=== PATIENT | female | born 1985 | race Caucasian/White ===

== ENCOUNTER 2018-01-20 15:37 | Emergency (ER) | payer MEDICAID, SELFPAY ==
[2018-01-20 15:41] VITALS: BP 113/59; PULSE 81; RESP 18; TEMP 37.2; O2SAT 98
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
[2018-01-20 16:26] LABS: Bilirubin Negative (Negative); Blood Negative (Negative); Clarity Clear; Glucose Negative (Negative); Ketones Negative (Negative); Leukocyte Esterase Negative (Negative); Nitrite Negative (Negative); Specific Gravity 1.025 (1.005-1.025); Urobilinogen 0.2 EU/dL (Up TO 0.2)
[2018-01-20] MEDS: Normal Saline 1,000 ML 1000 ML IV (16:30)
[2018-01-20] MEDS: Ketorolac 30 MG/ML VIAL IVP (16:42)
[2018-01-20 16:48] LABS: Abs Immature Grans 0.02 k/cumm (0.0-0.09); Absolute Basophil Count 0.03 k/cumm (0.0-0.2); Absolute Eosinophil Count 0.08 k/cumm (0.0-0.7); Absolute Lymphocyte Count 2.64 k/cumm (1.2-3.4); Absolute Monocyte Count 0.81 k/cumm (0.11-0.7); Basophils % 0.3; Eosinophils % 0.8; HCT 40.8 % (36.0-46.0); HGB 13.9 g/dL (12.0-15.5); Immature Grans % 0.2; Lymphocytes % 25.9; Mean Corp. HGB Concentration 34.1 g/dL (32.0-36.0); Mean Corpuscular Hemoglobin 30.8 pg (27.0-33.0); Mean Corpuscular Volume 90.3 fL (80-95); Mean Platelet Volume 10.7 fL (8.0-11.0); Neutrophils % 64.8; Platelet Count 222 x1000/uL (130-400); RBC 4.52 m/cumm (4.00-5.20); RBC Distribution Width 12.7 % (11.7-14.6); White Blood Cell Count 10.18 k/cumm (4.4-10.8)
[2018-01-20 16:59] LABS: ALT 22 U/L (12-78); AST 18 U/L (15-37); Albumin 3.8 g/dL (3.4-5.0); Alkaline Phosphatase 67 U/L (46-116); BUN 14 mg/dL (7-18); Bilirubin, Total 0.2 mg/dL (0.2-1.0); CREATININE 0.87 mg/dL (0.55-1.02); Calcium 8.6 mg/dL (8.5-10.1); Chloride 106 mmol/L (98-107); Glucose 97 mg/dL (70-100); Potassium 3.7 mmol/L (3.5-5.1); Sodium 140 mmol/L (136-145); Total Protein 6.7 g/dL (6.4-8.2)
[2018-01-20] MEDS: Omnipaque 350 MG/ML 100 ML BTL IJ (17:15)
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
[2018-01-20 18:48] VITALS: BP 132/90; PULSE 69; RESP 18; TEMP 37.2; O2SAT 100
[2018-01-20 18:55] VITALS: BP 132/90; PULSE 69; RESP 18; TEMP 37.2; O2SAT 100
== END 2018-01-20 18:53 | disposition home or self-care (01) ==
PROVIDERS: Emergency Provider Physician Assistant; PCP Family Medicine
DX: R10.84 Generalized abdominal pain (principal); R07.81 Pleurodynia; K62.5 Hemorrhage of anus and rectum; K62.89 Other specified diseases of anus and rectum; Y04.8XXA Assault by other bodily force, initial encounter; Y07.03 Male partner, perpetrator of maltreatment and neglect
CPT/HCPCS: 36415; 74177; 80053; 81025; 93005; 96361; 96374; 99285; 71260; 81003; 85025; 93010; J1885; J3490

== ENCOUNTER 2018-01-28 17:35 | Emergency (ER) | payer MEDICAID, SELFPAY ==
[2018-01-28] VITALS (16 sets, daily range): BP systolic 121–142; BP diastolic 80–103; PULSE 66–92; RESP 24; TEMP 37.7; O2SAT 96–100
--- NOTE | 2018-01-28 17:46 | ED.GENADUL_ITS ---
Disposition Clinical Impression: Abdominal pain Disposition: HOME Condition: Improving Instructions: Abdominal Pain (ED) Additional Instructions: Alternate Tylenol and Motrin as needed and directed for pain. Alternate ice and heat to the affected area several times daily. Follow-up with your primary care doctor within the next week. Return to the emergency department with any worsening or new concerning symptoms. Forms: Work Release Medical Decision Making - Lab Data test negative Laboratory Tests 01/28/18 01/28/18 01/28/18 17:45 17:45 18:15 WBC 12.87 H RBC 5.11 Hgb 15.8 H Hct 45.3 MCV 88.6 MCH 30.9 MCHC 34.9 RDW 12.9 Plt Count 277 MPV 10.9 Immature Gran % 0.3 Neutrophils % 67.6 Lymphocytes % 23.2 Monocytes % 7.9 Eosinophils % 0.6 Basophils % 0.4 Absolute Neutrophils 8.70 H Absolute Lymphocytes 2.99 Absolute Monocytes 1.02 H Absolute Eosinophils 0.08 Absolute Basophils 0.05 Sodium 139 Potassium 3.7 Chloride 101 Carbon Dioxide 26.4 Anion Gap 11.6 H BUN 13 Creatinine 0.69 Estimated GFR/1.73 m2 >= 60.00 Glucose 98 Calcium 9.4 Total Bilirubin 0.6 AST 18 ALT 21 Alkaline Phosphatase 82 Total Protein 8.2 Albumin 4.5 Lipase 109 Urine Color Yellow Urine Clarity Clear Urine pH 6.0 Ur Specific [place] >= 1.030 H Urine Protein Negative Urine Ketones Negative Urine Blood Trace-intact H Urine Nitrite Negative Urine Bilirubin Negative Urine Urobilinogen 0.2 Ur Leukocyte Esterase Negative Urine RBC 0-2 Urine WBC 0-2 Ur Epithelial Cells Few Urine Crystals Negative Urine Bacteria Rare Urine Casts Negative Urine Mucus Moderate Ur Culture Indicated? No Urine Glucose Negative - Radiology Data Radiology results: report reviewed, image reviewed interpreted by me: Abdomen ultrasound: Negative CT abdomen and pelvis without IV contrast: Negative - Medical Decision Making 32-year-old female who presents for right-sided abdominal pain since yesterday afternoon. Patient presented moaning in pain from the waiting room. She is grabbing her right side and moaning and crying and screaming in the room. She has mild to moderate tenderness palpation in the right upper quadrant and right mid abdomen. There is no rigidity she has guarding. History of appendectomy. No ultrasound available, but with significant pain and right upper and mid abdominal tenderness, will obtain a CT abdomen renal colic. William from ultrasound still here and will stay to do an abdominal ultrasound to rule out cholecystitis. Will place an IV, bolus IV fluids, labs, urinalysis and give a dose of Toradol. Patient states she cannot take morphine, codeine or fentanyl. 1844 -- William called to state the gallbladder looks normal and that the pancreas wall looked thickened. 1899 -- patient denies any relief with Toradol. She is still moaning in pain. Will give a dose of Dilaudid. 1944 -- labs and imaging reviewed. Abdomen ultrasound and CT negative. White blood cell count 12.87. Urinalysis greater than 1.030 specific gravity and anion gap 11.6. Patient given another liter of IV fluids. Patient admits to complete relief of pain with Dilaudid. Patient states I do not like the way the Dilaudid makes me feel . She appears groggy and sleepy and is no longer moaning and appears comfortable. Reassessment of abdomen notes improvement in tenderness with palpation in right side of abdomen. She states she still feels a popping in her right abdomen. I also discussed the possibility of a muscle strain in the abdomen. Patient states she otherwise feels good to go home. Instructed to alternate Tylenol and Motrin, follow-up with primary care doctor and return here if worse. History of Present Illness - General Chief complaint: Abd Prob Stated complaint: STOMACH PAIN Time Seen by Provider: 01/28/18 17:41 Source: patient Mode of arrival: ambulatory Limitations: no limitations - History of Present Illness Initial comments: Patient is a 32-year-old female who presents to the ER with complaint of right sided abdominal pain for 1 day. Patient describes the pain as intermittent, stabbing. Patient has significant pain during evaluation and is moaning and grabbing her right side and difficult to answer questions. She denies nausea, vomiting, diarrhea. Patient states she last ate today at noon and had pizza. Last bowel movement 2 days ago. She denies any known fever or urinary symptoms. - Related Data Methylphenidate [Ritalin] 20 mg PO BID #60 01/08/15 Dexmethylphenidate HCl [Focalin Xr] 30 mg PO DAILY 01/20/18 Allergies Allergy/AdvReac Type Severity Reaction Status Date / Time cefazolin sodium [From [facility]] Allergy Severe Bradycardia Unverified 01/28/18 18: 34 & hives fentanyl Allergy Severe Hives and Unverified 01/28/18 18:34 Bradycardia venom-honey bee Allergy Severe Anaphylaxsi Unverified 01/28/18 18:34 [bee venom (honey bee)] s lurasidone HCl [From Latuda] Allergy seizure Unverified 01/28/18 18:34 codeine [Codeine] AdvReac Intermediate Nausea/vomi Unverified 01/28/18 18:34 tting Sulfa (Sulfonamide AdvReac Intermediate Body Shakes Unverified 01/28/18 18:34 Antibiotics) gabapentin AdvReac light Unverified 01/28/18 18:34 headed /dizzy/depressed morphine AdvReac I get Unverified 01/28/18 18:34 very ugly Review of Systems Constitutional: denies: chills, fever Eyes: denies: eye pain ENT: denies: ear pain, dental pain Respiratory: denies: cough, shortness of breath Cardiovascular: denies: chest pain, dyspnea on exertion Gastrointestinal: abdominal pain. denies: nausea, vomiting Genitourinary: denies: urgency, dysuria, frequency Musculoskeletal: denies: back pain Skin: denies: rash, lesions Neurological: denies: headache, weakness, numbness Past Medical History - Past Medical History Medical history: asthma, GERD Surgical history: appendectomy, bilateral tubal ligation, , other ( Oophorectomy) Family history: no significant family history, other (bowel problems) - Social History Smoking status: current everyday smoker Alcohol use: occasionally Drug use: marijuana General Exam - General Limitations: no limitations General appearance: alert, other (appears significantly uncomfortable, moaning in pain ) - Respiratory Respiratory exam: Present: normal lung sounds bilaterally. Absent: respiratory distress, wheezes, rales, rhonchi, stridor - Cardiovascular Cardiovascular Exam: Present: regular rate, normal rhythm. Absent: bradycardia , tachycardia - GI/Abdominal GI/Abdominal exam: Present: soft, tenderness (Right upper quadrant and right midabdomen.), normal bowel sounds. Absent: distended, guarding, rebound, rigid - Neurological Exam Neurological exam: Present: alert, oriented X3 - Psychiatric Psychiatric exam: Present: other (moaning in pain, crying) - Skin Skin exam: Present: warm, dry, intact
--- NOTE | 2018-01-28 17:59 | DI.RPTCT_ITS ---
SYMPTOMS/DIAGNOSIS: RT SIDE PAIN, ? KIDNEY STONE, RECTAL BLEEDING, ? ACUTE PROCESS NONCONTRAST CT OF THE ABDOMEN AND PELVIS: The exam is limited by lack of intra-abdominal fat and lack of oral and IV contrast. There is no evidence of urinary tract calculi or hydronephrosis. The liver, gallbladder, spleen, pancreas and adrenals are unremarkable without IV contrast. There is a moderate increased quantity of stool. There is no abnormal bowel dilatation or wall thickening. There are surgical clips around the base of the cecum which may be related to previous appendectomy. The uterus and ovaries are unremarkable. IMPRESSION: No evidence of urinary tract calculi or other acute abnormality.
[2018-01-28 18:00] LABS: Abs Immature Grans 0.04 k/cumm (0.0-0.09); Absolute Basophil Count 0.05 k/cumm (0.0-0.2); Absolute Eosinophil Count 0.08 k/cumm (0.0-0.7); Absolute Lymphocyte Count 2.99 k/cumm (1.2-3.4); Absolute Monocyte Count 1.02 k/cumm (0.11-0.7); Basophils % 0.4; Eosinophils % 0.6; HCT 45.3 % (36.0-46.0); HGB 15.8 g/dL (12.0-15.5); Immature Grans % 0.3; Lymphocytes % 23.2; Mean Corp. HGB Concentration 34.9 g/dL (32.0-36.0); Mean Corpuscular Hemoglobin 30.9 pg (27.0-33.0); Mean Corpuscular Volume 88.6 fL (80-95); Mean Platelet Volume 10.9 fL (8.0-11.0); Monocytes % 7.9; Neutrophils % 67.6; Platelet Count 277 x1000/uL (130-400); RBC 5.11 m/cumm (4.00-5.20); RBC Distribution Width 12.9 % (11.7-14.6); White Blood Cell Count 12.87 k/cumm (4.4-10.8)
[2018-01-28] MEDS: Ketorolac 30 MG/ML VIAL IVP (18:05)
[2018-01-28] MEDS: Normal Saline 1,000 ML 1000 ML IV ×2 (18:07→19:10)
[2018-01-28 18:13] LABS: ALT 21 U/L (12-78); AST 18 U/L (15-37); Albumin 4.5 g/dL (3.4-5.0); Alkaline Phosphatase 82 U/L (46-116); Anion Gap 11.6 mmol/L (3-11); BUN 13 mg/dL (7-18); Bilirubin, Total 0.6 mg/dL (0.2-1.0); CO2 26.4 mmol/L (21.0-32.0); CREATININE 0.69 mg/dL (0.55-1.02); Calcium 9.4 mg/dL (8.5-10.1); Chloride 101 mmol/L (98-107); Glucose 98 mg/dL (70-100); Lipase 109 U/L (73-393); Potassium 3.7 mmol/L (3.5-5.1); Sodium 139 mmol/L (136-145); Total Protein 8.2 g/dL (6.4-8.2)
--- NOTE | 2018-01-28 18:31 | DI.REPORT_ITS ---
SYMPTOMS/DIAGNOSIS: RUQ ABD PAIN, ? CHOLECYSTITIS OR KIDNEY STONES ABDOMEN ULTRASOUND: Comparison is made with [id number]. The liver is normal in size and echogenicity. The gallbladder is unremarkable. No stones or wall thickening is seen. There is no right upper quadrant tenderness. There is no evidence of ascites. The kidneys, spleen and pancreas as well as aorta are unremarkable. IMPRESSION: Negative abdomen ultrasound.
[2018-01-28 18:37] LABS: Bilirubin Negative (Negative); Blood Trace-intact (Negative); Clarity Clear; Glucose Negative (Negative); Ketones Negative (Negative); Leukocyte Esterase Negative (Negative); Nitrite Negative (Negative); Specific Gravity >= 1.030 (1.005-1.025); Urobilinogen 0.2 EU/dL (Up TO 0.2)
[2018-01-28 18:48] LABS: Bacteria Rare HPF (Negative); C & S Indicated? No; Casts Negative LPF (Negative); Crystals Negative HPF (Negative); Epithelial Cells Few HPF (Negative); Mucus Moderate (Negative); RBC 0-2 (0-2); WBC 0-2 HPF (0-5)
--- NOTE | 2018-01-28 19:19 | DI.VRAD_ITS ---
EXAM: US Abdomen Complete CLINICAL HISTORY: 32 years old, female; Pain; Abdominal pain and other: Rt sided rib region pain; Acute TECHNIQUE: Real-time ultrasound of the abdomen (complete) with image documentation. COMPARISON: OB US 2-3 TRI TRANSABD 2014-11-20 15:08 FINDINGS: The liver is unremarkable. Normal gallbladder. There was no sonographic Godinez's sign according to the pinion sorter. Slightly prominent common bile duct. No hydronephrosis. 1.6 cm right renal cyst. Limited evaluation of the pancreas. Normal spleen. Normal abdominal aorta. IMPRESSION: No acute findings. Dictated and Authenticated by: Marvin Mckinney MD. Ordering:MONIQUE LUCERO MD
--- NOTE | 2018-01-28 19:20 | DI.VRAD_ITS ---
EXAM: CT Abdomen and Pelvis Without Intravenous Contrast CLINICAL HISTORY: 32 years old, female; Pain and signs and symptoms; Other: Rectal bleeding; Abdominal pain TECHNIQUE: Axial computed tomography images of the abdomen and pelvis without intravenous contrast. Coronal and sagittal reformatted images were created and reviewed. COMPARISON: CT - CHEST ABD PELVIS WITH CONTRAST 2018-01-20 16:40 FINDINGS: Lung bases: Unremarkable. No mass. No consolidation. ABDOMEN: Liver: Unremarkable. Gallbladder and bile ducts: Unremarkable. No calcified stones. No ductal dilation. Pancreas: Unremarkable. No ductal dilation. Spleen: Unremarkable. No splenomegaly. Adrenals: Unremarkable. No mass. Kidneys and ureters: Unremarkable. No obstructing stones. No hydronephrosis. Stomach and bowel: No evidence of bowel obstruction. There is mild fecal retention in the colon. Limited evaluation of the rectum without intravenous contrast enhancement. PELVIS: Appendix: Nonvisualized appendix. No findings to suggest appendicitis. Bladder: Unremarkable. No stones. Reproductive: Unremarkable as visualized. ABDOMEN and PELVIS: Intraperitoneal space: Unremarkable. No free air. No significant fluid collection. Bones/joints: No acute fracture. No dislocation. Soft tissues: Unremarkable. Vasculature: Unremarkable. No abdominal aortic aneurysm. Lymph nodes: Unremarkable. No enlarged lymph nodes. IMPRESSION: No acute findings. Dictated and Authenticated by: Marvin Mckinney MD. Ordering:MONIQUE LUCERO MD
[2018-01-28] MEDS: HYDROmorphone 2 MG/ML VIAL 1 MG IVP (19:35)
[2018-01-28] MEDS: Ondansetron 4 MG/2 ML VIAL IVP (20:00)
[2018-01-28] MEDS: Normal Saline Flush 10 ML SYR IVP (20:20)
== END 2018-01-28 20:31 | disposition home or self-care (01) ==
PROVIDERS: Emergency Provider Physician Assistant; PCP Family Medicine
DX: R10.11 Right upper quadrant pain (principal)
CPT/HCPCS: 36415; 80053; 81025; 83690; 96361; 96374; 96375; 99284; 74176; 76700; 81003; 81015; 85025; J1885; J2405

== ENCOUNTER → 2018-02-01 11:28 | Outpatient (CLI) | payer MEDICAID, SELFPAY ==
[2018-02-02 11:27] LABS: Alpha 1 Antitrypsin,Serum 68 mg/dL (90-200)
== END ==
PROVIDERS: PCP Family Medicine; Visit Provider Family Medicine
DX: J43.9 Emphysema, unspecified (principal)
CPT/HCPCS: 36415; 82103

== ENCOUNTER 2018-03-07 10:16 | Emergency (ER) | payer MEDICAID, SELFPAY ==
[2018-03-07] VITALS (15 sets, daily range): BP systolic 92–147; BP diastolic 60–104; PULSE 88–182; RESP 9–28; TEMP 36.8–37; O2SAT 98–100
--- NOTE | 2018-03-07 10:32 | DI.RAD_ITS ---
SYMPTOMS/DIAGNOSIS: SHORTNESS OF BREATH, COUGH CHEST: Frontal and lateral views. Comparison 10/19/17. The heart size and pulmonary vasculature are within normal limits. The lungs are clear and well expanded. There are healing fractures at the lateral aspects of the right 8th and 9th ribs. The bones are otherwise unremarkable. IMPRESSION: Healing right 8th and 9th rib fractures laterally.
--- NOTE | 2018-03-07 10:48 | W.ED.GENAD ---
Discharge Plan Disposition Patient Disposition: HOME Condition: Stable Discharge Details Chief Complaint: RespSymp Clinical Impression: Asthma, Nonsustained paroxysmal supraventricular tachycardia, Decreased thyroid stimulating hormone (TSH) level Primary Care Provider: Ze Edwards ED Provider: Kate Sims Home Meds and New Rx's Prescriptions: New prednisone 50 mg tablet 50 mg PO DAILY Qty: 4 RF: 0 albuterol sulfate 90 mcg/actuation HFA aerosol inhaler 2 puff IH Q6H PRN (Reason: shortness of breath) Qty: 8 RF: 0 Continue methylphenidate HCl [Ritalin] 20 MG tablet 20 mg PO BID Qty: 60 RF: 0 risperidone [Risperdal] 1 MG tablet 1 mg PO HS RF: 0 nicotine [Nicoderm CQ] 21 mg/24 hr patch 24 hour 1 patch TD Q24H Qty: 45 RF: 0 lorazepam [Ativan] 0.5 mg Tablet 0.5 mg PO BID RF: 0 dexmethylphenidate [Focalin XR] 30 MG capsule,ER biphasic 50-50 30 mg PO DAILY RF: 0 No Action metoprolol tartrate 25 mg tablet 25 mg PO BID Qty: 60 RF: 11 Discharge Instructions Instructions: Supraventricular Tachycardia (ED), Asthma (ED), Hyperthyroidism (ED) Additional Instructions: Please return immediately to the emergency department if you develop any new or worsening symptoms or if you become otherwise concerned. It is extremely important that you attend your scheduled appointment this Wednesday at 940 in the morning with your primary care doctor. Stand Alone Forms: Work Release Discharge Data Discharge Date/Time-TO BE ENTERED AT DEPARTURE: 03/07/18 13:45 Medical Decision Making [facility] Narrative Medical decision making narrative: Billy Santana is a 32 y/o woman with h/o emphysema, current smoker presenting to the emergency department with cough and SOB. On exam Pt with b/l wheeze, productive cough, and mild SOB able to speak in full sentences. Upon being placed on monitor Pt was found to be in SVT and brought to resuscitation room. Vagal maneuvers failed, but Pt then spontaneously converted to sinus rhythm prior to medication administration. No low BP. Pt reported feeling lightheaded and sweaty with heart racing during episode, and reports that this has been happening almost every day and sometimes several times a day for the past few months. She has not sought medical evaluation for these symptoms. No fainting or LOC in the past. Concern for PNA vs COPD exacerbation, possible metabolic/lyte disturbance vs other, doubt PE. Exam/hx not c/w sepsis, ACS, acute aortic pathology. Plan for duonebs, solumedrol, CXR, screening labs, EKG, telemetry, will monitor and reassess. Pt reports feeling signicantly better after duoneb. Continued b/l wheeze on auscultation, improved from prior. Will repeat duoneb. CXR okay. Labs non-diagnostic, upreg neg per nursing. Pt reports feeling much better after duoneb without no further SOB. LCTAB on exam. Given Pt with apparent recurrent non-sustained episodes of SVT at home, no indication for admission at this time. Pt has not been using inhaler at home, will hold abx at this time. Rx prednisone and inh. Discussed possible cessation of stimulant meds with Pt, who would like to discuss with her PCP. I discussed Pt presentation, exam/hx and results with Dr. Ramsay, who recommends no med changes at this time (not the Pt's PCP) and will have Pt seen this week in f/u for resp and cardiac problems. Lengthy discussion with Pt re: RTED precautions and importance of outpt f/u with PCP . Pt is amenable to the plan. Medical Records Medical records reviewed: Yes I reviewed the patient's medical records. Imaging Data Radiologic Study: Attestation: I personally reviewed and interpreted this imaging study as follows: Radiologist's impression: CHEST: Frontal and lateral views. Comparison 10/19/17. The heart size and pulmonary vasculature are within normal limits. The lungs are clear and well expanded. There are healing fractures at the lateral aspects of the right 8th and 9th ribs. The bones are otherwise unremarkable. IMPRESSION: Healing right 8th and 9th rib fractures laterally. Lab Data Lab results reviewed: Yes I reviewed the patient's lab results. 03/07/18 10:40 Pharynx Streptococcus Screen ([facility]) - Final Laboratory Tests Range/Units 03/07/18 03/07/18 03/07/18 10:50 11:35 11:35 WBC (4.4-10.8) k/cumm 13.11 H RBC (4.00-5.20) m/cumm 4.99 Hgb (12.0-15.5) g/dL 15.3 Hct (36.0-46.0) % 44.3 MCV (80-95) fL 88.8 MCH (27.0-33.0) pg 30.7 MCHC (32.0-36.0) g/dL 34.5 RDW (11.7-14.6) % 12.7 Plt Count (130-400) x1000/uL 232 MPV (8.0-11.0) fL 11.1 H Immature Gran % 0.2 Neutrophils % 78.8 Lymphocytes % 10.9 Monocytes % 8.1 Eosinophils % 1.8 Basophils % 0.2 Absolute Neutrophils (1.2-6.7) k/cumm 10.33 H Absolute Lymphocytes (1.2-3.4) k/cumm 1.43 Absolute Monocytes (0.11-0.7) k/cumm 1.06 H Absolute Eosinophils (0.0-0.7) k/cumm 0.24 Absolute Basophils (0.0-0.2) k/cumm 0.03 D-Dimer (<500) ng/mlFEU Sodium (136-145) mmol/L 142 Potassium (3.5-5.1) mmol/L 3.8 Chloride (98-107) mmol/L 107 Carbon Dioxide (21.0-32.0) mmol/L 25.9 Anion Gap (3-11) mmol/L 9.1 BUN (7-18) mg/dL 6 L Creatinine (0.55-1.02) mg/dL 0.68 Estimated GFR/1.73 m2 (mL/min/1.73m2) >= 60.00 Glucose (70-100) mg/dL 123 H Calcium (8.5-10.1) mg/dL 8.8 Total Bilirubin (0.2-1.0) mg/dL 0.3 AST (15-37) U/L 21 ALT (12-78) U/L 26 Alkaline Phosphatase (46-116) U/L 75 Total Protein (6.4-8.2) g/dL 7.1 Albumin (3.4-5.0) g/dL 3.8 TSH (0.358-3.74) uIU/mL Free T4 (0.76-1.46) ng/dL Urine Color (Yellow) Yellow Urine Clarity Clear Urine pH (5-8) 7.0 Ur Specific [place] (1.005-1.025) 1.015 Urine Protein (Negative) mg/dL Negative Urine Ketones (Negative) mg/dL Negative Urine Blood (Negative) Trace-intact H Urine Nitrite (Negative) Negative Urine Bilirubin (Negative) Negative Urine Urobilinogen (Up TO 0.2) EU/dL 0.2 Ur Leukocyte Esterase (Negative) Negative Urine RBC (0-2) Negative Urine WBC (0-5) HPF Negative Ur Epithelial Cells (Negative) HPF Moderate Urine Crystals (Negative) HPF Negative Urine Bacteria (Negative) HPF Few Urine Casts (Negative) LPF Negative Urine Mucus (Negative) Negative Ur Culture Indicated? No Urine Glucose (Negative) mg/dL Negative Range/Units 03/07/18 03/07/18 11:35 11:35 WBC (4.4-10.8) k/cumm RBC (4.00-5.20) m/cumm Hgb (12.0-15.5) g/dL Hct (36.0-46.0) % MCV (80-95) fL MCH (27.0-33.0) pg MCHC (32.0-36.0) g/dL RDW (11.7-14.6) % Plt Count (130-400) x1000/uL MPV (8.0-11.0) fL Immature Gran % Neutrophils % Lymphocytes % Monocytes % Eosinophils % Basophils % Absolute Neutrophils (1.2-6.7) k/cumm Absolute Lymphocytes (1.2-3.4) k/cumm Absolute Monocytes (0.11-0.7) k/cumm Absolute Eosinophils (0.0-0.7) k/cumm Absolute Basophils (0.0-0.2) k/cumm D-Dimer (<500) ng/mlFEU 244 Sodium (136-145) mmol/L Potassium (3.5-5.1) mmol/L Chloride (98-107) mmol/L Carbon Dioxide (21.0-32.0) mmol/L Anion Gap (3-11) mmol/L BUN (7-18) mg/dL Creatinine (0.55-1.02) mg/dL Estimated GFR/1.73 m2 (mL/min/1.73m2) Glucose (70-100) mg/dL Calcium (8.5-10.1) mg/dL Total Bilirubin (0.2-1.0) mg/dL AST (15-37) U/L ALT (12-78) U/L Alkaline Phosphatase (46-116) U/L Total Protein (6.4-8.2) g/dL Albumin (3.4-5.0) g/dL TSH (0.358-3.74) uIU/mL 0.34 L Free T4 (0.76-1.46) ng/dL 1.10 Urine Color (Yellow) Urine Clarity Urine pH (5-8) Ur Specific [place] (1.005-1.025) Urine Protein (Negative) mg/dL Urine Ketones (Negative) mg/dL Urine Blood (Negative) Urine Nitrite (Negative) Urine Bilirubin (Negative) Urine Urobilinogen (Up TO 0.2) EU/dL Ur Leukocyte Esterase (Negative) Urine RBC (0-2) Urine WBC (0-5) HPF Ur Epithelial Cells (Negative) HPF Urine Crystals (Negative) HPF Urine Bacteria (Negative) HPF Urine Casts (Negative) LPF Urine Mucus (Negative) Ur Culture Indicated? Urine Glucose (Negative) mg/dL ECG Data Attestation: I personally reviewed and interpreted this ECG (s) as follows: Interpretation: EKG shows SVT at 169 with right axis, diffuse mild ST depression, no STEMI HPI - General Adult General Mode of arrival: ambulatory. Date/Time Provider Initiated Documentation: 03/07/18 10:29. Limitations to Documentation: no limitations. Information obtained by: patient, RN notes reviewed and old records reviewed. HPI Narrative: Billy Santana is a 32-year-old woman with history of asthma, alpha antitrypsin deficiency presenting to the emergency department with shortness of breath. Patient reports that last night she developed cough, nasal congestion, and shortness of breath. She reports that she has had similar symptoms multiple times in the past, and that her son has a cold also with similar symptoms. Cough is productive. She denies fevers, nausea/vomiting/diarrhea, chest pain or any other pain. Previously in her usual state of health. Has been eating and drinking normally. Current smoker. No recent travel. Related Data Home Medications Medication Instructions Recorded Confirmed methylphenidate HCl [Ritalin] 20 mg PO BID #60 01/08/15 03/11/18 dexmethylphenidate [Focalin XR] 30 mg PO DAILY 01/20/18 03/11/18 risperidone [Risperdal] 1 mg PO HS 02/01/18 03/11/18 Nicoderm CQ 21 mg/24 hr daily 1 patch TD Q24H #45 each NS 02/25/18 03/11/18 transdermal patch albuterol sulfate 2 puff IH Q6H PRN #8 gm 03/07/18 03/11/18 lorazepam [Ativan] 0.5 mg PO BID 03/07/18 03/11/18 prednisone 50 mg PO DAILY #4 tab 03/07/18 03/11/18 metoprolol tartrate 25 mg tablet 25 mg PO BID #60 tab 03/09/18 03/11/18 Previous Rx's Medication Instructions Recorded Nicoderm CQ 21 mg/24 hr daily 1 patch TD Q24H #45 each NS 02/25/18 transdermal patch albuterol sulfate 2 puff IH Q6H PRN #8 gm 03/07/18 prednisone 50 mg PO DAILY #4 tab 03/07/18 metoprolol tartrate 25 mg tablet 25 mg PO BID #60 tab 03/09/18 Allergies Allergy/AdvReac Type Severity Reaction Status Date / Time cefazolin sodium [From Ancef] Allergy Severe Bradycardia Unverified 03/11/18 09:02 & hives fentanyl Allergy Severe Hives and Unverified 03/11/18 09:02 Bradycardia venom-honey bee Allergy Severe Anaphylaxsi Unverified 03/11/18 09:02 [bee venom (honey bee)] s lurasidone HCl [From Latuda] Allergy seizure Unverified 03/11/18 09:02 codeine [Codeine] AdvReac Intermediate Nausea/vomi Unverified 03/11/18 09:02 tting Sulfa (Sulfonamide AdvReac Intermediate Body Shakes Unverified 03/11/18 09:02 Antibiotics) hydromorphone AdvReac Mild Dizziness/L Unverified 03/11/18 09:02 ightheade gabapentin AdvReac light Unverified 03/11/18 09:02 headed /dizzy/depressed morphine AdvReac I get Unverified 03/11/18 09:02 very ugly General Stated Complaint: RespSymp MINNA: 3 Review of Systems Review of Systems Constitutional: denies fevers Eyes: denies eye pain ENT: denies facial pain, dental pain, sore throat Cardiovascular: denies chest pain, edema Respiratory: reports SOB, cough GI: denies abdominal pain, vomiting, diarrhea : denies flank pain MSK: denies back pain, neck pain, arthralgias, myalgias Skin: denies rash Neuro: denies headaches, lightheadedness, weakness PFSH Family History Mother Depression Hx of suicide attempt Cerebrovascular accident Father Depression Neoplasm Asthma Social History household members: other details: 4 marital status: SINGLE current occupational status: employed 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 pets and animals: Yes pets and animals: dog(s) Smoking/Tobacco Use Status: Current every day tobacco type: cigarettes passive smoking exposure: Yes alcohol intake: current alcohol intake frequency: holidays/special occasions only substance use type: marijuana seatbelt use: never helmet use: No Surgical History Appendectomy Arthroplasty of knee section Tonsillectomy Exam Narrative Exam Narrative: Constitutional: well and [id number], pleasant, conversing normally HENT: head atraumatic, normocephalic normal inspection, mucous membranes moist Eyes: conjunctiva normal, sclera normal, pupils 3mm b/l Neck: no stridor, normal ROM, trachea midline Chest: normal inspection Resp: normal work of breathing, LCTAB Cardio: normal rate, normal rhythm, no murmur appreciated GI: abdomen soft, non-tender, non-distended Back: normal inspection, no rash Skin: warm, dry, normal color, no rash Neuro: alert, not altered, grossly non-focal, normal tone Ext: no edema Psych: normal mood, normal affect, normal behavior Course Vital Signs Temperature 37 C 03/07/18 10:25 Pulse 91 H 03/07/18 10:25 Respiratory Rate 16 03/07/18 10:25 Blood Pressure 122/88 03/07/18 10:25 Pulse Oximetry 99 03/07/18 10:25 Temperature 37 C 03/07/18 10:25 Pulse 91 H 03/07/18 10:25 Respiratory Rate 16 03/07/18 10:25 Blood Pressure 122/88 03/07/18 10:25 Pulse Oximetry 99 03/07/18 10:25
[2018-03-07 11:04] LABS: Bilirubin Negative (Negative); Blood Trace-intact (Negative); Clarity Clear; Glucose Negative (Negative); Ketones Negative (Negative); Leukocyte Esterase Negative (Negative); Nitrite Negative (Negative); Specific Gravity 1.015 (1.005-1.025); Urobilinogen 0.2 EU/dL (Up TO 0.2)
[2018-03-07 11:17] LABS: Epithelial Cells Moderate HPF (Negative); RBC Negative (0-2); WBC Negative HPF (0-5)
[2018-03-07 11:18] LABS: Bacteria Few HPF (Negative); C & S Indicated? No; Casts Negative LPF (Negative); Crystals Negative HPF (Negative); Mucus Negative (Negative)
[2018-03-07] MEDS: Albuterol/Ipratropium 3 ML UPD VIAL UPD (11:25)
[2018-03-07] MEDS: Normal Saline Flush 10 ML SYR IVP (11:35)
[2018-03-07] MEDS: Normal Saline 1,000 ML 1000 ML IV (11:35)
[2018-03-07 12:03] LABS: Abs Immature Grans 0.02 k/cumm (0.0-0.09); Absolute Basophil Count 0.03 k/cumm (0.0-0.2); Absolute Eosinophil Count 0.24 k/cumm (0.0-0.7); Absolute Lymphocyte Count 1.43 k/cumm (1.2-3.4); Absolute Monocyte Count 1.06 k/cumm (0.11-0.7); Absolute Neutrophil Count 10.33 k/cumm (1.2-6.7); Basophils % 0.2; Eosinophils % 1.8; HCT 44.3 % (36.0-46.0); HGB 15.3 g/dL (12.0-15.5); Immature Grans % 0.2; Lymphocytes % 10.9; Mean Corp. HGB Concentration 34.5 g/dL (32.0-36.0); Mean Corpuscular Hemoglobin 30.7 pg (27.0-33.0); Mean Corpuscular Volume 88.8 fL (80-95); Mean Platelet Volume 11.1 fL (8.0-11.0); Monocytes % 8.1; Neutrophils % 78.8; Platelet Count 232 x1000/uL (130-400); RBC 4.99 m/cumm (4.00-5.20); RBC Distribution Width 12.7 % (11.7-14.6); White Blood Cell Count 13.11 k/cumm (4.4-10.8)
[2018-03-07 12:15] LABS: ALT 26 U/L (12-78); AST 21 U/L (15-37); Albumin 3.8 g/dL (3.4-5.0); Alkaline Phosphatase 75 U/L (46-116); Anion Gap 9.1 mmol/L (3-11); BUN 6 mg/dL (7-18); Bilirubin, Total 0.3 mg/dL (0.2-1.0); CO2 25.9 mmol/L (21.0-32.0); CREATININE 0.68 mg/dL (0.55-1.02); Calcium 8.8 mg/dL (8.5-10.1); Chloride 107 mmol/L (98-107); Glucose 123 mg/dL (70-100); Potassium 3.8 mmol/L (3.5-5.1); Sodium 142 mmol/L (136-145); Total Protein 7.1 g/dL (6.4-8.2)
[2018-03-07 12:23] LABS: TSH (W/Ref FT4) 0.34 uIU/mL (0.358-3.74)
[2018-03-07] MEDS: predniSONE 20 MG TAB 60 MG PO (12:24)
[2018-03-07 12:33] LABS: D-Dimer 244 ng/mlFEU (<500)
--- NOTE | 2018-03-07 12:39 | NUR.NOTE ---
Pt not keeping self on monitor. takes leads, BP, pulse ox off each time. states my heart is fine now. Nursing Note:
--- NOTE | 2018-03-07 14:15 | CMPROGNOTE_ITS ---
Care Management Progress Note 03/07/18-Pt seen today for Resp. Symptoms by Dr. Carrasco . Pt is having recurring SVT runs . Dr. Morro sanchez is requesting Pt to see her PCP, Dr. Collazo by tomorrow for tx. Pt has a previous scheduled appt on Wednesday (03/11). [email or web address] has moved Pt's appt up to Wed03/09/[address] at 9:[address] Dr[address]K. sanchez advised Pt.
--- NOTE | 2018-03-14 08:15 | ED.GENADUL_ITS ---
Discharge Plan Disposition Patient Disposition: HOME Condition: Stable Discharge Details Chief Complaint: RespSymp Clinical Impression: Asthma, Nonsustained paroxysmal supraventricular tachycardia, Decreased thyroid stimulating hormone (TSH) level Primary Care Provider: Ze Edwards ED Provider: Kate Sims Home Meds and New Rx's Prescriptions: New prednisone 50 mg tablet 50 mg PO DAILY Qty: 4 RF: 0 albuterol sulfate 90 mcg/actuation HFA aerosol inhaler 2 puff IH Q6H PRN (Reason: shortness of breath) Qty: 8 RF: 0 Continue methylphenidate HCl [Ritalin] 20 MG tablet 20 mg PO BID Qty: 60 RF: 0 risperidone [Risperdal] 1 MG tablet 1 mg PO HS RF: 0 nicotine [Nicoderm CQ] 21 mg/24 hr patch 24 hour 1 patch TD Q24H Qty: 45 RF: 0 lorazepam [Ativan] 0.5 mg Tablet 0.5 mg PO BID RF: 0 dexmethylphenidate [Focalin XR] 30 MG capsule,ER biphasic 50-50 30 mg PO DAILY RF: 0 No Action metoprolol tartrate 25 mg tablet 25 mg PO BID Qty: 60 RF: 11 Discharge Instructions Instructions: Supraventricular Tachycardia (ED), Asthma (ED), Hyperthyroidism ( ED) Additional Instructions: Please return immediately to the emergency department if you develop any new or worsening symptoms or if you become otherwise concerned. It is extremely important that you attend your scheduled appointment this Wednesday at 940 in the morning with your primary care doctor. Stand Alone Forms: Work Release Discharge Data Discharge Date/Time-TO BE ENTERED AT DEPARTURE: 03/07/18 13:45 Medical Decision Making [facility] Narrative Medical decision making narrative: Billy Santana is a 32 y/o woman with h/o emphysema, current smoker presenting to the emergency department with cough and SOB. On exam Pt with b/l wheeze, productive cough, and mild SOB able to speak in full sentences. Upon being placed on monitor Pt was found to be in SVT and brought to resuscitation room. Vagal maneuvers failed, but Pt then spontaneously converted to sinus rhythm prior to medication administration. No low BP. Pt reported feeling lightheaded and sweaty with heart racing during episode, and reports that this has been happening almost every day and sometimes several times a day for the past few months. She has not sought medical evaluation for these symptoms. No fainting or LOC in the past. Concern for PNA vs COPD exacerbation, possible metabolic/lyte disturbance vs other, doubt PE. Exam/hx not c/w sepsis, ACS, acute aortic pathology. Plan for duonebs , solumedrol, CXR, screening labs, EKG, telemetry, will monitor and reassess. Pt reports feeling signicantly better after duoneb. Continued b/l wheeze on auscultation, improved from prior. Will repeat duoneb. CXR okay. Labs non-diagnostic, upreg neg per nursing. Pt reports feeling much better after duoneb without no further SOB. LCTAB on exam. Given Pt with apparent recurrent non-sustained episodes of SVT at home, no indication for admission at this time. Pt has not been using inhaler at home, will hold abx at this time. Rx prednisone and inh. Discussed possible cessation of stimulant meds with Pt, who would like to discuss with her PCP. I discussed Pt presentation, exam/hx and results with Dr. Ramsay, who recommends no med changes at this time (not the Pt's PCP) and will have Pt seen this week in f/u for resp and cardiac problems. Lengthy discussion with Pt re: RTED precautions and importance of outpt f/u with PCP . Pt is amenable to the plan. Medical Records Medical records reviewed: Yes I reviewed the patient's medical records. Imaging Data Radiologic Study: Attestation: I personally reviewed and interpreted this imaging study as follows: Radiologist's impression: CHEST: Frontal and lateral views. Comparison 10/19/17. The heart size and pulmonary vasculature are within normal limits. The lungs are clear and well expanded. There are healing fractures at the lateral aspects of the right 8th and 9th ribs. The bones are otherwise unremarkable. IMPRESSION: Healing right 8th and 9th rib fractures laterally. Lab Data Lab results reviewed: Yes I reviewed the patient's lab results. 03/07/18 10:40 Pharynx Streptococcus Screen ([facility]) - Final Laboratory Tests Range/Units 03/07/18 03/07/18 03/07/18 10:50 11:35 11:35 WBC (4.4-10.8) k/cumm 13.11 H RBC (4.00-5.20) m/cumm 4.99 Hgb (12.0-15.5) g/dL 15.3 Hct (36.0-46.0) % 44.3 MCV (80-95) fL 88.8 MCH (27.0-33.0) pg 30.7 MCHC (32.0-36.0) g/dL 34.5 RDW (11.7-14.6) % 12.7 Plt Count (130-400) x1000/uL 232 MPV (8.0-11.0) fL 11.1 H Immature Gran % 0.2 Neutrophils % 78.8 Lymphocytes % 10.9 Monocytes % 8.1 Eosinophils % 1.8 Basophils % 0.2 Absolute Neutrophils (1.2-6.7) k/cumm 10.33 H Absolute Lymphocytes (1.2-3.4) k/cumm 1.43 Absolute Monocytes (0.11-0.7) k/cumm 1.06 H Absolute Eosinophils (0.0-0.7) k/cumm 0.24 Absolute Basophils (0.0-0.2) k/cumm 0.03 D-Dimer (<500) ng/mlFEU Sodium (136-145) mmol/L 142 Potassium (3.5-5.1) mmol/L 3.8 Chloride (98-107) mmol/L 107 Carbon Dioxide (21.0-32.0) mmol/L 25.9 Anion Gap (3-11) mmol/L 9.1 BUN (7-18) mg/dL 6 L Creatinine (0.55-1.02) mg/dL 0.68 Estimated GFR/1.73 m2 (mL/min/1.73m2) >= 60.00 Glucose (70-100) mg/dL 123 H Calcium (8.5-10.1) mg/dL 8.8 Total Bilirubin (0.2-1.0) mg/dL 0.3 AST (15-37) U/L 21 ALT (12-78) U/L 26 Alkaline Phosphatase (46-116) U/L 75 Total Protein (6.4-8.2) g/dL 7.1 Albumin (3.4-5.0) g/dL 3.8 TSH (0.358-3.74) uIU/mL Free T4 (0.76-1.46) ng/dL Urine Color (Yellow) Yellow Urine Clarity Clear Urine pH (5-8) 7.0 Ur Specific [place] (1.005-1.025) 1.015 Urine Protein (Negative) mg/dL Negative Urine Ketones (Negative) mg/dL Negative Urine Blood (Negative) Trace-intact H Urine Nitrite (Negative) Negative Urine Bilirubin (Negative) Negative Urine Urobilinogen (Up TO 0.2) EU/dL 0.2 Ur Leukocyte Esterase (Negative) Negative Urine RBC (0-2) Negative Urine WBC (0-5) HPF Negative Ur Epithelial Cells (Negative) HPF Moderate Urine Crystals (Negative) HPF Negative Urine Bacteria (Negative) HPF Few Urine Casts (Negative) LPF Negative Urine Mucus (Negative) Negative Ur Culture Indicated? No Urine Glucose (Negative) mg/dL Negative Range/Units 03/07/18 03/07/18 11:35 11:35 WBC (4.4-10.8) k/cumm RBC (4.00-5.20) m/cumm Hgb (12.0-15.5) g/dL Hct (36.0-46.0) % MCV (80-95) fL MCH (27.0-33.0) pg MCHC (32.0-36.0) g/dL RDW (11.7-14.6) % Plt Count (130-400) x1000/uL MPV (8.0-11.0) fL Immature Gran % Neutrophils % Lymphocytes % Monocytes % Eosinophils % Basophils % Absolute Neutrophils (1.2-6.7) k/cumm Absolute Lymphocytes (1.2-3.4) k/cumm Absolute Monocytes (0.11-0.7) k/cumm Absolute Eosinophils (0.0-0.7) k/cumm Absolute Basophils (0.0-0.2) k/cumm D-Dimer (<500) ng/mlFEU 244 Sodium (136-145) mmol/L Potassium (3.5-5.1) mmol/L Chloride (98-107) mmol/L Carbon Dioxide (21.0-32.0) mmol/L Anion Gap (3-11) mmol/L BUN (7-18) mg/dL Creatinine (0.55-1.02) mg/dL Estimated GFR/1.73 m2 (mL/min/1.73m2) Glucose (70-100) mg/dL Calcium (8.5-10.1) mg/dL Total Bilirubin (0.2-1.0) mg/dL AST (15-37) U/L ALT (12-78) U/L Alkaline Phosphatase (46-116) U/L Total Protein (6.4-8.2) g/dL Albumin (3.4-5.0) g/dL TSH (0.358-3.74) uIU/mL 0.34 L Free T4 (0.76-1.46) ng/dL 1.10 Urine Color (Yellow) Urine Clarity Urine pH (5-8) Ur Specific [place] (1.005-1.025) Urine Protein (Negative) mg/dL Urine Ketones (Negative) mg/dL Urine Blood (Negative) Urine Nitrite (Negative) Urine Bilirubin (Negative) Urine Urobilinogen (Up TO 0.2) EU/dL Ur Leukocyte Esterase (Negative) Urine RBC (0-2) Urine WBC (0-5) HPF Ur Epithelial Cells (Negative) HPF Urine Crystals (Negative) HPF Urine Bacteria (Negative) HPF Urine Casts (Negative) LPF Urine Mucus (Negative) Ur Culture Indicated? Urine Glucose (Negative) mg/dL ECG Data Attestation: I personally reviewed and interpreted this ECG (s) as follows: Interpretation: EKG shows SVT at 169 with right axis, diffuse mild ST depression , no STEMI HPI - General Adult General Mode of arrival: ambulatory . Date/Time Provider Initiated Documentation: 03/07/18 10:29 . Limitations to Documentation: no limitations . Information obtained by: patient, RN notes reviewed and old records reviewed . HPI Narrative: Billy Santana is a 32-year-old woman with history of asthma, alpha antitrypsin deficiency presenting to the emergency department with shortness of breath. Patient reports that last night she developed cough, nasal congestion, and shortness of breath. She reports that she has had similar symptoms multiple times in the past, and that her son has a cold also with similar symptoms. Cough is productive. She denies fevers, nausea/vomiting /diarrhea, chest pain or any other pain. Previously in her usual state of health. Has been eating and drinking normally. Current smoker. No recent travel. Related Data Home Medications Medication Instructions Recorded Confirmed methylphenidate HCl [Ritalin] 20 mg PO BID #60 01/08/15 03/11/18 dexmethylphenidate [Focalin XR] 30 mg PO DAILY 01/20/18 03/11/18 risperidone [Risperdal] 1 mg PO HS 02/01/18 03/11/18 Nicoderm CQ 21 mg/24 hr daily 1 patch TD Q24H #45 each NS 02/25/18 03/11/18 transdermal patch albuterol sulfate 2 puff IH Q6H PRN #8 gm 03/07/18 03/11/18 lorazepam [Ativan] 0.5 mg PO BID 03/07/18 03/11/18 prednisone 50 mg PO DAILY #4 tab 03/07/18 03/11/18 metoprolol tartrate 25 mg tablet 25 mg PO BID #60 tab 03/09/18 03/11/18 Previous Rx's Medication Instructions Recorded Nicoderm CQ 21 mg/24 hr daily 1 patch TD Q24H #45 each NS 02/25/18 transdermal patch albuterol sulfate 2 puff IH Q6H PRN #8 gm 03/07/18 prednisone 50 mg PO DAILY #4 tab 03/07/18 metoprolol tartrate 25 mg tablet 25 mg PO BID #60 tab 03/09/18 Allergies Allergy/AdvReac Type Severity Reaction Status Date / Time cefazolin sodium [From Ancef] Allergy Severe Bradycardia Unverified 03/11/18 09: 02 & hives fentanyl Allergy Severe Hives and Unverified 03/11/18 09:02 Bradycardia venom-honey bee Allergy Severe Anaphylaxsi Unverified 03/11/18 09:02 [bee venom (honey bee)] s lurasidone HCl [From Latuda] Allergy seizure Unverified 03/11/18 09:02 codeine [Codeine] AdvReac Intermediate Nausea/vomi Unverified 03/11/18 09:02 tting Sulfa (Sulfonamide AdvReac Intermediate Body Shakes Unverified 03/11/18 09:02 Antibiotics) hydromorphone AdvReac Mild Dizziness/L Unverified 03/11/18 09:02 ightheade gabapentin AdvReac light Unverified 03/11/18 09:02 headed /dizzy/depressed morphine AdvReac I get Unverified 03/11/18 09:02 very ugly General Stated Complaint: RespSymp MINNA: 3 Review of Systems Review of Systems Constitutional: denies fevers Eyes: denies eye pain ENT: denies facial pain, dental pain, sore throat Cardiovascular: denies chest pain, edema Respiratory: reports SOB, cough GI: denies abdominal pain, vomiting, diarrhea : denies flank pain MSK: denies back pain, neck pain, arthralgias, myalgias Skin: denies rash Neuro: denies headaches, lightheadedness, weakness PFSH Family History Mother Depression Hx of suicide attempt Cerebrovascular accident Father Depression Neoplasm Asthma Social History household members: other details: 4 marital status: SINGLE current occupational status: employed 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 pets and animals: Yes pets and animals: dog(s) Smoking/Tobacco Use Status: Current every day tobacco type: cigarettes passive smoking exposure: Yes alcohol intake: current alcohol intake frequency: holidays/special occasions only substance use type: marijuana seatbelt use: never helmet use: No Surgical History Appendectomy Arthroplasty of knee section Tonsillectomy Exam Narrative Exam Narrative: Constitutional: well and [id number], pleasant, conversing normally HENT: head atraumatic, normocephalic normal inspection, mucous membranes moist Eyes: conjunctiva normal, sclera normal, pupils 3mm b/l Neck: no stridor, normal ROM, trachea midline Chest: normal inspection Resp: normal work of breathing, LCTAB Cardio: normal rate, normal rhythm, no murmur appreciated GI: abdomen soft, non-tender, non-distended Back: normal inspection, no rash Skin: warm, dry, normal color, no rash Neuro: alert, not altered, grossly non-focal, normal tone Ext: no edema Psych: normal mood, normal affect, normal behavior Course Vital Signs Temperature 37 C 03/07/18 10:25 Pulse 91 H 03/07/18 10:25 Respiratory Rate 16 03/07/18 10:25 Blood Pressure 122/88 03/07/18 10:25 Pulse Oximetry 99 03/07/18 10:25 Temperature 37 C 03/07/18 10:25 Pulse 91 H 03/07/18 10:25 Respiratory Rate 16 03/07/18 10:25 Blood Pressure 122/88 03/07/18 10:25 Pulse Oximetry 99 03/07/18 10:25
== END 2018-03-07 13:45 | disposition home or self-care (01) ==
PROVIDERS: Emergency Provider Student in an Organized Health Care Education/Training Program; PCP Family Medicine
DX: J45.909 Unspecified asthma, uncomplicated (principal); I47.1 Supraventricular tachycardia; R94.6 Abnormal results of thyroid function studies
CPT/HCPCS: 36415; 80053; 81025; 87880; 93005; 94640; 96360; 99284; 71046; 81003; 81015; 84439; 84443; 85025; 85379; 87081; 93010; J7512; J7620

== ENCOUNTER 2018-03-09 11:00 | Outpatient (CLI) | payer MEDICAID, SELFPAY ==
[2018-03-10 08:43] LABS: T3,Free 2.8 pg/ml (2.8-5.3)
== END 2018-03-09 11:20 ==
PROVIDERS: PCP Family Medicine; Visit Provider Family Medicine
DX: I47.1 Supraventricular tachycardia (principal)
CPT/HCPCS: 36415; 84481

== ENCOUNTER 2019-01-05 16:51 | Emergency (ER) | payer MEDICAID, SELFPAY ==
[2019-01-05] VITALS (20 sets, daily range): BP systolic 120–142; BP diastolic 84–100; PULSE 67–113; RESP 1–30; TEMP 36.6–36.7; O2SAT 98–100
[2019-01-05 17:40] LABS: Abs Immature Grans 0.02 k/cumm (0.0-0.09); Absolute Basophil Count 0.04 k/cumm (0.0-0.2); Absolute Eosinophil Count 0.08 k/cumm (0.0-0.7); Absolute Lymphocyte Count 2.26 k/cumm (1.2-3.4); Absolute Monocyte Count 0.88 k/cumm (0.11-0.7); Absolute Neutrophil Count 4.22 k/cumm (1.2-6.7); Basophils % 0.5; Eosinophils % 1.1; HCT 45.7 % (36.0-46.0); Immature Grans % 0.3; Lymphocytes % 30.1; Mean Corpuscular Hemoglobin 29.9 pg (27.0-33.0); Mean Corpuscular Volume 85.3 fL (80-95); Mean Platelet Volume 10.6 fL (8.0-11.0); Monocytes % 11.7; Neutrophils % 56.3; Platelet Count 265 x1000/uL (130-400); RBC 5.36 m/cumm (4.00-5.20)
[2019-01-05] MEDS: Normal Saline 1,000 ML 1000 ML IV ×2 (17:50→19:05)
[2019-01-05 17:52] LABS: ALT 30 U/L (12-78); AST 26 U/L (15-37); Albumin 4.5 g/dL (3.4-5.0); Alkaline Phosphatase 66 U/L (46-116); Anion Gap 16.2 mmol/L (3-11); BUN 17 mg/dL (7-18); Bilirubin, Total 0.8 mg/dL (0.2-1.0); CO2 19.8 mmol/L (21.0-32.0); CREATININE 0.86 mg/dL (0.55-1.02); Calcium 9.9 mg/dL (8.5-10.1); Chloride 104 mmol/L (98-107); Glucose 83 mg/dL (70-100); Magnesium 1.8 mg/dL (1.8-2.4); Potassium 3.2 mmol/L (3.5-5.1); Sodium 140 mmol/L (136-145); TSH (W/Ref FT4) 2.62 uIU/mL (0.358-3.74); Total Protein 7.8 g/dL (6.4-8.2)
[2019-01-05 17:57] LABS: Troponin I < 0.05 ng/mL (0.00-0.06)
[2019-01-05 17:58] LABS: D-Dimer 254 ng/mlFEU (<500)
[2019-01-05] MEDS: LORazepam 2 MG/ML VIAL 0.5 MG IVP (18:41)
[2019-01-05] MEDS: Albuterol 2.5 MG/3 ML INH SOLN VIAL UPD (19:09)
--- NOTE | 2019-01-05 19:25 | DI.CT_ITS ---
SYMPTOM/DIAGNOSIS: WEAKNESS CT BRAIN: Noncontrast examination was performed. There is normal flores/white matter differentiation. No acute territorial infarct, hemorrhage, midline shift or mass effect is identified. The ventricles are intact. The basilar cisterns are patent. There is a small mucous retention cyst or polyp in the left maxillary sinus. The right maxillary sinus is small and completely opacified. There is mild thickening of the wall of the sinus particularly medially. This likely reflects chronic sinusitis. The mastoid air cells are well pneumatized as are the remaining visualized paranasal sinuses. The calvarium is intact. IMPRESSION: No acute intracranial process.
--- NOTE | 2019-01-05 19:36 | DI.RAD_ITS ---
SYMPTOM/DIAGNOSIS: CHEST PAIN CHEST X-RAY: AP lateral. The heart is normal in size. The lungs are clear. The mediastinal structures and pleura appear intact. CONCLUSION: Normal chest.
--- NOTE | 2019-01-05 19:40 | DI.VRAD_ITS ---
EXAM: CT Head Without Contrast EXAM DATE/TIME: 01/05/2019 6:49 PM CLINICAL HISTORY: 33 years old, female; Malaise or fatigue and other: Generalized weakness TECHNIQUE: Imaging protocol: Computed tomography images of the head without contrast. Coronal and sagittal reformatted images were created and reviewed. Radiation optimization: All CT scans at this facility use at least one of these dose optimization techniques: automated exposure control; mA and/or kV adjustment per patient size (includes targeted exams where dose is matched to clinical indication); or iterative reconstruction. COMPARISON: No relevant prior studies available. FINDINGS: Brain: No acute intracranial hemorrhage, mass-effect, midline shift, or extra-axial collection is seen. The flores white matter differentiation appears preserved. Ventricles: The ventricular system and basilar cisterns appear appropriate in size and configuration. Bones/joints: The bony calvarium appears intact. No depressed skull fracture is seen. Sinuses: The right maxillary sinus is small and opacified. Focal soft tissue density material in the left maxillary sinus has an appearance suggesting retained mucus, a small mucous retention cyst, or a small inflammatory polyp. No air-fluid levels are seen. Mastoid air cells: The mastoid air cells appear clear. Auditory system: The middle ear cavities appear clear. Orbits: The globes and intraorbital structures appear grossly intact. Soft tissues: No significant scalp lesion is seen. IMPRESSION: 1. No acute intracranial abnormality seen. 2. Complete opacification of the visualized portion of a small right maxillary sinus. Chronic sinusitis is suggested. Clinical correlation is recommended to exclude associated silent sinus syndrome with an atelectatic right maxillary sinus. The paranasal sinuses are only partially visualized. Dictated and Authenticated by: Milan Patel MD. Ordering:BRANDON Arnold MD
--- NOTE | 2019-01-05 20:06 | DI.VRAD_ITS ---
EXAM: XR Chest, 2 Views EXAM DATE/TIME: 01/05/2019 6:49 PM CLINICAL HISTORY: 33 years old, female; Other: Weakness TECHNIQUE: Imaging protocol: XR of the chest, 2 views. COMPARISON: CR XR CHEST 2V PA LATERAL 03/07/2018 11:58 AM FINDINGS: Lungs: The lung gonzalez appear clear bilaterally. Pleural space: No pleural effusion or pneumothorax is seen. Heart/Mediastinum: Heart size is normal. The mediastinal contours appear normal. Bones/joints: The visualized bony structures appear grossly intact. IMPRESSION: No active disease is seen in the chest. Dictated and Authenticated by: Milan Patel MD. Ordering:BRANDON Arnold MD
--- NOTE | 2019-01-05 20:13 | W.ED.GENAD ---
Discharge Plan Disposition Patient Disposition: HOME Condition: Stable Discharge Details Chief Complaint: GenMedical Clinical Impression: Malaise and fatigue, Anxiety, Smoker, Chest pain Primary Care Provider: Ze Edwards ED Provider: Clayton Corrgian Home Meds and New Rx's Prescriptions: Continued azithromycin 250 mg tablet 250 mg PO .COMPLEX Qty: 6 RF: 0 metoprolol tartrate 25 mg tablet 25 mg PO BID Qty: 60 RF: 11 methylphenidate HCl [Ritalin] 20 MG tablet 20 mg PO BID Qty: 60 RF: 0 nicotine [Nicoderm CQ] 21 mg/24 hr patch 24 hour 1 patch TD Q24H Qty: 45 RF: 0 albuterol sulfate 90 mcg/actuation HFA aerosol inhaler 2 puff IH Q6H PRN (Reason: shortness of breath) Qty: 8 RF: 0 dexmethylphenidate [Focalin XR] 30 MG capsule,ER biphasic 50-50 30 mg PO DAILY RF: 0 Discharge Instructions Instructions: Chest Pain (ED), Weakness (ED), Fatigue (ED) Additional Instructions: Continue to take your medication as prescribed and stop smoking as soon as possible as I feel this is contributing to your symptoms. You should follow-up with your primary care provider tomorrow as scheduled for any further testing as needed. Feel free to return to the emergency department for any new or significant worsening of your symptoms. Referrals: Ze Edwards [Primary Care Provider] - 1 day (Please keep your appointment as arranged for tomorrow) Discharge Data Discharge Date/Time-TO BE ENTERED AT DEPARTURE: 01/05/19 20:29 Medical Decision Making Patient presenting the emergency department for chief complaint of chest pain and generalized weakness. Patient reports this is been going on almost a week now. She does state that she was at [facility] this morning had work-up for similar symptoms then while driving the car she started having chest pain again. Family self described an event to EMS which they classified as a stroke but patient was never postictal, and was yelling and punching things when the event occurred. Physical exam is unremarkable except for patient is tachypneic and severely anxious. Plan to check EKG, labs, and review previous records from earlier visit in the day. Pending results patient given 1 L of normal saline. Patient states other than that she does not want any medications Labs are reviewed and show negative troponin, within normal limits of d-dimer, elevated hemoglobin and low potassium, low carbon dioxide, and elevated anion gap. Review of records from [facility] show similar lab results which also showed negative troponin. The results patient was not but I was not able to obtain any imaging that they performed. Plan to do head CT and chest x-ray given complaints of generalized weakness and chest pain. Highly feel that there is an anxiety component to this and after discussion patient was agreeable to receiving some Ativan. Patient informed about low potassium encouraged increased potassium intake. upon further also talking about patient's alpha-1 deficiency she does state that she is continued to smoke cigarettes, and has chronic emphysema. After talking to her more I feel that patient's symptoms may be secondary to her chronic emphysema and her smoking along with having some panic attacks. Review of chest x-ray and CT scan of the head showed no acute findings. Thorough discussion with patient about smoking cessation was had and patient became very tearful stating that she does not want to live like this and knows that she has a chronic condition. Informed patient that her symptoms may be directly correlated to her smoking along with her alpha-1 deficiency. Patient remained tearful and stated that she did not want to live with a chronic condition anymore. Patient denies any suicidal ideations but just is concerned about her health. Patient was encouraged to follow-up with her primary care provider for any further testing and medications as needed but at this time I see no emergent findings. Patient was fully ambulatory showed no weakness no gait abnormalities upon discharge to the emergency department. Return precautions were discussed. After discussion of diagnosis and plan of care patient has no further needs, questions, or concerns and states clear understanding to return to the emergency department for any worsening symptoms. ECG Data Attestation: I personally reviewed and interpreted this ECG (s) as follows: Interpretation: EKG reviewed with attending physician Dr. Gloria Boggs. Shows sinus rhythm, rate of 75, no STEMI, nondiagnostic HPI General Mode of arrival: EMS. Date/Time Provider Initiated Documentation: 01/05/19 16:51. Limitations to Documentation: no limitations. Information obtained by: patient, EMS, RN notes reviewed and old records reviewed. History of Present Illness 33 year old F presents to the emergency department with the chief complaint of chest pain, chest tightness, described as moderate, with intensity rated at 7. Quality is described as other (tightness), and is localized to the chest. Patient started experiencing this day(s) (6) and it has been constant and intermittent. No relieving factors improve symptom(s), No exacerbating factors reported . Patient did receive the following treatments prior to arrival, none Related Data Home Medications Medication Instructions Recorded Confirmed methylphenidate HCl [Ritalin] 20 mg PO BID #60 01/08/15 08/15/18 dexmethylphenidate [Focalin XR] 30 mg PO DAILY 01/20/18 08/15/18 Nicoderm CQ 21 mg/24 hr daily 1 patch TD Q24H #45 each NS 02/25/18 08/15/18 transdermal patch albuterol sulfate 2 puff IH Q6H PRN #8 gm 03/07/18 08/15/18 metoprolol tartrate 25 mg tablet 25 mg PO BID #60 tab 03/09/18 08/15/18 azithromycin 250 mg tablet 250 mg PO .COMPLEX #6 tab 08/15/18 08/15/18 Previous Rx's Medication Instructions Recorded Nicoderm CQ 21 mg/24 hr daily 1 patch TD Q24H #45 each NS 02/25/18 transdermal patch albuterol sulfate 2 puff IH Q6H PRN #8 gm 03/07/18 metoprolol tartrate 25 mg tablet 25 mg PO BID #60 tab 03/09/18 azithromycin 250 mg tablet 250 mg PO .COMPLEX #6 tab 08/15/18 Allergies Allergy/AdvReac Type Severity Reaction Status Date / Time cefazolin sodium [From Ancef] Allergy Severe Bradycardia Unverified 08/15/18 14:28 & hives fentanyl Allergy Severe Hives and Unverified 08/15/18 14:28 Bradycardia venom-honey bee Allergy Severe Anaphylaxsi Unverified 08/15/18 14:28 [bee venom (honey bee)] s lurasidone HCl [From Latuda] Allergy seizure Unverified 08/15/18 14:28 codeine [Codeine] AdvReac Intermediate Nausea/vomi Unverified 08/15/18 14:28 tting Sulfa (Sulfonamide AdvReac Intermediate Body Shakes Unverified 08/15/18 14:28 Antibiotics) hydromorphone AdvReac Mild Dizziness/L Unverified 08/15/18 14:28 ightheade gabapentin AdvReac light Unverified 08/15/18 14:28 headed /dizzy/depressed morphine AdvReac I get Unverified 08/15/18 14:28 very ugly General Stated Complaint: GenMedical MINNA: 3 Review of Systems Constitutional Denies chills, Reports fatigue, Denies fever(s) and Reports malaise Cardiovascular Reports as per HPI, Reports chest pain, Denies chest pain with activity, Denies syncope, Denies irregular heart rhythm, Denies leg edema, Reports palpitations, Reports dyspnea and Reports dyspnea on exertion Respiratory Denies chest congestion, Denies cough, Denies hemoptysis, Reports dyspnea, Reports dyspnea on exertion and Denies wheezing Gastrointestinal Denies abdominal pain, Denies nausea and Denies vomiting Neurologic Denies syncope Psychiatric Reports anxiety Endocrine Reports fatigue and Reports palpitations Allergic/Immunologic Denies wheezing [facility] Medical History 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) Anxiety (Acute 11/20/14) Pulmonary emphysema (Acute 02/01/18) Smoker (Acute 10/19/17) Surgical History Appendectomy Arthroplasty of knee section Tonsillectomy Family History Mother Depression Hx of suicide attempt Stroke Father Depression Neoplasm Asthma Social History Smoking/Tobacco Use Status: Current every day Tobacco Type: cigarettes Alcohol Intake: current Alcohol Intake frequency: holidays/special occasions only Drug use: Current Sobriety Substance use type: marijuana Household members: other Details: 4 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 Pets and animals: Yes Pets and animals: dog(s) What type of physical activity do you participate in: none Seatbelt use: never Helmet use: No Do you feel safe in your relationship?: Yes Exam Const General: cooperative, healthy appearing, comfortable, no acute distress, anxious, not diaphoretic and not ill appearing Nutritional Appearance: thin Orientation: alert, awake and oriented x3 Limitations: mental status not altered Neck Neck: normal visual inspection, full ROM, trachea midline, supple and no anterior neck swelling Thyroid: thyroid normal Carotids: normal carotid upstroke and no bruits Chest Chest: normal inspection of the chest Resp Effort & Inspection: normal respiratory effort and able to speak in complete sentences Auscultation: clear to auscultation bilaterally Cardio Jugular venous pressure: no JVD Palpation: normal PMI Rate: regular rate Rhythm: regular rhythm Heart Sounds: S1 normal, S2 normal, no click, no gallops, no murmurs and no rubs Bruits: no abdominal aortic bruits and no carotid bruits Pulses: radial pulses present bilaterally 2+ GI Inspection: normal to inspection Palpation: soft, no aortic enlargement, no pulsatile masses and nontender Auscultation: normal bowel sounds Skin General skin exam: no rashes or lesions noted Neuro General: alert, awake, oriented x3, tone normal, moves all extremities, no focal motor deficits, CN's II-XI intact bilaterally, not confused and not obtunded Course Vital Signs Temperature 36.6 C 01/05/19 16:52 Pulse 112 H 01/05/19 16:52 Respiratory Rate 26 H 01/05/19 16:52 Blood Pressure 142/100 H 01/05/19 16:52 Pulse Oximetry 100 01/05/19 16:52 Temperature 36.6 C 01/05/19 16:52 Temperature Source Skin 01/05/19 16:52 Pulse 112 H 01/05/19 16:52 Respiratory Rate 30 H 01/05/19 19:26 Respiratory Effort 01/05/19 19:26 Respiratory Depth Normal 01/05/19 19:26 Respiratory Pattern Tachypnea 01/05/19 19:26 Blood Pressure 142/100 H 01/05/19 16:52 Blood Pressure Position Sitting 01/05/19 16:52 Pulse Oximetry 100 01/05/19 16:52 Oxygen Delivery Method Room Air 01/05/19 16:52 Oxygen Flow Rate 0 01/05/19 16:52 Lab/Test Results Lab/Test Results: Laboratory Tests Range/Units 01/05/19 01/05/19 01/05/19 17:15 17:15 17:15 WBC (4.4-10.8) k/cumm 7.50 RBC (4.00-5.20) m/cumm 5.36 H Hgb (12.0-15.5) g/dL 16.0 H Hct (36.0-46.0) % 45.7 MCV (80-95) fL 85.3 MCH (27.0-33.0) pg 29.9 MCHC (32.0-36.0) g/dL 35.0 RDW (11.7-14.6) % 13.0 Plt Count (130-400) x1000/uL 265 MPV (8.0-11.0) fL 10.6 Immature Gran % 0.3 Neutrophils % 56.3 Lymphocytes % 30.1 Monocytes % 11.7 Eosinophils % 1.1 Basophils % 0.5 Absolute Neutrophils (1.2-6.7) k/cumm 4.22 Absolute Lymphocytes (1.2-3.4) k/cumm 2.26 Absolute Monocytes (0.11-0.7) k/cumm 0.88 H Absolute Eosinophils (0.0-0.7) k/cumm 0.08 Absolute Basophils (0.0-0.2) k/cumm 0.04 D-Dimer (<500) ng/mlFEU 254 Sodium (136-145) mmol/L 140 Potassium (3.5-5.1) mmol/L 3.2 L Chloride (98-107) mmol/L 104 Carbon Dioxide (21.0-32.0) mmol/L 19.8 L Anion Gap (3-11) mmol/L 16.2 H BUN (7-18) mg/dL 17 Creatinine (0.55-1.02) mg/dL 0.86 Estimated GFR/1.73 m2 (mL/min/1.73m2) >= 60.00 Glucose (70-100) mg/dL 83 Calcium (8.5-10.1) mg/dL 9.9 Magnesium (1.8-2.4) mg/dL 1.8 Total Bilirubin (0.2-1.0) mg/dL 0.8 AST (15-37) U/L 26 ALT (12-78) U/L 30 Alkaline Phosphatase (46-116) U/L 66 Troponin I (0.00-0.06) ng/mL < 0.05 Total Protein (6.4-8.2) g/dL 7.8 Albumin (3.4-5.0) g/dL 4.5 TSH (0.358-3.74) uIU/mL 2.62
--- NOTE | 2019-01-05 20:20 | NUR.NOTE ---
Nursing Note: During discharge this life underwriter spent lots of time talking to patient. She talked about living with a chronic illness and how she has nothing to live for. Patient cried and continued to discuss how no matter if she quit smoking she still might not live past 41. Patient says that her kids would be better off if she was because they don't deserve to see her suffer like she watched her dad. Patient denies being suicidal and doesn't want to kill herself infant continued to say during the conversation that was one of her biggest fears.
== END 2019-01-05 20:29 | disposition home or self-care (01) ==
PROVIDERS: Emergency Provider Nurse Practitioner Family; PCP Family Medicine
DX: F41.9 Anxiety disorder, unspecified (principal); R53.81 Other malaise; R07.9 Chest pain, unspecified; R06.82 Tachypnea, not elsewhere classified; F17.210 Nicotine dependence, cigarettes, uncomplicated; E88.01 Alpha-1-antitrypsin deficiency; J43.9 Emphysema, unspecified
CPT/HCPCS: 36415; 80053; 93005; 94640; 96361; 96374; 99285; 70450; 71046; 83735; 84443; 84484; 85025; 85379; 93010; J2060; J7613

== ENCOUNTER 2019-01-08 19:23 | Inpatient (IN) | payer MEDICAID, SELFPAY ==
[2019-01-08 19:34] VITALS: BP 110/80; PULSE 72; RESP 18; TEMP 36.5; O2SAT 98
[2019-01-08 20:27] LABS: BE (Venous) -1.1 mmol/L (-3-3); HCO3 (Venous) 24 mmol/L (22-28); O2 Sat (Venous) 97 % (70-80); TCO2 (Venous) 21 mmol/L (22-29); pCO2 (Venous) 37 mm/Hg (34-47); pH (Venous) 7.41 (7.32-7.43); pO2 (Venous) 90 mm/Hg (28-44)
[2019-01-08] MEDS: Omnipaque 350 MG/ML 100 ML BTL IJ (20:28)
[2019-01-08 20:29] LABS: Abs Immature Grans 0.02 k/cumm (0.0-0.09); Absolute Basophil Count 0.04 k/cumm (0.0-0.2); Absolute Eosinophil Count 0.16 k/cumm (0.0-0.7); Absolute Lymphocyte Count 2.78 k/cumm (1.2-3.4); Absolute Monocyte Count 1.07 k/cumm (0.11-0.7); Absolute Neutrophil Count 5.31 k/cumm (1.2-6.7); Basophils % 0.4; Eosinophils % 1.7; HCT 41.1 % (36.0-46.0); HGB 14.4 g/dL (12.0-15.5); Immature Grans % 0.2; Lymphocytes % 29.6; Mean Corpuscular Volume 88.6 fL (80-95); Mean Platelet Volume 10.9 fL (8.0-11.0); Monocytes % 11.4; Neutrophils % 56.7; Platelet Count 228 x1000/uL (130-400); RBC 4.64 m/cumm (4.00-5.20); White Blood Cell Count 9.38 k/cumm (4.4-10.8)
--- NOTE | 2019-01-08 20:38 | ED.GENADUL_ITS ---
Discharge Plan Disposition Patient Disposition: [facility] INPATIENT Condition: Stable Discharge Details Chief Complaint: GenMedical Clinical Impression: Acute left-sided muscle weakness, Dysmetria, Dysdiadochokinesia, Episode of change in speech Admit Date/Time: 01/08/19 22:37 Admit Provider: Rk Early Attending Provider: Rk Early Primary Care Provider: Ze Edwards ED Provider: Javier Zuñiga Discharge Data Discharge Date/Time-TO BE ENTERED AT DEPARTURE: 01/08/19 23:45 Medical Decision Making This is a 33-year-old female with a past medical history of alpha-1 antitrypsin deficiency, SVT, bipolar, occasional marijuana use, who presents today for evaluation of left-sided weakness, difficulty speaking, and changes in what she feels is her neurologic status. Patient was initially evaluated 4 days ago where she had an unremarkable work-up at [facility]. Is mainly for cardiac etiologies at that time that she had some palpitations. The following evening the patient came to [facility] ED where she had continued symptoms of palpitations but also some transient weakness on her left side which resolved on its own by the time of discharge at that time she had a negative CT scan of the head, negative cardiac work-up, was discharged home. The next day she had a return of her symptoms, and went to the [facility] emergency department where she had benign laboratory which Imaging. Unfortunately she eloped before the completion of her care. Since then the patient has had continued worsening of left-sided weakness, difficulty speaking, difficulty ambulating. She has no family history of MS, she denies any recent ingestion of raw or uncooked meat, she denies any fevers chills neck pain or headache. In addition to her symptoms of left-sided weakness, mild ataxia, and mild speech difficulty she also states that she has not smoked for last 3 days which is the first time this is ever happened since she was 14 years old. She feels that she has no desire to smoke which is notably atypical for her. Exam demonstrates notable droop for left eyebrow when trying to raise it, difficulty with hvbple-ewwv-razepr, wmpp-ur-vdae, as well as mild dysdiadochokinesia and dysmetria particularly on the left-hand side. Speech is stuttering. Notable 3-4 out of 5 for strength of the upper and lower extremity. Atypical flexion of the toes on the foot, and atypical contracture of the hand. Sensation appears to be intact, vision appears to be intact. Differential is broad and includes stroke, MS, less likely Creutzfeldt Leodan's disease, but also atypical Lyme. Will perform imaging, repeat blood work, evaluate for drugs or intoxicants, and reassess. 10:30 PM Patient's laboratory work-up has returned and is notably benign, no significant abnormalities in her white count, hemoglobin level, or electrolytes. VBG demonstrates no evidence of CO2 retention, ammonia normal, renal function stable, salicylates and acetaminophen negative, alcohol negative. We are pending tick panel. EKG is relatively benign and nonspecific. CT angiography of the neck and head demonstrate no evidence of acute infarct, aneurysm or other abnormality. No clinical evidence of meningitis at this time. Patient's neurologic findings are still notably concerning, differential is high for MS or other atypical neurologic event. Less likely stroke with no CT evidence in conjunction with her 2 to 3 days of symptoms. With the patient's persistent neurologic findings I do feel that MRI is indicated as well as neurology evaluation. We will admit the patient overnight for neurology consult in the [facility] with MRI. I discussed the case with hospitalist Dr. Early and he agrees with the assessment and plan. I have extensively reviewed the treatment plan with the patient. I have addressed all patient concerns at this time. I have also discussed the plan with the admitting physician and they agree with the current assessment and plan and have agreed to assume responsibility for the patient. All parties demonstrate verbal understanding and agreement with our assessment and plan at this time. EKG 21: 19 Rate 57, intervals normal, sinus bradycardia, RSR in V1, inverted T wave in V1, no significant ST elevations or depressions, no Q waves. Nonspecific T wave flattening in V2 and V3. FINDINGS: Right internal carotid artery: The visualized distal right ICA cervical segment is unremarkable. The right ICA petrous segment is unremarkable. Right ICA cavernous segment is unremarkable. The right ICA supraclinoid segment is unremarkable. Right anterior cerebral artery: Unremarkable. No occlusion or significant stenosis. No aneurysm. The anterior communicating artery is unremarkable. Right middle cerebral artery: Unremarkable. No occlusion or significant stenosis. No aneurysm. Right posterior cerebral artery: Hypoplastic right P1 segment with persistent circulation. Right vertebral artery: Unremarkable. No occlusion or significant stenosis. No aneurysm. Left internal carotid artery: The visualized distal left ICA cervical segment is unremarkable. The left ICA petrous segment is unremarkable. Left ICA cavernous segment is unremarkable. The left ICA supraclinoid segment is unremarkable. Left anterior cerebral artery: Unremarkable. No occlusion or significant stenosis. No aneurysm. Left middle cerebral artery: Unremarkable. No occlusion or significant stenosis. No aneurysm. Left posterior cerebral artery: Mildly hypoplastic left P1 segment with persistent circulation. Left vertebral artery: Unremarkable. No occlusion or significant stenosis. No aneurysm. Basilar artery: Unremarkable. No occlusion or significant stenosis. No aneurysm. Dural sinuses/cerebral veins: The dural venous sinuses and major cortical veins enhance appropriately without evidence of thrombosis. Other vasculature: No asymmetric vascular hyperdensities are identified. HEAD: Brain: No extra-axial fluid collections. No evidence of acute intracranial hemorrhage. Frost-white differentiation is well maintained. No evidence of acute or subacute intracranial ischemia/infarct. ASPECTS (Sudha Stroke Program Early CT Score) is 10. No intracranial mass lesions. No enhancing brain lesions or vascular malformations are identified. Midline shift: No midline shift or herniation. Ventricles: Ventricles normal. Sella: The sella is grossly normal. Bones/joints: The calvarium and visualized facial bones are intact. Sinuses: Opacified right maxillary sinus with decreased sinus volume and peripheral wall thickening consistent with chronic sinusitis. The other paranasal sinuses are clear. Mastoid air cells: Visualized mastoid air cells are clear. Orbits: Orbital contents demonstrate no evidence of acute abnormality. Soft tissues: The scalp and visualized soft tissues are unremarkable. Other findings: The IACs are grossly normal. IMPRESSION: 1. No evidence of large vessel occlusion. No evidence of arterial dissection or aneurysm/pseudoaneurysm. 2. No acute intracranial process is identified. 3. Chronic right maxillary sinusitis. 4. ASPECTS (Sudha Stroke Program Early CT Score) is 10. FINDINGS: VASCULATURE: Right common carotid artery: Normal. No significant stenosis. No dissection or occlusion. Right internal carotid artery: Normal. Extracranial segment is patent with no significant stenosis. No dissection or occlusion. Right external carotid artery: Normal. No occlusion or significant stenosis. Right vertebral artery: Normal. No significant stenosis. No dissection or occlusion. Left common carotid artery: Normal. No significant stenosis. No dissection or occlusion. Left internal carotid artery: Normal. Extracranial segment is patent with no significant stenosis. No dissection or occlusion. Left external carotid artery: Normal. No occlusion or significant stenosis. Left vertebral artery: Normal. No significant stenosis. No dissection or occlusion. Subclavian arteries: The visualized right subclavian artery is unremarkable. The visualized left subclavian artery is unremarkable. Brachiocephalic artery: The brachiocephalic artery is unremarkable. Aorta: The visualized aortic arch is unremarkable, demonstrating no evidence of aneurysm or dissection NECK: Thyroid: The thyroid gland is unremarkable. Bones/joints: No acute osseous abnormalities are identified. Soft tissues: No significant soft tissue swelling or hematoma. Lungs: A few small subpleural blebs are identified in the pulmonary apices bilaterally. The apices are otherwise clear. IMPRESSION: 1. No evidence of hemodynamically significant arterial occlusive disease. 2. No evidence of arterial dissection or aneurysm/pseudoaneurysm. COMMENT: Reference per NASCET criteria for degree of stenosis: Mild: less than 50% stenosis. Moderate: 50- 69% stenosis. Severe: 70-94% stenosis. Near occlusion: 95-99% stenosis. Thank you for allowing us to participate in the care of your patient. Dictated and Authenticated by: Shemar Guzman MD 01/08/2019 9:40 PM Eastern Time ([place] & [place]) HPI General Date/Time Provider Initiated Documentation: 01/08/19 19:48 . HPI Narrative: This is a 33-year-old female who presents today for evaluation of left-sided weakness and activity deficits. She has a past medical history of alpha-1 antitrypsin deficiency and SVT, bipolar and occasional marijuana use. The patient has a complicated recent history. On 01/05 she was seen by [facility], and had a benign cardiac work-up when she had a complaint of palpitations. She also had some chest subjective minimal left-sided weakness that was transient and resolved. She was seen again that afternoon here at [facility], where she had a CT scan of her head, chest x-ray, and a repeat cardiac work- up, all of which was relatively benign. She is feeling better after the work- up, and went home. On Wednesday the the patient developed new symptoms of worsening left-sided weakness, and shaking. She went to the [facility] emergency department where she was seen and assessed, laboratory work-up was benign at that time, and per their documentation there appeared to be notable variability and inconsistency in her symptoms. Unfortunately the patient left/eloped without completion of her care or evaluation. Patient presents today with continued symptoms that have not improved and in fact have worsened since the . She has continued left-sided weakness, her speech is altered, and she has been a lifelong smoker and states that she has not smoked for the last 3 days and she could not care less about it which she states is notably atypical she has never stopped smoking in her life. Currently the patient admits to notable left-sided weakness, difficulty ambulating, slight decrease in balance, notable change in her speech. Symptoms have been present for the last 3 days and she is not a TPA candidate. Related Data Home Medications Medication Instructions Recorded Confirmed methylphenidate HCl [Ritalin] 20 mg PO BID #60 01/08/15 01/08/19 metoprolol tartrate 25 mg tablet 25 mg PO BID #60 tab 03/09/18 01/08/19 Previous Rx's Medication Instructions Recorded metoprolol tartrate 25 mg tablet 25 mg PO BID #60 tab 03/09/18 Allergies Allergy/AdvReac Type Severity Reaction Status Date / Time cefazolin sodium [From Ancef] Allergy Severe Bradycardia Unverified 01/08/19 19:38 & hives fentanyl Allergy Severe Hives and Unverified 01/08/19 19:38 Bradycardia venom-honey bee Allergy Severe Anaphylaxsi Unverified 01/08/19 19:38 [bee venom (honey bee)] s lurasidone HCl [From Latuda] Allergy seizure Unverified 01/08/19 19:38 codeine [Codeine] AdvReac Intermediate Nausea/vomi Unverified 01/08/19 19:38 tting Sulfa (Sulfonamide AdvReac Intermediate Body Shakes Unverified 01/08/19 19:38 Antibiotics) hydromorphone AdvReac Mild Dizziness/L Unverified 01/08/19 19:38 ightheade gabapentin AdvReac light Unverified 01/08/19 19:38 headed /dizzy/depressed morphine AdvReac I get Unverified 01/08/19 19:38 very ugly General Stated Complaint: GenMedical MINNA: 3 Review of Systems Review of Systems All systems reviewed & are unremarkable except as noted in HPI and below PFSH Social History Smoking/Tobacco Use Status: Current every day Tobacco Type: cigarettes Alcohol Intake: current Alcohol Intake frequency: holidays/special occasions only Drug use: Current Sobriety Substance use type: marijuana Household members: other Details: 4 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 3.ENT: Atraumatic external nose and ears. Moist MM. Neck: Symmetric, trachea midline, No thyromegaly. 4.CVS: +S1/S2, No murmurs or gallops. Peripheral pulses 2+ and equal in all extremities. Brisk capillary refill in all extremities. 5.RESP: Unlabored respiratory effort. Clear to auscultation bilaterally. No wheezes rales or rhonchi 6.GI: Soft, Nontender/Nondistended, No hepatosplenomegaly. No guarding or rebound. 7.MSK: Normocephalic/Atraumatic, Extremities w/o deformity or ttp No cyanosis or clubbing, Normal movement of all extremities 8.Skin: Warm, Dry. No rashes or lesions. 9.Neuro: Minimal left-sided facial droop of the patient's left brow, but symmetric smile bilaterally. Sensation is intact on the face and the rest of the body. Upper and lower extremities demonstrate notable deficit in strength, 5 out of 5 on the right upper and lower, however the patient has 3-4/5 strength in the left upper and left lower extremities. She has mild dysmetria, with the deficit being in the left hand, as well as mild dysdiadochokinesia for the left hand. Hnliug-srqe-zevliq is limited on the left compared to the right. +2 patellar reflexes bilaterally, negative Babinski bilaterally. Decreased plantar and dorsiflexion strength in the left lower extremity. When the patient walks she has a natural curling of her toes on the left but not the right. Vision appears intact, planes of vision appear intact. Speech is slightly stuttered and slow. Difficulty with the zory-vt-muks test when using the left lower extremity. 10.Psych: (AAO) x3. Appropriate mood and affect Course Vital Signs Temperature 36.5 C 01/08/19 19:34 Pulse 72 01/08/19 19:34 Respiratory Rate 18 01/08/19 19:34 Blood Pressure 110/80 01/08/19 19:34 Pulse Oximetry 98 01/08/19 19:34 Temperature 36.5 C 01/08/19 19:34 Temperature Source Skin 01/08/19 19:34 Pulse 72 01/08/19 19:34 Respiratory Rate 18 01/08/19 19:34 Respiratory Effort Non-Labored 01/08/19 19:37 Blood Pressure 110/80 01/08/19 19:34 Pulse Oximetry 98 01/08/19 19:34 Pain Level 0 01/08/19 19:34 Lab/Test Results Lab/Test Results: Laboratory Tests Range/Units 01/08/19 01/08/19 20:20 20:20 WBC (4.4-10.8) k/cumm 9.38 RBC (4.00-5.20) m/cumm 4.64 Hgb (12.0-15.5) g/dL 14.4 Hct (36.0-46.0) % 41.1 MCV (80-95) fL 88.6 MCH (27.0-33.0) pg 31.0 MCHC (32.0-36.0) g/dL 35.0 RDW (11.7-14.6) % 13.0 Plt Count (130-400) x1000/uL 228 MPV (8.0-11.0) fL 10.9 Immature Gran % 0.2 Neutrophils % 56.7 Lymphocytes % 29.6 Monocytes % 11.4 Eosinophils % 1.7 Basophils % 0.4 Absolute Neutrophils (1.2-6.7) k/cumm 5.31 Absolute Lymphocytes (1.2-3.4) k/cumm 2.78 Absolute Monocytes (0.11-0.7) k/cumm 1.07 H Absolute Eosinophils (0.0-0.7) k/cumm 0.16 Absolute Basophils (0.0-0.2) k/cumm 0.04 VBG pH (7.32-7.43) 7.41 VBG pCO2 (34-47) mm/Hg 37 VBG pO2 (28-44) mm/Hg 90 H VBG HCO3 (22-28) mmol/L 24 VBG Total CO2 (22-29) mmol/L 21 L VBG O2 Saturation (70-80) % 97 H VBG Base Excess (-3-3) mmol/L -1.1
[2019-01-08 20:45] LABS: Ammonia 24 umol/L (11-32); INR 0.9 (0.9-1.1); Prothrombin Time 9.4 sec (9.3-11.0)
[2019-01-08 20:52] LABS: ALT 19 U/L (12-78); AST 12 U/L (15-37); Alkaline Phosphatase 54 U/L (46-116); Anion Gap 10.6 mmol/L (3-11); BUN 21 mg/dL (7-18); Bilirubin, Total 0.2 mg/dL (0.2-1.0); CO2 23.4 mmol/L (21.0-32.0); CREATININE 0.65 mg/dL (0.55-1.02); Calcium 9.4 mg/dL (8.5-10.1); Chloride 105 mmol/L (98-107); Glucose 105 mg/dL (70-100); Potassium 3.9 mmol/L (3.5-5.1); Sodium 139 mmol/L (136-145); TSH (W/Ref FT4) 0.64 uIU/mL (0.358-3.74); Total Protein 6.9 g/dL (6.4-8.2)
[2019-01-08 21:00] LABS: ETHANOL BLOOD < 3.0 mg/dL (<3)
[2019-01-08 21:12] LABS: Salicylate < 2.8 mg/dL (2.8-20.0)
[2019-01-08 21:16] LABS: Acetaminophen < 2 ug/mL (10-30)
--- NOTE | 2019-01-08 21:20 | DI.CT_ITS ---
SYMPTOMS/DIAGNOSIS: LEFT-SIDED NEURO DEFICITS, LEFT WEAKNESS CT SCAN OF THE BRAIN: Noncontrast examination was performed. There are no priors for comparison. There is a normal flores-white matter differentiation. No acute territorial infarct, hemorrhage, midline shift or mass effect is identified. There is near- complete opacification of the right maxillary sinus. There is a mucus retention cyst or polyp in the left maxillary sinus. The remaining visualized paranasal sinuses are clear as are the mastoid air cells. The calvarium is intact. IMPRESSION: No acute intracranial process. CT ANGIOGRAPHY OF THE HEAD: Routine examination was performed. The intracranial internal carotid artery is unremarkable. No evidence of occlusion, aneurysm or significant stenosis. The anterior cerebral arteries are unremarkable without evidence of occlusion, aneurysm or significant stenosis. The middle cerebral arteries are unremarkable without evidence of occlusion, aneurysm or significant stenosis. The posterior cerebral arteries derive their flow predominantly from the posterior communicating arteries bilaterally. No evidence of occlusion, aneurysm or significant stenosis is seen. The distal vertebral arteries and basilar artery are unremarkable without evidence of occlusion, aneurysm or significant stenosis. IMPRESSION: No evidence of large vessel occlusion, aneurysm or arterial dissection. CT ANGIOGRAPHY OF THE NECK: The common carotid arteries are unremarkable without evidence of dissection, occlusion or significant stenosis. The external carotid arteries are unremarkable without evidence of occlusion or significant stenosis. The extracranial portion of the internal carotid arteries are unremarkable without evidence of dissection, occlusion or significant stenosis. The vertebral arteries appear symmetric and unremarkable without evidence of dissection, occlusion or significant stenosis. The lung apices are clear. No acute osseous abnormalities identified. IMPRESSION: No evidence of significant arterial occlusive disease or aneurysm.
--- NOTE | 2019-01-08 21:36 | NUR.NOTE ---
pt back from ct resting in bed family at bedside Nursing Note:
--- NOTE | 2019-01-08 21:40 | DI.VRAD_ITS ---
Addendum created by Shemar Guzman MD on 01/08/2019 9:43:33 PM EDT Addendum: THIS REPORT CONTAINS FINDINGS THAT MAY BE CRITICAL TO PATIENT CARE. The findings were verbally communicated via telephone conference with SHANIA DYER at 9:43 PM EDT on 01/08/2019. The findings were acknowledged and understood. Initial report created on 01/08/2019 9:40:28 PM EDT EXAM: CT Angiography Head With Contrast EXAM DATE/TIME: 01/08/2019 8:11 PM CLINICAL HISTORY: 33 years old, female; Speech disturbance and weakness; Type not specified; Patient HX: Left sided weakness, and speech changes TECHNIQUE: Imaging protocol: Computed tomographic angiography images of the head with intravenous contrast using CT angiography protocol. Coronal and sagittal reformatted images were created and reviewed. 3D rendering: MIP reconstructed images were created and reviewed. Radiation optimization: All CT scans at this facility use at least one of these dose optimization techniques: automated exposure control; mA and/or kV adjustment per patient size (includes targeted exams where dose is matched to clinical indication); or iterative reconstruction. Contrast material: OMNIPAQUE 350; Contrast volume: 100 ml; Contrast route: IV; COMPARISON: CT HEAD WO 01/05/2019 7:16 PM FINDINGS: Right internal carotid artery: The visualized distal right ICA cervical segment is unremarkable. The right ICA petrous segment is unremarkable. Right ICA cavernous segment is unremarkable. The right ICA supraclinoid segment is unremarkable. Right anterior cerebral artery: Unremarkable. No occlusion or significant stenosis. No aneurysm. The anterior communicating artery is unremarkable. Right middle cerebral artery: Unremarkable. No occlusion or significant stenosis. No aneurysm. Right posterior cerebral artery: Hypoplastic right P1 segment with persistent circulation. Right vertebral artery: Unremarkable. No occlusion or significant stenosis. No aneurysm. Left internal carotid artery: The visualized distal left ICA cervical segment is unremarkable. The left ICA petrous segment is unremarkable. Left ICA cavernous segment is unremarkable. The left ICA supraclinoid segment is unremarkable. Left anterior cerebral artery: Unremarkable. No occlusion or significant stenosis. No aneurysm. Left middle cerebral artery: Unremarkable. No occlusion or significant stenosis. No aneurysm. Left posterior cerebral artery: Mildly hypoplastic left P1 segment with persistent circulation. Left vertebral artery: Unremarkable. No occlusion or significant stenosis. No aneurysm. Basilar artery: Unremarkable. No occlusion or significant stenosis. No aneurysm. Dural sinuses/cerebral veins: The dural venous sinuses and major cortical veins enhance appropriately without evidence of thrombosis. Other vasculature: No asymmetric vascular hyperdensities are identified. HEAD: Brain: No extra-axial fluid collections. No evidence of acute intracranial hemorrhage. Frost-white differentiation is well maintained. No evidence of acute or subacute intracranial ischemia/infarct. ASPECTS ([place] Stroke Program Early CT Score) is 10. No intracranial mass lesions. No enhancing brain lesions or vascular malformations are identified. Midline shift: No midline shift or herniation. Ventricles: Ventricles normal. Sella: The sella is grossly normal. Bones/joints: The calvarium and visualized facial bones are intact. Sinuses: Opacified right maxillary sinus with decreased sinus volume and peripheral wall thickening consistent with chronic sinusitis. The other paranasal sinuses are clear. Mastoid air cells: Visualized mastoid air cells are clear. Orbits: Orbital contents demonstrate no evidence of acute abnormality. Soft tissues: The scalp and visualized soft tissues are unremarkable. Other findings: The IACs are grossly normal. IMPRESSION: 1. No evidence of large vessel occlusion. No evidence of arterial dissection or aneurysm/pseudoaneurysm. 2. No acute intracranial process is identified. 3. Chronic right maxillary sinusitis. 4. ASPECTS ([place] Stroke Program Early CT Score) is 10. EXAM: CT Angiography Neck With Contrast EXAM DATE/TIME: 01/08/2019 8:11 PM CLINICAL HISTORY: 33 years old, female; Speech disturbance and weakness; Type not specified; Patient HX: Left sided weakness, and speech changes TECHNIQUE: Imaging protocol: Axial computed tomographic angiography images of the neck with intravenous contrast using CT angiography protocol. Coronal and sagittal reformatted images were created and reviewed. 3D rendering: MIP reconstructed images were created and reviewed. Radiation optimization: All CT scans at this facility use at least one of these dose optimization techniques: automated exposure control; mA and/or kV adjustment per patient size (includes targeted exams where dose is matched to clinical indication); or iterative reconstruction. Contrast material: OMNIPAQUE 350; Contrast volume: 100 ml; Contrast route: IV; COMPARISON: CT HEAD WO 01/05/2019 7:16 PM FINDINGS: VASCULATURE: Right common carotid artery: Normal. No significant stenosis. No dissection or occlusion. Right internal carotid artery: Normal. Extracranial segment is patent with no significant stenosis. No dissection or occlusion. Right external carotid artery: Normal. No occlusion or significant stenosis. Right vertebral artery: Normal. No significant stenosis. No dissection or occlusion. Left common carotid artery: Normal. No significant stenosis. No dissection or occlusion. Left internal carotid artery: Normal. Extracranial segment is patent with no significant stenosis. No dissection or occlusion. Left external carotid artery: Normal. No occlusion or significant stenosis. Left vertebral artery: Normal. No significant stenosis. No dissection or occlusion. Subclavian arteries: The visualized right subclavian artery is unremarkable. The visualized left subclavian artery is unremarkable. Brachiocephalic artery: The brachiocephalic artery is unremarkable. Aorta: The visualized aortic arch is unremarkable, demonstrating no evidence of aneurysm or dissection. NECK: Thyroid: The thyroid gland is unremarkable. Bones/joints: No acute osseous abnormalities are identified. Soft tissues: No significant soft tissue swelling or hematoma. Lungs: A few small subpleural blebs are identified in the pulmonary apices bilaterally. The apices are otherwise clear. IMPRESSION: 1. No evidence of hemodynamically significant arterial occlusive disease. 2. No evidence of arterial dissection or aneurysm/pseudoaneurysm. COMMENT: Reference per NASCET criteria for degree of stenosis: Mild: less than 50% stenosis. Moderate: 50-69% stenosis. Severe: 70-94% stenosis. Near occlusion: 95-99% stenosis. Dictated and Authenticated by: Shemar Guzman MD. Ordering:JIAN Herrera MD
[2019-01-08 23:54] VITALS: BP 108/50; PULSE 60; RESP 16; TEMP 36; O2SAT 98
--- NOTE | 2019-01-08 23:55 | NUR.NOTE ---
pt transfered to floor via stretcher met by nurse for bedside handoff of pt Nursing Note:
--- NOTE | 2019-01-09 00:53 | HPE_ITS ---
Date of service: 01/09/19 Time of Service: 00:53 Assessment and Plan (1) Left hemiparesis: Current visit: Yes Status: Acute no evidence of CVA on CT and no evidence for cerebral or cervical vascular anomolies. Symptoms of transient blurred vision, dysphonia and new left sided weakness are compatible w/ M.S. however she has no visual loss and no bladder or bowel dysfunction. I would proceed w/ MRI of her brain and spine with and without contrast and consult w/ neurology. Consider spinal tap for CSF for o ligoclonal bands and evoked potential studies. Serology was sent by the ER for tick borne panel (2) Dysphonia: Current visit: Yes Status: Acute work up as above. consider ENT evaluation if her MRI is negative (3) Gait instability: Current visit: Yes Status: Acute will get P.T. to evaluate her gait and balance. await MRI results and neurology consultation History of Present Illness Chief Complaint: left sided weakness, difficulty walking Narrative: 33 yr old female w/ PMH of alpha 1 anti-trypsin deficiency, PSVT, bipolar disorder, emphysema, anxiety disorder who presents to [facility] ER w/ symptoms of intermittent blurred vision which has resolved, left sided hemiparesis which has developed over the past 3 days along w/ difficulty walking and gait imbalance and now with dysphonia. She originally presented to [facility] emergency room in [place], [place] on 01/05 with complaints of chest pain and generalized weakness. She underwent cardiac workup and was discharged from the emergency room only to present to [facility] emergency room later that evening. She underwent workup again including EKG, CT of the head, CXR and labs. Again nothing acute other than mild hypokalemia was found. No objective findings of weakness were noted by the P.A. who saw her. He attributed her symptoms of chest pain and weakness to an anxiety attack and she was treated w/ Ativan and she was counseled to quit smoking in light of her alpha 1 anti-trypsin deficiency. Since that time the patient reports that she has totally lost her desire to smoke. In the past she has attempted to quit smoking but has been unsuccessful and now finds that even the though of smoking makes her nauseated. Over the weekend she experience transient blurred vision in both eyes and since yesterday her weakness has focalized to her left side to the point she can not pick her son up and she is having trouble climbing stairs or maintaining her balance. She denies any bowel or bladder incontinence and has no symptoms of hyperacusis. Evaluaton in the ER by Dr. Zuñiga revealed objective left sided weakness in both her left arm and hand and left leg and foot without sensory loss. She was noted to have dysdiadochokinesis and dysmetria. She underwent CTA of her cervical vessels and brain which showed no evidence of cerebral or cervical stenosis or aneurysm. She is now admitted for evaluation of her neurologic symptoms. Multiple sclerosis is suspected. Review of Systems Review of Systems All systems reviewed & are unremarkable except as noted in HPI and below [facility] Medical History [id number] deficiency (Acute 02/02/18) Anxiety (Acute 11/20/14) Bipolar disorder (Chronic) Panic disorder (Acute) Pulmonary emphysema (Acute 02/01/18) Smoker (Acute 10/19/17) Surgical History Appendectomy Arthroplasty of knee section Tonsillectomy Family History Mother Depression Hx of suicide attempt Stroke Father Depression Neoplasm Asthma Social History (Updated 01/09/19 @ 08:46 by Rk Early) Smoking/Tobacco Use Status: Current every day Tobacco Type: cigarettes Alcohol Intake: current Alcohol Intake frequency: holidays/special occasions only Drug use: Current Sobriety Substance use type: marijuana Household members: other Details: 4 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, 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 Pets and animals: Yes Pets and animals: dog(s) What type of physical activity do you participate in: none Seatbelt use: never Helmet use: No Do you feel safe in your relationship?: Yes Meds Home Medications Medication Instructions Recorded Confirmed Type methylphenidate HCl [Ritalin] 20 mg PO BID #60 01/08/15 01/08/19 History metoprolol tartrate 25 mg tablet 25 mg PO BID #60 tab 03/09/18 01/08/19 Rx Allergies Allergy/AdvReac Type Severity Reaction Status Date / Time cefazolin sodium [From [facility]] Allergy Severe Bradycardia Unverified 01/08/19 19:38 & hives fentanyl Allergy Severe Hives and Unverified 01/08/19 19:38 Bradycardia venom-honey bee Allergy Severe Anaphylaxsi Unverified 01/08/19 19:38 [bee venom (honey bee)] s lurasidone HCl [From [facility]] Allergy seizure Unverified 01/08/19 19:38 codeine [Codeine] AdvReac Intermediate Nausea/vomi Unverified 01/08/19 19:38 tting Sulfa (Sulfonamide AdvReac Intermediate Body Shakes Unverified 01/08/19 19:38 Antibiotics) hydromorphone AdvReac Mild Dizziness/L Unverified 01/08/19 19:38 ightheade gabapentin AdvReac light Unverified 01/08/19 19:38 headed /dizzy/depressed morphine AdvReac I get Unverified 01/08/19 19:38 very ugly Exam Const General: cooperative, healthy appearing and anxious (tearful) Nutritional Appearance: average body habitus Orientation: alert, awake and oriented x3 HENMT Head: normal to inspection, no palpable skull fracture, normocephalic and atraumatic Ears: hearing grossly normal bilaterally Eyes General: appearance normal, both eyes and all related structures Visual Gonzalez: normal visual gonzalez by confrontation Alignment and Position: alignment normal Periorbital: periorbital findings normal Eyelids: eyelids normal Conjunctivae: conjunctivae normal Sclera: sclerae normal Cornea: corneas normal Pupils: PERRL EOM: EOM intact bilaterally Direct ophthalmoscopy: normal light reflex and fundi normal bilaterally Neck Neck: normal visual inspection, full ROM, no lymphadenopathy, trachea midline and no JVD Thyroid: thyroid normal Carotids: normal carotid upstroke Lymphatic: no lymphadenopathy noted Resp Effort & Inspection: normal respiratory effort and able to speak in complete sentences Auscultation: clear to auscultation bilaterally Cardio Jugular venous pressure: no JVD Palpation: normal PMI Rate: regular rate Rhythm: regular rhythm Heart Sounds: S1 normal, S2 normal, normal, physiologic split S2, no gallops, no murmurs and no rubs Pulses: normal peripheral pulses GI Inspection: normal to inspection Palpation: soft and no hepatosplenomegaly Percussion: normal to percussion Auscultation: normal bowel sounds Back/Spine/Pelvis Cervical Spine: normal cervical lordosis Thoracic/Lumbar Spine: thoracic and lumbar spine normal to inspection Pelvis: no pain with anterior-posterior compression Skin General skin exam: no rashes or lesions noted, elasticity normal and turgor normal Neuro General: alert, awake, oriented x3 and moves all extremities Cranial Nerves: PERRL, accommodation normal, EOM intact bilaterally, no nystagmus, facial strength normal, tongue midline, hearing normal, able to rotate head bilaterally and able to elevate shoulders bilaterally Cognition: normal cognition Speech: abnormal speech other (dysphonia w/ high pitch squeaky voice) Motor: muscle tone normal throughout and strength abnormal left upper extremity flexion 3 / 5, extension 3 / 5, abduction and adduction 3 / 5, left lower extremity flexion 3 / 5 and extension 3 / 5 Sensory Exam: no sensory deficits noted DTR's: Rt Triceps: 2+, Rt Biceps: 2+, Lt Biceps: 2+, Rt Brachioradialis: 2+, Lt Brachioradialis: 2+, Rt Patellar: 3+, Lt Patellar: 3+, Rt Ankle: 3+ and Lt Ankle: 3+ Plantar Reflexes: Downgoing: bilateral Coordination: rapid alternating movement UE normal and rapid alternating movement LE normal Extrem General: normal to inspection, no joint enlargement and no clubbing, cyanosis or edema Psych Appearance: grossly normal and well kempt Mental Status: mental status grossly normal Speech and Movement: other (dysphonic speech) Mood: anxious mood (tearful) Affect: sad Attitude: cooperative Thought Process: normal Thought Content: normal Insight: insight good Judgment: judgment good Results Labs : 01/08/19 20:20 01/08/19 20:20 Laboratory Results - last 24 hr 01/08/19 01/08/19 01/08/19 20:20 20:20 20:20 WBC 9.38 RBC 4.64 Hgb 14.4 Hct 41.1 MCV 88.6 MCH 31.0 MCHC 35.0 RDW 13.0 Plt Count 228 MPV 10.9 Immature Gran % 0.2 Neutrophils % 56.7 Lymphocytes % 29.6 Monocytes % 11.4 Eosinophils % 1.7 Basophils % 0.4 Absolute Neutrophils 5.31 Absolute Lymphocytes 2.78 Absolute Monocytes 1.07 H Absolute Eosinophils 0.16 Absolute Basophils 0.04 PT INR APTT VBG pH VBG pCO2 VBG pO2 VBG HCO3 VBG Total CO2 VBG O2 Saturation VBG Base Excess Sodium 139 Potassium 3.9 Chloride 105 Carbon Dioxide 23.4 Anion Gap 10.6 BUN 21 H Creatinine 0.65 Estimated GFR/1.73 m2 >= 60.00 Glucose 105 H Calcium 9.4 Total Bilirubin 0.2 AST 12 L ALT 19 Alkaline Phosphatase 54 Ammonia 24 Total Protein 6.9 Albumin 4.0 TSH 0.64 Salicylates Acetaminophen Ethyl Alcohol < 3.0 01/08/19 01/08/19 01/08/19 20:20 20:20 20:20 WBC RBC Hgb Hct MCV MCH MCHC RDW Plt Count MPV Immature Gran % Neutrophils % Lymphocytes % Monocytes % Eosinophils % Basophils % Absolute Neutrophils Absolute Lymphocytes Absolute Monocytes Absolute Eosinophils Absolute Basophils PT 9.4 INR 0.9 APTT 23.0 VBG pH 7.41 VBG pCO2 37 VBG pO2 90 H VBG HCO3 24 VBG Total CO2 21 L VBG O2 Saturation 97 H VBG Base Excess -1.1 Sodium Potassium Chloride Carbon Dioxide Anion Gap BUN Creatinine Estimated GFR/1.73 m2 Glucose Calcium Total Bilirubin AST ALT Alkaline Phosphatase Ammonia Total Protein Albumin TSH Salicylates < 2.8 L Acetaminophen < 2 L Ethyl Alcohol Last Vital Signs Temp 36.0 C L 01/08/19 23:54 Pulse 60 01/08/19 23:54 Resp 16 01/08/19 23:54 BP 108/50 L 01/08/19 23:54 Pulse Ox 98 01/08/19 23:54
[2019-01-09 07:33] LABS: *AMPHETAMINES SCREEN URINE POSITIVE (Negative); *BARBITURATES SCREEN URINE Negative (Negative); *BENZODIAZEPINES SCREEN URINE Negative (Negative); Cannabinoids THC POSITIVE (Negative); Cocaine Screen,Urine Negative (Negative); METHADONE URINE SCREEN Negative (Negative); OPIATES URINE SCREEN Negative (Negative)
[2019-01-09 07:36] LABS: Tricyclic Antidepressants Negative (Negative)
--- NOTE | 2019-01-09 07:38 | DI.MRI_ITS ---
SYMPTOM/DIAGNOSIS: ACUTE LEFT SIDED WEAKNESS, DYSPHONIA, POSSIBLE MS MRI BRAIN: Noncontrast. Routine examination was performed. There is normal flores/white matter signal. Diffusion weighted images are unremarkable. The susceptibility images show no evidence of intracranial hemorrhage. The ventricles are intact. The basilar cisterns are patent. The temporal lobes appear symmetric and within normal limits. No acute midline shift or mass effect is identified. There is a normal flow void seen in the [place]. The pituitary gland appears grossly unremarkable. There is opacification of the right maxillary sinus and mild mucosal thickening in the left maxillary sinus. IMPRESSION: 1. No acute intracranial process 2. Right maxillary sinus disease.
--- NOTE | 2019-01-09 07:38 | DI.MRI_ITS ---
SYMPTOM/DIAGNOSIS: HEMIPARESIS, SPASTICITY, DYSPHONIA. R/O MS MRI LUMBAR SPINE: Routine noncontrast examination was performed. The conus medullaris has a normal appearance and location,. There is normal marrow signal. Normal signal of the intervertebral discs is seen. No focal disc herniation, central spinal canal or neuroforaminal stenosis is seen in the lumbar spine. IMPRESSION: Normal MRI of the lumbar spine.
--- NOTE | 2019-01-09 07:38 | DI.MRI_ITS ---
SYMPTOM/DIAGNOSIS: LEFT HEIPARESIS, SPASTICITY, DYSPHONIA. R/O MS MRI CERVICAL SPINE: Routine noncontrast examination was performed. There is normal signal in the spinal cord. No evidence of tonsillar ectopia is seen. There is normal signal in the bone marrow and intervertebral discs. No focal disc herniation, central spinal canal or neural foraminal stenosis is seen. IMPRESSION: Negative MRI of the cervical spine
[2019-01-09 07:52] LABS: Platelet Count 217 x1000/uL (130-400)
[2019-01-09 08:00] VITALS: BP 110/68; PULSE 58; RESP 16; TEMP 36.9; O2SAT 98
--- NOTE | 2019-01-09 08:30 | PDOC.CMIN ---
Care Management Initial Assess REASON FOR HOSPITALIZATION:: Left Sided Weakness PAST MEDICAL HISTORY/PAST SURGICAL HISTORY:: [id number] deficiency, anxiety, bipolar disorder, cholestasis of , history of Q fever, intrahepatic cholestasis of , panic disorder, postoperative wound cellulitis, recurrent loss, pruritic condition, pulmonary emphysema, right lower quadrant pain, ruptured cyst of ovary, smoker, substance abuse (opiates and alcohol), section x2, wound infection following section, appendectomy, L TKA, tonsillectomy PREVIOUS FUNCTIONAL STATUS/SOCIAL/FAMILY SUPPORTS:: Billy resides in [place], [place] with her significant other, Gavin and two children her daughter is eight and their son is four. 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 CURRENT FUNCTIONAL STATUS:: Billy is lying in bed when JI meets with her. She is soft spoken, makes eye contact and seems restless on the bed as she is noted to reposition almost constantly. A gentleman who she identifies as her boyfriend, Gavin is at her bedside and appears supportive throughout the conversation. Billy reports onset of symptoms on , 01/05/19. ADVANCE DIRECTIVES:: None on file at [facility]. Has patient been provided with information about the portal?: No Did the patient sign up for the portal?: No CODE STATUS:: Full Code INSURANCE COVERAGE / FINANCIAL ISSUES:: [employer] CURRENT HOME/COMMUNITY SERVICES/EQUIPMENT:: No current services. PRIMARY CARE PHYSICIAN:: Ze Edwards POTENTIAL DISCHARGE NEEDS:: Work up including MRI. Outpatient follow up appointments including with her PCP. PATIENT/FAMILY EDUCATION NEEDS:: Review of discharge instructions, discuss [facility]. ANTICIPATED BARRIERS TO DISCHARGE:: None identified. TRANSPORTATION:: Via private vehicle with family. PLAN:: Billy will return home when ready per MD. Anticipate outpatient follow up plan including PCP. She will transport via private vehicle with family.
[2019-01-09 11:49] LABS: Vitamin B12 679 pg/mL (193-986)
[2019-01-09] MEDS: LORazepam 2 MG/ML VIAL 0.5 MG IVP (11:49)
[2019-01-09] MEDS: Normal Saline Flush 10 ML SYR IVP (11:49)
--- NOTE | 2019-01-09 15:47 | W.NEUROCONSU ---
Date of service: 01/09/19 Time of Service: 15:47 Assessment and Plan (1) Functional neurological symptom disorder with mixed symptoms: Current visit: Yes Status: Acute (2) Left hemiparesis: Current visit: Yes Status: Acute (3) Dysphonia: Current visit: Yes Status: Acute (4) Gait instability: Current visit: Yes Status: Acute (5) Bipolar disorder: Current visit: No Status: Chronic (6) Anxiety: Current visit: No Status: Chronic Ms. Santana is a 33-year-old, right-handed woman who was admitted with a 1 to 2 week history of waxing and waning generalized weakness, left sided weakness, intermittent diffuse paraesthesias, tremors, gait imbalance, fatigue, altered speech (a mix of stuttering, slurring, and elevated pitch), and recent aversion to cigarrette smoking. Her neurological exam was significant for primarily left sided giveaway weakness that lateralized with bilateral simultaneous testing. Her sensory exam was nonphysiologic. Her work-up has included a normal brain, cervical, and lumbar spine MRI as well as a CTA head and neck. Laboratory studies have been unremarkable. Her symptoms seem to be most consistent with a functional neurological disorder which I discussed with her. She has been previously told her symptoms are due to anxiety, but she does not think that this would account for her symptoms. She also denies any symptoms of bipolar disorder at this time. I did discuss with her that anxiety can manifest with symptoms such as she has without any typical anxiety features. Migraine remains in the differential diagnosis, but seems less likely given lack of headaches. We discussed a viral illness could cause altered taste/smell which could account for her cigarette aversion, but she denies recent illness. Consider psychiatry consult if available. Can consider hydroxyzine 25mg q6hr prn paraesthesias/speech changes, but would defer to psychiatry. Continue with physical therapy. I will not make a follow-up with her in neurology clinic at this time, but if she desires to follow-up, she is more than welcome to call the clinic to schedule an appointment. Thank you for this consultation. Please call with any further questions or concerns. DISCLAIMER: This note was created using [employer] voice recognition software. History of Present Illness Chief Complaint: weakness Narrative: Handedness: right. HPI: Ms. Santana is a 33-year-old woman with a past medical history of bipolar disorder, SVT, and alpha 1 antitrypsin deficiency as well as cigarette smoking. The history is primarily taken from the records. The patient reports poor recollection of symptoms/events over the last 2 weeks. She first presented to [facility] emergency room on 01/05/2019 with chest pain and a 1 week history of generalized weakness as well as episodic left sided weakness. She also describes intermittent paresthesias throughout her bilateral arms and legs. I do not have those records but she was discharged with a normal work-up. She subsequently presented to the [facility] emergency room on the same day for similar symptoms including a reported spell manifested by yelling and punching. In the emergency room she was tearful and anxious. She underwent a CT head which I was able to review and was unremarkable. She was discharged to home feeling better after a dose of IV Ativan. On 01/06/2019 she reports waking up with her face swollen in addition to her ongoing symptoms. She also developed severe tremors of her entire body bilaterally. She presented to the [facility] emergency room. The ER physician found a functional neurological exam. She left AMA prior to completing a work-up. She presented back to the [facility] emergency room yesterday, 01/08/2019, with new complaints of altered speech including worsening left hemiparesis, generalized weakness, and gait imbalance. She also notes a 3-day history of zero cravings for cigarettes as well as an aversion to cigarette smoke. In the emergency room, she was noted to have a stuttering speech, mild left sided weakness, and left-sided ataxia. She continues to note intermittent paresthesias. She underwent a repeat CT head which I was able to review and was unremarkable. She also underwent a CTA head and neck which I was also able to review and was unremarkable. Today, she notes ongoing generalized weakness with only mild left hemiparesis. She continues to have paresthesias. Her speech is changed into a high-pitched alteration of her normal speech without any slurring or stuttering. She reports she recently consulted with her PCP Dr. Beckett who told her her symptoms were due to anxiety. I do not see any notes in the chart to support this. She has a history of migraine headaches but denies any recent headaches. She has not had any falls. She denies any recent illnesses or sick contacts. She underwent a brain MRI, cervical spine MRI, and a lumbar spine MRI without contrast today. The official reports are pending. I was able to review all of these images. They were all unremarkable. There is no significant central neuroforaminal narrowing in the spine. Consults Requesting physician: Rk Early Review of Systems Review of Systems All systems reviewed & are unremarkable except as noted in HPI and below PFS Medical History [id number] deficiency (Chronic 02/02/18) Anxiety (Chronic 11/20/14) Bipolar disorder (Chronic) Cholestasis of (Resolved 12/16/14) History of Q fever (Resolved 10/25/17) Intrahepatic cholestasis of (Resolved 11/27/14) Outcome of delivery, single liveborn (Resolved 12/17/14) Panic disorder (Chronic) Postoperative wound cellulitis (Resolved 12/25/14) care for patient with recurrent loss (Resolved 06/18/14) examination or test, positive result (Resolved 05/07/14) Pruritic condition (Resolved) Pulmonary emphysema (Chronic 02/01/18) Right lower quadrant pain (Resolved 02/05/13) Ruptured cyst of ovary (Resolved 02/05/13) Smoker (Chronic 10/19/17) Substance abuse (Inactive 12/01/13) Supervision of other normal (Resolved 05/15/14) Wound infection following section, (Inactive 12/27/14) Surgical History Appendectomy Arthroplasty of knee section Tonsillectomy Family History Mother Depression Hx of suicide attempt Stroke Father Depression Neoplasm Asthma Social History Smoking/Tobacco Use Status: Current every day Tobacco Type: cigarettes Alcohol Intake: current Alcohol Intake frequency: holidays/special occasions only Drug use: Current Sobriety Substance use type: marijuana Household members: other Details: 4 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, 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 Pets and animals: Yes Pets and animals: dog(s) What type of physical activity do you participate in: none Seatbelt use: never Helmet use: No Do you feel safe in your relationship?: Yes Visit Medication and Allergies Active Medications Generic Name Dose Route Start Last Admin Trade Name Freq PRN Reason Stop Dose Admin Dimethicone/Zinc Oxide 0 gm 01/09/19 00:57 Hailey Protect Cream TP PRN PRN IV Miscellaneous Supplies 1 each 01/08/19 22:45 IV DIRECTED IRAM Iohexol 100 ml 01/08/19 20:30 01/08/19 20:28 Omnipaque 350 IJ 02/07/19 23:59 100 ml DIRECTED IRAM Administration Nicotine 30 cartridge 01/09/19 09:06 Nicotrol 30 Cartridges/Pack IH Q2H PRN PRN Sodium Chloride 0 ml 01/08/19 22:37 01/09/19 11:49 Saline Flush 10 Ml Syringe IVP 10 ml PRN PRN Administration Allergies cefazolin sodium [From Ancef] Allergy (Severe, Unverified 01/08/19 19:38) Bradycardia & hives fentanyl Allergy (Severe, Unverified 01/08/19 19:38) Hives and Bradycardia venom-honey bee [bee venom (honey bee)] Allergy (Severe, Unverified 01/08/19 19:38) Anaphylaxsis lurasidone HCl [From Latuda] Allergy (Unverified 01/08/19 19:38) seizure codeine [Codeine] Adverse Reaction (Intermediate, Unverified 01/08/19 19:38) Nausea/vomitting Sulfa (Sulfonamide Antibiotics) Adverse Reaction (Intermediate, Unverified 01/08/19 19:38) Body Shakes hydromorphone Adverse Reaction (Mild, Unverified 01/08/19 19:38) Dizziness/Lightheade gabapentin Adverse Reaction (Unverified 01/08/19 19:38) light headed /dizzy/depressed morphine Adverse Reaction (Unverified 01/08/19 19:38) I get very ugly Exam Narrative Exam Narrative: Physical Exam: Gen: Patient of apparent stated age, NAD Head and face: no facial or cranial abnormalities Neck: Supple, no meningismus, no occipital tenderness CV: + S1, S2, RRR, no murmur Resp: CTA B/L Abd: soft, nontender, nondistended Ext: No edema. No clubbing or cyanosis. No bony deformity. Neuro Exam: Language: fluency, naming, repetition, and comprehension intact; Mental Status: AAOx3, current events intact, fund of knowledge intact; Speech: no dysarthria; speaking with very high-pitched voice Cranial nerves: Funduscopy: not performed CN II: visual gonzalez intact CN III, IV, : extraocular movements intact, no nystagmus, pupils symmetric and reactive to light CN V: face sensation intact to LT and PP CN VII: no facial asymmetry noted CN VIII: hearing intact bilaterally CN IX, X: palate rises symmetrically CN XI: trapezius/SCM 5/5 bilaterally CN XII: protrudes tongue symmetrically Sensory: tingling to LT in RLE; reduced PP and vibration in LLE; joint position reduced in toes of LLE; Motor: bulk and tone intact. Fine motor movements reduced on the left. No pronator drift - did have mild regular drift; but later repeated with distration and had no drift. Strength 5/5 throughout with give-way weakness throughout (testing bilaterally). Reflexes: 2+ at the biceps, triceps, brachioradialis, patella, and achilles tendons bilaterally; toes down going bilaterally; Coordination: no ataxia or dysmetria on my exam Gait: deferred Results Last Vital Signs Temp 36.9 C 01/09/19 08:00 Pulse 58 L 01/09/19 08:00 Resp 16 01/09/19 08:00 BP 110/68 01/09/19 08:00 Pulse Ox 98 01/09/19 08:00 Labs : 01/09/19 06:48 01/08/19 20:20 Laboratory Results - last 24 hr 01/08/19 01/08/19 01/08/19 20:20 20:20 20:20 WBC 9.38 RBC 4.64 Hgb 14.4 Hct 41.1 MCV 88.6 MCH 31.0 MCHC 35.0 RDW 13.0 Plt Count 228 MPV 10.9 Immature Gran % 0.2 Neutrophils % 56.7 Lymphocytes % 29.6 Monocytes % 11.4 Eosinophils % 1.7 Basophils % 0.4 Absolute Neutrophils 5.31 Absolute Lymphocytes 2.78 Absolute Monocytes 1.07 H Absolute Eosinophils 0.16 Absolute Basophils 0.04 PT INR APTT VBG pH VBG pCO2 VBG pO2 VBG HCO3 VBG Total CO2 VBG O2 Saturation VBG Base Excess Sodium 139 Potassium 3.9 Chloride 105 Carbon Dioxide 23.4 Anion Gap 10.6 BUN 21 H Creatinine 0.65 Estimated GFR/1.73 m2 >= 60.00 Glucose 105 H Calcium 9.4 Total Bilirubin 0.2 AST 12 L ALT 19 Alkaline Phosphatase 54 Ammonia 24 Total Protein 6.9 Albumin 4.0 Vitamin B12 TSH 0.64 Salicylates Urine Opiates Screen Urine Methadone Screen Acetaminophen Ur Barbiturates Screen Ur Tricyclics Screen Ur Amphetamines Screen U Benzodiazepines Scrn Urine Cocaine Screen Ur THC Screen Ethyl Alcohol < 3.0 01/08/19 01/08/19 01/08/19 20:20 20:20 20:20 WBC RBC Hgb Hct MCV MCH MCHC RDW Plt Count MPV Immature Gran % Neutrophils % Lymphocytes % Monocytes % Eosinophils % Basophils % Absolute Neutrophils Absolute Lymphocytes Absolute Monocytes Absolute Eosinophils Absolute Basophils PT 9.4 INR 0.9 APTT 23.0 VBG pH 7.41 VBG pCO2 37 VBG pO2 90 H VBG HCO3 24 VBG Total CO2 21 L VBG O2 Saturation 97 H VBG Base Excess -1.1 Sodium Potassium Chloride Carbon Dioxide Anion Gap BUN Creatinine Estimated GFR/1.73 m2 Glucose Calcium Total Bilirubin AST ALT Alkaline Phosphatase Ammonia Total Protein Albumin Vitamin B12 TSH Salicylates < 2.8 L Urine Opiates Screen Urine Methadone Screen Acetaminophen < 2 L Ur Barbiturates Screen Ur Tricyclics Screen Ur Amphetamines Screen U Benzodiazepines Scrn Urine Cocaine Screen Ur THC Screen Ethyl Alcohol 01/09/19 01/09/19 01/09/19 06:35 06:48 10:25 WBC RBC Hgb Hct MCV MCH MCHC RDW Plt Count 217 MPV Immature Gran % Neutrophils % Lymphocytes % Monocytes % Eosinophils % Basophils % Absolute Neutrophils Absolute Lymphocytes Absolute Monocytes Absolute Eosinophils Absolute Basophils PT INR APTT VBG pH VBG pCO2 VBG pO2 VBG HCO3 VBG Total CO2 VBG O2 Saturation VBG Base Excess Sodium Potassium Chloride Carbon Dioxide Anion Gap BUN Creatinine Estimated GFR/1.73 m2 Glucose Calcium Total Bilirubin AST ALT Alkaline Phosphatase Ammonia Total Protein Albumin Vitamin B12 679 TSH Salicylates Urine Opiates Screen Negative Urine Methadone Screen Negative Acetaminophen Ur Barbiturates Screen Negative Ur Tricyclics Screen Negative Ur Amphetamines Screen Positive U Benzodiazepines Scrn Negative Urine Cocaine Screen Negative Ur THC Screen Positive Ethyl Alcohol
[2019-01-09 16:00] VITALS: BP 113/69; PULSE 66; RESP 14; TEMP 36.4; O2SAT 99
--- NOTE | 2019-01-09 16:51 | PHARADMIT ---
Admission Pharmacy Clinical Review left sided weakness Code Status Full Code Current Weight 55.9 kg Renally Cleared and Narrow Therapeutic Index Meds Crcl ~89.09 mL/min current meds okay QTc Value / Action Taken QTc 403 BP Control, Fever BP 110/68 afebrile Electrolytes reviewed within normal limits DVT Prophylaxis none- on hold until know if want LP per morning report Opiate Usage / Scheduled Bowel Regimen Ordered none/none Plt/SCr for Heparin / Enoxaparin plt 217 SCr 0.65 INR for Warfarin n/a H/H stable, WBC/Bands h/h 14.4/41.1 wbc 9.38 Antibiotic appropriateness none Cultures and Sensitivities none Surgical ABX d/c within 24 hr n/a DM control / Insulin Dosing Bg 105 none Heart Failure (Check EF%) (CHIP's, B-Block, Diuretics) none IV to PO Switch n/a Home Meds Reviewed yes Home Meds Not Ordered methylphenidate, metoprolol Comments neuro consult ordered along with some imaging
--- NOTE | 2019-01-09 19:10 | PGE_ITS ---
Date of Service Date of service: 01/09/19 Time of Service: 19:10 Assessment and Plan (1) Functional neurological symptom disorder with mixed symptoms: Current visit: No Status: Acute Neurology evaluation with likely psychiatric etiology for patient's symptoms (anxiety) with migraines deemed as less likely - Recommendation for increase in home hydroxyzine, Physical Therapy, and psychiatry follow-up. Subjective Interval history since last seen: 33 yr old female with a prior history of Bipolar Disorder and Anxiety, admitted from [facility] Emergency Department on 01/08 with complaints of left sided weakness. Ms. Santana has a prior history of Bipolar disorder and anxiety, as well as A1 Antitrypsin deficiency, tobacco use, and COPD. She presented to the ED with complaints of intermittent blurry vision, chest pain, paresthesias, tremors, fatigue,difficulty walking over the past 3-4 days prior to presentation, and generalized weakness. She also noted an altered speech, speaking with a higher voice than her baseline. She was evaluated at [facility], locally, by her PCP, and at [facility] - all without any significant pathology seen and attributed to anxiety. A CTA of the Head and Neck was without significant pathology (Chronic sinusitis). She was referred for admission for further evaluation and treatment. Today Ms. Santana reports improvement in her symptoms, including her voice and LUE, with some subjective residual LE weakness. Neurology has evaluated patient has well, and without any specific pathology identified. Her Brain and spine MRI was interpreted as without pathology, and labs were essentially unremarkable. Her symptoms were deemed a functional neurological disorder, without any further need for testing (including MRI with contrast or LP). Rather, anxiety was deemed as the likely etiology for her symptoms. No other events reported. Remains afebrile. Objective Objective Clinical Data: Abnormal lab results 01/08/19 01/08/19 01/08/19 Range/Units 20:20 20:20 20:20 Absolute Monocytes 1.07 H (0.11-0.7) k/cumm VBG pO2 90 H (28-44) mm/Hg VBG Total CO2 21 L (22-29) mmol/L VBG O2 Saturation 97 H (70-80) % BUN 21 H (7-18) mg/dL Glucose 105 H (70-100) mg/dL AST 12 L (15-37) U/L Salicylates (2.8-20.0) mg/dL Acetaminophen (10-30) ug/mL 01/08/19 Range/Units 20:20 Absolute Monocytes (0.11-0.7) k/cumm VBG pO2 (28-44) mm/Hg VBG Total CO2 (22-29) mmol/L VBG O2 Saturation (70-80) % BUN (7-18) mg/dL Glucose (70-100) mg/dL AST (15-37) U/L Salicylates < 2.8 L (2.8-20.0) mg/dL Acetaminophen < 2 L (10-30) ug/mL Vital Signs Temperature 36.4 C L 01/09/19 16:00 Temperature Source Tympanic 01/09/19 16:00 Pulse 66 01/09/19 16:00 Pulse Rhythm Regular 01/09/19 16:00 Respiratory Rate 14 01/09/19 16:00 Respiratory Effort Non-Labored 01/09/19 16:00 Respiratory Depth Normal 01/09/19 16:00 Respiratory Pattern Normal 01/09/19 16:00 Blood Pressure 113/69 01/09/19 16:00 Pulse Oximetry 99 01/09/19 16:00 Oxygen Delivery Method Room Air 01/09/19 16:00 Oxygen Flow Rate 0 01/09/19 16:00 Pain Level 0 01/09/19 16:00 Intake & Output 01/08/19 01/09/19 01/09/19 23:59 11:59 23:59 Intake Total 210 / 710 500 / 710 Output Total 800 / 1100 300 / 1100 Balance -590 / -390 200 / -390 Weight 54.431 kg 55.9 kg Intake: IV Oral 200 / 700 500 / 700 Output: Urine 800 / 1100 300 / 1100 Other: Urine Color Light Khalida Yellow Urine Appearance Clear Clear Urine Odor None None Voiding Methods Toilet Toilet Laboratory Results WBC 9.38 k/cumm (4.4-10.8) 01/08/19 20:20 RBC 4.64 m/cumm (4.00-5.20) 01/08/19 20:20 Hgb 14.4 g/dL (12.0-15.5) 01/08/19 20:20 Hct 41.1 % (36.0-46.0) 01/08/19 20:20 MCV 88.6 fL (80-95) 01/08/19 20:20 MCH 31.0 pg (27.0-33.0) 01/08/19 20:20 MCHC 35.0 g/dL (32.0-36.0) 01/08/19 20:20 RDW 13.0 % (11.7-14.6) 01/08/19 20:20 Plt Count 217 x1000/uL (130-400) 01/09/19 06:48 MPV 10.9 fL (8.0-11.0) 01/08/19 20:20 Immature Gran % 0.2 01/08/19 20:20 56.7 01/08/19 20:20 29.6 01/08/19 20:20 11.4 01/08/19 20:20 1.7 01/08/19 20:20 0.4 01/08/19 20:20 Absolute Neutrophils 5.31 k/cumm (1.2-6.7) 01/08/19 20:20 Absolute Lymphocytes 2.78 k/cumm (1.2-3.4) 01/08/19 20:20 Absolute Monocytes 1.07 k/cumm (0.11-0.7) H 01/08/19 20:20 Absolute Eosinophils 0.16 k/cumm (0.0-0.7) 01/08/19 20:20 Absolute Basophils 0.04 k/cumm (0.0-0.2) 01/08/19 20:20 PT 9.4 sec (9.3-11.0) 01/08/19 20:20 INR 0.9 (0.9-1.1) 01/08/19 20:20 APTT 23.0 sec (21.0-31.4) 01/08/19 20:20 VBG pH 7.41 (7.32-7.43) 01/08/19 20:20 VBG pCO2 37 mm/Hg (34-47) 01/08/19 20:20 VBG pO2 90 mm/Hg (28-44) H 01/08/19 20:20 VBG HCO3 24 mmol/L (22-28) 01/08/19 20:20 VBG Total CO2 21 mmol/L (22-29) L 01/08/19 20:20 VBG O2 Saturation 97 % (70-80) H 01/08/19 20:20 VBG Base Excess -1.1 mmol/L (-3-3) 01/08/19 20:20 Sodium 139 mmol/L (136-145) 01/08/19 20:20 Potassium 3.9 mmol/L (3.5-5.1) 01/08/19 20:20 Chloride 105 mmol/L (98-107) 01/08/19 20:20 Carbon Dioxide 23.4 mmol/L (21.0-32.0) 01/08/19 20:20 10.6 mmol/L (3-11) 01/08/19 20:20 BUN 21 mg/dL (7-18) H 01/08/19 20:20 0.65 mg/dL (0.55-1.02) 01/08/19 20:20 >= 60.00 (mL/min/1.73m2) 01/08/19 20:20 Glucose 105 mg/dL (70-100) H 01/08/19 20:20 Calcium 9.4 mg/dL (8.5-10.1) 01/08/19 20:20 0.2 mg/dL (0.2-1.0) 01/08/19 20:20 AST 12 U/L (15-37) L 01/08/19 20:20 ALT 19 U/L (12-78) 01/08/19 20:20 54 U/L (46-116) 01/08/19 20:20 24 umol/L (11-32) 01/08/19 20:20 6.9 g/dL (6.4-8.2) 01/08/19 20:20 4.0 g/dL (3.4-5.0) 01/08/19 20:20 Vitamin B12 679 pg/mL (193-986) 01/09/19 10:25 TSH 0.64 uIU/mL (0.358-3.74) 01/08/19 20:20 Salicylates < 2.8 mg/dL (2.8-20.0) L 01/08/19 20:20 Negative (Negative) 01/09/19 06:35 Negative (Negative) 01/09/19 06:35 Acetaminophen < 2 ug/mL (10-30) L 01/08/19 20:20 Ur Barbiturates Screen Negative (Negative) 01/09/19 06:35 Ur Tricyclics Screen Negative (Negative) 01/09/19 06:35 Ur Amphetamines Screen Positive (Negative) 01/09/19 06:35 U Benzodiazepines Scrn Negative (Negative) 01/09/19 06:35 Negative (Negative) 01/09/19 06:35 Ur THC Screen Positive (Negative) 01/09/19 06:35 Ethyl Alcohol < 3.0 mg/dL (<3) 01/08/19 20:20
[2019-01-09] MEDS: hydrOXYzine HCL 10 MG TAB PO (20:24)
[2019-01-09 23:35] VITALS: BP 115/66; PULSE 60; RESP 13; TEMP 37; O2SAT 98
--- NOTE | 2019-01-10 03:29 | NUR.NOTE ---
AT 2030 ON 01/09/19 pt told this nurse that her Iv site was bothering her. Iv site appeared to be infiltrated. IV removed. pt was not gettting any medications through this IV pt asked if she needed a new one. CC called . said that we could leave her IV out unless it was needed for her MRI. OV out at this time.
[2019-01-10 07:47] VITALS: BP 112/67; PULSE 66; RESP 16; TEMP 36.8; O2SAT 95
[2019-01-10 11:23] LABS: Lyme Ab w Rflx to Lyme Confirm Negative
--- NOTE | 2019-01-10 11:56 | DSE_ITS ---
Date of service: 01/10/19 Time of Service: 11:56 DS: Diagnosis Discharge Diagnosis (1) Functional neurological symptom disorder with mixed symptoms: Status: Acute Discharge Plan Disposition Patient Disposition: HOME Condition: Stable Discharge Details Chief Complaint: GenMedical Clinical Impression: Acute left-sided muscle weakness, Dysmetria, Dysdiadochokinesia, Episode of change in speech Reason For Visit: LEFT SIDED WEAKNESS Admit Date/Time: 01/08/19 22:37 Admit Provider: Rk Early Attending Provider: Rk Early Primary Care Provider: Ze Edwards ED Provider: Javier Zuñiga Hospital Course Hospital Course: Chief Complaint: Weakness HPI: 33 yr old female with a prior history of Bipolar Disorder and Anxiety, admitted from [facility] Emergency Department on 01/08 with complaints of left sided weakness. Ms. Santana has a prior history of Bipolar disorder and anxiety, as well as A1 An titrypsin deficiency, tobacco use, and COPD. She presented to the ED with complaints of intermittent blurry vision, chest pain, paresthesias, tremors, fatigue, difficulty walking over the 3-4 days prior to presentation, and generalized weakness. She also noted an altered speech, speaking with a higher voice than her baseline. She was evaluated at [facility], locally, by her PCP, and at [facility] [place] all without any significant pathology seen and attributed to anxiety. A CTA of the Head and Neck was without significant pathology (Chronic sinusitis). She was referred for admission for further evaluation and treatment. Following her admission Ms. Santana reported improvement in her symptoms without intervention, including her voice and LUE weakness, with some subjective residual LE weakness. Neurology has evaluated patient as well, and without any specific pathology identified. Her Brain and spine MRI were interpreted as without pathology, and labs were essentially unremarkable. Her symptoms were deemed a functional neurological disorder, without any further need for testing (including MRI with contrast or LP). This morning the patient is back to her baseline, and requesting to go home. No other events reported. Remains afebrile. Hospital Course: (1) Functional neurological symptom disorder with mixed symptoms: Neurology evaluation with likely psychiatric etiology for patient's symptoms (anxiety) with migraines deemed as less likely - Recommendation for increase in home hydroxyzine, Physical Therapy, and psychiatry follow-up. Will discharge with recommendations for PCP follow-up, with quick interval frequent follow-up after with PCP and Psychiatry. Patient states that she has her own psychiatrist. Outpatient PT will be scheduled as well. Home Meds and New Rx's Prescriptions: New hydroxyzine HCl 10 mg Tablet 10 mg PO TID PRN PRNQty: 30 RF: 0 Continued metoprolol tartrate 25 mg tablet 25 mg PO BID Qty: 60 RF: 11 methylphenidate HCl [Ritalin] 20 MG tablet 20 mg PO BID Qty: 60 RF: 0 Discharge Instructions Additional Instructions: Please see your primary care physician and psychiatrist within 1 week of discharge. An appointment for physical therapy follow-up is being made for you. Stand Alone Forms: Nursing Discharge Form Referrals: Ze Edwards [Primary Care Provider] - 01/18/19 11:00 am Gurinder [facility]ult[facility] PT [PHYSICAL THERAPIST] - 01/24/19 10:00 am Activity:: No Strenuous Activity Equipment/Supplies:: No Equipment Needed Diet:: As Tolerated Discharge Orders Discharge Orders: Discharge Order (Routine); Ordered 01/10/19 Ordered By: Ken Castro DS: Data Vitals/I&O Vitals and I&O: Vital Signs Temperature 36.8 C 01/10/19 07:47 Temperature Source Tympanic 01/10/19 07:47 Pulse 66 01/10/19 07:47 Pulse Rhythm Regular 01/10/19 07:48 Respiratory Rate 16 01/10/19 07:47 Respiratory Effort Non-Labored 01/10/19 07:48 Respiratory Depth Normal 01/10/19 07:48 Respiratory Pattern Normal 01/10/19 07:48 Blood Pressure 112/67 01/10/19 07:47 Pulse Oximetry 95 01/10/19 07:47 Oxygen Delivery Method Room Air 01/10/19 07:47 Oxygen Flow Rate 0 01/10/19 07:47 Pain Level 0 01/10/19 07:47 Intake & Output 01/09/19 01/09/19 01/10/19 11:59 23:59 11:59 Intake Total 210 / 1250 1040 / 1250 440 / 440 Output Total 800 / 1100 300 / 1100 Balance -590 / 150 740 / 150 440 / 440 Weight 55.9 kg Intake: IV Oral 200 / 1240 1040 / 1240 440 / 440 Output: Urine 800 / 1100 300 / 1100 Other: Urine Color Light Khalida Yellow Urine Appearance Clear Clear Clear Urine Odor None None Comment pt gets up AD RIVAS to void, pt removed hat. Voiding Methods Toilet Toilet Completed studies during hospitalization [Text1]: Exam(s) 01/[address]:CT brain & neck CTA SYMPTOMS/DIAGNOSIS: LEFT-SIDED NEURO DEFICITS, LEFT WEAKNESS CT SCAN OF THE BRAIN: Noncontrast examination was performed. There are no priors for comparison. There is a normal flores-white matter differentiation. No acute territorial infarct, hemorrhage, midline shift or mass effect is identified. There is near- complete opacification of the right maxillary sinus. There is a mucus retention cyst or polyp in the left maxillary sinus. The remaining visualized paranasal sinuses are clear as are the mastoid air cells. The calvarium is intact. IMPRESSION: No acute intracranial process. CT ANGIOGRAPHY OF THE HEAD: Routine examination was performed. The intracranial internal carotid artery is unremarkable. No evidence of occlusion, aneurysm or significant stenosis. The anterior cerebral arteries are unremarkable without evidence of occlusion, aneurysm or significant stenosis. The middle cerebral arteries are unremarkable without evidence of occlusion, aneurysm or significant stenosis. The posterior cerebral arteries derive their flow predominantly from the posterior communicating arteries bilaterally. No evidence of occlusion, aneurysm or significant stenosis is seen. The distal vertebral arteries and basilar artery are unremarkable without evidence of occlusion, aneurysm or significant stenosis. IMPRESSION: No evidence of large vessel occlusion, aneurysm or arterial dissection. CT ANGIOGRAPHY OF THE NECK: The common carotid arteries are unremarkable without evidence of dissection, occlusion or significant stenosis. The external carotid arteries are unremarkable without evidence of occlusion or significant stenosis. The extracranial portion of the internal carotid arteries are unremarkable without evidence of dissection, occlusion or significant stenosis. The vertebral arteries appear symmetric and unremarkable without evidence of dissection, occlusion or significant stenosis. The lung apices are clear. No acute osseous abnormalities identified. IMPRESSION: No evidence of significant arterial occlusive disease or aneurysm. MRI BRAIN:01/09 Noncontrast. Routine examination was performed. There is normal flores/white matter signal. Diffusion weighted images are unremarkable. The susceptibility images show no evidence of intracranial hemorrhage. The ventricles are intact. The basilar cisterns are patent. The temporal lobes appear symmetric and within normal limits. No acute midline shift or mass effect is identified. There is a normal flow void seen in the [place]. The pituitary gland appears grossly unremarkable. There is opacification of the right maxillary sinus and mild mucosal thickening in the left maxillary sinus. IMPRESSION: 1. No acute intracranial process 2. Right maxillary sinus disease. MRI CERVICAL SPINE: 01/09/2019 Routine noncontrast examination was performed. There is normal signal in the spinal cord. No evidence of tonsillar ectopia is seen. There is normal signal in the bone marrow and intervertebral discs. No focal disc herniation, central spinal canal or neural foraminal stenosis is seen. IMPRESSION: Negative MRI of the cervical spine Exam(s) 01/09/2019 a MRI:MR lumbar spine wo SYMPTOM/DIAGNOSIS: HEMIPARESIS, SPASTICITY, DYSPHONIA. R/O MS MRI LUMBAR SPINE: Routine noncontrast examination was performed. The conus medullaris has a normal appearance and location,. There is normal marrow signal. Normal signal of the intervertebral discs is seen. No focal disc herniation, central spinal canal or neuroforaminal stenosis is seen in the lumbar spine. IMPRESSION: Normal MRI of the lumbar spine. [facility] Medical History Exyia-[id number] deficiency (Chronic 02/02/18) Anxiety (Chronic 11/20/14) Bipolar disorder (Chronic) Cholestasis of (Resolved 12/16/14) History of Q fever (Resolved 10/25/17) Intrahepatic cholestasis of (Resolved 11/27/14) Outcome of delivery, single liveborn (Resolved 12/17/14) Panic disorder (Chronic) Postoperative wound cellulitis (Resolved 12/25/14) care for patient with recurrent loss (Resolved 06/18/14) examination or test, positive result (Resolved 05/07/14) Pruritic condition (Resolved) Pulmonary emphysema (Chronic 02/01/18) Right lower quadrant pain (Resolved 02/05/13) Ruptured cyst of ovary (Resolved 02/05/13) Smoker (Chronic 10/19/17) Substance abuse (Inactive 12/01/13) Supervision of other normal (Resolved 05/15/14) Wound infection following section, (Inactive 12/27/14) Surgical History Appendectomy Arthroplasty of knee section Tonsillectomy Family History Mother Depression Hx of suicide attempt Stroke Father Depression Neoplasm Asthma Social History Smoking/Tobacco Use Status: Current every day Tobacco Type: cigarettes Alcohol Intake: current Alcohol Intake frequency: holidays/special occasions only Drug use: Current Sobriety Substance use type: marijuana Household members: other Details: 4 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
--- NOTE | 2019-01-10 12:00 | PT.INIE ---
Date of service: 01/10/19 Time of Service: 10:11 PT Notes Inpatient Physical Therapy Evaluation Date: 01/10/2019 Referring Doctor: Ken Castro MD PT Orders: PT CONSULT: Weakness Precautions: Standard. Patient Profile/Admitting Diagnosis: Patient is a 33-year-old female with past medical history significant for all Alpha?1 antitrypsin deficiency, anxiety, and bipolar disorder, occasional marijuana user who presented to the ED on 01/08/2019 with acute left-sided muscle weakness, difficulty with walking, and episode of change in speech. Patient is diagnosed with left acute hemiparesis, dysphonia, and gait instability. Referral to physical therapy was made in order to assess safety for discharge to home. PMHX: Medical History Lmisd-[id number] deficiency (Acute 02/02/18) Anxiety (Acute 11/20/14) Bipolar disorder (Chronic) Panic disorder (Acute) Pulmonary emphysema (Acute 02/01/18) Smoker (Acute 10/19/17) Surgical History Appendectomy Arthroplasty of knee section Tonsillectomy Social History/Home Situation: Patient lives with significant other and 2 children in a 2-floor house that she states she built herself in [place], [place]. 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 Current Functional Limitations: None Equipment Owned/DME: None Subjective: Patient reports that she feels a lot better and the weakness that she initially felt on admission to the ED has gone down but she still complains of her toes curling in when she walks. She reports no headache, no dizziness, no chest pain at time of evaluation. Objective: General Observation: Patient seen walking inside room with slippers on. No lines seen. Mental Status: Alert and oriented x4 Pain: None ROM: Right Upper Extremity: Shoulder Flexion WFL. Shoulder abduction WFL. Elbow flexion WFL. Wrist flexion WFL. Functional opening and closing of hand WFL. Left Upper Extremity: Shoulder Flexion WFL. Shoulder abduction WFL. Elbow flexion WFL. Wrist flexion WFL. Functional opening and closing of hand WFL. Right Lower Extremity: Hip flexion WFL. Hip abduction WFL. Knee flexion WFL. Ankle dorsiflexion WFL. Ankle plantarflexion WFL. Left Lower Extremity: Hip flexion WFL. Hip abduction WFL. Knee flexion WFL. Ankle dorsiflexion WFL. Ankle plantarflexion WFL. Strength: Right Upper Extremity: Shoulder flexors 5/5. Shoulder abductors 5/5. Elbow flexors 5/5. Elbow extensors 5/5. Supervisor Extruding Department strong. Left Upper Extremity: Shoulder flexors 5/5. Shoulder abductors 5/5. Elbow flexors 5/5. Elbow extensors 5/5. Supervisor Extruding Department strong. Right Lower Extremity: Hip flexors 5/5. Hip abductors 5/5. Knee flexors 5/5. Knee extensors 5/5. Ankle dorsiflexors 5/5. Ankle plantarflexors 5/5. Left Lower Extremity:Hip flexors 5/5. Hip abductors 5/5. Knee flexors 5/5. Knee extensors 5/5. Ankle dorsiflexors 5/5. Ankle plantarflexors 5/5. Sensation: Intact as to pain and pressure on bilateral lower extremities. Bed Mobility/Transfers: Rolling independent Supine to sit independent Sit to supine independent Sit to stand independent Stand to sit independent Bed to chair independent Chair to bed independent Gait: Patient was able to tolerate level surface ambulation of up to 300 feet without loss of balance and without the need for an assistive device. Patient was also able to tolerate three 4 inch steps and two 6 inch steps while holding onto one rail using step through gait pattern without any difficulty. Balance: Static Sitting: Normal Dynamic Sitting: Normal Static Standing: Normal Dynamic Standing: Good Special Tests: Mobility Limitations Standardized Measure [facility] 6 clicks Basic Mobility Inpatient Short Form: Raw Score: 24 CMS Score: 0% deficit 30?second chair rise 15 signifying good lower extremity strength and a good dynamic standing balance. Informed Consent/Education: Patient instructed in purpose of PT consult. Assessment: Patient does not currently present any impairment level findings are functional limitations that will prevent her from going home today with significant other and family back to her place of residence. No skilled physical therapy services needed at this time. 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 TREATMENT CODE/TIME: 40428 x 35 minutes beginning at 10:11 AM Thank you very much for this referral. Susan Rebolledo PT, DPT, CLT [facility]
[2019-01-10 12:02] LABS: dsDNA Ab, IgG <12.3 IU/mL (<30)
[2019-01-10 12:35] LABS: ANA Interpretation Positive (NEGAT); ANA Titer Pattern 1:320 Speckled
--- NOTE | 2019-01-10 16:14 | CMDISCH_ITS ---
LACE Index Scoring Tool - Questions: Length of Stay (in days): 2 Acuity (Admit via E.D.?): Yes E.D. Visits: 5 - Answers: Total Score: 9 Risk of Readmission: Low Risk Care Management Discharge Reason for Hospitalization: Left Sided Weakness Discharge Plan: Billy will return home when ready per MD. She will follow up with her PCP; Dr. Edwards, as well as her clutch specialist and Psychiatrist (both in [place]). She will transport via private vehicle with family. Patient/Family Education Needs: Review discharge instructions, discuss Ask Me Three.
[2019-01-11 16:39] LABS: Anaplasma phagocytophilum Negative (Negative); B. miyamotoi PCR Negative (Negative); Babesia divergens/MO-1 Negative (Negative); Babesia duncani Negative (Negative); Babesia microti Negative (Negative); Ehrlichia chaffeensis Negative (Negative); Ehrlichia ewingii/canis Negative (Negative); Ehrlichia muris eauclairensis Negative (Negative)
== END 2019-01-10 12:25 | disposition home or self-care (01) | DRG 880 ==
LOC: ER 19:47 → MS 23:50
PROVIDERS: Admitting Provider Internal Medicine; Emergency Provider Student in an Organized Health Care Education/Training Program; PCP Family Medicine; Visit Provider Internal Medicine
DX: F44.7 Conversion disorder with mixed symptom presentation (principal); G81.94 Hemiplegia, unspecified affecting left nondominant side; R49.0 Dysphonia; R26.81 Unsteadiness on feet; F31.9 Bipolar disorder, unspecified; F41.9 Anxiety disorder, unspecified; J44.9 Chronic obstructive pulmonary disease, unspecified; F17.210 Nicotine dependence, cigarettes, uncomplicated; E88.01 Alpha-1-antitrypsin deficiency
CPT/HCPCS: 36415; 70496; 70498; 80053; 80307; 82805; 87798; 93005; 97161; 99223; 99231; 99238; 99255; 99285; 70551; 72141; 72148; 80320; 80329; 82140; 82607; 84443; 85025; 85049; 85610; 85730; 86038; 86225; 86618; 93010; J2060; J3490

== ENCOUNTER 2019-09-11 10:32 | Outpatient (CLI) | payer MEDICAID, SELFPAY ==
[2019-09-13 08:50] LABS: SARS-CoV-2 Specimen Source Nasopharynx
[2019-09-13 08:55] LABS: SARS-CoV-2 RNA Undetected (Undetected)
== END 2019-09-11 10:52 ==
PROVIDERS: PCP Family Medicine; Visit Provider Family Medicine
DX: Z20.828 Contact with and (suspected) exposure to other viral communicable diseases (principal)
CPT/HCPCS: U0003

== ENCOUNTER 2019-12-05 14:14 | Outpatient (CLI) | payer MEDICAID, SELFPAY ==
[2019-12-06 04:06] LABS: COVID-19 RT-PCR UVMMC Result Negative (Negative)
== END 2019-12-05 14:34 ==
PROVIDERS: PCP Family Medicine
DX: J02.9 Acute pharyngitis, unspecified (principal); Z11.59 Encounter for screening for other viral diseases
CPT/HCPCS: U0003; 87081

== ENCOUNTER 2020-03-29 10:40 | Emergency (ER) | payer MEDICAID, SELFPAY ==
[2020-03-29] VITALS (13 sets, daily range): BP systolic 115–126; BP diastolic 57–80; PULSE 69–91; RESP 10–17; TEMP 36.3; O2SAT 98–100
--- NOTE | 2020-03-29 10:41 | ED.GENADUL_ITS ---
Discharge Plan Disposition Patient Disposition: HOME Condition: Stable Discharge Details Clinical Impression: Closed fracture of transverse process of lumbar vertebra Primary Care Provider: Ze Edwards ED Provider: Azalea Potts Home Meds and New Rx's Prescriptions: New oxycodone 5 mg tablet 5 mg PO Q6H PRN (Reason: pain) Qty: 10 RF: 0 Continued metoprolol succinate 50 mg tablet extended release 24 hr 75 mg PO DAILY Qty: 135 RF: 3 nicotine [Nicoderm CQ] 14 mg/24 hr patch 24 hour 1 patch TD Q24H Qty: 28 RF: 1 Discharge Instructions Instructions: Back Pain (ED) Additional Instructions: You have transverse process fractures of the first through fourth lumbar vertebra on the right side. Otherwise, no evidence of acute trauma. Over the area of discomfort, you may continue with Lidoderm patches to help with pain. You may ambulate as tolerated. Please avoid any heavy lifting. Please call orthopedics today to schedule follow-up appointment. You may continue with Tylenol and/or ibuprofen as needed for discomfort. You may augment this with the oxycodone as prescribed. Please take this medication only as prescribed and keep in a safe place. Do not drive will take this medication. If you develop fever/chills, sensation changes, weakness or other new/worsening symptoms please seek care urgently once again. As requested for your upcoming testing, your COVID test is pending. Referrals: Ze Edwards [Primary Care Provider] - Tommie Culver MD [ [facility] STAFF PHYSICIAN] - Discharge Data Discharge Date/Time-TO BE ENTERED AT DEPARTURE: 03/29/20 13:20 Medical Decision Making Patient is pleasant 34-year-old female presenting today with chief complaint of trauma. She is brought in via POV but need extensive help to get out of the vehicle secondary to pain in her back. Patient reports a prior to arrival she was painting on a ladder when she fell approximately 8 feet landing on the right side of her back. States that she subsequently hit the back of her head. She did not lose consciousness but everything went black and I lost my breath. She reports that the symptoms quickly resolved. She is not endorsing visual changes, shortness of breath at this time. Her primary source of pain is in her right hip and right side of her back. She denies any numbness or tingling in her lower extremities. No incontinence at the time of the fall. States that she was able to get up and get herself into the car. On exam, patient appears very uncomfortable. She is tearing and moaning in pain. Do not immediately see any objective evidence to suggest trauma. However, patient is collared and covered in paint. FAST exam was performed by myself did not appreciate any evidence of fluid collections. Plan to move forward with CT scan. Patient is allergic to all narcotics, will give Ativan and acetaminophen to help with discomfort and anxiety. CT reivewed by myself, I am concerned for spinous process fractures. This fits clincial picture. Awaiting read from radiologist. Discussed with patient. She appears much more comfortgable after the ativan and tylenol. She is receiving IV hydration. Labs reviewed. No significant abnormality. Contacted by radiologist. He notes 4 transverse process fracutres. No other acute abnormality noted. Reevaluated the aptient. Removed collar, she has good ROM without pain, no midline tenderness. Patients primary concern is to be able to return to work quickly. 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 Spoke with orthopeidce, Dr. Culver. He advised that patient may have some improvement of her pain and faster return to functionality with bracing. Will refer patient to orthopedics for bracing and follow up. Discussed with patient. I advised at least one week off of work but have asked she discuss further with orthopedics. Pain is persisting. She had improvement from toradol. However, she is requesting stronger pain medication. She has a number of narcotics listed in her allergies. She and I reviewed htese. She has had oxycodone with good relief of her pain historically, will prescribe a short course of this. We discussed risks/benefits of this. Discussed hat she should not drive when taking these medications. She has someone to drive her home today. She was given strict return precautions. Discussed care of her fractures. Discusse expected course. Discussed activies she should avoid. All of her question sand concerns were addressed, she is in agreementw ith this plan. Patient feeling improved, requesting discharge, ambulating well without assistance. HPI General Mode of arrival: wheelchair (stretcher, collared) . Date/Time Provider Initiated Documentation: 03/29/20 10:40 . Limitations to Documentation: no limitations . Information obtained by: patient and RN notes reviewed . History of Present Illness 34 year old F presents to the emergency department with the chief complaint of trauma, fell 8 feet from ladder, described as severe, with intensity rated at 10. Quality is described as aching, and is localized to the head, back and abdomen. Patient started experiencing this minute(s) and it has been constant. Immobilization improves symptom(s), Movement worsens symptoms . Patient notes no other symptoms.. Patient did receive the following treatments prior to arrival, none Related Data Home Medications Medication Instructions Recorded Confirmed metoprolol succinate 50 mg 75 mg PO DAILY #135 tab 08/07/19 tablet,extended release 24 hr nicotine 14 mg/24 hr daily 1 patch TD Q24H #28 each 09/18/19 transdermal patch oxycodone 5 mg PO Q6H PRN #10 tab 03/29/20 Previous Rx's Medication Instructions Recorded metoprolol succinate 50 mg 75 mg PO DAILY #135 tab 08/07/19 tablet,extended release 24 hr nicotine 14 mg/24 hr daily 1 patch TD Q24H #28 each 09/18/19 transdermal patch oxycodone 5 mg PO Q6H PRN #10 tab 03/29/20 Allergies Allergy/AdvReac Type Severity Reaction Status Date / Time cefazolin sodium [From Ancef] Allergy Severe Bradycardia Unverified 08/07/19 10:08 & hives fentanyl Allergy Severe Hives and Unverified 08/07/19 10:08 Bradycardia venom-honey bee Allergy Severe Anaphylaxsi Unverified 08/07/19 10:08 [bee venom (honey bee)] s lurasidone HCl [From Latuda] Allergy seizure Unverified 08/07/19 10:08 codeine [Codeine] AdvReac Intermediate Nausea/vomi Unverified 08/07/19 10:08 tting Sulfa (Sulfonamide AdvReac Intermediate Body Shakes Unverified 08/07/19 10:08 Antibiotics) hydromorphone AdvReac Mild Dizziness/L Unverified 08/07/19 10:08 ightheade gabapentin AdvReac light Unverified 08/07/19 10:08 headed /dizzy/depressed morphine AdvReac I get Unverified 08/07/19 10:08 very ugly General MINNA: 3 Review of Systems Constitutional Constitutional: Reports as per HPI, Denies chills, Denies fatigue, Denies fever(s), Denies headache(s) and Denies weakness Eyes Eyes: Reports as per HPI, Denies blurry vision, Denies change in vision and Denies loss of vision ENT Ears, Nose, Mouth, and Throat: Denies abnormal hearing and Denies headache(s) Cardiovascular Cardiovascular: Reports as per HPI, Denies chest pain and Denies dyspnea Respiratory Respiratory: Reports as per HPI, Denies cough, Denies pain on inspiration, Denies pain with cough and Denies dyspnea Gastrointestinal Gastrointestinal: Reports as per HPI, Denies abdominal pain, Denies nausea and Denies vomiting Genitourinary Genitourinary: Reports as per HPI and Denies urinary incontinence Musculoskeletal Musculoskeletal: Reports as per HPI Integumentary/Breasts Skin/Breast: Reports as per HPI and Denies rash Neurologic Neurologic: Reports as per HPI, Denies abnormal hearing, Denies abnormal movements, Denies abnormal speech, Denies headache(s), Denies lack of coordination, Denies localized weakness, Denies loss of vision, Denies seizure- like activity, Denies paresthesias and Denies weakness Endocrine Endocrine: Denies fatigue [facility] Medical History (Updated 03/29/20 @ 12:58 by THADDEUS Campoverde) 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 Pt is continuing baby ASA daily for this examination or test, positive result (05/07/14) Pruritic condition Pulmonary emphysema (02/01/18) Right lower quadrant pain (02/05/13) Diagnostic laparoscopy; laparoscpic appendectomy by Dr. Tae Alejandra on 02-05-2013. Ruptured cyst of ovary (02/05/13) Diagnostic laparoscopy and incidental laparoscopic appendectomy done by Dr Tae Alejandra on 02-05-2013. Smoker (10/19/17) smoking 1pp x 17 years. started young. Substance abuse (12/01/13) opiates, alcohol Supervision of other normal (05/15/14) URI (upper respiratory infection) Wound infection following section, (12/27/14) Surgical History Appendectomy Arthroplasty of knee (L) section X 2 Tonsillectomy Family History Mother Depression Hx of suicide attempt Stroke Hyperlipidemia Father , Intentional overdose at age 40. 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 Pets and animals: Yes Pets and animals: dog(s) Sexually active: Yes Do you think of yourself as: straight/heterosexual Current gender identity: female What is your relationship status?: living with partner How often do you talk on the phone with friends or family?: three or more times per week How often do you get together with friends or relatives?: twice per week How often do you attend latter day or denominational services?: decline to answer Do you belong to any clubs or organized social groups?: no Panel score (0-1 are the most socially isolated patients): 2 What type of physical activity do you participate in: none Adelia/Orthodoxy: None Special adelia needs: No Seatbelt use: never Helmet use: Yes Helmet use: always Drive intox or ride w/intox scoop driver: No Do you feel safe at home: Yes Do you feel safe in your relationship?: Yes Exam Const General: cooperative, healthy appearing, uncomfortable, no acute distress, well developed, No well groomed (patient is covered in white paint), in distress moderate (appears very uncomfortable and anxious) and anxious Nutritional Appearance: average body habitus and well nourished Orientation: alert, awake and oriented x3 [facility] Head: normal to inspection, no palpable skull fracture, normocephalic and atraumatic Ears: hearing grossly normal bilaterally, external ears normal and TM's normal bilaterally General nose exam: external nose normal Mouth: oral mucosae normal, lip normal and tongue normal Throat: posterior oropharynx normal Eyes General: appearance normal, both eyes and all related structures Visual Iniguez: normal visual iniguez by confrontation Alignment and Position: alignment normal Periorbital: periorbital findings normal Eyelids: eyelids normal Conjunctivae: conjunctivae normal Pupils: PERRL EOM: EOM intact bilaterally Neck Neck: normal visual inspection, limited ROM (collared), no lymphadenopathy, trachea midline and supple Chest Chest: normal inspection of the chest, normal palpation of entire chest wall, no crepitus and no localized rib tenderness Resp Effort & Inspection: normal respiratory effort, able to speak in complete sentences and no respiratory distress Auscultation: clear to auscultation bilaterally, no rales, no rhonchi and no wheezes Cardio Rate: regular rate Rhythm: regular rhythm Heart Sounds: S1 normal and S2 normal GI Inspection: normal to inspection, no abdominal wall ecchymosis, no edema and non-distended Palpation: soft, no hepatosplenomegaly, not firm, no guarding, no pulsatile masses, not rigid and tender (low central abdominal pain) in the RLQ Auscultation: normal bowel sounds Back/Spine/Pelvis Back: no CVA tenderness Cervical Spine: collar present and No cervical spinal tenderness (concerned for distracting injury) Thoracic/Lumbar Spine: thoracic and lumbar spine normal to inspection, No thoraco-lumbar ROM normal (patient kept supine with log rolling), paraspinal tenderness (right side thoracic spine), No thoraco-lumbar spasm, thoracic spinal tenderness (lower thoracic and upper lumbar back pain) and lumbar spinal tenderness Pelvis: pain with anterior-posterior compression (pain elicited but no instability noted) and no pain with lateral compression Sacrum: no ecchymosis, no erythema, no swelling and no tenderness Coccyx: no tenderness Skin General skin exam: no rashes or lesions noted Lesions: no lesions Rashes: no rashes Trauma: no lacerations or abrasions Wounds: no wounds Neuro General: patient alert, patient awake, patient oriented x3, tone normal and moves all extremities Cranial Nerves: CN's II-XI intact bilaterally Cognition: normal cognition Speech: speech normal Motor: muscle tone normal throughout and strength 5/5 throughout Sensory Exam: no sensory deficits noted (no saddle paresthesias) Extrem General: normal to inspection, full ROM, capillary refill normal, no pedal edema and no calf tenderness Psych Appearance: grossly normal and well kempt Mental Status: mental status grossly normal Speech and Movement: speech and movement normal
--- NOTE | 2020-03-29 11:15 | DI.CT_ITS ---
EXAM: CT CHEST/ABD/PEL W TECHNIQUE: CT examination of the chest, abdomen, and pelvis was performed with bolus infusion of 100 cc of Omnipaque 350. Thoracic and lumbar spine reconstructions were performed post acquisition. COMPARISON: CT CT BRAIN NECK CTA from 01/08/2019 FINDINGS: There is no evidence of a thoracic vascular injury. The lungs are clear. No pneumothorax or pleural effusion. No mediastinal hematoma. No adenopathy in the chest. Tracheobronchial tree appears intact. The liver, spleen, and pancreas appear normal. Gallbladder and bile ducts are normal. Adrenals and kidneys are unremarkable. No evidence of urinary tract injury or obstruction. No abdominal or pelvic vascular injury seen. No abdominal or pelvic adenopathy. No significant abdomi nal wall hernia or hematoma. No evidence of bowel injury. There are fractures of the transverse processes the 1st through 4th lumbar vertebrae on the right, mi ldly displaced. No other fracture identified in the region surveyed. IMPRESSION: No evidence of acute visceral injury of the chest, abdomen, or pelvis. Fractures of 1st through 4th lumbar vertebral transverse processes on the right noted. RADIATION DOSE DELIVERED: Total DLP Total DLP DATA REPOSITORY: All CT scans at this facility are submitted to the National Radiology Data Registry (NRDR) Dose Index Registry (DIR) with the [employer] (A[employer]). RADIATION OPTIMIZATION: All CT scans at this facility use at least one of these dose optimization te chniques: automated exposure control; mA and/or kV adjustment per patient size (includes targeted exa ms where dose is matched to clinical indication); or iterative reconstruction.
[2020-03-29] MEDS: Omnipaque 350 MG/ML 100 ML BTL IJ (11:17)
[2020-03-29 11:26] LABS: Abs Immature Grans 0.07 10^3/uL (0.0-0.06); Absolute Basophil Count 0.02 10^3/uL (0.0-0.2); Absolute Eosinophil Count 0.03 10^3/uL (0.0-0.7); Absolute Monocyte Count 0.69 10^3/uL (0.1-0.8); Absolute Neutrophil Count 8.42 10^3/uL (1.2-6.7); Basophils % 0.2; Eosinophils % 0.3; HCT 45.3 % (36.0-46.0); HGB 15.4 g/dL (11.2-15.7); Immature Grans % 0.7; Lymphocytes % 13.2; MCH 29.4 pg (27.0-33.0); MCV 86.5 fL (80-95); MPV 10.6 fL (8.0-11.0); Monocytes % 6.5; Neutrophils % 79.1; Nucleated RBC 0 %; Platelet Count 237 10^3/uL (130-400); RBC 5.24 10^6/uL (3.93-5.22); RDW-SD 38.5 fL; WBC 10.63 10^3/uL (4.4-10.8)
[2020-03-29] MEDS: Normal Saline - Diluent 50 ML VIAL IV (11:26)
[2020-03-29] MEDS: Normal Saline Flush 10 ML SYR IVP (11:30)
--- NOTE | 2020-03-29 11:40 | DI.CT_ITS ---
EXAM: CT HEAD CERVICAL SPINE WO COMPARISON: CT CT BRAIN NECK CTA from 01/08/2019 FINDINGS: CT examination of the cervical spine was performed without contrast administration. There is no evide nce of acute cervical spine fracture or dislocation. Tracheolaryngeal structures appear intact. No ce rvical mass or adenopathy. Intervertebral disc spaces are well maintained. Noncontrast cranial CT was performed. Ventricular system is normal in appearance. No evidence of acut e intracranial hemorrhage, mass effect, or midline shift. No calvarial fracture. The orbital and temp oral bone structures appear intact. IMPRESSION: No evidence of acute cervical spine injury. No evidence of acute intracranial injury. RADIATION DOSE DELIVERED: 1,940.55mGy.cm Total DLP 1,940.55mGy.cm Total DLP DATA REPOSITORY: All CT scans at this facility are submitted to the National Radiology Data Registry (NRDR) Dose Index Registry (DIR) with the [employer] (ACR). RADIATION OPTIMIZATION: All CT scans at this facility use at least one of these dose optimization te chniques: automated exposure control; mA and/or kV adjustment per patient size (includes targeted exa ms where dose is matched to clinical indication); or iterative reconstruction.
[2020-03-29] MEDS: Lactated Ringers 1,000 ML 1000 ML IV (11:45)
[2020-03-29] MEDS: ACETAMINOPHEN 1,000 MG/100 ML BTL 400 MG IVPB (11:45)
[2020-03-29] MEDS: LORazepam 2 MG/ML VIAL 1 MG IVP (11:45)
[2020-03-29] MEDS: Ketorolac 30 MG/ML VIAL IVP (12:05)
[2020-03-29 12:19] LABS: ALT 30 U/L (14-59); AST 32 U/L (15-37); Albumin 4.4 g/dL (3.4-5.0); Alkaline Phosphatase 67 U/L (46-116); Anion Gap 9.9 mmol/L (3-11); BUN 12 mg/dL (7-18); Bilirubin, Total 0.4 mg/dL (0.2-1.0); CO2 26.1 mmol/L (21.0-32.0); CREATININE 0.75 mg/dL (0.55-1.02); Calcium 9.6 mg/dL (8.5-10.1); Chloride 103 mmol/L (98-107); Glucose 95 mg/dL (74-106); Magnesium 2.1 mg/dL (1.8-2.4); Sodium 139 mmol/L (136-145); Total Protein 7.7 g/dL (6.4-8.2)
[2020-03-29 12:20] LABS: Troponin I < 0.05 ng/mL (<0.06)
--- NOTE | 2020-03-29 12:22 | NUR.NOTE ---
Nursing Note: C-collar removed by provider.
[2020-03-29] MEDS: Lidocaine 5% Patch 1 PATCH TP (12:59)
[2020-03-29] MEDS: oxyCODONE 5 MG TAB PO (13:00)
[2020-04-01 05:26] LABS: Patient Race White; SARS-CoV-2 RNA Undetected (Undetected); SARS-CoV-2 Specimen Source Nasopharynx
--- NOTE | 2020-04-01 15:26 | NUR.NOTE ---
Nursing Note: Pt given negative COVID result at 1526 by phone after identity verified.
== END 2020-03-29 13:20 | disposition home or self-care (01) ==
PROVIDERS: Emergency Provider Physician Assistant; PCP Family Medicine
DX: S32.018A Other fracture of first lumbar vertebra, initial encounter for closed fracture (principal); S32.028A Other fracture of second lumbar vertebra, initial encounter for closed fracture; S32.038A Other fracture of third lumbar vertebra, initial encounter for closed fracture; S32.048A Other fracture of fourth lumbar vertebra, initial encounter for closed fracture; W11.XXXA Fall on and from ladder, initial encounter; Z03.818 Encounter for observation for suspected exposure to other biological agents ruled out
CPT/HCPCS: 36415; 74177; 80053; 86850; 86900; 86901; 96361; 96374; 96375; 99285; U0003; 70450; 71260; 72125; 72128; 72131; 83735; 84484; 85025; J0131; J1885; J2060; J3490; L0172

== ENCOUNTER 2020-05-29 18:52 | Outpatient (REF) | payer MEDICAID, SELFPAY ==
[2020-05-31 22:33] LABS: COVID-19 RT-PCR Result NEGATIVE (Negative)
== END 2020-05-29 19:12 ==
LOC: NCHCN 18:52
PROVIDERS: PCP Family Medicine; Visit Provider Physician Assistant
DX: B34.9 Viral infection, unspecified (principal)
CPT/HCPCS: U0003

== ENCOUNTER 2020-06-18 22:07 | Outpatient (REF) | payer MEDICAID, SELFPAY ==
[2020-06-19 18:11] LABS: COVID-19 RT-PCR Result NEGATIVE (Negative)
== END 2020-06-18 22:27 ==
LOC: LBN 22:07
PROVIDERS: PCP Family Medicine; Visit Provider Family Medicine
DX: J06.9 Acute upper respiratory infection, unspecified (principal)
CPT/HCPCS: U0003

== ENCOUNTER 2020-07-26 01:40 | Outpatient (CLI) | payer MEDICAID, SELFPAY ==
[2020-07-27 11:33] LABS: COVID-19 RT-PCR UVMMC Result Negative (Negative)
== END 2020-07-26 01:41 | disposition home or self-care (01) ==
LOC: LBO 01:41
PROVIDERS: PCP Family Medicine; Visit Provider Family Medicine
DX: Z20.822 Contact with and (suspected) exposure to COVID-19 (principal)
CPT/HCPCS: U0003

== ENCOUNTER 2020-08-23 02:01 | Outpatient (CLI) | payer MEDICAID, SELFPAY ==
[2020-08-23] MEDS: Inhaler, Assist Device 1 EACH MC (16:48)
[2020-08-23] MEDS: Albuterol HFA 18 GM 200 PUFF INH IH (16:48)
--- NOTE | 2020-08-26 16:05 | W.PFT ---
Date of service: 08/23/20 Time of Service: 03:42 Pulmonary Function Test Result Interpretation Lung Volumes: No evidence of restriction Diffusion Capacity: Mildly reduced even when corrected to alveolar volume Airway Pressure: Normal Impression Mild obstructive airways disease associated with significant bronchodilator response, this is associated with mild diffusion defect Clinical Correlation therefore is recommended.
== END 2020-08-23 02:02 | disposition home or self-care (01) ==
LOC: RT 02:01
PROVIDERS: PCP Family Medicine; Visit Provider Internal Medicine
DX: R06.02 Shortness of breath (principal); E88.01 Alpha-1-antitrypsin deficiency; Z72.0 Tobacco use
CPT/HCPCS: 94060; 94726; 94729

== ENCOUNTER 2020-12-18 01:21 | Outpatient (CLI) | payer MEDICAID, SELFPAY ==
--- NOTE | 2020-12-18 09:56 | DI.RAD_ITS ---
Exam(s) XR SACRUM COCCYX EXAM: XR SACRUM COCCYX CLINICAL HISTORY: TRAUMATIC COCCYDYNIA, M53.3, SACRAL BACK PAIN, M53.3, S/P FALL IN MARCH,. TECHNIQUE: 2D digital imaging was performed. COMPARISON: No exams were available for comparison FINDINGS: There is no evidence of obvious sacral fracture nor obvious coccygeal fracture on these images. Bone density is normal. The sacroiliac joints appear unremarkable as does the visualized lower half of t he lumbar spine column. IMPRESSION: No fracture evident. DATA REPOSITORY: RADIATION DOSE DELIVERED:
== END 2020-12-18 01:41 ==
PROVIDERS: PCP Family Medicine; Visit Provider Nurse Practitioner
DX: M53.3 Sacrococcygeal disorders, not elsewhere classified (principal); W19.XXXA Unspecified fall, initial encounter
CPT/HCPCS: 72220

== ENCOUNTER 2021-02-13 03:50 | Outpatient (CLI) | payer MEDICAID, SELFPAY ==
[2021-02-13 12:31] LABS: TSH (W/Ref FT4) 1.03 uIU/mL (0.36-3.74)
[2021-02-13 12:44] LABS: Vitamin D 25 Total 37.8 ng/mL (30-100)
== END 2021-02-13 03:51 | disposition home or self-care (01) ==
LOC: LBO 03:50
PROVIDERS: PCP Family Medicine
DX: F32.9 Major depressive disorder, single episode, unspecified (principal); F41.9 Anxiety disorder, unspecified; R00.2 Palpitations; Z79.899 Other long term (current) drug therapy
CPT/HCPCS: 36415; 82306; 84443

== ENCOUNTER 2021-02-20 05:02 | Outpatient (CLI) | payer MEDICAID, SELFPAY ==
--- NOTE | 2021-02-20 13:00 | NS.NUTBLAN_ITS ---
Dani was referred to Medical Nutrition Therapy for hypoglycemic events. Strong family hx of DM2, obesity. 5'4 130 lbs. Usual body weight: 115-120 lbs, has gained 10 lbs in last year as not working, is happy with her current weight. She reports having difficulty all her life keeping weight on. Has been out of work for 1 year due to back injury. Takes 2 stimulants for ADHD. She sees a counselor for depression. Most recent labs (02/13/21) indicate Vit D and TSH wnl. Diet hx indicates typically eats through out day- has 3-4 meals with 12-16 oz red bull daily. Smoker. Reports loose stools every AM. No hx of food intolerance, allergies. Session today focused on how best to follow a well balanced diet with provides [id number] kcal, 60-70 g protein, 45-55 g fat daily with 64 ounces fluid. Suspect symptoms related to reactive hypoglycemia or excessive stimulants in system with ADHD meds, Red Bull and nicotine. Do not suspect malabsorption as with Vit D wnl. Dani consented to have a Dexcom6 continuous glucose monitor placed to collect glycemic data for the next 10 days. This will help her observe how her body uses the foods she eats. Tami Tang is familiar with this device as family members also use one for their DM2. Encouraged increased protein intake and avoidance of excessive simple sugars, caffiene. Also encouraged Tami Tang to log meals on [employer]. Follow up appt. scheduled for 03/06/21 at 2pm for data down load and diet log review.
== END 2021-02-20 05:03 | disposition home or self-care (01) ==
PROVIDERS: PCP Family Medicine; Visit Provider Dietitian, Registered
DX: E16.2 Hypoglycemia, unspecified (principal); F90.9 Attention-deficit hyperactivity disorder, unspecified type; Z79.899 Other long term (current) drug therapy; Z71.3 Dietary counseling and surveillance
CPT/HCPCS: 97802

== ENCOUNTER 2021-02-28 11:52 | Emergency (ER) | payer MEDICAID, SELFPAY ==
[2021-02-28 12:00] VITALS: BP 122/77; PULSE 74; RESP 14; TEMP 36.8; O2SAT 100
--- NOTE | 2021-02-28 12:34 | W.ED.GENAD ---
Discharge Plan Disposition Patient Disposition: HOME Condition: Stable Discharge Details Clinical Impression: Hypoglycemia Primary Care Provider: Martha Menjivar ED Provider: Tommie Triana Home Meds and New Rx's Prescriptions: Continued hydroxyzine HCl 25 mg tablet 50 mg PO QHS RF: 0 dexmethylphenidate [Focalin XR] 30 mg capsule,ER biphasic 50-50 30 mg PO DAILY RF: 0 methylphenidate HCl [Ritalin] 20 mg tablet 20 mg PO DAILY RF: 0 lamotrigine 25 mg tablet 50 mg PO ONCE RF: 0 Breo Ellipta 100-25 mcg/dose blister with device 1 inh inhalation DAILY RF: 0 Discharge Instructions Instructions: Non-diabetic Hypoglycemia (ED) Additional Instructions: Your work-up today included laboratories that will be sent to a reference laboratory as well as screening laboratories in the [facility] laboratory today. Your send out laboratories included insulin level, C-peptide level, beta hydrobutyrate level, and proinsulin level. We have asked our care management team to arrange a follow-up for you in primary care clinic to follow-up these laboratory studies. Continue your subcutaneous glucose monitoring and follow-up with dietitian as planned next week. May continue a carbohydrate heavy diet with ongoing daily ingestion of protein as you have been. I have included a copy of the laboratories that did result today, including glucose of 86. WBC 10.50 Hgb 5.5 Hct 46.3 Plt Count 242 Sodium 139 Potassium 3.6 Chloride 103 Carbon Dioxide 28.3 Anion Gap 7.7 BUN 9 Creatinine 0.8 Estimated GFR/1.73 m2 >= 60.00 Glucose 86 Calcium 8.9 Total Bilirubin 0.2 AST 26 ALT 30 Alkaline Phosphatase 68 Total Protein 7.5 Albumin 4.1 Medical Decision Making This is a 35-year-old female who presents from home complaining of nearly her entire life feeling episodes of weakness, lightheadedness, and needing to eat frequently. Seem to worsen over the past weeks which saw her primary care physician and was referred to a dietitian. She has been wearing a subcutaneous glucose monitor with iPhone tracking for approximately 10 days. This notes her glucose frequently dropping to the 50-70 range when she feels symptomatic, and intake of carbohydrates to correct both the glucose as well as for weakness. She has not had syncope. She has felt somewhat tired. She is not had a change to medications, there is no diabetic medications in her home. As the patient is not a diabetic, does not take known hypoglycemic medications, would consider the possibility of an insulinoma. Therefore screening laboratories including glucose, insulin level, C-peptide level, beta hydroxybutyrate level, and proinsulin were obtained and referred to send out laboratory. Patient screening laboratories resulted today: White blood cell count 10, hematocrit 46, platelets 242. Electrolytes within normal limits, BUN 9, creatinine 0.8, glucose 86, LFTs normal, total protein 7.5, albumin 4.1. Patient reassured. Screening laboratories pending. Stable and appropriate for discharge to home with a follow-up in primary care and nutrition. Addendum: Received note that patient's lab test required repeat blood draw, administrative staff to arrange follow-up for outpatient draw for the patient. Lab Data Lab results reviewed: Yes I reviewed the patient's lab results. Labs: Laboratory Results - last 24 hr 02/28/21 02/28/21 02/28/21 12:15 12:20 12:20 WBC 10.50 RBC 5.30 H Hgb 15.5 Hct 46.3 H MCV 87.4 MCH 29.2 MCHC 33.5 RDW 12.2 Plt Count 242 MPV 10.7 Sodium 139 Potassium 3.6 Chloride 103 Carbon Dioxide 28.3 Anion Gap 7.7 BUN 9 Creatinine 0.8 Estimated GFR/1.73 m2 >= 60.00 Glucose 86 Calcium 8.9 Total Bilirubin 0.2 AST 26 ALT 30 Alkaline Phosphatase 68 Total Protein 7.5 Albumin 4.1 Urine Color Yellow Urine Clarity Clear Urine pH 7.0 Ur Specific [place] 1.015 Urine Protein Negative Urine Ketones Negative Urine Blood Negative Urine Nitrite Negative Urine Bilirubin Negative Urine Urobilinogen 0.2 Ur Leukocyte Esterase Negative Urine Glucose Negative HPI General Mode of arrival: ambulatory. Date/Time Provider Initiated Documentation: 02/28/21 12:01. Limitations to Documentation: no limitations. Information obtained by: patient. History of Present Illness 35 year old F presents to the emergency department with the chief complaint of Recurrent episodes of low glucose, described as moderate and similar to prior episodes, Patient reports no radiation. Patient started experiencing this month(s) and it has been intermittent. Eating improves symptom(s), Other factors that worsen symptoms (Decreased p.o. intake) . Patient notes weakness; denies confusion, diaphoresis, fever/chills, loss of appetite, nausea/vomiting and syncope. Patient did receive the following treatments prior to arrival, other (Has subcu glucose monitor) Related Data Home Medications Medication Instructions Recorded Confirmed fluticasone furoate 100 1 inh INHALATION DAILY 07/10/20 02/28/21 mcg-vilanterol 25 mcg/dose inhalation powder hydroxyzine HCl 25 mg tablet 50 mg PO QHS tab 07/10/20 02/28/21 dexmethylphenidate 30 mg 30 mg PO DAILY 02/11/21 02/28/21 capsule,extended release [id number] lamotrigine 25 mg tablet 50 mg PO ONCE tab 02/11/21 02/28/21 methylphenidate HCl 20 mg tablet 20 mg PO DAILY 02/11/21 02/28/21 Allergies Allergy/AdvReac Type Severity Reaction Status Date / Time cefazolin sodium [From Anc] Allergy Severe Bradycardia Verified 02/11/21 14:51 & hives fentanyl Allergy Severe Hives and Verified 02/11/21 14:51 Bradycardia venom-honey bee Allergy Severe Anaphylaxsi Verified 02/11/21 14:51 [bee venom (honey bee)] s lurasidone HCl [From Latuda] Allergy seizure Verified 02/11/21 14:51 codeine [Codeine] AdvReac Intermediate Nausea/vomi Verified 02/11/21 14:51 tting Sulfa (Sulfonamide AdvReac Intermediate Body Shakes Verified 02/11/21 14:51 Antibiotics) hydromorphone AdvReac Mild Dizziness/L Verified 02/11/21 14:51 ightheade gabapentin AdvReac light Verified 02/11/21 14:51 headed /dizzy/depressed morphine AdvReac I get Verified 02/11/21 14:51 very ugly General Stated Complaint: Diabetes MINNA: 3 Review of Systems Narrative: Tired, feels her energy will correct with intake of carbohydrates, notes glucose as low as 50, with a range approximately 50-100 over 10 days time. No fever, chills, chest pain or cough. 8 systems reviewed and otherwise negative. No weight loss, no change to urine, no new medications. 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 Pt is continuing baby ASA daily for this examination or test, positive result (05/07/14) Pruritic condition Pulmonary emphysema (02/01/18) Right lower quadrant pain (02/05/13) Diagnostic laparoscopy; laparoscpic appendectomy by Dr. Tae Alejandra on 02-05-2013. Ruptured cyst of ovary (02/05/13) Diagnostic laparoscopy and incidental laparoscopic appendectomy done by Dr Tae Alejandra on 02-05-2013. Smoker (10/19/17) smoking 1pp x 17 years. started young. Substance abuse (12/01/13) opiates, alcohol Supervision of other normal (05/15/14) Tetrahydrocannabinol (THC) use disorder, mild, abuse (07/10/14) URI (upper respiratory infection) Wound infection following section, (12/27/14) Surgical History Appendectomy Arthroplasty of knee (L) section X 2 Tonsillectomy Family History Mother Depression Hx of suicide attempt Stroke Hyperlipidemia Father , Intentional overdose at age 40. 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, 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 Pets and animals: Yes Pets and animals: dog(s) Sexually active: Yes Do you think of yourself as: straight/heterosexual Current gender identity: female What is your relationship status?: living with partner How often do you talk on the phone with friends or family?: three or more times per week How often do you get together with friends or relatives?: twice per week How often do you attend hinduism or christian services?: decline to answer Do you belong to any clubs or organized social groups?: no Panel score (0-1 are the most socially isolated patients): 2 What type of physical activity do you participate in: none Adelia/Mandaeism: None Special adelia needs: No Seatbelt use: never Helmet use: Yes Helmet use: always Drive intox or ride w/intox 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 Pleasant, well groomed, interactive. HEAD: Normocephalic, atraumatic ENT: Mucous membranes moist, oropharynx unremarkable, External ear exam unremarkable EYES: PERRL, EOMI NECK: Full ROM, no MAUREEN, no menigismus CHEST/RESP: Nontender, clear to auscultation bilateral, no wheeze/rhonchi/rales CARDIOVASCULAR: RRR, no murmur, rub jose carlos. 2+ Rad pulse bilateral ABDOMEN: Soft, nontender, no mass. +Bowel sounds EXT: Full ROM, no edema, no rash Neuro: Grossly normal neurologic exam, conversant, interactive. Psych: Speech fluent, thoughts congruent, affect anxious Course Vital Signs Vital signs: Vital Signs Temperature 36.8 C 02/28/21 12:00 Pulse 74 02/28/21 12:00 Respiratory Rate 14 02/28/21 12:00 Blood Pressure 122/77 02/28/21 12:00 Pulse Oximetry 100 02/28/21 12:00 Temperature 36.8 C 02/28/21 12:00 Temperature Source Skin 02/28/21 12:00 Pulse 74 02/28/21 12:00 Respiratory Rate 14 02/28/21 12:00 Respiratory Effort Non-Labored 02/28/21 12:05 Blood Pressure 122/77 02/28/21 12:00 Blood Pressure Position Sitting 02/28/21 12:00 Pulse Oximetry 100 02/28/21 12:00 Oxygen Delivery Method Room Air 02/28/21 12:00 Oxygen Flow Rate 0 02/28/21 12:00 Pain Level 0 02/28/21 12:00 Lab/Test Results Lab/Test Results: POC Urine Test Start: 02/28/21 12:10 Freq: Status: Complete Protocol: Document 02/28/21 12:17 RM (Rec: 02/28/21 12:17 [id number]) Test(Urine)-POC POC- Test(urine) Negative POC- Test(urine) Negative
[2021-02-28 12:39] LABS: Bilirubin Negative (Negative); Blood Negative (Negative); Clarity Clear (Clear); Glucose Negative (Negative); Ketones Negative (Negative); Leukocyte Esterase Negative (Negative); Nitrite Negative (Negative); Specific Gravity 1.015 (1.005-1.025); Urobilinogen 0.2 EU/dL (Up TO 0.2)
--- NOTE | 2021-02-28 12:39 | NUR.NOTE ---
Nursing Note: referral to care management for pcp follow up for hypoglycemia 02/28/21 libl
[2021-02-28 12:46] LABS: HCT 46.3 % (36.0-46.0); HGB 15.5 g/dL (11.2-15.7); MCH 29.2 pg (27.0-33.0); MCHC 33.5 % (32.0-36.0); MCV 87.4 fL (80-95); MPV 10.7 fL (8.0-11.0); Platelet Count 242 10^3/uL (130-400); RDW 12.2 % (11.7-14.6)
[2021-02-28 12:58] LABS: ALT 30 U/L (14-59); AST 26 U/L (15-37); Albumin 4.1 g/dL (3.4-5.0); Alkaline Phosphatase 68 U/L (46-116); Anion Gap 7.7 mmol/L (3-11); BUN 9 mg/dL (7-18); Bilirubin, Total 0.2 mg/dL (0.2-1.0); CO2 28.3 mmol/L (21.0-32.0); CREATININE 0.8 mg/dL (0.55-1.02); Calcium 8.9 mg/dL (8.5-10.1); Chloride 103 mmol/L (98-107); Glucose 86 mg/dL (74-106); Potassium 3.6 mmol/L (3.5-5.1); Sodium 139 mmol/L (136-145); Total Protein 7.5 g/dL (6.4-8.2)
[2021-02-28 13:42] VITALS: BP 125/66; PULSE 67; RESP 16; O2SAT 99
[2021-02-28 21:47] LABS: Beta-Hydroxybutyrate <0.1 mmol/L (<0.4)
[2021-03-04 12:48] LABS: C-Peptide 1.9 ng/mL (1.1 - 4.4)
[2021-03-04 16:37] LABS: Proinsulin, P 9.2 pmol/L (3.6-22)
[2021-03-06 09:46] LABS: Insulin 3.8 uIU/mL (<29.0)
== END 2021-02-28 14:00 | disposition home or self-care (01) ==
PROVIDERS: Emergency Provider Emergency Medicine; PCP Family Medicine
DX: E16.2 Hypoglycemia, unspecified (principal)
CPT/HCPCS: 36415; 36416; 80053; 81025; 82962; 85027; 99282; 81003; 82010; 83525; 84206; 84681; 99283

== ENCOUNTER 2021-03-07 00:50 | Outpatient (CLI) | payer MEDICAID, SELFPAY ==
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
== END 2021-03-07 00:51 | disposition home or self-care (01) ==
LOC: DS 01:01
PROVIDERS: PCP Family Medicine; Visit Provider Dietitian, Registered
DX: E11.649 Type 2 diabetes mellitus with hypoglycemia without coma (principal); Z71.3 Dietary counseling and surveillance
CPT/HCPCS: 97803

== ENCOUNTER 2021-03-13 12:41 | Outpatient (REF) | payer MEDICAID, SELFPAY ==
[2021-03-14 17:02] LABS: Beta-Hydroxybutyrate <0.1 mmol/L (<0.4)
== END 2021-03-13 12:42 | disposition home or self-care (01) ==
LOC: NCHCN 12:41
PROVIDERS: Visit Provider Nurse Practitioner Family
DX: E16.2 Hypoglycemia, unspecified (principal)
CPT/HCPCS: 82010

== ENCOUNTER 2021-03-25 03:35 | Outpatient (CLI) | payer MEDICAID, SELFPAY ==
[2021-03-25 10:21] LABS: GTT Comment See Comments
== END 2021-03-25 03:36 | disposition home or self-care (01) ==
LOC: LBO 03:35
PROVIDERS: PCP Nurse Practitioner Family; Visit Provider Nurse Practitioner Family
DX: E16.2 Hypoglycemia, unspecified (principal)
CPT/HCPCS: 36410; 82951

== ENCOUNTER 2021-03-27 01:21 | Outpatient (CLI) | payer MEDICAID, SELFPAY ==
[2021-03-27] MEDS: Breeza Beverage 473 ML BTL PO ×2 (08:12→08:13)
[2021-03-27] MEDS: Omnipaque 350 MG/ML 50 ML BTL PO (08:12)
[2021-03-27] MEDS: Omnipaque 350 MG/ML 100 ML BTL IJ (09:24)
--- NOTE | 2021-03-27 09:24 | DI.CT_ITS ---
Exam(s) CT ABDOMEN PELVIS W EXAM: CT ABDOMEN PELVIS W CLINICAL HISTORY: HYPOGLYCEMIA,E16.2,? ISLET CELL TUMOR TECHNIQUE: Imaging Protocol: Axial computed tomography images with coronal and sagittal reformatted images were created and reviewed CONTRAST MATERIAL: Intravenous: Omnipaque 350 Contrast volume:87 mL Oral: Yes COMPARISON: CT CT CHEST/ABD/PEL W from 03/29/[address] CHEST/ABD/PEL W from 03/29/[address] THORACIC LUMBAR SPINE WO from 03/29/2020 FINDINGS: ABDOMEN: Lung Bases: Atelectasis and/or scarring in the lung bases. Liver: Normal density. No measurable mass. Portal, Superior Mesenteric, and Splenic Veins: Unremarkable. Gallbladder and Biliary Tract: No radiodense calculus or dilation. Pancreas: Normal density, no abnormal calcifications or inflammatory process. Spleen: Normal. Adrenals: No masses seen. Kidneys: Normal size, contour and axis. No radiodense stones or obstructive uropathy. No masses seen. Abdominal Aorta: Abdominal portion non-dilated. Minimal atherosclerosis. Bowel: No obstruction or bowel wall thickening. No evidence of appendicitis. Peritoneal Cavity: No ascites, collection or mesenteric inflammatory response. No free air. Lymph Nodes: Within normal limits. Bones: Within normal limits for the patient's age. Soft Tissues: Unremarkable. PELVIS: Bladder: Symmetric distention, no gross wall thickening. Reproductive Organs: Unremarkable as visualized. Bilateral ovarian cysts. The largest is on the righ t and measures 1.9 cm. Lymph Nodes: Within normal limits. Bones: Within normal limits for the patient's age. IMPRESSION: 1. No acute abdominal or pelvic process. 2. No evidence of a pancreatic mass. RADIATION DOSE DELIVERED: 703.48mGy.cm Total DLP DATA REPOSITORY: All CT scans at this facility are submitted to the National Radiology Data Registry (NRDR) Dose Index Registry (DIR) with the [employer] (ACR). RADIATION OPTIMIZATION: All CT scans at this facility use at least one of these dose optimization te chniques: automated exposure control; mA and/or kV adjustment per patient size (includes targeted exa ms where dose is matched to clinical indication); or iterative reconstruction.
[2021-03-27] MEDS: Normal Saline - Diluent 50 ML VIAL IV (09:26)
[2021-03-27] MEDS: Normal Saline Flush 10 ML SYR IVP (09:26)
== END 2021-03-27 01:41 ==
PROVIDERS: PCP Nurse Practitioner Family; Visit Provider Nurse Practitioner Family
DX: E16.2 Hypoglycemia, unspecified (principal)
CPT/HCPCS: 74177; J3490; Q9967

== ENCOUNTER 2021-06-19 02:01 | Outpatient (CLI) | payer MEDICAID, SELFPAY ==
--- NOTE | 2021-06-19 | DI.US_ITS ---
Exam(s) US PELVIS EXAM: US PELVIS CLINICAL HISTORY: RT PELVIC PAIN, R10.2, RLQ ABD PAIN, ? OVARIAN CYST OR TORSION TECHNIQUE: Ultrasound of the pelvis was performed both transabdominal and transvaginal. COMPARISON: US ABDOMEN ULTRASOUND (P) from 01/28/[address] ABDOMEN PELVIS W from 03/27/2021 FINDINGS: UTERUS: Nongravid and anteverted Measures 8 cm length x 4.4 cm AP x 6 cm wide. There are no uterine fibroids. Endometrial thickness measures 9 mm. There is no fluid in the endometrial canal. CERVIX: There are no obvious nabothian cysts. RIGHT OVARY: Measures 3.6 x 3.2 x 2.6 cm Small follicular cysts and there is also a 1.5 cm dominant follicular cyst. No para ovarian fluid LEFT OVARY: Measures 3.7 x 2.9 x 2.5 cm Small follicular cysts all less 1 cm. CUL-DE-SAC: No free fluid evident. IMPRESSION: 1. Normal appearing uterus and age-appropriate endometrium. 2. Bilateral follicular cysts in both ovaries, largest measuring 1.5 cm (right ovary) 3. No free fluid evident in the adnexal regions and cul-de-sac. DATA REPOSITORY:
== END 2021-06-19 02:21 ==
PROVIDERS: PCP Nurse Practitioner Family; Visit Provider Physician Assistant Medical
DX: R10.2 Pelvic and perineal pain (principal); N83.02 Follicular cyst of left ovary; N83.01 Follicular cyst of right ovary
CPT/HCPCS: 76856

== ENCOUNTER 2021-10-03 08:03 | Emergency (ER) | payer MEDICAID, SELFPAY ==
[2021-10-03 08:08] VITALS: BP 118/64; PULSE 58; RESP 16; TEMP 36.5; O2SAT 100
--- NOTE | 2021-10-03 08:15 | DI.CT_ITS ---
Exam(s) CT ABDOMEN PELVIS W EXAM: CT ABDOMEN PELVIS W CLINICAL HISTORY: RUQ abd Pain, N/V R/O Antionette TECHNIQUE: Imaging Protocol: Axial computed tomography images with coronal and sagittal reformatted images were created and reviewed CONTRAST MATERIAL: Intravenous: Omnipaque 350 Contrast volume:84 mL Oral: No COMPARISON: CT CT ABDOMEN PELVIS W from 03/27/2021 FINDINGS: ABDOMEN: Lung Bases: Scarring or atelectasis is seen in the right lung base. Liver: Normal density. No measurable mass. Portal, Superior Mesenteric, and Splenic Veins: Unremarkable. Gallbladder and Biliary Tract: No radiodense calculus or dilation. The common duct is within normal l imits at 6 mm. Pancreas: Normal density, no abnormal calcifications or inflammatory process. Spleen: Normal. Adrenals: No masses seen. Kidneys: Normal size, contour and axis. No radiodense stones or obstructive uropathy. No masses seen. Abdominal Aorta: Abdominal portion non-dilated. Mild atherosclerosis. Bowel: No obstruction or bowel wall thickening. No evidence of appendicitis. Peritoneal Cavity: There is a trace amount of free fluid in the cul-de-sac which is likely physiologi c. No free air. Lymph Nodes: Within normal limits. Bones: Within normal limits for the patient's age. Soft Tissues: Unremarkable. PELVIS: Bladder: Symmetric distention, no gross wall thickening. Reproductive Organs: Unremarkable as visualized. Lymph Nodes: Within normal limits. Bones: Within normal limits for the patient's age. IMPRESSION: 1. No acute abdominal or pelvic process. 2. Results of this exam have been verbally communicated with provider. RADIATION DOSE DELIVERED: 593.55mGy.cm Total DLP DATA REPOSITORY: All CT scans at this facility are submitted to the National Radiology Data Registry (NRDR) Dose Index Registry (DIR) with the [employer] (ACR). RADIATION OPTIMIZATION: All CT scans at this facility use at least one of these dose optimization te chniques: automated exposure control; mA and/or kV adjustment per patient size (includes targeted exa ms where dose is matched to clinical indication); or iterative reconstruction.
--- NOTE | 2021-10-03 08:26 | ED.GENADUL_ITS ---
Discharge Plan Disposition Patient Disposition: HOME Condition: Improving Discharge Details Clinical Impression: Nausea & vomiting Primary Care Provider: Carmen Smith ED Provider: Heidy Dodson Home Meds and New Rx's Prescriptions: New promethazine [Promethegan] 25 mg suppository 25 mg ND Q6H PRN (Reason: nausea and vomiting) Qty: 12 0RF No Action hydroxyzine HCl 25 mg tablet 50 mg PO QHS 0RF dexmethylphenidate [Focalin XR] 30 mg capsule,ER biphasic 50-50 30 mg PO DAILY 0RF methylphenidate HCl [Ritalin] 20 mg tablet 20 mg PO DAILY 0RF lamotrigine 25 mg tablet 25 mg PO ONCE 0RF Breo Ellipta 100-25 mcg/dose blister with device 1 inh inhalation DAILY 0RF Discharge Instructions Instructions: Acute Nausea and Vomiting (ED) Additional Instructions: At this time the CT of your abdomen pelvis is within normal limits. No evidence of infection of the gallbladder or any emergent condition at this time. Clear liquid for the next 2 to 3 days. Use the nausea medication you have at home if this does not work use the Phenergan suppositories which you can send to the pharmacy we have on file for you. Small sips of fluid every 20 to 30-minute bland diet advance as tolerated. Stay away from anything fried, fatty, spicy. Follow up with primary care provider in 3-5 days. Return to ED sooner if any worsening or concerns. Increase oral fluids. Your potassium was slightly low you are given a potassium supplement here in the department. Increase foods such as bananas that have potassium in them. Referrals: Carmen Smith [Primary Care Provider] - 3 days Discharge Data Discharge Date/Time-TO BE ENTERED AT DEPARTURE: 10/03/21 11:19 Medical Decision Making 36-year-old female past medical history of COPD, bipolar, alpha 1 antitrypsin deficiency, depression, anxiety, asthma, ADD, GERD, cannabis abuse, SVT presents to the ER with a chief complaint of nausea vomiting that began at 3 AM and some right upper quadrant abdominal pain. Radiates into her right back. She does endorse chills. She did try to take a Zofran tablet prior to arrival but threw it up. She also reports that she is having some arm tingling and abnormal vaginal bleeding. She denies any possibility of due to a tubal ligation. No other associated symptoms. She is a current everyday smoker. Former drinker endorses marijuana use. Abdominal work-up ordered including lipase, urinalysis CT abdomen pelvis with contrast rule out cholecystitis. Differential diagnosis includes but not limited to fatty liver, gastroenteritis, small bowel obstruction, viral illness, cannabinoid hyperemesis syndrome. CBC shows white blood cell count 13.95, absolute neutrophils 12.09 lymphocytes 1.00 sodium 142 potassium 3.0, anion gap 12.8, glucose 141 magnesium 1.7 urinalysis shows small blood negative leukocytes negative nitrite. Covid is pending at this time. Patient reevaluation: She is resting in bed IV infusing without difficulty. Patient reports that she still is feeling nauseated we will give magnesium IV 1 g. 0956: Negative Covid. Patient requesting water, tolerating fluids p.o. without any additional emesis. P.o. 20 mEq potassium ordered. Patient discharged in hemodynamically stable condition, alert and oriented and improving. Given instructions for follow-up with PCP and strict return instructions. Imaging Data Radiologic Study: Imaging: CT Scan Radiologist's impression: CT Abd/Pelvis w: FINDINGS: ABDOMEN: Lung Bases: Scarring or atelectasis is seen in the right lung base. Liver: Normal density. No measurable mass. Portal, Superior Mesenteric, and Splenic Veins: Unremarkable. Gallbladder and Biliary Tract: No radiodense calculus or dilation. The common duct is within normal limits at 6 mm. Pancreas: Normal density, no abnormal calcifications or inflammatory process. Spleen: Normal. Adrenals: No masses seen. Kidneys: Normal size, contour and axis. No radiodense stones or obstructive urop athy. No masses seen. Abdominal Aorta: Abdominal portion non-dilated. Mild atherosclerosis. Bowel: No obstruction or bowel wall thickening. No evidence of appendicitis. Peritoneal Cavity: There is a trace amount of free fluid in the cul-de-sac which is likely physiologic. No free air. Lymph Nodes: Within normal limits. Bones: Within normal limits for the patient's age. Soft Tissues: Unremarkable. PELVIS: Bladder: Symmetric distention, no gross wall thickening. Reproductive Organs: Unremarkable as visualized. Lymph Nodes: Within normal limits. Bones: Within normal limits for the patient's age. IMPRESSION: 1. No acute abdominal or pelvic process. 2. Results of this exam have been verbally communicated with provider. HPI General Mode of arrival: ambulatory . Date/Time Provider Initiated Documentation: 10/03/21 08:12 . Limitations to Documentation: no limitations . Information obtained by: patient, family (Mother In Law Lalita), RN notes reviewed and old records reviewed . HPI Narrative: 36-year-old female past medical history of COPD, bipolar, alpha 1 antitrypsin deficiency, depression, anxiety, asthma, ADD, GERD, cannabis abuse, SVT presents to the ER with a chief complaint of nausea vomiting that began at 3 AM and some right upper quadrant abdominal pain. Radiates into her right back. She does endorse chills. She did try to take a Zofran tablet prior to arrival but threw it up. She also reports that she is having some arm tingling and abnormal vaginal bleeding. She denies any possibility of due to a tubal ligation. No other associated symptoms. She is a current everyday smoker. Former drinker endorses marijuana use. Related Data Home Medications Medication Instructions Recorded Confirmed fluticasone furoate 100 1 inh INHALATION DAILY 07/10/20 02/28/21 mcg-vilanterol 25 mcg/dose inhalation powder (Breo Ellipta) hydroxyzine HCl 25 mg tablet 50 mg PO QHS tab 07/10/20 10/03/21 dexmethylphenidate 30 mg 30 mg PO DAILY 02/11/21 10/03/21 capsule,extended release [id number] (Focalin XR) lamotrigine 25 mg tablet 25 mg PO ONCE tab 02/11/21 10/03/21 methylphenidate HCl 20 mg tablet 20 mg PO DAILY 02/11/21 10/03/21 (Ritalin) promethazine 25 mg rectal 25 mg ND Q6H PRN #12 ea 10/03/21 suppository (Promethegan) Previous Rx's Medication Instructions Recorded promethazine 25 mg rectal 25 mg ND Q6H PRN #12 ea 10/03/21 suppository (Promethegan) Allergies Allergy/AdvReac Type Severity Reaction Status Date / Time cefazolin sodium [From [facility]] Allergy Severe Bradycardia Verified 10/03/21 08:11 & hives fentanyl Allergy Severe Hives and Verified 10/03/21 08:11 Bradycardia venom-honey bee Allergy Severe Anaphylaxsi Verified 10/03/21 08:11 [bee venom (honey bee)] s lurasidone HCl [From Latuda] Allergy seizure Verified 10/03/21 08:11 codeine [Codeine] AdvReac Intermediate Nausea/vomi Verified 10/03/21 08:11 tting Sulfa (Sulfonamide AdvReac Intermediate Body Shakes Verified 10/03/21 08:11 Antibiotics) hydromorphone AdvReac Mild Dizziness/L Verified 10/03/21 08:11 ightheade gabapentin AdvReac light Verified 10/03/21 08:11 headed /dizzy/depressed morphine AdvReac I get Verified 10/03/21 08:11 very ugly General Stated Complaint: Abd Prob MINNA: 3 Review of Systems All systems reviewed & are unremarkable except as noted in HPI and below Gastrointestinal Gastrointestinal: Reports abdominal pain, Reports nausea and Reports vomiting Genitourinary Genitourinary: Reports abnormal menses, Denies dysuria, Denies urinary incontinence and Denies vaginal discharge Musculoskeletal Musculoskeletal: Reports tingling (Arms) Neurologic Neurologic: Reports tingling (Arms) and Reports paresthesias PFS All Active Problems (Updated 10/03/21 @ 11:09 by Heidy Dodson) Hypoglycemia (Acute) Nausea & vomiting (Acute) COPD (chronic obstructive pulmonary disease) (Chronic) Palpitations (Acute) Closed fracture of transverse process of lumbar vertebra (Acute) Fall from ladder (Acute) Functional neurological symptom disorder with mixed symptoms (Acute) Dysphonia (Acute) Left hemiparesis (Acute) Gait instability (Acute) Bipolar disorder (Chronic) Panic disorder (Chronic) Bflvv-3-aargxajjosg deficiency (Chronic 02/02/18) Anxiety (Chronic 11/20/14) Pulmonary emphysema (Chronic 02/01/18) Smoker (Chronic 10/19/17) smoking 1pp x 17 years. started young. 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 Pt is continuing baby ASA daily for this examination or test, positive result (05/07/14) Pruritic condition Right lower quadrant pain (02/05/13) Diagnostic laparoscopy; laparoscpic appendectomy by Dr. Tae Alejandra on 02-05-2013. Ruptured cyst of ovary (02/05/13) Diagnostic laparoscopy and incidental laparoscopic appendectomy done by Dr Tae Alejandra on 02-05-2013. Substance abuse (12/01/13) opiates, alcohol Supervision of other normal (05/15/14) Tetrahydrocannabinol (THC) use disorder, mild, abuse (07/10/14) URI (upper respiratory infection) Wound infection following section, (12/27/14) Surgical History Appendectomy Arthroplasty of knee (L) section X 2 Tonsillectomy Family History Mother Depression Hx of suicide attempt Stroke Hyperlipidemia Father , Intentional overdose at age 40. 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, 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 Pets and animals: Yes Pets and animals: dog(s) Sexually active: Yes Do you think of yourself as: straight/heterosexual Current gender identity: female What is your relationship status?: living with partner How often do you talk on the phone with friends or family?: three or more times per week How often do you get together with friends or relatives?: twice per week How often do you attend mandaen or methodist services?: decline to answer Do you belong to any clubs or organized social groups?: no Panel score (0-1 are the most socially isolated patients): 2 What type of physical activity do you participate in: none Adelia/Sikhism: None Special adelia needs: No Seatbelt use: never Helmet use: Yes Helmet use: always Drive intox or ride w/intox bus driver school: No Do you feel safe at home: Yes Do you feel safe in your relationship?: Yes Exam Narrative Exam Narrative: Constitutional: Alert and oriented x3. Appears older than stated age. Normal body habitus. Head: Normocephalic, no trauma. Eyes: Pupils PERRL, Red reflex noted, EOM's intact. Eyelids symmetrical without lesions, discharge, or swelling. Chest: RRR, Normal S1, S2, distal pulses intact. Resp: Lungs clear to auscultation bilaterally, no wheezes, rales, or rhonchi. Abdomen: Soft, non-distended, Hypoactive bowel sounds all 4 quads. Tenderness with palpation right upper quadrant. Musculoskeletal: Normal gait, 5/5 strength to all four extremities. Skin: No suspicious rashes or lesions. Capillary refill less than 2 sec. Neurologic: Cranial nerves II-XII intact. Alert and oriented x 3. Motor: No deficits noted. Sensory: Intact bilaterally all 4 extremities. Reflexes: DTR's intact bilaterally.. Hematologic/Lymphatic: No ecchymosis, no lymphadenopathy. Course Vital Signs Vital signs: Vital Signs Temperature 36.5 C 10/03/21 08:08 Pulse 58 L 10/03/21 08:08 Respiratory Rate 16 10/03/21 08:08 Blood Pressure 118/64 10/03/21 08:08 Pulse Oximetry 100 10/03/21 08:08 Temperature 36.5 C 10/03/21 08:08 Temperature Source Temporal Artery Scan 10/03/21 08:08 Pulse 58 L 10/03/21 08:08 Respiratory Rate 16 10/03/21 08:08 Respiratory Effort Non-Labored 10/03/21 08:12 Blood Pressure 118/64 10/03/21 08:08 Blood Pressure Position Sitting 10/03/21 08:08 Pulse Oximetry 100 10/03/21 08:08 Oxygen Delivery Method Room Air 10/03/21 08:08 Oxygen Flow Rate 0 10/03/21 08:08
[2021-10-03] MEDS: Normal Saline 1,000 ML 1000 ML IV (08:43)
[2021-10-03] MEDS: Ondansetron 4 MG/2 ML VIAL IVP (08:43)
[2021-10-03 08:49] LABS: Abs Immature Grans 0.03 10^3/uL (0.0-0.06); Absolute Eosinophil Count 0.04 10^3/uL (0.0-0.7); Absolute Monocyte Count 0.73 10^3/uL (0.1-0.8); Basophils % 0.4; Eosinophils % 0.3; HCT 43.8 % (36.0-46.0); HGB 14.9 g/dL (11.2-15.7); Immature Grans % 0.2; Lymphocytes % 7.2; MCH 28.4 pg (27.0-33.0); MCV 83.6 fL (80-95); MPV 10.7 fL (8.0-11.0); Monocytes % 5.2; Neutrophils % 86.7; Platelet Count 253 10^3/uL (130-400); RBC 5.24 10^6/uL (3.93-5.22); RDW-SD 36.6 fL; WBC 13.95 10^3/uL (4.4-10.8)
[2021-10-03 08:50] LABS: Absolute Basophil Count 0.06 10^3/uL (0.0-0.2); Absolute Neutrophil Count 12.09 10^3/uL (1.2-6.7)
[2021-10-03 08:59] LABS: ALT 27 U/L (14-59); AST 29 U/L (15-37); Alkaline Phosphatase 70 U/L (46-116); Anion Gap 12.8 mmol/L (3-11); BUN 11 mg/dL (7-18); Bilirubin, Total 0.5 mg/dL (0.2-1.0); CO2 23.2 mmol/L (21.0-32.0); CREATININE 0.9 mg/dL (0.55-1.02); Calcium 9.2 mg/dL (8.5-10.1); Chloride 106 mmol/L (98-107); Glucose 141 mg/dL (74-106); Lipase 84 U/L (73-393); Magnesium 1.7 mg/dL (1.8-2.4); Sodium 142 mmol/L (136-145)
[2021-10-03] MEDS: Omnipaque 350 MG/ML 100 ML BTL IJ (09:01)
[2021-10-03 09:05] VITALS: BP 110/58; PULSE 68; RESP 16; TEMP 36.5
[2021-10-03 09:14] LABS: Source Nasal/Nares
[2021-10-03 09:18] LABS: Bilirubin Negative (Negative); Blood Small (Negative); Clarity Clear (Clear); Glucose Negative (Negative); Ketones Negative (Negative); Leukocyte Esterase Negative (Negative); Nitrite Negative (Negative); Specific Gravity 1.015 (1.005-1.025); Urobilinogen 0.2 EU/dL (Up TO 0.2); pH >= 9.0 (5-8)
[2021-10-03 09:27] LABS: Bacteria Rare HPF (Negative); C & S Indicated? No/Sq. Contamination; Crystals Negative HPF (Negative); Epithelial Cells Moderate HPF (Negative); Mucus Heavy (Negative); WBC 0-2 HPF (0-5)
[2021-10-03] MEDS: MAGNESIUM SULFATE 1 GM/100 ML BAG IVPB (09:51)
[2021-10-03 09:52] LABS: COVID-19 PCR Negative (Negative)
[2021-10-03] MEDS: Potassium Chloride 20 MEQ TABCR PO (10:57)
--- NOTE | 2021-10-03 16:59 | ED.FU.B_ITS ---
Follow Up Plan: Patient called noting she was reluctant to use suppository. She notes she has run out of her Zofran that she was using from prior illness. I reviewed documentation from visit earlier today and CATRACHITA Dodson noted she could continue to use her prescribed Zofran. Patient notes she has tolerated Zofran without any issues. I will call prescription into her pharmacy [facility] in [place].
== END 2021-10-03 11:19 | disposition home or self-care (01) ==
PROVIDERS: Emergency Provider Registered Nurse Emergency; PCP Nurse Practitioner Family
DX: R11.2 Nausea with vomiting, unspecified (principal); R10.11 Right upper quadrant pain
CPT/HCPCS: 36415; 80053; 83690; 87635; 96361; 96365; 96368; 96375; 99284; 99285; 74177; 81003; 81015; 83735; 85025; J2405; J3475; J3490

== ENCOUNTER 2022-03-04 11:35 | Emergency (ER) | payer MEDICAID, SELFPAY ==
[2022-03-04 11:42] VITALS: BP 144/74; PULSE 55; RESP 18; TEMP 36.7; O2SAT 100
[2022-03-04] MEDS: Normal Saline 1,000 ML 1000 ML IV (12:02)
[2022-03-04] MEDS: Ondansetron 4 MG/2 ML VIAL IVP (12:03)
--- NOTE | 2022-03-04 12:04 | ED.GENADUL_ITS ---
Discharge Plan Disposition Patient Disposition: HOME Condition: Good Discharge Details Chief Complaint: Nausea/Vomit/Diar Clinical Impression: Nausea & vomiting Primary Care Provider: Carmen Smith ED Provider: Javier Zuñiga Home Meds and New Rx's Prescriptions: No Action hydroxyzine HCl 25 mg tablet 50 mg PO QHS dexmethylphenidate [Focalin XR] 30 mg capsule,ER biphasic 50-50 30 mg PO DAILY methylphenidate HCl [Ritalin] 20 mg tablet 20 mg PO DAILY lamotrigine 25 mg tablet 25 mg PO ONCE Breo Ellipta 100-25 mcg/dose blister with device 1 inh inhalation DAILY promethazine [Promethegan] 25 mg suppository 25 mg [place] Q6H PRN (Reason: nausea and vomiting) Qty: 12 0RF Discharge Instructions Instructions: Ondansetron (By mouth), Acute Nausea and Vomiting (ED) Additional Instructions: Please avoid any spicy greasy or fatty foods. Take the Zofran as needed for nausea. If you notice any worsening of your symptoms, or any new symptoms such as vomiting, diarrhea, fever, chills, shortness of breath, chest pain, numbness, weakness, or fainting , please return immediately to the emergency department for reevaluation. Please follow up with your primary care provider as soon as possible for reassessment and reevaluation. As always, it was a pleasure participating in your medical care today. Referrals: Carmen Smith [Primary Care Provider] - Medical Decision Making 36-year-old female with a past medical history of COPD, palpitations, bipolar, alpha-1 antitrypsin deficiency, GERD, presents today for nausea and vomiting for the last 8 hours. She states that she has multiple times. She denies any blood in her vomit or diarrhea. She admits to an epigastric achiness and pain. She denies any previous abdominal surgeries aside for an appendectomy and . She denies any numbness tingling or weakness. She denies any other sick contacts. Exam demonstrates minimal left upper epigastric tenderness. No signs of an acute surgical abdomen. No pain or McBurney's point, negative Godinez sign. Patient is somewhat intolerant of exam in general secondary to her nausea. We will rehydrate, evaluate for concerning etiologies electrolyte modalities, give a GI cocktail, monitor closely and reassess. Differential is highest for clinical gastroenteritis at this time. On reassessment the patient has complete resolution of her symptoms, she feels well and is able to tolerate p.o. Electrolytes and labs are unremarkable and stable. Patient is stable for discharge. Repeat exam shows no tenderness whatsoever. Symptoms inconsistent with an acute surgical abdomen. Patient stable for discharge with outpatient follow-up. Discussed red flags which to return. I have extensively reviewed the treatment plan and discharge instructions with the patient. I have addressed all patient concerns at this time. The patient was made aware of what symptoms to monitor for that would warrant a return to the emergency department. Discussed the plan with the patient, they demonstrate verbal understanding and agreement with our assessment and plan at this time. The documentation in this chart was dictated using [employer] dictation software. Please excuse any dictation errors. HPI General Date/Time Provider Initiated Documentation: 03/04/22 11:45 . HPI Narrative: 36-year-old female with a past medical history of COPD, palpitations, bipolar, alpha-1 antitrypsin deficiency, GERD, presents today for nausea and vomiting for the last 8 hours. She states that she has multiple times. She denies any blood in her vomit or diarrhea. She admits to an epigastric achiness and pain. She denies any previous abdominal surgeries aside for an appendectomy and . She denies any numbness tingling or weakness. She denies any other sick contacts. Related Data Home Medications Medication Instructions Recorded Confirmed fluticasone furoate 100 1 inh inhalation DAILY 07/10/20 02/28/21 mcg-vilanterol 25 mcg/dose inhalation powder (Breo Ellipta) hydroxyzine HCl 25 mg tablet 50 mg PO QHS 07/10/20 10/03/21 dexmethylphenidate 30 mg 30 mg PO DAILY 02/11/21 10/03/21 capsule,extended release [id number] (Focalin XR) lamotrigine 25 mg tablet 25 mg PO ONCE 02/11/21 10/03/21 methylphenidate HCl 20 mg tablet 20 mg PO DAILY 02/11/21 10/03/21 (Ritalin) promethazine 25 mg rectal 25 mg [place] Q6H PRN nausea and 10/03/21 suppository (Promethegan) vomiting #12 ea Previous Rx's Medication Instructions Recorded promethazine 25 mg rectal 25 mg W[place] Q6H PRN nausea and 10/03/21 suppository (Promethegan) vomiting #12 ea Allergies Allergy/AdvReac Type Severity Reaction Status Date / Time cefazolin sodium [From [facility]] Allergy Severe Bradycardia Verified 03/04/22 11:45 & hives fentanyl Allergy Severe Hives and Verified 03/04/22 11:45 Bradycardia venom-honey bee Allergy Severe Anaphylaxsi Verified 03/04/22 11:45 [bee venom (honey bee)] s lurasidone HCl [From Latuda] Allergy seizure Verified 03/04/22 11:45 codeine [Codeine] AdvReac Intermediate Nausea/vomi Verified 03/04/22 11:45 tting Sulfa (Sulfonamide AdvReac Intermediate Body Shakes Verified 03/04/22 11:45 Antibiotics) hydromorphone AdvReac Mild Dizziness/L Verified 03/04/22 11:45 ightheade gabapentin AdvReac light Verified 03/04/22 11:45 headed /dizzy/depressed morphine AdvReac I get Verified 03/04/22 11:45 very ugly General Stated Complaint: Nausea/Vomit/Diar MINNA: 3 Review of Systems All systems reviewed & are unremarkable except as noted in HPI and below PFSH All Active Problems (Updated 03/04/22 @ 13:09 by Javier Zuñiga DO) Hypoglycemia (Acute) Nausea & vomiting (Acute) COPD (chronic obstructive pulmonary disease) (Chronic) Palpitations (Acute) Closed fracture of transverse process of lumbar vertebra (Acute) Fall from ladder (Acute) Functional neurological symptom disorder with mixed symptoms (Acute) Dysphonia (Acute) Left hemiparesis (Acute) Gait instability (Acute) Bipolar disorder (Chronic) Panic disorder (Chronic) Axret-9-qnleanjjffs deficiency (Chronic 02/02/18) Anxiety (Chronic 11/20/14) Pulmonary emphysema (Chronic 02/01/18) Smoker (Chronic 10/19/17) smoking 1pp x 17 years. started young. 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 Pt is continuing baby ASA daily for this examination or test, positive result (05/07/14) Pruritic condition Right lower quadrant pain (02/05/13) Diagnostic laparoscopy; laparoscpic appendectomy by Dr. Tae Alejandra on 02-05-2013. Ruptured cyst of ovary (02/05/13) Diagnostic laparoscopy and incidental laparoscopic appendectomy done by Dr Tae Alejandra on 02-05-2013. Substance abuse (12/01/13) opiates, alcohol Supervision of other normal (05/15/14) Tetrahydrocannabinol (THC) use disorder, mild, abuse (07/10/14) URI (upper respiratory infection) Wound infection following section, (12/27/14) Surgical History Appendectomy Arthroplasty of knee (L) section X 2 Tonsillectomy Family History Mother Depression Hx of suicide attempt Stroke Hyperlipidemia Father , Intentional overdose at age 40. 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, 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 Pets and animals: Yes Pets and animals: dog(s) Sexually active: Yes Do you think of yourself as: straight/heterosexual Current gender identity: female What is your relationship status?: living with partner How often do you talk on the phone with friends or family?: three or more times per week How often do you get together with friends or relatives?: twice per week How often do you attend orthodoxy or baptism services?: decline to answer Do you belong to any clubs or organized social groups?: no Panel score (0-1 are the most socially isolated patients): 2 What type of physical activity do you participate in: none Adelia/Sabianist: None Special adelia needs: No Seatbelt use: never Helmet use: Yes Helmet use: always Drive intox or ride w/intox jukebox route driver: No Do you feel safe at home: Yes Do you feel safe in your relationship?: Yes Exam Narrative Exam Narrative: 1.Const: Well-nourished, Well-developed, appearing stated age 2.Eyes: PERRL, no conjunctival injection, and symmetrical lids. 3.ENT: Atraumatic external nose and ears. Notably dry MM. Neck: Symmetric, trachea midline, No thyromegaly. 4.CVS: +S1/S2, No murmurs or gallops. Peripheral pulses 2+ and equal in all extremities. Brisk capillary refill in all extremities. 5.RESP: Unlabored respiratory effort. Clear to auscultation bilaterally. No wheezes rales or rhonchi 6.GI: Soft, nondistended, mild epigastric achiness in left upper quadrant. No guarding or rebound. No pain or McBurney's point. Negative Godinez sign. 7.MSK: Normocephalic/Atraumatic, Extremities w/o deformity or ttp No cyanosis or clubbing, Normal movement of all extremities 8.Skin: Warm, Dry. No rashes or lesions. 9.Neuro: revising clerk II-XII grossly intact. Sensation grossly intact, no focal neurologic deficits. 10.Psych: (AAO) x3. Appropriate mood and affect Course Vital Signs Vital signs: Vital Signs Temperature 36.7 C 03/04/22 11:42 Pulse 55 L 03/04/22 11:42 Respiratory Rate 18 03/04/22 11:42 Blood Pressure 144/74 H 03/04/22 11:42 Pulse Oximetry 100 03/04/22 11:42 Temperature 36.7 C 03/04/22 11:42 Temperature Source Temporal Artery Scan 03/04/22 11:42 Pulse 55 L 03/04/22 11:42 Respiratory Rate 18 03/04/22 11:42 Blood Pressure 144/74 H 03/04/22 11:42 Blood Pressure Position Sitting 03/04/22 11:42 Pulse Oximetry 100 03/04/22 11:42 Oxygen Delivery Method Room Air 03/04/22 11:42 Oxygen Flow Rate 0 03/04/22 11:42 Pain Level 2 03/04/22 11:42
[2022-03-04 12:12] LABS: Abs Immature Grans 0.04 10^3/uL (0.0-0.06); Absolute Basophil Count 0.04 10^3/uL (0.0-0.2); Absolute Eosinophil Count 0.01 10^3/uL (0.0-0.7); Absolute Lymphocyte Count 0.94 10^3/uL (1.2-3.4); Absolute Monocyte Count 0.45 10^3/uL (0.1-0.8); Basophils % 0.3; Eosinophils % 0.1; HCT 45.2 % (36.0-46.0); HGB 15.5 g/dL (11.2-15.7); Immature Grans % 0.3; Lymphocytes % 6.9; MCH 28.6 pg (27.0-33.0); MCHC 34.3 % (32.0-36.0); MCV 83 fL (80-95); MPV 10.5 fL (8.0-11.0); Monocytes % 3.3; Neutrophils % 89.1; Platelet Count 253 10^3/uL (130-400); RBC 5.42 10^6/uL (3.93-5.22); RDW-SD 36.5 fL; WBC 13.68 10^3/uL (4.4-10.8)
[2022-03-04 12:14] LABS: Absolute Neutrophil Count 12.19 10^3/uL (1.2-6.7)
[2022-03-04 12:50] LABS: Bilirubin Negative (Negative); Blood Negative (Negative); Clarity Clear (Clear); Glucose Negative (Negative); Ketones Trace mg/dL (Negative); Leukocyte Esterase Negative (Negative); Nitrite Negative (Negative); Specific Gravity 1.015 (1.005-1.025); Urobilinogen 0.2 EU/dL (Up TO 0.2); pH >= 9.0 (5-8)
[2022-03-04 12:53] LABS: ALT 32 U/L (14-59); AST 34 U/L (15-37); Alkaline Phosphatase 74 U/L (46-116); Anion Gap 9.1 mmol/L (3-11); BUN 17 mg/dL (7-18); Bilirubin, Total 0.5 mg/dL (0.2-1.0); CO2 25.9 mmol/L (21.0-32.0); CREATININE 0.8 mg/dL (0.55-1.02); Chloride 105 mmol/L (98-107); Estimated GFR 98.48 (mL/min/1.73m2); Glucose 115 mg/dL (74-106); Lipase 90 U/L (73-393); Potassium 3.5 mmol/L (3.5-5.1); Sodium 140 mmol/L (136-145); Total Protein 7.4 g/dL (6.4-8.2)
[2022-03-04 13:04] LABS: Bacteria Negative HPF (Negative); Crystals Negative HPF (Negative); Epithelial Cells Few HPF (Negative); RBC Negative HPF (0-2); WBC Negative HPF (0-5)
[2022-03-04 13:05] LABS: C & S Indicated? No; Casts 0-2 Hyaline LPF (Negative); Mucus Trace (Negative)
[2022-03-04 13:09] VITALS: BP 103/39; PULSE 57; TEMP 36; O2SAT 98
[2022-03-04] MEDS: Ondansetron O.D.T. 4 MG TABEF, 3 TABS/BTL 12 MG (13:16)
== END 2022-03-04 13:17 | disposition home or self-care (01) ==
PROVIDERS: Emergency Provider Student in an Organized Health Care Education/Training Program; PCP Nurse Practitioner Family
DX: R11.2 Nausea with vomiting, unspecified (principal); R10.13 Epigastric pain; R10.12 Left upper quadrant pain; J44.9 Chronic obstructive pulmonary disease, unspecified; Z90.49 Acquired absence of other specified parts of digestive tract; Z79.51 Long term (current) use of inhaled steroids
CPT/HCPCS: 36415; 80053; 81025; 83690; 96361; 96374; 99284; 81003; 81015; 85025; J2405

== ENCOUNTER 2022-03-20 11:33 | Emergency (ER) | payer MEDICAID, SELFPAY ==
[2022-03-20 11:44] VITALS: BP 135/78; PULSE 79; RESP 17; TEMP 36.6; O2SAT 99
--- NOTE | 2022-03-20 12:07 | W.ED.GENAD ---
Discharge Plan Disposition Patient Disposition: HOME Condition: Stable Discharge Details Clinical Impression: Finger injury Primary Care Provider: Carmen Smith ED Provider: Rk Bellamy Home Meds and New Rx's Prescriptions: Continued hydroxyzine HCl 25 mg tablet 50 mg PO QHS dexmethylphenidate [Focalin XR] 30 mg capsule,ER biphasic 50-50 30 mg PO DAILY methylphenidate HCl [Ritalin] 20 mg tablet 20 mg PO DAILY lamotrigine 25 mg tablet 25 mg PO ONCE Breo Ellipta 100-25 mcg/dose blister with device 1 inh inhalation DAILY promethazine [Promethegan] 25 mg suppository 25 mg IL Q6H PRN (Reason: nausea and vomiting) Qty: 12 0RF Discharge Instructions Additional Instructions: X-ray does not reveal any fracture. Rest, elevate, cool compresses as tolerated. Hgop-swf-uljadke medications such as Tylenol and/or Motrin as directed for discomfort. Wear splint as needed, advance activity as tolerated. Please watch for new or worsening symptoms and return to the ER for any concerns Medical Decision Making 36-year-old female, xjhnr-aszy-oiwzfiyt, presents with a left middle finger injury that she sustained just prior to arrival. Plan is to obtain x-ray injury X-ray reveals soft tissue swelling but no fracture. Discussed x-ray findings with patient. Finger splint applied. Standard discharge and return precautions were provided. Patient understands, is agreeable to this plan, and has no additional questions or concerns upon discharge. This documentation was generated using [employer] dictation system, please disregard any oddities of phrase or misspellings. Imaging Data Radiologic Study: Attestation: I personally reviewed and interpreted this imaging study as follows: Imaging: X-Ray Radiologist's impression: Exam(s) XR HAND LT COMPLETE EXAM: XR HAND LT COMPLETE CLINICAL HISTORY: crank struck middle finger TECHNIQUE: COMPARISON: No exams were available for comparison FINDINGS: Three views were obtained. There appears to be soft tissue swelling adjacent to the PIP joint of the middle finger. There is no evidence of fracture or dislocation. HPI General Mode of arrival: ambulatory. Date/Time Provider Initiated Documentation: 03/20/22 11:55. Limitations to Documentation: no limitations. Information obtained by: patient. History of Present Illness 36 year old F presents to the emergency department with the chief complaint of R middle finger injury, described as severe, with intensity rated at 8. Quality is described as aching, and is localized to the right and upper extremity. Patient reports no radiation. Patient started experiencing this minute(s) (30) and it has been constant. Immobilization improves symptom(s), Movement worsens symptoms . Patient notes no other symptoms.. Patient did receive the following treatments prior to arrival, none Related Data Home Medications Medication Instructions Recorded Confirmed fluticasone furoate 100 1 inh inhalation DAILY 07/10/20 02/28/21 mcg-vilanterol 25 mcg/dose inhalation powder (Breo Ellipta) hydroxyzine HCl 25 mg tablet 50 mg PO QHS 07/10/20 10/03/21 dexmethylphenidate 30 mg 30 mg PO DAILY 02/11/21 10/03/21 capsule,extended release [id number] (Focalin XR) lamotrigine 25 mg tablet 25 mg PO ONCE 02/11/21 10/03/21 methylphenidate HCl 20 mg tablet 20 mg PO DAILY 02/11/21 10/03/21 (Ritalin) promethazine 25 mg rectal 25 mg IL Q6H PRN nausea and 10/03/21 suppository (Promethegan) vomiting #12 ea Previous Rx's Medication Instructions Recorded promethazine 25 mg rectal 25 mg IL Q6H PRN nausea and 10/03/21 suppository (Promethegan) vomiting #12 ea Allergies Allergy/AdvReac Type Severity Reaction Status Date / Time cefazolin sodium [From Anc] Allergy Severe Bradycardia Verified 03/04/22 11:45 & hives fentanyl Allergy Severe Hives and Verified 03/04/22 11:45 Bradycardia venom-honey bee Allergy Severe Anaphylaxsi Verified 03/04/22 11:45 [bee venom (honey bee)] s lurasidone HCl [From Latuda] Allergy seizure Verified 03/04/22 11:45 codeine [Codeine] AdvReac Intermediate Nausea/vomi Verified 03/04/22 11:45 tting Sulfa (Sulfonamide AdvReac Intermediate Body Shakes Verified 03/04/22 11:45 Antibiotics) hydromorphone AdvReac Mild Dizziness/L Verified 03/04/22 11:45 ightheade gabapentin AdvReac light Verified 03/04/22 11:45 headed /dizzy/depressed morphine AdvReac I get Verified 03/04/22 11:45 very ugly General Stated Complaint: Orthopedic MINNA: 4 Review of Systems Constitutional Constitutional: Denies weakness Musculoskeletal Musculoskeletal: Denies deformity, Reports arthralgias, Denies numbness, Reports stiffness and Denies tingling Integumentary/Breasts Skin/Breast: Denies erythema Neurologic Neurologic: Denies numbness, Denies tingling and Denies weakness PFSH All Active Problems (Updated 03/20/22 @ 13:02 by THADDEUS Hahn) Hypoglycemia (Acute) Nausea & vomiting (Acute) Finger injury (Acute) COPD (chronic obstructive pulmonary disease) (Chronic) Palpitations (Acute) Closed fracture of transverse process of lumbar vertebra (Acute) Fall from ladder (Acute) Functional neurological symptom disorder with mixed symptoms (Acute) Dysphonia (Acute) Left hemiparesis (Acute) Gait instability (Acute) Bipolar disorder (Chronic) Panic disorder (Chronic) 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 started young. 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 Pt is continuing baby ASA daily for this examination or test, positive result (05/07/14) Pruritic condition Right lower quadrant pain (02/05/13) Diagnostic laparoscopy; laparoscpic appendectomy by Dr. Tae Alejandra on 02-05-2013. Ruptured cyst of ovary (02/05/13) Diagnostic laparoscopy and incidental laparoscopic appendectomy done by Dr Tae Alejandra on 02-05-2013. Substance abuse (12/01/13) opiates, alcohol Supervision of other normal (05/15/14) Tetrahydrocannabinol (THC) use disorder, mild, abuse (07/10/14) URI (upper respiratory infection) Wound infection following section, (12/27/14) Surgical History Appendectomy Arthroplasty of knee (L) section X 2 Tonsillectomy Family History Mother Depression Hx of suicide attempt Stroke Hyperlipidemia Father , Intentional overdose at age 40. 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, 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 Pets and animals: Yes Pets and animals: dog(s) Sexually active: Yes Do you think of yourself as: straight/heterosexual Current gender identity: female What is your relationship status?: living with partner How often do you talk on the phone with friends or family?: three or more times per week How often do you get together with friends or relatives?: twice per week How often do you attend muslim or gnosticist services?: decline to answer Do you belong to any clubs or organized social groups?: no Panel score (0-1 are the most socially isolated patients): 2 What type of physical activity do you participate in: none Adelia/Yazidi: None Special adelia needs: No Seatbelt use: never Helmet use: Yes Helmet use: always Drive intox or ride w/intox water tanker driver: No Do you feel safe at home: Yes Do you feel safe in your relationship?: Yes Exam Const General: cooperative, healthy appearing, comfortable and no acute distress Orientation: alert and awake HENMT Head: normal to inspection, normocephalic and atraumatic Eyes Conjunctivae: conjunctivae normal Neck Neck: normal visual inspection, trachea midline and supple Resp Effort & Inspection: normal respiratory effort and able to speak in complete sentences Cardio Rate: regular rate Rhythm: regular rhythm Skin General skin exam: no rashes or lesions noted Neuro General: patient alert, patient awake, moves all extremities and no focal motor deficits Cognition: normal cognition Speech: speech normal Gait: normal gait Motor: muscle tone normal throughout Sensory Exam: no sensory deficits noted Extrem General: capillary refill normal Hand/finger images: 1. Mild swelling, ecchymosis, centrally there is an abrasion. No active bleeding. Full extension, limited flexion secondary to discomfort. No deformity. Normal capillary refill. Neuro, vascular, tendon intact Psych Appearance: grossly normal Mental Status: mental status grossly normal Course Vital Signs Vital signs: Vital Signs Temperature 36.6 C 03/20/22 11:44 Pulse 79 03/20/22 11:44 Respiratory Rate 17 03/20/22 11:44 Blood Pressure 135/78 03/20/22 11:44 Pulse Oximetry 99 03/20/22 11:44 Temperature 36.6 C 03/20/22 11:44 Temperature Source Temporal Artery Scan 03/20/22 11:44 Pulse 79 03/20/22 11:44 Respiratory Rate 17 03/20/22 11:44 Blood Pressure 135/78 03/20/22 11:44 Pulse Oximetry 99 03/20/22 11:44 Oxygen Delivery Method Room Air 03/20/22 11:44 Oxygen Flow Rate 0 03/20/22 11:44 Pain Level 8 03/20/22 11:44
--- NOTE | 2022-03-20 12:12 | DI.RAD_ITS ---
Exam(s) XR HAND LT COMPLETE EXAM: XR HAND LT COMPLETE CLINICAL HISTORY: crank struck middle finger TECHNIQUE: COMPARISON: No exams were available for comparison FINDINGS: Three views were obtained. There appears to be soft tissue swelling adjacent to the PIP joint of the middle finger. There is no evidence of fracture or dislocation. IMPRESSION: RADIATION DOSE DELIVERED: Total DLP
== END 2022-03-20 13:11 | disposition home or self-care (01) ==
PROVIDERS: Emergency Provider Physician Assistant; PCP Nurse Practitioner Family
DX: S60.413A Abrasion of left middle finger, initial encounter (principal); F17.210 Nicotine dependence, cigarettes, uncomplicated; X58.XXXA Exposure to other specified factors, initial encounter
CPT/HCPCS: 99283; 73130; 99282

== ENCOUNTER 2023-03-04 13:34 | Outpatient (REF) | payer MEDICAID, SELFPAY ==
--- NOTE | 2023-03-04 12:20 | PAPFT_PTH ---
PATIENT: Billy Santana LOC: NCN #:[id number] AGE/SX: 37/F ROOM: RE03/04/[address]: CARLEEN RODRIGUEZ : 1985 BED: DIS: 03/04/2023 SPEC #: [id number] RECD: 03/04/23 18:24 STATUS: ABISAI REQ #: [id number] HAI: 03/04/23 12:[address]: Carleen Rodriguez DEPT: [facility] Cytology RECD BY: Viri Salinas ENTERED: 03/04/23 18:25 SP TYPE: PAPFT OTHR DR: Carmen Smith Tissues: 1 - CX/ENDOCX FOR PAP SMEARS Procedures: PAP THIN PREP/UVM Screening HPV DNA PROBE Comments: [id number]
== END 2023-03-04 13:35 | disposition home or self-care (01) ==
LOC: NCHCN 13:34
PROVIDERS: PCP Nurse Practitioner Family; Visit Provider Nurse Practitioner Family
DX: Z12.4 Encounter for screening for malignant neoplasm of cervix (principal); Z11.51 Encounter for screening for human papillomavirus (HPV)
CPT/HCPCS: 88142; 87624

== ENCOUNTER 2024-06-01 13:03 | Outpatient (REF) | payer MEDICAID, SELFPAY ==
--- OUTSIDE RECORDS SUMMARY | 2024-06-01 13:05 | XMS_ITS | Encounter Summary ---
Author Organization [facility] [place] [address] Care Team Providers Care Corporate Director Of Pharmacy Name Role Phone Carmen Smith APRN Primary Care Provider [phone] Encounter Details Date Type Department Care Team (Late st Contact Info) Description 12/02/2021 Notes Only [facility] [place] [phone] Ivette Lee Social History Tobacco Use Types Packs/Day Years Used Date Smoking Tobacco: Some Days Cigarettes 1 18 Smokeless Tobacco: Never Sex and Gender Information Value Date Recorded Sex Assigned at Not on file Gender Identity Not on file Sexual Orientation Not on file documented as of this encounter Progress Notes * Ivette Lee - 12/02/2021 1:23 PM EDT Mailed Invitation Packet for the Functional [facility] Program to the patient Start date - 12/30/2021 Arrival Time - 7:45am at [facility], Program Administrator 1S Confirmation request date - Friday 12/15 Pain Education: 12/29/2021 2-4:30pm via Zoom documented in this encounter Plan of Treatment Not on file documented as of this encounter Visit Diagnoses Not on filedocumented in this encounter Care Teams Corporate Director Of Pharmacy Relationship Specialty Start Date End Date Carmen Smith APRN [address] [place] [address] PCP - General Family Medicine 04/10/21 documented as of this encounter
--- OUTSIDE RECORDS SUMMARY | 2024-06-01 13:05 | XMS_ITS | Encounter Summary ---
Author Organization [facility] [place] [address] Care Team Providers Care Health Sanitarian Name Role Phone PhuongCarmen cruz ELIZABETH Primary Care Provider [phone] Encounter Details Date Type Department Care Team (Late st Contact Info) Description 12/29/2021 Telephone [facility] [place] [phone] Ladi Berger MSW Social History Tobacco Use Types Packs/Day Years Used Date Smoking Tobacco: Some Days Cigarettes 1 18 Smokeless Tobacco: Never Sex and Gender Information Value Date Recorded Sex Assigned at Not on file Gender Identity Not on file Sexual Orientation Not on file documented as of this encounter Miscellaneous Notes * Telephone Encounter - Ladi Berger MSW - 12/29/2021 4:55 PM EDTSummary: Attempted Phone Call OFFICE of CARE MANAGEMENT CCM General Production Manager received correspondence approval from Ms. Wilson, Workers' Compensation Claims adjusterthat the Workers' Compensation department will cover the cost of participation in the Functional [facility] Program from 12/30- 01/23/22. General Production Manager attempted ot contact Ms. Santana by phone at ; however, she was unavailable. General Production Manager left a voicemail message with detailed contact information asking for a return call. There are no other concerns to address at this time. VEE Liu documented in this encounter Plan of Treatment Not on file documented as of this encounter Visit Diagnoses Not on filedocumented in this encounter Care Teams Health Sanitarian Relationship Specialty Start Date End Date Carmen Smith, ANIMAL NURSERY WORKER [address] [place] [address] PCP - General Family Medicine 04/10/21 documented as of this encounter
--- OUTSIDE RECORDS SUMMARY | 2024-06-01 13:05 | XMS_ITS | Data Portability ---
Author Organization [place] - [facility], Historical Import Interface Address [address] [place] [address] Assessment Encounter Date Assessment Date Assessment LastModified by Organization Details LastModified Time 12/07/2022 12/07/2022 DOS: ?12/07/2022 ?? Tx: Consult, ext #30 under IV sedation ?? NV: PRN concerns w/ ext sites, pt to return to primary dentist for comp care Referred from: [facility] CC: none Pt denies swelling, fever, N/V ?? HHx: smoker, see EHR Due to dental anxiety pt requires IV sedation ?? NPO solids: ?11 ?? Hours ?? NPO liquids: ??11 Hours ? Exam: ? SRINIVAS >40mm No swelling FOM WNL ? Tongue WNL Mallampati: I Dx: ?? Cracked tooth #30 ??TXP Ext #30 under IV sedation ? Discussion: - Reviewed findings, tx options, risks, benefits, and potential consequences of no tx which was understood. Referral requested implant placement, informed pt that we do not place implants here and that she would need that preformed elsewhere. Addressed all pt's questions and concerns. Obtained informed consent for listed TXP Consent forms reviewed and signed ?? Surgical Timeout completed ? Anesthesia: IV access: ??22g angiocath placed in R?ACF Pt sedated per anesthesia record 20% Benzocaine topical anesthesia 3 carp 2% Lidocaine w/ 1:100k epi via local infiltration, IANB 1 carp 0.5% Marcaine w/1:200k epi via IANB ?? Procedure: ?? Bite block placed Elevate and deliver tooth with forceps without complications Socket curetted Copious irrigation with NSS No sutures necessary? All adjacent teeth intact ?? B/L pressure applied to socket Gauze placed ?? Good hemostasis achieved ?? P/O instructions given written and verbally, which pt and escort understood ?? Pain Management: 600mg ibuprofen, 500mg acetaminophen q6h PRN pain ?? Pt tolerated procedure well ?? Patient discharged with escort in stable condition. See anesthesia record for details ?? Assisted by Chair-side: Saba Documentation: [place] ?? AML ? , 8:45 AM. I attest that the treatment rendered today is completed and treatment met the standard of care. , 6:13 PM. [id number] Not available 12/17/2022 10:33:47 Plan of Treatment Reminders Order Date Submit Date Provider Last Modified By Organization Details Last Modified Time Details Appointments None record ed. Lab None record ed. Referral None record ed. Procedures None record ed. Surgeries None record ed. Imaging None record ed. Medication Orders None record ed. Patient TargetsNo targets recorded. Patient InstructionsNo instructions recorded. Reason for Referral None Reported. Medical Equipment None Reported. Medications Name Sig Start Date Stop Date Status Note LastModified by Organization Details LastModified Time lamotrigine 150 mg tablet TAKE ONE TABLET BY MOUTH EVERY DAY active Not Available Not Available No t Available clindamycin HCl 300 mg capsule TAKE 1 CAPSULE BY MOUTH EVERY 8 HOURS FOR 7 DAYS active Not Available Not Available No t Available hydroxyzine HCl 50 mg tablet TAKE ONE TABLET BY MOUTH AT BEDTIME IN ADDITION TO 25MG TABLETS active Not Available Not Available No t Available lamotrigine 25 mg tablet TAKE TWO TABLETS BY MOUTH EVERY DAY active Not Available Not Available No t Available hydroxyzine HCl 25 mg tablet TAKE ONE TABLET BY MOUTH EVERY EVENING NEEDED active Not Available Not Available No t Available lamotrigine 100 mg tablet TAKE 1&1/2 TABLETS ORALLY ONCE A DAY active Not Available Not Available No t Available dexmethylpheni date ER 30 mg capsule,extend ed release [id number] TAKE ONE CAPSULE BY MOUTH EVERY DAY active Not Available Not Available No t Available Suboxone 8 mg-2 mg sublingual film active Not Available Not Available Not Available Suboxone 12 mg-3 mg sublingual film active Not Available Not Available Not Available Vitals None Recorded Social History None recorded. Functional Status None recorded. Mental Status None recorded. Family History Nothing Reported. Medical History No medical history recorded. Gynecological HistoryNo gynecological history recorded. Obstetrics History GPAL:G 0 P 0 0 0 0 Past Encounters Encounter ID Performer Location Encounter Start Date Encounter Closed Date Diagnosis/Indication Diagnosis SNOMED-CT Code Diagnosis ICD10 Code [id number] Dental [address] [place] [address] 12/07/2022 07:15:05 12/17/2022 10:33:49 Health Concerns Section Related Observation LastModified by Organization Detai ls LastModified Time None Recorded Concern Status LastModified by Organization Details LastModified Time None Recorded Advance Directives Directive None Recorded Payers Encounter Date Sequence Insurance Name Policy Number Policy Esquivel Covered Member ID Esquivel Member ID Guarantor Name 12/07/2022 [employer] (MOVED TO HOLD) Tami Santana [id number] Billy Santana 12/07/[address] [facility] (MEDICAID) Billy Santana [id number] Billy Santana OBGyn Episode No OBEpisode recorded.
--- OUTSIDE RECORDS SUMMARY | 2024-06-01 13:05 | XMS_ITS | Encounter Summary ---
Author Organization [facility] Address [address] [place] [address] Care Team Providers Care Farm Agent Name Role Phone Suresh Hicks MD Primary Care Provider Unavailabl e Encounter Details Date Type Department Care Team (Late st Contact Info) Description 06/18/2020 Lab Requisition [facility] Pathology & Laboratory Medicine - [facility] [address], [place] [id number] Outr Resulting Lab, Provider Social History Tobacco Use Types Packs/Day Years Used Date Smoking Tobacco: Never Assessed Comments Unknown Sex and Gender Information Value Date Recorded Sex Assigned at Not on file Legal Sex Female 18:35 EST Gender Identity Not on file Sexual Orientation Not on file documented as of this encounter Plan of Treatment Not on file documented as of this encounter Procedures Procedure Name Priority Date/Time Associated Diagnosis Comments DO NOT ORDER STANDALONE - BROAD COVID TEST Today 06/18/2020 14:15 EST COVID-19 TESTING Routine 06/18/2020 14:1 5 EST documented in this encounter Results * DO NOT ORDER STANDALONE - BROAD COVID TEST (06/18/2020 14:15 EST) COVID-19 rt-PCR Result NEGATIVE Negative 06/19/2020 17:18 EST [facility] Comment: 2019-novel Coronavirus (2019-nCoV) not detected by the qRT-PCR assay. Consider testing for other respiratory viruses or re-collecting for 2019-nCoV testing. Note: Optimum timing for peak viral levels during infections caused by 2019-nCoV have not been determined. Collection of multiple specimens from the same patient may be necessary to detect the virus. Limitations Positive results are indicative of active infection with SARS-CoV-2 but do not rule out bacterial infection or co-infection with other viruses. The agent detected may not be the definite cause of disease. In addition, detection of viral RNA may not indicate the presence of infectious virus or that SARS-CoV-2 is the causative agent for clinical symptoms. Negative results do not preclude SARS-CoV-2 infection and should not be used as the sole basis for patient management decisions. Negative results must be combined with clinical observations, patient history, and epidemiological information. False negative results may also occur if amplification inhibitors are present in the specimen or if inadequate numbers of organisms are present in the specimen. Optimum specimen types and timing for peak viral levels during infections caused by SARS-CoV-2 have not been fully determined. Collection of multiple specimens (types and time points) from the same patient may be necessary to detect the virus. The test was validated for use with upper respiratory specimens obtained via nasopharyngeal or oropharyngeal swabs in VTM, UTM, M4, M5, M6, saline, and MTM media. The performance of this test has not been established for other specimens. Specimens collected using other FDA recommended Specimen Collection Materials listed in the FDA COVID-19 [employer] communication (September 14, 2019) are processed with the caveat that they were not all validated for use with this test and the result must be interpreted in this context. Furthermore, a false negative results may occur if a specimen is improperly collected, transported or handled. If the virus mutates in the RT-PCR target region, SARS-CoV-2 may not be detected or may be detected less predictably. Inhibitors or other types of interference may produce a false negative result. An interference study evaluating the effect of common cold medications was not performed. This test is not FDA-cleared but its performance characteristics were established by our CLIA-certified, CAP-accredited, high complexity laboratory in accordance with CLIA regulations, [employer] (CAP) guidelines (Sep 07, 2019), and FDA guidance (Aug 19, 2019). This test is only for use under the Food and Drug Administration's Emergency Use Authorization. Swab ENTIRE NASOPHARYNX / Unknown 06/18/2020 14:15 EST 06/18/2020 20:59 EST us Provider Outr Resulting Lab MICROBIOLOGY - GENER AL ORDERABLES Final Result [facility] [place], [place] * COVID-19 TESTING (06/18/2020 14:15 EST) COVID-19 rt-PCR Result NEGATIVE Negative 06/19/2020 18:05 EST [facility] Comment: 2019-novel Coronavirus (2019-nCoV) not detected by the qRT-PCR assay. Consider testing for other respiratory viruses or re-collecting for 2019-nCoV testing. Note: Optimum timing for peak viral levels during infections caused by 2019-nCoV have not been determined. Collection of multiple specimens from the same patient may be necessary to detect the virus. Limitations Positive results are indicative of active infection with SARS-CoV-2 but do not rule out bacterial infection or co-infection with other viruses. The agent detected may not be the definite cause of disease. In addition, detection of viral RNA may not indicate the presence of infectious virus or that SARS-CoV-2 is the causative agent for clinical symptoms. Negative results do not preclude SARS-CoV-2 infection and should not be used as the sole basis for patient management decisions. Negative results must be combined with clinical observations, patient history, and epidemiological information. False negative results may also occur if amplification inhibitors are present in the specimen or if inadequate numbers of organisms are present in the specimen. Optimum specimen types and timing for peak viral levels during infections caused by SARS-CoV-2 have not been fully determined. Collection of multiple specimens (types and time points) from the same patient may be necessary to detect the virus. The test was validated for use with upper respiratory specimens obtained via nasopharyngeal or oropharyngeal swabs in VTM, UTM, M4, M5, M6, saline, and MTM media. The performance of this test has not been established for other specimens. Specimens collected using other FDA recommended Specimen Collection Materials listed in the FDA COVID-19 [employer] communication (September 14, 2019) are processed with the caveat that they were not all validated for use with this test and the result must be interpreted in this context. Furthermore, a false negative results may occur if a specimen is improperly collected, transported or handled. If the virus mutates in the RT-PCR target region, SARS-CoV-2 may not be detected or may be detected less predictably. Inhibitors or other types of interference may produce a false negative result. An interference study evaluating the effect of common cold medications was not performed. This test is not FDA-cleared but its performance characteristics were established by our CLIA-certified, CAP-accredited, high complexity laboratory in accordance with CLIA regulations, College of [employer] (CAP) guidelines (Sep 07, 2019), and FDA guidance (Aug 19, 2019). This test is only for use under the Food and Drug Administration's Emergency Use Authorization. Performing Lab [facility] 06/19/2020 18:05 EST [facility] Swab 06/18/2020 14:1 5 EST 06/18/2020 20:59 EST us Provider Outr Resulting Lab MICROBIOLOGY - GENER AL ORDERABLES Final Result [facility] [address] [place] [address] [facility] [place], [place] documented in this encounter Visit Diagnoses Not on filedocumented in this encounter Care Teams Farm Agent Relationship Specialty Start Date End Date Suresh Hicks MD PCP - General 05/03/09 documented as of this encounter
--- OUTSIDE RECORDS SUMMARY | 2024-06-01 13:05 | XMS_ITS | Encounter Summary ---
Author Organization [facility] Address [address] [place] [address] Care Team Providers Care Food Technology Teacher Name Role Phone Suresh Hicks MD Primary Care Provider Unavailabl e Encounter Details Date Type Department Care Team (Late st Contact Info) Description 05/29/2020 Lab Requisition [facility] Pathology & Laboratory Medicine - [facility] [address], [place] [address] Outr Resulting Lab, Provider Social History Tobacco [...] ORDER STANDALONE - BROAD COVID TEST Today 05/29/2020 14:20 EST COVID-19 TESTING Routine 05/29/2020 14:2 0 EST documented in this encounter Results * DO NOT ORDER STANDALONE - [facility] COVID TEST (05/29/2020 14:20 EST) COVID-19 rt-PCR Result NEGATIVE Negative 05/31/2020 20:47 EST [facility] Comment: 2019-novel Coronavirus [...] in accordance with CLIA regulations, College [employer] (CAP) guidelines (Sep 07, 2019), and FDA guidance (Aug 19, 2019). This test is only for use under the Food and Drug Administration's Emergency Use Authorization. Swab ENTIRE NASOPHARYNX / Unknown 05/29/2020 14:20 EST 05/29/2020 21:07 EST us Provider Outr Resulting Lab MICROBIOLOGY - GENER AL ORDERABLES Final Result [facility] [place], [place] * COVID-19 TESTING (05/29/2020 14:20 EST) COVID-19 rt-PCR Result NEGATIVE Negative 05/31/2020 22:28 EST [facility] Comment: 2019-novel Coronavirus (2019-nCoV) not detected [...] in accordance with CLIA regulations, [employer] of [employer] (CAP) guidelines (Sep 07, 2019), and FDA guidance (Aug 19, 2019). This test is only for use under the Food and Drug Administration's Emergency Use Authorization. Performing Lab [facility] 05/31/2020 22:28 EST [facility] Swab 05/29/2020 14:2 0 EST 05/29/2020 21:07 EST us Provider Outr Resulting Lab MICROBIOLOGY - GENER AL ORDERABLES Final Result [facility] [address] [place], [place] [id number] [place] [address] LABORATORY [place], [place] documented in this encounter Visit Diagnoses Not on filedocumented in this encounter Care Teams Food Technology Teacher Relationship Specialty Start Date End Date Suresh Hicks MD PCP - General 05/03/09 documented as of this encounter
--- OUTSIDE RECORDS SUMMARY | 2024-06-01 13:05 | XMS_ITS | Encounter Summary ---
Author Organization [facility] Address [address] [place] [address] Care Team Providers Care Prevocational/Rehabilitation Counselor Name Role Phone Suresh Hicks MD Primary Care Provider Unavailabl e Unknown, Zandra RAMIREZ Primary Care Provider Unava ilable Encounter Details Date Type Department Care Team (Late st Contact Info) Description 12/12/2004 Results Only [facility] [address] [place] [address] Hina Lacey [place], [place] [id number] Social History Tobacco Use Types Packs/Day Years [...] Procedure Name Priority Date/Time Associated Diagnosis Comments CYTOPATHOLOGY Routine 12/12/2004 0:00 EDT documented in this encounter Results * CYTOPATHOLOGY (12/12/2004 0:00 EDT) Pathology Report: CYTOPATHOLOGY REPORT Reports generated via electronic interface contain original data; however they are lacking the format of the original report. Caution should be taken when reading/interpreti ng unformatted reports. Name: ? DAVID AHUMADA ? Accession #: ? [id number] : ? 1985 (Age: 19) ??F ?Collect Date: ? 12/12/2004 Location: ? [facility] ? Receive Date: ? 12/16/2004 Provider: ?HINA LACEY CNM Copy to: ? Specimen/Source: ?ThinPrep Pap Test, Cervix/Endocervix Last Menstrual Period: ? 10/22/04 Menstrual/Pregnanc y Status: ? Other: ? HPVA - HPV testing requested if ASC-US on the current ThinPrep Pap test. ? SPECIMEN ADEQUACY ? Satisfactory for Evaluation - transformation zone component present GENERAL CATEGORIZATION ? Epithelial Cell Abnormality INTERPRETATION ? Squamous Cell Abnormality - Atypical squamous cells, undetermined significance. EDUCATIONAL NOTES/RECOMMENDATI ONS ? [facility] recommends following the 2001 Consensus Guidelines for the Management of Women with Cervical Cytological Abnormalities (BRITTANY,2002;287:212 0-9). Management algorithms have been distributed by [facility] and are available online at www.ASCCP.org. ? Document reviewed and electronically signed by: ? WES HASKINS MD [facility] ? Report Date: ??12/26/2004 18:39 End of Report [facility] 12/12/2004 12/16/2004 us Hina Lacey CNM PATHOLOGY ORDERABLES Final Res ult [facility] [address] [place] [address] documented in this encounter Visit Diagnoses Not on filedocumented in this encounter Care Teams Prevocational/Rehabilitation Counselor Relationship Specialty Start Date End Date Suresh Hicks MD PCP - General 05/03/09 Unknown, MD Zandra PCP - General 11/19/08 05/02/09 documented as of this encounter
--- OUTSIDE RECORDS SUMMARY | 2024-06-01 13:05 | XMS_ITS | Encounter Summary ---
Author Organization [facility] [place] [address] Care Team Providers Care End Finder Twisting Department Name Role Phone Carmen Smith APRN Primary Care Provider [phone] Encounter Details Date Type Department Care Team (Late st Contact Info) Description 01/19/2022 Telephone [facility] [place] [phone] Ivette Lee Social History Tobacco Use Types Packs/Day Years Used Date Smoking Tobacco: Some Days Cigarettes 1 18 Smokeless Tobacco: Never Sex and Gender Information Value Date Recorded Sex Assigned at Not on file Gender Identity Not on file Sexual Orientation Not on file documented as of this encounter Miscellaneous Notes * Telephone Encounter - Ivette Lee - 01/19/2022 10:14 AM EDT Left message for patient to call back [phone] in regards to scheduling Re- GAP for February program. documented in this encounter Plan of Treatment Not on file documented as of this encounter Visit Diagnoses Not on filedocumented in this encounter Care Teams End Finder Twisting Department Relationship Specialty Start Date End Date Carmen Smith APRN [address] [place] [address] PCP - General Family Medicine 04/10/21 documented as of this encounter
--- OUTSIDE RECORDS SUMMARY | 2024-06-01 13:05 | XMS_ITS | Encounter Summary ---
Author Organization [facility] [place] [address] Care Team Providers Care Exhibit Preparator Name Role Phone Carmen Smith APRN Primary Care Provider [phone] Encounter Details Date Type Department Care Team (Late st Contact Info) Description 10/29/2021 Notes Only [facility] [place] [phone] Ivette Lee Social History Tobacco Use Types Packs/Day Years Used Date Smoking Tobacco: Some Days Cigarettes 1 18 Smokeless Tobacco: Never Sex and Gender Information Value Date Recorded Sex Assigned at Not on file Gender Identity Not on file Sexual Orientation Not on file documented as of this encounter Progress Notes * Ivette Lee - 10/29/2021 2:28 PM EDT Mailed Invitation Packet for the Functional [employer] Program to the patient ?? Start date - 11/25/2021 Arrival Time - 7:45am at [facility], Senior Mortgage Loan Processor 1S ?? Confirmation request date - 11/18/2021 ?? Pain Education - Needed - 11/24/2021 2-4:30pm in person documented in this encounter Plan of Treatment Not on file documented as of this encounter Visit Diagnoses Not on filedocumented in this encounter Care Teams Exhibit Preparator Relationship Specialty Start Date End Date Carmen Smith APRN [address] [place] [address] PCP - General Family Medicine 04/10/21 documented as of this encounter
--- OUTSIDE RECORDS SUMMARY | 2024-06-01 13:05 | XMS_ITS | Encounter Summary ---
Author Organization Health system Address [address] [place] [address] Care Team Providers Care Bearing Ring Assembler Name Role Phone Dom Hicks MD Primary Care Provider Unavailabl e Encounter Details Date Type Department Care Team (Late st Contact Info) Description 12/17/2014 Results Only [facility] [phone] Latasha Cam MD [address] [place] [address] Social History Tobacco Use Types Packs/Day Years [...] Procedure Name Priority Date/Time Associated Diagnosis Comments SURGICAL PATHOLOGY Routine 12/17/2014 8:54 EDT documented in this encounter Results * SURGICAL PATHOLOGY (12/17/2014 8:54 EDT) Pathology Report: SURGICAL PATHOLOGY REPORT Reports generated via electronic interface contain original data; however they are lacking the format of the original report. Caution should be taken when reading/interpret ing unformatted reports. Name: ? BILLY SANTANA ? Accession #: ? [id number] ? : ? 1985 (Age: 29) ??F ? Collect Date: ? 12/17/2014 ? Location: ? [facility] ? Receive Date: ? 12/18/2014 ? Provider: LATASHA CAM MD Copy to: DOM HICKS MD ? Final Pathologic Diagnosis: A. FALLOPIAN TUBE, RIGHT, DISTAL PORTION, PARTIAL SALPINGECTOMY: - Segment of fallopian tube with complete cross sections identified. B. FALLOPIAN TUBE, LEFT, DISTAL PORTION, PARTIAL SALPINGECTOMY: - Segment of fallopian tube with complete cross sections identified. Document reviewed and electronically signed by: SILVER HINES MD Report ??Date: 12/20/2014 17:23 By the signature above, the attending physician certifies that he/she has personally conducted a gross and/or microscopic examination of the described specimens and rendered or confirmed the above diagnosis. Specimen(s) Received: A. ??Distal portion of R fallopian tube B. ??Distal portion of L fallopian tube Clinical History: Undesired fertility Gross Description: A. ?Received in formalin labelled with proper patient identification (initials A, T) and distal right fallopian tube is a fimbriated tubular structure (3.3 cm in length and 0.6 cm in diameter). ??The serosal surface is pink-gomes and glistening. ??Sectioning reveals a central pinpoint lumen. ??Two sales representative groceries cross sections and one-half of the distal end are submitted as A1. B. ?Received in formalin labelled with proper patient identification (initials A, T) and distal left fallopian tube is a fimbriated tubular structure (4.4 cm in length and 0.6 cm in diameter). ??The serosal surface is pink-gomes and glistening. ??Sectioning reveals a central pinpoint lumen. ??Two sales representative groceries cross sections and one-half of the fimbria are submitted as B1. Savannah Wu 12/18/2014 09:20 AM End of Report [facility] 12/17/2014 8:54 EDT 12/18/2014 8:54 EDT us Latasha Cam MD PATHOLOGY ORDERABLES Final Resu lt [facility] [address] [place] [address] documented in this encounter Visit Diagnoses Not on filedocumented in this encounter Care Teams Bearing Ring Assembler Relationship Specialty Start Date End Date Dom Hicks MD PCP - General 05/03/09 documented as of this encounter
--- OUTSIDE RECORDS SUMMARY | 2024-06-01 13:05 | XMS_ITS | Encounter Summary ---
Author Organization [facility] Address [address] [place] [address] Care Team Providers Care Nurse Emergency Name Role Phone Dom Hicks MD Primary Care Provider Unavailabl e Encounter Details Date Type Department Care Team (Late st Contact Info) Description 02/05/2013 Results Only [facility] [phone] River Alejandra, DO [address] [place] [address] Social History Tobacco Use Types Packs/Day Years [...] Date/Time Associated Diagnosis Comments SURGICAL PATHOLOGY Routine 02/05/2013 21 :54 EDT documented in this encounter Results * SURGICAL PATHOLOGY (02/05/2013 21:54 EDT) Pathology Report: SURGICAL PATHOLOGY REPORT Reports generated via electronic interface contain original data; however they are lacking the format of the original report. Caution should be taken when reading/interpreti ng unformatted reports. Name: ? DAVID AHUMADA ? Accession #: ? [id number] ? : ? 1985 (Age: 27) ??F ? Collect Date: ? 02/05/2013 ? Location: ? [facility] ? Receive Date: ? 02/06/2013 ? Provider: RIVER ALEJANDRA DO Copy to: DOM HICKS MD ? Final Pathologic Diagnosis: APPENDIX, APPENDECTOMY: - ??No evidence of acute inflammation in the muscularis or serosa. - ??No evidence of fecalith or significant submucosal lymphoid hyperplasia. - ??The entire appendix is serially sectioned and examined microscopically. ? Document reviewed and electronically signed by: DACIA ROMERO MD Report ??Date: 02/08/2013 13:00 By the signature above, the attending physician certifies that he/she has personally conducted a gross and/or microscopic examination of the described specimens and rendered or confirmed the above diagnosis. Specimen(s) Received: Appendix Clinical History: Lower right quadrant pain Gross Description: ? Received in formalin labelled with proper patient identification (initials M, T) and appendix is a vermiform appendix (7.0 cm in length x 0.7 cm in diameter), with a moderate amount of attached mesoappendix. The proximal margin is stapled. ? The serosa is gomes. The cut surface is gomes. The average wall thickness is 0.2 cm, with no discernable perforation site. The lumen ranges from 0.2 to 0.4 cm in diameter and contains no fecalith. The proximal margin is inked blue. ? The specimen is serially sectioned from proximal to distal and entirely submitted in cassettes 1 (section adjacent to stapled proximal margin) through 5. Dr. Owens 02/07/2013 08:51 AM End of Report [facility] 02/05/2013 21:5 4 EDT 02/06/2013 21:54 EDT us River Alejandra DO PATHOLOGY ORDERABLES Final Res ult Performing Organization Address City/State/[facility] Co de Phone Number [facility] [address] [place] [address] documented in this encounter Visit Diagnoses Not on filedocumented in this encounter Care Teams Nurse Emergency Relationship Specialty Start Date End Date Dom Hicks MD PCP - General 05/03/09 documented as of this encounter
--- OUTSIDE RECORDS SUMMARY | 2024-06-01 13:05 | XMS_ITS | Encounter Summary ---
Author Organization [facility] [place] [address] Care Team Providers Care Property Officer Name Role Phone Luis Carmen ELIZABETH Primary Care Provider [phone] Reason for Visit * Consultation (Routine) - Closed Specialty Diagnoses / Procedures Referred By Contac t Referred To Contact [facility] Diagnoses Radiculopathy of lumbar region Traumatic coccydynia Closed fracture of transverse process of lumbar vertebra, sequela Sacral back pain APCS Welcome Group - FRP Deja Aldridge APRN [facility] [place] [address] [facility] [place] [place] [address] Referral ID Status Reason Start Date Expiration Date V isits Requested Visits Authorized [id number] Closed Consult, Test & Treat 08/27/2021 08/27/2022 1 1 Encounter Details Date Type Department Care Team (Late st Contact Info) Description 09/18/2021 12:00 PM EDT Notes Only [facility] [place] [address] Sada Emery PsyD [facility] [place] [address] Social History Tobacco Use Types Packs/Day Years Used Date Smoking Tobacco: Some Days Cigarettes 1 18 Smokeless Tobacco: Never Sex and Gender Information Value Date Recorded Sex Assigned at Not on file Gender Identity Not on file Sexual Orientation Not on file documented as of this encounter Progress Notes * Ivette Lee - 09/18/2021 12:00 PM EDT [facility] Active Pain Care, A Service of the [facility] WELCOME GROUP Patient: Charmaine Santana Date: 08/28/2021 Appointment: Telehealth, No Charge Visit Charmaine attended a 60 minute Welcome Group for the Active Pain Care Service (APCS). Patients were provided detailed information on the programs and treatment options available to them through the APCS. The group also presented the rationale for engaging in active treatment strategies that include education and interdisciplinary, multimodal therapies. Patients' questions were answered and they were provided written materials describing the APCS and recommended next steps. Participants were encouraged to schedule an appointment for a Pain Neuroscience Education class, asresearch studies have shown that if patients have a basic understanding of how chronic pain develops and functions physiologically, they experience better treatment outcomes including improved function, reduced reliance on medications, and have greater interest in healthy exercise and movement. Plan: Charmaine will be scheduled to attend Pain 100 if she is interested in participating in APCS. documented in this encounter Plan of Treatment Scheduled Referrals Name Type Priority Associated Diagnoses Orde r Schedule Amb Referral to Active Pain Care Services Outpatient Referral Routine Radiculopathy of lumbar region Traumatic coccydynia Closed fracture of transverse process of lumbar vertebra, sequela Sacral back pain Ordered: 08/27/2021 documented as of this encounter Visit Diagnoses Not on filedocumented in this encounter Care Teams Property Officer Relationship Specialty Start Date End Date Carmen Smith, ELIZABETH [address] [place] [address] PCP - General Family Medicine 04/10/21 documented as of this encounter
--- OUTSIDE RECORDS SUMMARY | 2024-06-01 13:05 | XMS_ITS | Encounter Summary ---
Author Organization [facility] Address [address] [place] [address] Care Team Providers Care Operations Agent Name Role Phone Suresh Hicks MD Primary Care Provider Unavailabl e Encounter Details Date Type Department Care Team (Late st Contact Info) Description 07/26/2020 Lab Requisition [facility] Pathology & Laboratory Medicine - [facility] [address] [place] [address] Outr Resulting Lab, Provider Social History Tobacco [...] Procedure Name Priority Date/Time Associated Diagnosis Comments ZZCOVID-19 TEST [facility] LAB PCR Today 07/26/2020 10:07 EST COVID-19 TESTING Routine 07/26/2020 10:0 7 EST documented in this encounter Results * COVID-19 TEST [facility] PCR (07/26/2020 10:07 EST) Swab ENTIRE NASOPHARYNX / Unknown 07/26/2020 10:07 EST 07/26/2020 17:12 EST us Provider Outr Resulting Lab MICROBIOLOGY - GENER AL ORDERABLES Final Result [facility] [address] [place] [address] * COVID-19 TESTING (07/26/2020 10:07 EST) COVID-19 rt-PCR Result Negative Negative 07/27/2020 11:[address] [facility] Comment: This test has not been FDA cleared or approved. This test has been authorized by FDA under an EUA for use by authorized laboratories. This test has been authorized only for detection of nucleic acid from 2019-nCoV, not for any other viruses or pathogens. This test is only authorized for the duration of the declaration that circumstances exist justifying the authorization of emergency use of in vitro diagnostic tests for detection and/or diagnosis of 2019-nCoV under section 564(b)(1) of Act, 21 U.S.C ?? 360bbb-3(b) (1), unless the authorization is terminated or revoked sooner. Negative results do not preclude 2019-nCoV infection and should not be used as the sole basis for treatment or other patient management decisions. Negative results must be combined with clinical observations, patient history, and epidemiological information. Testing was performed using the michaela SARS-CoV-2 assay ([employer] on the Michaela 6800 System Performing Lab Michaela [address] [facility] Lab 07/27/2020 11:[address] [facility] Swab 07/26/2020 10:0 7 EST 07/26/2020 17:12 EST us Provider Outr Resulting Lab MICROBIOLOGY - GENER AL ORDERABLES Final Result [facility] [address] [place] [address] documented in this encounter Visit Diagnoses Not on filedocumented in this encounter Care Teams Operations Agent Relationship Specialty Start Date End Date Suresh Hicks MD PCP - General 05/03/09 documented as of this encounter
--- OUTSIDE RECORDS SUMMARY | 2024-06-01 13:05 | XMS_ITS | Encounter Summary ---
Author Organization [facility] Address [address] [place] [address] Care Team Providers Care Crystallographer Name Role Phone Suresh Hicks MD Primary Care Provider Unavailabl e Encounter Details Date Type Department Care Team (Late st Contact Info) Description 2010 Results Only [facility]- [facility] [phone] Latasha Cam MD [address] [place] [address] Social History Tobacco Use Types Packs/Day Years [...] Priority Date/Time Associated Diagnosis Comments CYTOPATHOLOGY Routine 2010 0:00 EDT documented in this encounter Results * CYTOPATHOLOGY (2010 0:00 EDT) Pathology Report: CYTOPATHOLOGY REPORT ? Reports generated via electronic interface contain original data; ? however they are lacking the format of the original report. ? Caution should be taken when reading/interpreti ng unformatted reports. ? Name: ? BILLY AHUMADA ? Accession #: ? [id number] ? : ? 1985 (Age: 25) ??F ?Collect Date: ? 2010 ? Location: ? [facility] ? Receive Date: ? 09/25/2010 ? Provider: LATASHA CAM MD ? Copy to: ? Final Report ? SPECIMEN ADEQUACY ? Satisfactory for Evaluation ? - transformation zone component present ? GENERAL CATEGORIZATION ? Negative for Intraepithelial Lesion or Malignancy ? Last Menstural Period: 08/2010 ? Hormonal/Contracep tive status: Yes: MIRENA ? Specimen/Source: ??Pap Test, Cervix/Endocervix, ThinPrep Imaging System with ? manual evaluation ? Document reviewed and electronically signed by: ? Andrei Jewell, CT(ASCP) ? Report ??Date: 10/01/2010 09:36 ? HPV with Pap Test ? Date Ordered: ? 09/30/2010 ? Status: ?? Signed Out ?Date Complete: ? 10/06/2010 ? By: ??System Interface ? Date Reported: ? 10/06/2010 ? Interpretation ? RESULT: Negative for HPV types 16, 18, 31, 33, 35, 39, 45, 51, 52, ? 56, 58, 59, and 68. ? Comments ? Document reviewed and electronically signed by: ? System Interface ? Report date: 10/06/2010 ? By the signature above, the attending physician certifies that he/she has ? personally conducted a gross and/or microscopic examination of the described ? specimens and rendered or confirmed the above diagnosis. ? End of Report ? [facility] 2010 09/25/2010 us Latasha Cam MD PATHOLOGY ORDERABLES Final Resu lt [facility] [address] [place] [address] documented in this encounter Visit Diagnoses Not on filedocumented in this encounter Care Teams Crystallographer Relationship Specialty Start Date End Date Suresh Hicks MD PCP - General 05/03/09 documented as of this encounter
--- OUTSIDE RECORDS SUMMARY | 2024-06-01 13:05 | XMS_ITS | Encounter Summary ---
Author Organization [facility] Address [address] [place] [address] Care Team Providers Care Janitor And Cleaner Name Role Phone Unknown, Provider Primary Care Provider Unava ilable Encounter Details Date Type Department Care Team (Late st Contact Info) Description 04/07/2008 Before PRISM Converted Visit (Maple) [facility] - Maple conversion [address] [place] [address] Yimi Vásquez MD [address] [place] [phone] Social History Tobacco Use Types Packs/Day Years Used Date Smoking Tobacco: Never Assessed Comments Unknown Sex and Gender Information Value Date Recorded Sex Assigned at Not on file Legal Sex Female 18:35 EST Gender Identity Not on file Sexual Orientation Not on file documented as of this encounter Plan of Treatment Pending Results Name Type Priority Associated Diagnoses Date /Time MISCELLANEOUS TEST Lab Routine 2007 13:18 EDT documented as of this encounter Procedures Procedure Name Priority Date/Time Associated Diagnosis Comments MISCELLANEOUS TEST, OTHER Routine 04/07/2008 13:21 EDT SURGICAL PATHOLOGY Routine 04/07/2008 0: 00 EDT documented in this encounter Results * MISCELLANEOUS TEST, OTHER (04/07/2008 13:21 EDT) Test Name DNA PLOIDY OF SOLID TUMOR BY FLOW CYTOMETRY [facility] Result DNA Ploidy Solid David Flow, Paraffin ? Accession Number [id number] ? Referring Pathologist/Physic maximiliano ? Masatoshi Kida, M.D. ? Ref Path/Phys Address ? [facility] ? [address] ? [place] [address] ? [phone] ? Fax ? Material: ? 1 tube [id number] ? Tissue: ? A: products of conception ? Interpretation: ? DNA Ploidy: ? DNA studies were performed on block [id number] ? No DNA triploid population detected. ? Signing Pathologist: ? 04/18/2008 17:36 Interpreted by: Suresh Moran M.D. ? Report electronically signed by Suresh Moran M.D. ? Transcribed by: nlw 04/18/2008 16:20:12 ? REPORTED 04/18/2008 17:37 ? * Performing Site: ? [facility] ? [address] [place] [address] ? Mold Clamper: Derik Torres III, M.D. ? [facility] 04/07/2008 13:2 1 EDT 04/12/2008 13:21 EDT us Yimi Vásquez MD CHEMISTRY & BLOOD GAS ORDERABLES Final Result [facility] [address] [place] [address] * SURGICAL PATHOLOGY (04/07/2008 0:00 EDT) Pathology Report: SURGICAL PATHOLOGY REPORT ? Reports generated via electronic interface contain original data; ? however they are lacking the format of the original report. ? Caution should be taken when reading/interpreti ng unformatted reports. ? Name: ? BILLY AHUMADA ? Accession #: ? [id number] ? : ? 1985 (Age: 22) ??F ? Collect Date: ? 04/07/2008 ? Location: ? [facility] ? Receive Date: ? 04/09/2008 ? Provider: YIMI VÁSQUEZ MD ? Copy to: ? Final Pathologic Diagnosis: ? Intrauterine contents, evacuation: ? 1. ?Products of conception: ? - Avascular immature chorionic villi with focal hydropic degeneration. ??See comment. ? - Gestational-type endometrium. ? - Decidualized stroma. ? Comment: ? Ploidy study will be performed on (A1), and the result will be reported ? separately. ? This case has been reviewed by Dr. Val Gerber, and also has been presented at intradepartmental consultation conference. ??(Dr. Castillo)/kmm ? Document reviewed and electronically signed by: ? Santa Castillo, MD ? Report ??Date: 04/11/2008 17:01 ? By the signature above, the attending physician certifies that he/she has ? personally conducted a gross and/or microscopic examination of the described ? specimens and rendered or confirmed the above diagnosis. ? Specimen(s) Received: ? Products of conception ? Clinical History: ? demise. LMP: 01/16/08, known to have missed (2 US's) Previous spontaneous abs ? Gross Description: ? Received in formalin labelled Giuliana and products of conception are 5.0 x 3.0 x 3.0 cm of red-brown, spongy, membranous soft tissue fragments. ??No parts are grossly identified. ??Production Support Specialist sections are submitted as (A1) and (A2). (Min Valladares/mpl ? End of Report ? [facility] 04/07/2008 04/09/2008 10: 20 EDT us Yimi Vásquez MD PATHOLOGY ORDERABLES Final Resul t [facility] [address] [place] [address] documented in this encounter Visit Diagnoses Not on filedocumented in this encounter Care Teams Janitor And Cleaner Relationship Specialty Start Date End Date Unknown, Provider, PCP - General 11/19/08 05/02/09 documented as of this encounter
--- OUTSIDE RECORDS SUMMARY | 2024-06-01 13:05 | XMS_ITS | Encounter Summary ---
Author Organization [facility] Address [address] [place] [address] Care Team Providers Care Concrete Saw Operator Name Role Phone Unknown, Provider Primary Care Provider Unava ilable Encounter Details Date Type Department Care Team (Late st Contact Info) Description 05/01/2009 Orders Only [facility] Laboratory Services - [facility] ([facility] [address] [place] [address] Domingo Steinberg MD [facility] [place] [address] Social History Tobacco Use Types Packs/Day Years [...] Date/Time Associated Diagnosis Comments SURGICAL PATHOLOGY Routine 05/01/2009 0:00 EST documented in this encounter Results * SURGICAL PATHOLOGY (05/01/2009 0:00 EST) Pathology Report: SURGICAL PATHOLOGY REPORT ? Reports generated via electronic interface contain original data; ? however they are lacking the format of the original report. ? Caution should be taken when reading/interpreti ng unformatted reports. ? Name: ? YOKO, KRYSTINAJO K ? Accession #: ? [id number] ? : ? 1985 (Age: 23) ??F ? Collect Date: ? 05/01/2009 ? Location: ? [facility] ? Receive Date: ? 05/01/2009 ? Provider: DOMINGO STEINBERG MD ? Copy to: DOM ARCHER MD ? Final Pathologic Diagnosis: ? Cervix, 5 o'clock, biopsy: ? 1. ?Benign squamocolumnar mucosa. ??See comment. ? 2. ? No squamous intraepithelial lesion identified. ? Comment: ? Deeper levels have been examined. ??The previous Pap test ([id number]) has ?? been reviewed and the diagnosis of LSIL confirmed. ??(Dr. Foy)/angelica ? Document reviewed and electronically signed by: ? Aleks Villafuerte MD ? Report ??Date: 05/06/2009 16:52 ? By the signature above, the attending physician certifies that he/she has ? personally conducted a gross and/or microscopic examination of the described ? specimens and rendered or confirmed the above diagnosis. ? Specimen(s) Received: ? Colposcopy at 5 o'clock ? Clinical History: ? 12/13/04 Pap HPV (+); 05/25/08 Pap SCUS, HPV (+); 12/10/08 Pap LSIL ? Gross Description: ? Received in formalin labelled Yoko, Billy and carey at 5 o'clock is a single 0.6 x 0.4 x 0.2 cm gomes-white irregular soft tissue. ??Submitted in toto in a single cassette. ??(Casandra Singh)/angelica ? End of Report ? [facility] 05/01/2009 05/01/2009 18: 04 EST us Domingo Steinberg MD PATHOLOGY ORDERABLES Final Res ult [facility] [address] [place] [address] documented in this encounter Visit Diagnoses Not on filedocumented in this encounter Care Teams Concrete Saw Operator Relationship Specialty Start Date End Date Unknown, Provider, PCP - General 11/19/08 05/02/09 documented as of this encounter
--- OUTSIDE RECORDS SUMMARY | 2024-06-01 13:05 | XMS_ITS | Encounter Summary ---
Author Organization [facility] Address [address] [place] [address] Care Team Providers Care Credit Office Manager Name Role Phone Suresh Hicks MD Primary Care Provider Unavailabl e Encounter Details Date Type Department Care Team (Late st Contact Info) Description 09/11/2019 Lab Requisition [facility] Pathology & Laboratory Medicine - [facility] [address] [place] [address] Milton Herzog MD [address] [place] [phone] Encounter for other general examination Social History Tobacco Use Types Packs/Day Years [...] Procedure Name Priority Date/Time Associated Diagnosis Comments COVID-19 LEWIS Today 09/11/2019 11:23 EDT Encounter for other general examination documented in this encounter Results * SARS CORONAVIRUS 2 RNA DETECTION LEWIS (09/11/2019 11:23 EDT) COVID-19 LEWIS Specimen Source Nasopharynx 09/12/2019 22:40 EDT [facility] COVID-19 LEWIS Result Undetected Undetected 09/12/2019 22:40 EDT [facility] Comment: SARS-CoV-2 RNA is not detected. ADDITIONAL INFORMATION Testing was performed using the michaela SARS-CoV-2 assay ([employer] on the michaela 6800 System. Fact sheets for this Emergency Use Authorization (EUA) assay can be found at the following links: For Healthcare Providers: https://www.fda.gov/media/744004/download For Patients: https://www.fda.gov/media/335692/download Test Performed by: [place] [address] Contracts Paralegal: Jorge Baptiste M.D. Ph.D.; CLIA# [id number] Swab ENTIRE NASOPHARYNX / Unknown 09/11/2019 11:23 EDT 09/11/2019 15:32 EDT us Milton Herzog MD MICROBIOLOGY - GENERAL NIK WHTYE Final Result Performing Organization Address City/State/[facility] Co de Phone Number [facility] [address] [place] [address] documented in this encounter Visit Diagnoses Diagnosis Encounter for other general examination documented in this encounter Care Teams Credit Office Manager Relationship Specialty Start Date End Date Suresh Hicks MD PCP - General 05/03/09 documented as of this encounter
--- OUTSIDE RECORDS SUMMARY | 2024-06-01 13:05 | XMS_ITS | Encounter Summary ---
Author Organization [facility] [place] [address] Care Team Providers Care Wood Chopper Name Role Phone Carmen Smith APRN Primary Care Provider [phone] Encounter Details Date Type Department Care Team (Late st Contact Info) Description 10/22/2021 Telephone [facility] [place] [phone] Pippa Chaidez RN Social History Tobacco Use Types Packs/Day Years Used Date Smoking Tobacco: Some Days Cigarettes 1 18 Smokeless Tobacco: Never Sex and Gender Information Value Date Recorded Sex Assigned at Not on file Gender Identity Not on file Sexual Orientation Not on file documented as of this encounter Miscellaneous Notes * Telephone Encounter - Pippa Chaidez RN - 10/22/2021 3:23 PM EDT VMM left on nurse triage phone from Opal at [facility]. Per the message Opal left, Charmaine's PCP, Carmen Willoughby APRN gives her verbal permission for Charmaine to start the [facility]. If there are any questions you can reach out to her office at [phone] ext Silvio Gamboa RN documented in this encounter Plan of Treatment Not on file documented as of this encounter Visit Diagnoses Not on filedocumented in this encounter Care Teams Wood Chopper Relationship Specialty Start Date End Date Carmen Smith APRN [facility] [place] [address] PCP - General Family Medicine 04/10/21 documented as of this encounter
--- OUTSIDE RECORDS SUMMARY | 2024-06-01 13:05 | XMS_ITS | Referral Summary ---
Author Organization [facility] Address [address] [place] [address] Care Team Providers Care Exercise Science Internship Name Role Phone Suresh Hicks MD Primary Care Provider Unavailabl e Social History Tobacco Use Types Packs/Day Years Used Date Smoking Tobacco: Never Assessed Comments Unknown Sex and Gender Information Value Date Recorded Sex Assigned at Not on file Legal Sex Female 18:35 EST Gender Identity Not on file Sexual Orientation Not on file Plan of Treatment Not on file Care Teams Exercise Science Internship Relationship Specialty Start Date End Date Suresh Hicks MD PCP - General 05/03/09
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
--- OUTSIDE RECORDS SUMMARY | 2024-06-01 13:05 | XMS_ITS | Encounter Summary ---
Author Organization [facility] Address [address] [place] [address] Care Team Providers Care Project Finance Analyst Name Role Phone Suresh Hicks MD Primary Care Provider Unavailabl e Encounter Details Date Type Department Care Team (Late st Contact Info) Description 03/14/2021 Lab Requisition [facility] Pathology & Laboratory Medicine - [facility] [address] [place] [address] Outr Resulting Lab, Provider Social History Tobacco [...] Procedure Name Priority Date/Time Associated Diagnosis Comments BETA HYDROXYBUTYRATE Routine 03/13/2021 11:30 EDT documented in this encounter Results * BETA HYDROXYBUTYRATE (03/13/2021 11:30 EDT) Beta Hydroxybutyrate <0.1 <0.4 mmol/L 03/14/2021 16:57 EDT [facility] Blood VENOUS BLOOD / Unknown 03/13/2021 11:30 EDT 03/14/2021 16:35 EDT us Provider Outr Resulting Lab CHEMISTRY & BLOOD GA S ORDERABLES Final Result [facility] [address] [place] [address] documented in this encounter Visit Diagnoses Not on filedocumented in this encounter Care Teams Project Finance Analyst Relationship Specialty Start Date End Date Suresh Hicks MD PCP - General 05/03/09 documented as of this encounter
--- OUTSIDE RECORDS SUMMARY | 2024-06-01 13:05 | XMS_ITS | Encounter Summary ---
[place] [address] Care Team Providers Care Boiler Tender Name Role Phone Carmen Smith APRN Primary Care Provider [phone] Encounter Details Date Type Department Care Team (Late st Contact Info) Description 10/23/2021 Telephone [facility] [place] [phone] Ladi Berger MSW Social History Tobacco Use Types Packs/Day Years Used Date Smoking Tobacco: Some Days Cigarettes 1 18 Smokeless Tobacco: Never Sex and Gender Information Value Date Recorded Sex Assigned at Not on file Gender Identity Not on file Sexual Orientation Not on file documented as of this encounter Miscellaneous Notes * Telephone Encounter - Ladi Berger MSW - 10/27/2021 1:23 PM EDTSummary: Attempted Phone Call OFFICE of CARE MANAGEMENT CCM Panelboard Assembler attempted to contact Ms. Santana by phone at ; however, she was unavailable. Panelboard Assembler left a voicemail message asking for a return call. There are no other concerns to address at this time. VEE Liu documented in this encounter Plan of Treatment Not on file documented as of this encounter Visit Diagnoses Not on filedocumented in this encounter Care Teams Boiler Tender Relationship Specialty Start Date End Date Carmen Smith APRN [address] [place], [place] [address] PCP - General Family Medicine 04/10/21 documented as of this encounter
--- OUTSIDE RECORDS SUMMARY | 2024-06-01 13:05 | XMS_ITS | Encounter Summary ---
Author Organization [facility] [place] [address] Care Team Providers Care Kindergarten Instructional Assistant Name Role Phone Carmen Smith APRN Primary Care Provider [phone] Encounter Details Date Type Department Care Team (Latest Contact Info) Description 12/29/2021 2:00 PM EDT TH Visit (TeleHealth) [facility] [place] [address] [facility] [address] Radiculopathy of lumbar region Social History Tobacco Use Types Packs/Day Years Used Date Smoking Tobacco: Some Days Cigarettes 1 18 Smokeless Tobacco: Never Sex and Gender Information Value Date Recorded Sex Assigned at Not on file Gender Identity Not on file Sexual Orientation Not on file documented as of this encounter Progress Notes * Sada Emery PsyD - 12/29/2021 2:00 PM EDT ACTIVE PAIN CARE, a program of the [facility] Pain Neuroscience Education Patient: Charmaine Santana Date: 12/29/2021 Topic: Pain 100 Explain Pain: Why Things Hurt 150 minute Health & Behavior Intervention Group focused on Pain Neuroscience Education providedby Sada Emery PsyD, pain psychologist. The title of the group is Explain Pain: Why Things Hurt and introduces patients to the basics of pain neuroscience. This group is intended to educate patients on how the nervous system and the brain process information and contribute to their pain experience. The intention is to help patients better understand the complexity of their pain and enhance their motivation and ability to engage in active pain care, and thereby develop more effective self management strategies. Participants were educated that pain is a normal, human experience, however persistent pain is typically more due to the sensitive nervous system and how the brain processes information from the bodyand environment. Participants were provided the rationale for the education: that research has shown that if patients know and understand about pain, they experience better treatment outcomes, function better, experience less pain, and have greater interest in healthy exercise and movement. Participants were encouraged to follow up this single-session education with diagnosis specific education and engagement in Active Pain Care interdisciplinary treatment options, including the Functional Temple Program or Pain Coaching documented in this encounter Plan of Treatment Not on file documented as of this encounter Visit Diagnoses Diagnosis Radiculopathy of lumbar region Thoracic or lumbosacral neuritis or radiculitis, unspecified documented in this encounter Care Teams Kindergarten Instructional Assistant Relationship Specialty Start Date End Date Carmen Smith APRN [address] [place] [address] PCP - General Family Medicine 04/10/21 documented as of this encounter
--- OUTSIDE RECORDS SUMMARY | 2024-06-01 13:05 | XMS_ITS | Encounter Summary ---
Author Organization [facility] Address [address] [place] [address] Care Team Providers Care Landscape And Yardwork Laborer Name Role Phone Suresh Hicks MD Primary Care Provider Unavailabl e Encounter Details Date Type Department Care Team (Late st Contact Info) Description 09/19/2009 Results Only [facility] Laboratory Services - [facility] ([facility] [address], [place] [id number] Carol Lacey [place], [place] [id number] Social History Tobacco Use Types Packs/Day Years [...] Priority Date/Time Associated Diagnosis Comments CYTOPATHOLOGY Routine 09/19/2009 0:00 EDT documented in this encounter Results * CYTOPATHOLOGY (09/19/2009 0:00 EDT) Pathology Report: CYTOPATHOLOGY REPORT ? Reports generated via electronic interface contain original data; ? however they are lacking the format of the original report. ? Caution should be taken when reading/interpreti ng unformatted reports. ? Name: ? BILLY AHUMADA ? Accession #: ? [id number] ? : ? 1985 (Age: 23) ??F ?Collect Date: ? 09/19/2009 ? Location: ? [facility] ? Receive Date: ? 09/20/2009 ? Provider: ?CAROL LACEY CNM ? Copy to: ? Specimen/Source: ?Pap Test, Cervix/Endocervix, ThinPrep Imaging System ? with manual evaluation ? Last Menstrual Period: ? 12/12/10 ? Menstrual/Pregnanc y Status: ? Other: ? HPVA - HPV testing requested if ASC-US on the current ThinPrep Pap test. ? SPECIMEN ADEQUACY ? Satisfactory for Evaluation ? - transformation zone component present ? GENERAL CATEGORIZATION ? Negative for Intraepithelial Lesion or Malignancy ? INTERPRETATION ? Shift in mecca present suggestive of bacterial vaginosis. ? Document reviewed and electronically signed by: ? Lynan Jack, CT(ASCP) ? Report Date: ??09/26/2009 16:45 ? End of Report ? CAYLA KRUEGER 09/19/2009 09/20/2009 us Carol Lacey CNM PATHOLOGY ORDERABLES Final Res ult [facility] [address] [place] [address] documented in this encounter Visit Diagnoses Not on filedocumented in this encounter Care Teams Landscape And Yardwork Laborer Relationship Specialty Start Date End Date Suresh Hicks MD PCP - General 05/03/09 documented as of this encounter
--- OUTSIDE RECORDS SUMMARY | 2024-06-01 13:05 | XMS_ITS | Encounter Summary ---
Author Organization [facility] [address] Care Team Providers Care Drop Board Man Name Role Phone Carmen Smith APRN Primary Care Provider [phone] Encounter Details Date Type Department Care Team (Late st Contact Info) Description 12/24/2021 Telephone [facility] [place] [phone] Ladi Berger MSW Social History Tobacco Use Types Packs/Day Years Used Date Smoking Tobacco: Some Days Cigarettes 1 18 Smokeless Tobacco: Never Sex and Gender Information Value Date Recorded Sex Assigned at Not on file Gender Identity Not on file Sexual Orientation Not on file documented as of this encounter Miscellaneous Notes * Telephone Encounter - Ladi Berger MSW - 12/24/2021 1:56 PM EDTSummary: Workers' Comp Update OFFICE of CARE MANAGEMENT CCM Net Programmer received information that Kenia Medina is no longer the Workers' Bed Operator for Ms. Santana. Net Programmer was provided updated information that Key Wilson is now the Workers' alarm adjuster. Net Programmer emailed the Prior Authorization for Medical Treatment formto Ms. Wilson. Ms. Wilson informed Net Programmer that she is currently reviewing the request for Functional Rastafari Program coverage with the Coal Handler and Voc Rehab Counselor. Ms. Wilson stated she will provide Net Programmer with coverage status upon completion of review. Net Programmer contacted Ms. Santana and left a voicemail message regarding updated information. Net Programmer will follow up with Ms. Santana accordingly. There are no other concerns to address at this time. VEE Liu documented in this encounter Plan of Treatment Not on file documented as of this encounter Visit Diagnoses Not on filedocumented in this encounter Care Teams Drop Board Man Relationship Specialty Start Date End Date Carmen Smith, ENVIRONMENTAL SUSTAINABILITY MANAGER [address] [place] [address] PCP - General Family Medicine 04/10/21 documented as of this encounter
--- OUTSIDE RECORDS SUMMARY | 2024-06-01 13:05 | XMS_ITS | Encounter Summary ---
Author Organization [facility] [place] [address] Care Team Providers Care Manager Filter Name Role Phone Luis Carmen ELIZABETH Primary Care Provider [phone] Reason for Visit * Reason Comments Follow-up OFFICE VISIT- med cl earance Encounter Details Date Type Department Care Team (Latest Contact Info) Description 10/15/2021 9:45 AM EDT Office Visit [place] [address] Deja Aldridge APRN [facility] [place] [address] Radiculopathy of lumbar region; Closed fracture of transverse process of lumbar vertebra, sequela Social History Tobacco Use Types Packs/Day Years Used Date Smoking Tobacco: Some Days Cigarettes 1 18 Smokeless Tobacco: Never Sex and Gender Information Value Date Recorded Sex Assigned at Not on file Gender Identity Not on file Sexual Orientation Not on file documented as of this encounter Last Filed Vital Signs Vital Sign Reading Time Taken Comments Blood Pressure 106/59 10/15/2021 9:22 AM EDT Pulse 64 10/15/2021 9:22 AM EDT Temperature - - Respiratory Rate - - Oxygen Saturation 97% 10/15/2021 9:22 AM EDT Inhaled Oxygen Concentration - - Weight 59 kg (130 lb) 10/15/2021 9:22 AM EDT Height 165.1 cm (5' 5) 10/15/2021 9:22 AM EDT Body Mass Index 21.63 10/15/2021 9:22 AM EDT documented in this encounter Progress Notes * Deja Aldridge, VARNISH DIPPER - 10/15/2021 9:45 AM EDT Images from the original note were not included. [facility] [place] [address] Phone: DATE OF VISIT 10/15/2021 Patient Charmaine Santana 1985 FUNCTIONAL CHRISTIANITY PROGRAM Chief complaint requiring rehabilitation: back and leg pain S: Charmaine is being seen today for medical clearance for the Functional Muslim program, a graduated exercise program aimed at The patient achieving her functional goals, despite having chronic pain. Her pain pattern is described as lower back pain radiating down right leg anteriorly to the dorsum of the foot and occasionally with left sided radiation. She has had treatments including tylenol, PT, aleve, acupuncture, massage, and CBD The patient's current goals are : Personal Function 3 Month Goals ?? 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 Recreational: Be able to ride bicycle 30 minutes; Be able to hike on uneven terrain 1 hour carryinga 10-15lbs. Be able to be physically active with her kids such as playing sports. Be able to lift 25-30lbs. Be able to resume gardening including lifting/carrying potting soils, pellets. 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 Be able to lift and carry heavier groceries, laundry basket. Be able to lean over bathtub to bathe son, retrieve laundry from washer. Be able to do yardwork including raking, gardening. ?? Working with vocational rehabilitation. Has had 2 meetings and hopes to be able to schedule anothermeeting. 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 Has occasional palpitations. Smokes 1 ppd. Has used the patch. Her boyfriend smokes as well. Not COVID vaccinated. O: Please see Veronica Mcmillan's note of today for details of the physical testing and current functional Level. In general the patients current level of functioning is in the light demand level and goals are in the medium demand level. BP improved from check done at [address] It is now 106/59 HR 64 P02 97% Patient is A&O in NAD HEENT: EOMI, no scleral jaundice noted. Lungs. Mild rhonchi on right, no consolidation. Cardiac: RRR no murmur No lower extremity edema or cyanosis DTRs 2+, no clonus, Babinski down going There is tenderness right lower lumbar and sacral area. A: Ms. Charmaine Santana is a 36 year old female with chronic lower back pain due to work related injury during which she fell from a ladder suffering transverse process fractures. She would like to re-enter the work force but the pain and functional limitation has been preventing this. There is a gap between her goals and abilities. We have mutually decided to proceed with the following plan. P: Charmaine may be a candidate for functional hinduism pending clearance from PCP or care provider. .Need to bring snacks to eat small amounts frequently Bring inhaler Patient met with JAVED Liu to discuss logistics. Left message for Carmen Smith, patient's PCP to discuss patient's medical issues and whether patient will need a cardiology consult prior to participation. Patient was asked to schedule a follow up visit with CATRACHITA Smith. Completed w/c paperwork. This was a counseling visit for 30 minutes out of 40 talking about symptom management and functional recovery, reviewing the content of FRP, and logistics specific to participation including, travel,lodging and exercise and activity planning . Deja Aldridge APRN Functional Muslim Program [facility] documented in this encounter Plan of Treatment Not on file documented as of this encounter Visit Diagnoses Diagnosis Radiculopathy of lumbar region Thoracic or lumbosacral neuritis or radiculitis, unspecified Closed fracture of transverse process of lumbar vertebra, sequela documented in this encounter Care Teams Manager Filter Relationship Specialty Start Date End Date Carmen Smith APRN [address] [place] [address] [place] [address] PCP - General Family Medicine 04/10/21 documented as of this encounter
--- OUTSIDE RECORDS SUMMARY | 2024-06-01 13:05 | XMS_ITS | Encounter Summary ---
Author Organization [facility] Address [address] [place] [address] Care Team Providers Care Nutrition Faculty Member Name Role Phone Unknown, Provider Primary Care Provider Unava ilable Encounter Details Date Type Department Care Team (Late st Contact Info) Description 11/17/2008 Orders Only [facility] Cardiovascular Unit [address] [place] [address] Kary Hand MD [address] [place] [address] Social History Tobacco Use Types Packs/Day Years [...] Date/Time Associated Diagnosis Comments SURGICAL PATHOLOGY Routine 11/17/2008 0:00 EDT documented in this encounter Results * SURGICAL PATHOLOGY (11/17/2008 0:00 EDT) Pathology Report: SURGICAL PATHOLOGY REPORT ? Reports generated via electronic interface contain original data; ? however they are lacking the format of the original report. ? Caution should be taken when reading/interpreti ng unformatted reports. ? Name: ? YOKO, BILLY K ? Accession #: ? [id number] ? : ? 1985 (Age: 23) ??F ? Collect Date: ? 11/17/2008 ? Location: ? [facility] ? Receive Date: ? 11/19/2008 ? Provider: KARY HAND MD ? Copy to: DOM TOLL MD ?Yimi Solono, MD ? [facility] ? [address] ? [address] ? [place] [address] ? Final Pathologic Diagnosis: ? Products of conception, uterine evacuation: ? 1. ?Male fetus, weight and measurements consistent with 14-15 weeks. ? - ??No gross abnormalities. ? 2. ??Umbilical cord and membranes with no abnormalities. ? 3. ??Placenta with early obliterative vasculopathy. ? Document reviewed and electronically signed by: ? Val Gerber MD ? Report ??Date: 11/21/2008 14:19 ? By the signature above, the attending physician certifies that he/she has ? personally conducted a gross and/or microscopic examination of the described ? specimens and rendered or confirmed the above diagnosis. ? Specimen(s) Received: ? Not listed ? Clinical History: ? with 18 wks (illegible) day intrauterine gestation. demise ?? diagnosed 11/16/08. Pt admitted for induction. EDC 04/17/09; LMP: 06/25/08 ? Gross Description: ? Received in formalin labelled Yoko, Tami Tang and products of ? conception is a portion of placenta, and fetus received in two parts; one part the head, the second part body and limbs. ??Sectioning of the placenta reveals a firm, homogeneous, red-gomes cut surface with several foci of shiny white ? material. The weight of the fetus with attached umbilical cord is 90 grams. ??The skin is gomes-brown. ??The crown-rump length is 16.0 cm. ??The head circumference is 8.0 cm (at the level of the brow). ??The chest circumference is 12.0 cm. ??The ? abdomen circumference at the level of the umbilicus is 9.0 cm. ??The foot length is 1.6 cm. ??There are five fingers on each hand and five toes on each foot. ? There is no syndactyly. ??There is no cleft lip or palate. ??The anus is patent. ?? The urethral folds are fused. ??The ears are at the level of a line drawn through the inner canthi of the eyes. ??The portion of umbilical cord, which is attached to the fetus, measures 21.0 cm in length and 0.6 cm in diameter. ??Gross only on the fetus. ??Also received in the same container is a 94-gram placenta with a ? portion of attached umbilical cord. ??The attached cord measures 12.0 cm in ? length and 0.7 cm in diameter. ??Sectioning reveals the cord to have three ? vessels. ??The placental disc is oval with an eccentrically inserted umbilical ?? cord. ??The membranes are peripherally inserted. ??The disc measures 9.5 x ?? 7.5 x 2.5 cm. ??The maternal surface is ragged and a large portion of cotyledon ?? is missing. ??There is a moderate amount of attached hemorrhage. ??The ? surface is smooth, shiny and has a normal arising pattern; however, it appears ?? to have fewer vessels than normal. ??The membranes are quite thin, shiny ?? and translucent. ??There is also a 6.0 x 3.0 x 0.6 cm portion of thick, slightly rubbery firm tissue, which appears grossly to be decidua. ? BLOCK MADDEN ? A1 ?Two membrane rolls and two cross sections of umbilical cord ?? A2 ?Full thickness placenta in region of missing cotyledon and region of white, shiny focus ? A3 ?Full thickness placenta ? (Dr. Land)/mpl ? End of Report ? [facility] 11/17/2008 11/19/2008 8:4 4 EDT us Kary Hand MD PATHOLOGY ORDERABLES Final Resul t [facility] [address] [place] [address] documented in this encounter Visit Diagnoses Not on filedocumented in this encounter Care Teams Nutrition Faculty Member Relationship Specialty Start Date End Date Unknown, Provider, PCP - General 11/19/08 05/02/09 documented as of this encounter
--- OUTSIDE RECORDS SUMMARY | 2024-06-01 13:05 | XMS_ITS | Encounter Summary ---
Author Organization [facility] Address [address] [place] [address] Care Team Providers Care Windows Vmware Administrator Name Role Phone Suresh Hicks MD Primary Care Provider Unavailabl e Reason for Visit * Reason Onset Date Comments Follow-up 10/15/2011 Encounter Details Date Type Department Care Team (Late st Contact Info) Description 10/15/2011 Telephone [facility] Interventional Pain [address] [place] [address] Kathleen Horne RN Follow-up Social History Tobacco Use Types Packs/Day Years Used Date Smoking Tobacco: Never Assessed Comments Unknown Sex and Gender Information Value Date Recorded Sex Assigned at Not on file Legal Sex Female 18:35 EST Gender Identity Not on file Sexual Orientation Not on file documented as of this encounter Miscellaneous Notes * Telephone Encounter - Kathleen Horne RN - 10/16/2011 [address] Beaver earlier. documented in this encounter Plan of Treatment Not on file documented as of this encounter Visit Diagnoses Not on filedocumented in this encounter Care Teams Windows Vmware Administrator Relationship Specialty Start Date End Date Suresh Hicks MD PCP - General 05/03/09 documented as of this encounter
--- OUTSIDE RECORDS SUMMARY | 2024-06-01 13:05 | XMS_ITS | Encounter Summary ---
Author Organization [facility] Address [address] [place] [address] Care Team Providers Care Customs And Border Protection Officer Name Role Phone Unknown, Provider Primary Care Provider Unava ilable Encounter Details Date Type Department Care Team (Late st Contact Info) Description 12/10/2008 Orders Only [facility] Laboratory Services - [facility] [address] [place] [address] Yimi Vásquez MD [address] [place] [phone] Social History Tobacco Use Types Packs/Day [...] Priority Date/Time Associated Diagnosis Comments CYTOPATHOLOGY Routine 12/10/2008 0:00 EDT documented in this encounter Results * CYTOPATHOLOGY (12/10/2008 0:00 EDT) Pathology Report: CYTOPATHOLOGY REPORT ? Reports generated via electronic interface contain original data; ? however they are lacking the format of the original report. ? Caution should be taken when reading/interpreti ng unformatted reports. ? Name: ? BILLY BABCOCK ? Accession #: ? [id number] ? : ? 1985 (Age: 23) ??F ?Collect Date: ? 12/10/2008 ? Location: ? [facility] ? Receive Date: ? 12/11/2008 ? Provider: ?YIMI VÁSQUEZ MD ? Copy to: ? Specimen/Source: ?Pap Test, Cervix/Endocervix, ThinPrep Imaging System ? with manual evaluation ? Last Menstrual Period: ? Menstrual/Pregnanc y Status: ? Post ? Previous Gynecologic Pathology: ? ASC-US: 12/08 ? HPV: + 12/08 ? Other: ? Additional clinical information: demise 19 weeks ? SPECIMEN ADEQUACY ? Satisfactory for Evaluation ? - transformation zone component present ? GENERAL CATEGORIZATION ? Epithelial Cell Abnormality ? INTERPRETATION ? Squamous Cell Abnormality - Low grade squamous intraepithelial lesion ? (LSIL). ? Shift in mecca present suggestive of bacterial vaginosis. ? EDUCATIONAL NOTES/RECOMMENDATI ONS ? [facility] recommends following the 2006 Consensus Guidelines for the Management of Women with Abnormal Cervical Cancer Screening Tests (JLGTD, ? 2007;11(4):201-222 ). ??Consensus guidelines are available online at ? www.ASCCP.org. ? Document reviewed and electronically signed by: ? ROSALBA MOUNT MD ? Report Date: ??12/14/2008 12:06 ? End of Report ? [facility] 12/10/2008 12/11/2008 us Yimi Vásquez MD PATHOLOGY ORDERABLES Final Resul t [facility] [address] [place] [address] documented in this encounter Visit Diagnoses Not on filedocumented in this encounter Care Teams Customs And Border Protection Officer Relationship Specialty Start Date End Date Unknown, Provider, PCP - General 11/19/08 05/02/09 documented as of this encounter
--- OUTSIDE RECORDS SUMMARY | 2024-06-01 13:05 | XMS_ITS | Encounter Summary ---
Author Organization [facility] Address [address] [place] [address] Care Team Providers Care Medical Technologist Name Role Phone Unknown, Provider Primary Care Provider Unava ilable Encounter Details Date Type Department Care Team (Late st Contact Info) Description 03/13/2009 Orders Only [facility] Laboratory Services - [facility] ([facility] [address] [place] [address] Domingo Steinberg MD [facility] [place] [address] Social History Tobacco Use Types [...] Date/Time Associated Diagnosis Comments SURGICAL PATHOLOGY Routine 03/13/2009 0:00 EDT documented in this encounter Results * SURGICAL PATHOLOGY (03/13/2009 0:00 EDT) Pathology Report: SURGICAL PATHOLOGY REPORT ? Reports generated via electronic interface contain original data; ? however they are lacking the format of the original report. ? Caution should be taken when reading/interpreti ng unformatted reports. ? Name: ? YOKO, KRYSTINAJO K ? Accession #: ? [id number] ? : ? 1985 (Age: 23) ??F ? Collect Date: ? 03/13/2009 ? Location: ? [facility] ? Receive Date: ? 03/13/2009 ? Provider: DOMINGO STEINBERG MD ? Copy to: DOM ARCHER MD ? Final Pathologic Diagnosis: ? Endometrium, curettage: ? 1. ?Weakly proliferative endometrium with stromal breakdown. ??See ? comment. ? 2. ? Benign endocervical tissue. ? 3. ?? No chorionic villi, decidua, or tissue identified. ? Comment: ? Dr. Maranda Sprague has reviewed communications representative sections in consultation. ? (Dr. Cerna)/mpl ? Document reviewed and electronically signed by: ? SILVER Leiva BUTNOMelody MD ? Report ??Date: 03/14/2009 15:53 ? By the signature above, the attending physician certifies that he/she has ? personally conducted a gross and/or microscopic examination of the described ? specimens and rendered or confirmed the above diagnosis. ? Specimen(s) Received: ? Endometrial curettings, POC ? Clinical History: ? G5, P0050; demise November 2008; R/O incomplete AB; LMP: November 2008 ? Gross Description: ? Received in formalin labelled Yoko, TafdengyJo and endometrial curettings are multiple red-brown hemorrhagic tissue fragments measuring 2.0 x 1.5 x 0.4 cm in aggregate. ??The specimen is entirely submitted as (A1) and (A2) following ? filtration. ??(Min Valladares/angelica ? End of Report ? [facility] 03/13/2009 03/13/2009 15: 34 EDT us Domingo Steinberg MD PATHOLOGY ORDERABLES Final Res ult Performing Organization Address City/State/[facility] Co de Phone Number [facility] [address] [place] [address] documented in this encounter Visit Diagnoses Not on filedocumented in this encounter Care Teams Medical Technologist Relationship Specialty Start Date End Date Unknown, Provider, PCP - General 11/19/08 05/02/09 documented as of this encounter
--- OUTSIDE RECORDS SUMMARY | 2024-06-01 13:05 | XMS_ITS | Encounter Summary ---
Author Organization [facility] Address [address] [place] [address] Care Team Providers Care Senior Technical Editor Name Role Phone Suresh Hicks MD Primary Care Provider Unavailabl e Encounter Details Date Type Department Care Team (Late st Contact Info) Description 06/28/2014 Results Only [facility] [place] Laboratory Services - [facility] ([facility] [address] [place], [place] [address] Janet Berry CN [address] [facility] [address] [place] [id number] Social History Tobacco Use Types Packs/Day Years [...] Procedure Name Priority Date/Time Associated Diagnosis Comments PAP TEST- RESULT ONLY Routine 06/28/2014 0:00 EST documented in this encounter Results * PAP TEST- RESULT ONLY (06/28/2014 0:00 EST) Pathology Report: CYTOPATHOLOGY REPORT Reports generated via electronic interface contain original data; however they are lacking the format of the original report. Caution should be taken when reading/interpreti ng unformatted reports. Name: ? DAVID SANTANA ? Accession #: ? [id number] : ? 1985 (Age: 28) ??F ?Collect Date: ? 06/28/2014 Location: ? [facility] ? Receive Date: ? 06/29/2014 Provider: ?RIGOJosse BERRY CNM Copy to: ? Specimen/Source: ?Pap Test, Cervix/Endocervix, ThinPrep Imaging System with manual evaluation Last Menstrual Period: ? 03/25/14 Menstrual/Pregnanc y Status: ? Previous Gynecologic Pathology: ? ASC-US: 05/25/13 Other: ? Additional clinical information: HPV neg 05/25/13 ? SPECIMEN ADEQUACY ? Satisfactory for Evaluation - transformation zone component present GENERAL CATEGORIZATION ? Negative for Intraepithelial Lesion or Malignancy INTERPRETATION ? Reactive cellular changes associated with inflammation present (includes repair). Shift in mecca present suggestive of bacterial vaginosis. ? Document reviewed and electronically signed by: ? ROSALBA POLLARD MD ? Report Date: ??07/05/2014 16:33 End of Report [facility] 06/28/2014 06/29/2014 us Janet Berry CNPalma PATHOLOGY ORDERABLES Final Resul t [facility] [address] [place] [address] documented in this encounter Visit Diagnoses Not on filedocumented in this encounter Care Teams Senior Technical Editor Relationship Specialty Start Date End Date Suresh Hicks MD PCP - General 05/03/09 documented as of this encounter
--- OUTSIDE RECORDS SUMMARY | 2024-06-01 13:05 | XMS_ITS | Encounter Summary ---
Author Organization [facility] Address [address] [place] [address] Care Team Providers Care Assistant Food Service Director Name Role Phone Suresh Hciks MD Primary Care Provider Unavailabl e Encounter Details Date Type Department Care Team (Latest Contact Info) Description 03/05/[address] [facility] Pathology & Laboratory Medicine - [facility] [address] [place] [address] Carleen Rodriguez FNP [facility] [address] [place] [address] Encounter for screening for human papillomavirus (HPV); Encounter for screening for malignant neoplasm of cervix; Encounter for general adult medical examination without abnormal findings Social History Tobacco Use Types Packs/Day Years [...] Name Priority Date/Time Associated Diagnosis Comments PAP TEST Today 03/04/2023 12:20 EDT Encounter for screening for human papillomavirus (HPV) Encounter for screening for malignant neoplasm of cervix Encounter for general adult medical examination without abnormal findings HPV DNA DETECTION WITH GENOTYPING, PCR Today 03/04/2023 12:20 EDT Encounter for screening for human papillomavirus (HPV) Encounter for screening for malignant neoplasm of cervix Encounter for general adult medical examination without abnormal findings documented in this encounter Results * HUMAN PAPILLOMAVIRUS (HPV) DETECTION-HIGH RISK TYPES (03/04/2023 12:20 EDT) HPV other High Risk types, PCR Negative Negative 03/17/2023 17:29 EDT [facility] Comment:No E6 or E7 mRNA is detected from HPV types 16,18,31,33,35,39,45,51,52,56,58,59,66, and 68 by behavioral health assistant mediated amplification. Pap Test CERVIX UTERI STRUCTURE / Unknown 03/04/2023 12:20 EDT 03/16/2023 12:55 EDT Carleen Rodriguez RN OR LPN MICROBIOLOGY - GENERAL ORDERA BLES Final Result [facility] [address] [place] [address] * PAP TEST (03/04/2023 12:20 EDT) Specimens A. Cervix and/or Endocervix , ThinPrep Imaging System with Manual Evaluation 03/17/2023 17:29 T [facility] Specimen Adequacy Satisfactory for Evaluation - transformation zone component absent 03/17/2023 17:29 [facility] General Categorization Negative for intraepithelial lesion or malignancy 03/17/2023 17:29 [facility] Attestation . 03/17/2023 17:29 [facility] at 1729 Clinical History See below 03/17/20 23 17:29 T [facility] HPV The result for the Human Papillomavirus (HPV) Detection-High Risk Types is Negative. No E6 or E7 mRNA is detected from HPV types 16,18,31,33,35,39 ,45,51,52,56,58,5 9,66, and 68 by behavioral health assistant mediated amplification.Karina ting was performed on specimen [id number] and was resulted on 03/17/2023 1729 EDT by YUKO, LAB INSTRUMENT RESULTS IN 03/17/2023 17:29 T [facility] Performing Lab [facility] 03/17/2023 17:29 EDT [facility] Scanned Images 03/17/2023 17:29 EDT [facility] Pap Test CERVIX UTERI STRUCTURE / Unknown 03/04/2023 12:20 EDT 03/05/2023 11:24 EDT us Carleen Rodriguez RN OR LPN PATHOLOGY ORDERABLES Final Re sult [facility] [address] [place] [address] documented in this encounter Visit Diagnoses Diagnosis Encounter for screening for human papillomavirus (HPV) Special screening examination for human papillomavirus (HPV) Encounter for screening for malignant neoplasm of cervix Screening for malignant neoplasm of the cervix Encounter for general adult medical examination without abnormal findings Unspecified general medical examination documented in this encounter Care Teams Assistant Food Service Director Relationship Specialty Start Date End Date Suresh Hicks MD PCP - General 05/03/09 documented as of this encounter
--- OUTSIDE RECORDS SUMMARY | 2024-06-01 13:05 | XMS_ITS | Encounter Summary ---
Author Organization [facility] Address [address] [place] [address] Care Team Providers Care Automation Technologist Name Role Phone Dom Hicks MD Primary Care Provider Unavailabl e Unknown, Zandra RAMIREZ Primary Care Provider Unava ilable Encounter Details Date Type Department Care Team (Late st Contact Info) Description 08/11/2006 Results Only [facility] [address] [place] [address] Anai Felton MD [address] [place] [address] [place] [address] Social History Tobacco Use Types Packs/Day Years [...] Date/Time Associated Diagnosis Comments SURGICAL PATHOLOGY Routine 08/11/2006 0:00 EST documented in this encounter Results * SURGICAL PATHOLOGY (08/11/2006 0:00 EST) Pathology Report: SURGICAL PATHOLOGY REPORT Reports generated via electronic interface contain original data; however they are lacking the format of the original report. Caution should be taken when reading/interpreti ng unformatted reports. Name: ? DAVID AHUMADA ? Accession #: ? [id number] ? : ? 1985 (Age: 20) ??F ? Collect Date: ? 08/11/2006 ? Location: ? [facility] ? Receive Date: ? 08/12/2006 ? Provider: ANAI FELTON MD Copy to: DOM HICKS MD ? Final Pathologic Diagnosis: ? Products of conception: 1. ?Decidua with acute and chronic inflammation and hemorrhage. ??See comment. 2. ? No chorionic villi identified. Comment: ? The results have been communicated to Dr. Anai Felton at 10:09 am on August 13, 2006. ??(Dr. Ruiz)/[facility] ?? Document reviewed and electronically signed by: Jayjay Ruiz MD Report ??Date: 08/13/2006 14:55 By the signature above, the attending physician certifies that he/she has personally conducted a gross and/or microscopic examination of the described specimens and rendered or confirmed the above diagnosis. Specimen(s) Received: ? Product of conception Clinical History: ? Frequent bleeding; ? product of conception; LMP: 06/16/06 Gross Description: ? Received in formalin labelled Ramiro and frequent bleeding ? POC is a red-brown 3.7 x 1.7 x 0.6 cm soft tissue. ??Upon sectioning, the cut surfaces are red-brown and hemorrhagic. ??No parts are grossly identified. The specimen is entirely submitted as (A1) and (A2). ??(Min Wu)/[facility] End of Report [facility] 08/11/2006 08/12/2006 10: 07 EST Anai Felton MD PATHOLOGY ORDERABLES Final Resu lt [facility] [address] [place] [address] documented in this encounter Visit Diagnoses Not on filedocumented in this encounter Care Teams Automation Technologist Relationship Specialty Start Date End Date Dom Hicks MD PCP - General 05/03/09 Unknown, ProviderMD PCP - General 11/19/08 05/02/09 documented as of this encounter
--- OUTSIDE RECORDS SUMMARY | 2024-06-01 13:05 | XMS_ITS | Encounter Summary ---
Author Organization [facility] Address [address] [place] [address] Care Team Providers Care Oxidized Finish Plater Name Role Phone Dom Hicks MD Primary Care Provider Unavailabl e Encounter Details Date Type Department Care Team (Late st Contact Info) Description 05/25/2013 Results Only [facility] [phone] Latasha Cam MD [address] [place] [address] Social History Tobacco Use Types Packs/Day Years [...] Diagnosis Comments PAP TEST- RESULT ONLY Routine 05/25/2013 0:00 EST documented in this encounter Results * PAP TEST- RESULT ONLY (05/25/2013 0:00 EST) Pathology Report: CYTOPATHOLOGY REPORT Reports generated via electronic interface contain original data; however they are lacking the format of the original report. Caution should be taken when reading/interpreti ng unformatted reports. Name: ? BILLY SANTANA ? Accession #: ? [id number] ? : ? 1985 (Age: 27) ??F ?Collect Date: ? 05/25/2013 ? Location: ? [facility] ? Receive Date: ? 05/26/2013 ? Provider: LATASHA CAM MD Copy to: DOM HICKS MD ? Final Report SPECIMEN ADEQUACY ? Satisfactory for Evaluation - transformation zone component present GENERAL CATEGORIZATION ? Epithelial Cell Abnormality INTERPRETATION ? Squamous Cell Abnormality - Atypical squamous cells, undetermined significance (ASC-US). Fungal organisms present morphologically consistent with Yara species. EDUCATIONAL NOTES/RECOMMENDATI ONS ? [facility] recommends following ASCCP's 2012 Updated Consensus Guidelines for the Management of Abnormal Cervical Cancer Screening Tests and Cancer Precursors (JLGTD, 2013; 17(5):S1-S27). ??Consensus guidelines are available online at www.asccp.org. Specimen/Source: ??Pap Test, Cervix/Endocervix, ThinPrep Imaging System with manual evaluation Document reviewed and electronically signed by: ? TRAN CAM MD ? Report ??Date: 06/01/2013 08:13 HPV with Pap Test ? Date Ordered: ? 05/31/2013 ? Status: ?? Signed Out ?Date Complete: ? 06/05/2013 ? By: ??System Interface ? Date Reported: ? 06/05/2013 ? Interpretation RESULT: Negative for HPV. No E6 or E7 mRNA is detected from HPV types 16,18,31,33,35, 39,45,51,52,56,58, 59,66, and 68 by atmospheric chemist mediated amplification. Comments Document reviewed and electronically signed by: ? System Interface ? Report date: 06/05/2013 By the signature above, the attending physician certifies that he/she has personally conducted a gross and/or microscopic examination of the described specimens and rendered or confirmed the above diagnosis. End of Report [facility] 05/25/2013 05/26/2013 us Latasha Cam MD PATHOLOGY ORDERABLES Final Resu lt Performing Organization Address City/State/[facility] Co de Phone Number [facility] [address] [place] [address] documented in this encounter Visit Diagnoses Not on filedocumented in this encounter Care Teams Oxidized Finish Plater Relationship Specialty Start Date End Date Dom Hicks MD PCP - General 05/03/09 documented as of this encounter
--- OUTSIDE RECORDS SUMMARY | 2024-06-01 13:05 | XMS_ITS | Encounter Summary ---
Author Organization [facility] [place] [address] Care Team Providers Care Agency Sales Management Assistant Name Role Phone Carmen Smith APRN Primary Care Provider Encounter Details Date Type Department Care Team (Late st Contact Info) Description 12/16/2021 Telephone [facility] [place] [phone] Ivette Lee Social History Tobacco Use Types Packs/Day Years Used Date Smoking Tobacco: Some Days Cigarettes 1 18 Smokeless Tobacco: Never Sex and Gender Information Value Date Recorded Sex Assigned at Not on file Gender Identity Not on file Sexual Orientation Not on file documented as of this encounter Miscellaneous Notes * Telephone Encounter - Ivette Lee - 12/16/2021 9:54 AM EDT Reason for call: To determine confirmation of enrollment in the upcoming Functional Gnosticism Program for dates 12/30 - 01/23 Invitation Packet Received: yes Pain Education: Pain 100 - 2-4:30 [facility] Zoom Covid-19 Vax Status: No, Booster NA Schedule Cleared: No Days unable to attend: 9am - 11am Hybrid Capability: Yes MyD Account: Yes Wifi: Yes Device: Laptop Microphone, Speaker, Camera: Yes Space: Yes Comfort Level with Technology: Yes Patient was directed to review the Hybrid Equipment Check List in their invitation packet and make note of items they have or need in the event that program needs to be done virtually. Patient was made aware: FRP days start at 8am, please arrive at 7:45am each day to ensure that you are ready to start at 8am. If you are late 2 days or do not attend 2 days, you may not be able to continue participation in the program. Patient was asked the following: In light of the ever changing Covid-19 infection rate, we ask that in the week leading up to the start of program you please be aware and cautious of your activities, as it can affect you, other participants and staff members in the program. The safety of you and our staff is of utmost importance to the Functional Gnosticism Program (FRP). documented in this encounter Plan of Treatment Not on file documented as of this encounter Visit Diagnoses Not on filedocumented in this encounter Care Teams Agency Sales Management Assistant Relationship Specialty Start Date End Date Carmen Smith APRN [address] [place] [address] PCP - General Family Medicine 04/10/21 documented as of this encounter
--- OUTSIDE RECORDS SUMMARY | 2024-06-01 13:05 | XMS_ITS | Clinical Summary ---
Author Organization [facility] Address [address] [place] [address] Care Team Providers Care Auto Motor Mechanic Name Role Phone Suresh Hicks MD Primary Care Provider Unavailabl e Social History Tobacco Use Types Packs/Day Years Used Date Smoking Tobacco: Never Assessed Comments Unknown Sex and Gender Information Value Date Recorded Sex Assigned at Not on file Legal Sex Female 18:35 EST Gender Identity Not on file Sexual Orientation Not on file Plan of Treatment Health Maintenance Due Date Last Done Comments Hepatitis C Screen 1985 Hepatitis B Vaccine (1 of 3 - 19+ 3-dose series) 09/24 COVID-19 Vaccine ( season) 2024 Care Teams Auto Motor Mechanic Relationship Specialty Start Date End Date Suresh Hicks MD PCP - General 05/03/09
--- OUTSIDE RECORDS SUMMARY | 2024-06-01 13:05 | XMS_ITS | Encounter Summary ---
Author Organization [facility] Address [address] [place] [address] Care Team Providers Care Cardiology Clinical Nurse Specialist Name Role Phone Suresh Hicks MD Primary Care Provider Unavailabl e Unknown, Zandra RAMIREZ Primary Care Provider Unava ilable Encounter Details Date Type Department Care Team (Late st Contact Info) Description 05/25/2008 Before PRISM Converted Visit (Maple) [facility] - Maple conversion [address] [place] [address] Olivia Washburn, [facility] [address] [place] [address] [place] [address] Social History Tobacco Use Types Packs/Day Years [...] Procedure Name Priority Date/Time Associated Diagnosis Comments HPV DETECTION, HIGH RISK TYPES Routine 05/25/2008 8:30 EST CYTOPATHOLOGY Routine 05/25/2008 0:00 EST documented in this encounter Results * HUMAN PAPILLOMA VIRUS DNA TEST (05/25/2008 8:30 EST) Specimen Description Cervix, ThinPrep vial [facility] Result Positive for one or more of HPV types 16,18,31,33,35 ,39,45,51,52,5 6,58,59, or 68. These high/intermedi ate risk HPV types are associated with dysplasia and some cervical cancers. [facility] Report Status Final 06/07/2008 [facility] 05/25/2008 8:30 EST 05/31/2008 7:24 EST us Olivia Washburn STEWARD/STEWARDESS TOURIST CLASS MICROBIOLOGY - GENERAL ORDER SAMUEL Final Result [facility] [address] [place] [address] * CYTOPATHOLOGY (05/25/2008 0:00 EST) Pathology Report: CYTOPATHOLOGY REPORT ? Reports generated via electronic interface contain original data; ? however they are lacking the format of the original report. ? Caution should be taken when reading/interpreti ng unformatted reports. ? Name: ? BILLY AHUMADA ? Accession #: ? [id number] ? : ? 1985 (Age: 22) ??F ?Collect Date: ? 05/25/2008 ? Location: ? [facility] ? Receive Date: ? 05/28/2008 ? Provider: ?OLIVIA DULCE MARIA STEWARD/STEWARDESS TOURIST CLASS ? Copy to: ? Specimen/Source: ?Pap Test, Cervix/Endocervix, ThinPrep Imaging System ? with manual evaluation ? Last Menstrual Period: ? 11/15/08 ? Previous Gynecologic Pathology: ? ASC-US: 2005 ? HPV: 2005 ? Other: ? HPVA - HPV testing requested if ASC-US on the current ThinPrep Pap test. ? SPECIMEN ADEQUACY ? Satisfactory for Evaluation ? - transformation zone component present ? GENERAL CATEGORIZATION ? Epithelial Cell Abnormality ? INTERPRETATION ? Squamous Cell Abnormality - Atypical squamous cells, undetermined ? significance (ASC-US). ? EDUCATIONAL NOTES/RECOMMENDATI ONS ? FA recommends following the 2006 Consensus Guidelines for the Management of Women with Abnormal Cervical Cancer Screening Tests (JLGTD, ? 2007;11(4):201-222 ). ??Consensus guidelines are available online at ? www.ASCCP.org. ? Document reviewed and electronically signed by: ? NANI DUBOSE MD ? Report Date: ??05/30/2008 11:27 ? End of Report ? [facility] 05/25/2008 05/28/2008 us Olivia Washburn STEWARD/STEWARDESS TOURIST CLASS PATHOLOGY ORDERABLES Final R esult [facility] [address] [place] [address] documented in this encounter Visit Diagnoses Not on filedocumented in this encounter Care Teams Cardiology Clinical Nurse Specialist Relationship Specialty Start Date End Date Suresh Hicks MD PCP - General 05/03/09 Unknown, MD Zandra PCP - General 11/19/08 05/02/09 documented as of this encounter
--- OUTSIDE RECORDS SUMMARY | 2024-06-01 13:05 | XMS_ITS | Encounter Summary ---
Author Organization [facility] [place] [address] Care Team Providers Care Viscose Department Worker Name Role Phone Carmen Smith APRN Primary Care Provider [phone] Reason for Visit * Reason Comments Back Pain Encounter Details Date Type Department Care Team (Latest Contact Info) Description 12/30/2021 8:30 AM EDT Office Visit Functional Denominational Program at [facility] [address] [place] [address] Veronica Mcmillan, OT Radiculopathy of lumbar region Social History Tobacco Use Types Packs/Day Years Used Date Smoking Tobacco: Some Days Cigarettes 1 18 Smokeless Tobacco: Never Sex and Gender Information Value Date Recorded Sex Assigned at Not on file Gender Identity Not on file Sexual Orientation Not on file documented as of this encounter Miscellaneous Notes * Initial Evaluation - Veronica Mcmillan OT - 12/30/2021 8:30 AM EDT Functional Denominational Program (Day 1) Group #: [id number] Occupational Therapy Evaluation Problem List: 1. Unclear Vocational Goal 2. Inability to do usual and customary job and daily activities secondary to decreased lifting strength, functional ROM, limited positional tolerances, fear of re-injury and inability to manage pain. 3. Ms. Santana lacks effective pain management strategies to use on the job, in the community, and athome. 4. Decreased ability to participate in activities of daily living and home maintenance. 5. Excessive muscle guarding prevents spontaneous motions needed for work, truck safety inspector, and recreation. Subjective: Ms. Santana reports that the primary reason for seeking Occupational Therapy services through the Functional Denominational Program is low back pain. Ms. 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 She feel from an 8 foot ladder onto a wooden deck. Ms. Santana reports using the following pain management strategies: aleve, hot bath or shower, massage. 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 Ms. 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 She is currently working with her Vocational Rehabilitation Counselor on job opportunities. 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 Do you plan to return to work after the program: Yes Job to return to: No She identifies the following barriers to return to work: - job no longer available - physical demands exceed current physical capacities She is working with Tae Hubbard to assist in the RTW process, office and cell phone number obtained. Also obtained permission from Ms. Santana to contact her employment law attorney, Derrick Parra. Ms. Santana reports receiving the following benefits: Workers Compensation wage replacement Self-Care (ADL & IADL) & Leisure Activities: Based on the occupational performance interview of the [place] Occupational Performance Measure (COPM), Ms. Santana reports Moderate limitations inself-care and leisure activities. She reports most difficulty with heavier lifting and carrying with truck safety inspector and work related tasks, extended positional tolerances for recreational activities. 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 2 1 Daily Living (ADL, IADL): Be able to stand for 1-2hours truck safety inspector including vacuuming, sweeping and mopping. 2 1 Be able to lift and carry heavier groceries, laundry basket, (25-30lbs) 2 1 Be able to lean over bathtub to bathe son, retrieve laundry from washer. 1 1 Be able to do yardwork including raking, gardening, lifting/carrying potting soil and pellets 1 1 Total 13 8 Total Mean score 1.62 1 Mean score Change from Day 1 (??2 point change is clinically significant) Lifting Goal: 80 lbs Current Lifting lbs Current Lifting lbs *Madden: P=Performance Score S=Satisfaction with Performance Score ASSESSMENT of OCCUPATIONAL PERFORMANCE Physical Capacity Test Results: Lifting: (pounds/heart rate) First Day of FRP End of Program 4 Week Follow-Up Repetitive Floor to Waist Repetitive Waist to Shoulder 1-Time Maximum 20 2-Handed Carry - 50 ft 30 Work Demand Level Sedentary-Light The results of this testing must be integrated with clinical findings and other observations to derive a final assessment of work capacity. Assessment: Ms. Santana is unable to fully participate in work, recreational, and home-based activities because of decreased functional strength, decreased AROM, decreased endurance, limited positionaltolerances, fear of re-injury, and fear of increased pain. She will benefit from participating in afunctional conditioning program designed to increase functional strength, flexibility, and endurance in order to meet functional goals. [facility] Goals: While working towards the prison (3 month) functional goals listed above, Ms. Santana will accomplish the following short term goals during the 4- week intensive rehabilitation program. Ms. Santana will: 1. Develop a viable return to work plan. 2. Demonstrate physical capacities consistent with a Medium-Heavy work demand level. 3. Demonstrate increased functional strength by lifting 80 pounds floor to waist and 25 pounds waist to shoulder in order to meet work and home lifting goals. 4. Increase her positional tolerances to the level needed for work and home activities. 5. Implement self-care and relapse prevention strategies during the program and at home to control pain. Plan: 1. Functional conditioning 2 times daily to increase physical capacities and allow Ms. Santana to meet demands of work recreation and home. 2. Individual counseling / education to develop return to work plan and better understand the return to work process, to develop individualized strategies for self-care pain management, relapse prevention. 3. Daily stretching, relaxation training and walking to increase functional tolerances and allow Ms. Santana to meet demands of work, recreation and daily activities to meet occupational goals. 4. Therapeutic activities to increase ability to move quickly and tolerate unguarded movements. 45 minutes were spent today to interview Ms. Santana and test physical capacities. documented in this encounter Plan of Treatment Not on file documented as of this encounter Visit Diagnoses Diagnosis Radiculopathy of lumbar region Thoracic or lumbosacral neuritis or radiculitis, unspecified documented in this encounter Care Teams Viscose Department Worker Relationship Specialty Start Date End Date Carmen Smith, ELIZABETH [address] [place] [address] PCP - General Family Medicine 04/10/21 documented as of this encounter
--- OUTSIDE RECORDS SUMMARY | 2024-06-01 13:05 | XMS_ITS | Encounter Summary ---
Author Organization [facility] Address [address] [place] [address] Care Team Providers Care Gravity Meter Observer Name Role Phone Suresh Hicks MD Primary Care Provider Unavailabl e Encounter Details Date Type Department Care Team (Late st Contact Info) Description 02/28/2021 Lab Requisition [facility] Pathology & Laboratory Medicine - [facility] [address], [place] [address] Outr Resulting Lab, Provider Social History Tobacco [...] Date/Time Associated Diagnosis Comments BETA HYDROXYBUTYRATE Routine 02/28/2021 12:20 EDT INSULIN Routine 02/28/2021 12:20 EDT documented in this encounter Results * BETA HYDROXYBUTYRATE (02/28/2021 12:20 EDT) Beta Hydroxybutyrate <0.1 <0.4 mmol/L 02/28/2021 21:42 EDT [facility] Blood VENOUS BLOOD / Unknown 02/28/2021 12:20 EDT 02/28/2021 21:22 EDT us Provider Outr Resulting Lab CHEMISTRY & BLOOD GA S ORDERABLES Final Result [facility] [address] [place] [address] * INSULIN (02/28/2021 12:20 EDT) Insulin 3.8 <29.0 uIU/mL 03/06/2021 9:42 EDT [facility] Comment: Displayed Reference Range applies to fasting specimens only. Blood VENOUS BLOOD / Unknown 02/28/2021 12:20 EDT 02/28/2021 21:22 EDT us Provider Outr Resulting Lab CHEMISTRY & BLOOD GA S ORDERABLES Final Result Performing Organization Address [facility] Co de Phone Number [facility] [address] [place] [address] documented in this encounter Visit Diagnoses Not on filedocumented in this encounter Care Teams Gravity Meter Observer Relationship Specialty Start Date End Date Suresh Hicks MD PCP - General 05/03/09 documented as of this encounter
--- OUTSIDE RECORDS SUMMARY | 2024-06-01 13:05 | XMS_ITS | Encounter Summary ---
Author Organization [facility] Address [facility] [place] [address] Care Team Providers Care Harp Regulator Name Role Phone Carmen Smith APRN Primary Care Provider [phone] Reason for Visit * Reason Comments Back Pain Encounter Details Date Type Department Care Team (Latest Contact Info) Description 10/15/2021 8:00 AM EDT Office Visit Functional Denominational Program at [facility] [address] [place] [address] Veronica Mcmillan, OT Radiculopathy of lumbar region [...] Initial Evaluation - Veronica Mcmillan OT - 10/15/2021 8:00 AM EDT GOALS AND PHYSICAL CAPACITIES ASSESSMENT Ms. Santana [facility] to assist with determining candidacy for admission into the Functional Denominational Program. Ms. Santana reports that the chief complaint requiring rehabilitation is low back pain. Anatomic diagnoses have included mild disc degeneration. Prior treatments included tylenol, aleve, physical therapy, acupuncture. Further diagnostic testing is not planned. Additional medical procedures are not planned. Activity limiting health problems include history of migraines, low blood sugar. Current work status: Currently not working Employer: [employer]. 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 Recreational: Be able to ride bicycle 30 minutes; Be able to hike on uneven terrain 1 hour carryinga 10-15lbs. Be able to be physically active with her kids such as playing sports. Be able to lift 25-30lbs. Be able to resume gardening including lifting/carrying potting soils, pellets. Daily Living: Be able to stand for 1-2hours ballistic expert including vacuuming, sweeping and mopping. Be able to lift and carry heavier groceries, laundry basket. Be able to lean over bathtub to bathe son, retrieve laundry from washer. Be able to do yardwork including raking, gardening. PHYSICAL EVALUATION Resting Vital Signs: BP 95/59 HR 66, no reported signs of dizziness Gait: normal. AROM (degrees): Lumbar Spine Forward bend (0-90) 100 Backward bend (0-30) 35 SLR Right (0-90) 65 SLR Left (0-90) 70 SLR-Pelvic Motion [smallest SLR - (flex + ext)] 20 Cervical Spine Flexion (0-60) 50 Extension (0-50) 60 Rot. Right (0-80) 80 Rot. Left (0-80) 80 Lat. Flex Right (0-45) 40 Lat. Flex Left (0-45) 40 Endurance Testing: Modified Ramp Treadmill Test Minutes Completed 3:00 % Grade 10 Speed (mph) 1.7 MET/HR 4 / 100 Reason for Stop Point: Right sided low back pain Functional Strength Testing: PILE Testing lbs/HR Floor To Waist 20 / 100 Waist to Shoulder 10 / 100 Reason for Stop Point: Low back pain During physical testing, participation level was cooperative and consistent. Demand Levels of Functional Recovery Goals Current Capacity Limit / Physical Demand Level (PDL) Vocational: Unclear Recreational: Medium Daily Living: Medium Light The PDL listed above is based on today's physical performance screening tests. More comprehensive physical testing integrated with clinical findings would be required to derive an accurate work capacity. ASSESSMENT OF FUNCTIONAL TESTING: Based on today???s physical capacity findings Charmaine Mejia Max is a candidate for a multidisciplinary intensive physical rehabilitation program with behavioral support. There are physical limitationsin gait, range of motion, walking endurance, functional strength, and overall physical capacities that interfere with basic functional tasks and hinder quality of life. I believe that this can improve with functional rehabilitation. PLAN: Pending medical clearance, Charmaine has been recommended for the upcoming Functional Denominational Program (FRP) that includes 3-4 weeks of intensive PT/OT followed by a minimum of 6 months commitment to self care exercise for improving and maintaining physical capacities. She has concerns about potential logistical barriers that may affect her ability to participate in the intensive rehab program, so should speak with [facility] social work staff prior to leaving today. She is potentially interested in the November program, and interested in completing some of the program virtually due traveling from further away. Discussed with her that worker's compensation usually pays for lodging in the area, however she does have children at home and would need to figure out childcare. She was agreeable to being here the first week and a mixture of virtual/in person throughout the rest of the program. Total time for testin minutes documented in this encounter Plan of Treatment Not on file documented as of this encounter Visit Diagnoses Diagnosis Radiculopathy of lumbar region Thoracic or lumbosacral neuritis or radiculitis, unspecified documented in this encounter Care Teams Harp Regulator Relationship Specialty Start Date End Date Carmen Smith APRN [address] [place] [address] PCP - General Family Medicine 04/10/21 documented as of this encounter
--- OUTSIDE RECORDS SUMMARY | 2024-06-01 13:05 | XMS_ITS | Encounter Summary ---
Author Organization [facility] [place] [place] [address] Care Team Providers Care Vibration Engineer Name Role Phone Carmen Smith APRN Primary Care Provider [phone] Encounter Details Date Type Department Care Team (Late st Contact Info) Description 12/19/2021 Telephone [facility] [place] [phone] Ivette Lee Social History Tobacco Use Types Packs/Day Years Used Date Smoking Tobacco: Some Days Cigarettes 1 18 Smokeless Tobacco: Never Sex and Gender Information Value Date Recorded Sex Assigned at Not on file Gender Identity Not on file Sexual Orientation Not on file documented as of this encounter Miscellaneous Notes * Telephone Encounter - Ivette Lee - 12/19/2021 12:21 PM EDT Left message for patient to call back [phone] in regards to her enrollment in the December [facility]. Stated in the message she must call back by December 23 in order to maintain enrollment in the December [facility]. documented in this encounter Plan of Treatment Not on file documented as of this encounter Visit Diagnoses Not on filedocumented in this encounter Care Teams Vibration Engineer Relationship Specialty Start Date End Date Carmen Smith APRN [address] [facility] [address] PCP - General Family Medicine 04/10/21 documented as of this encounter
--- OUTSIDE RECORDS SUMMARY | 2024-06-01 13:05 | XMS_ITS | Clinical Summary ---
Author Organization [facility] Address [facility] [place] [address] Care Team Providers Care Informatics Specialist Name Role Phone Carmen Smith APRN Primary Care Provider [phone] Allergies Active Allergy Reactions Criticality Noted Date Comments Allergen Iqi-Rsgff-Tgwaf Bee Cefazolin In Dextrose (Iso-Os) Anaphylaxis High 08/14/2014 Codeine Phosphate Nausea And Vomiting Medium Fentanyl Anaphylaxis High 08/14/2014 Gabapentin 03/23/2019 Lightheadedness; dizziness; depression Hydromorphone Low 03/23/2019 Mild dizziness and lightheadedness Lurasidone 04/07/2018 SEIZURES Morphine 04/07/2018 IRRITABLE Sulfa (Sulfonamide Antibiotics) Body shakes Venom-Wasp Niewt-Rixey-Fosuk Hornet Venom-Yellow Hornet Venom-Yellow Jacket Hymenoptera Allergenic Extract Anaphylaxis High 03/23/2019 Medications Medication Sig Dispensed Refills Start Date End Date Status methylphenidate (RITALIN) 20 mg Tablet Take 20 mg by mouth daily. Active Dexmethylphenidate 30 mg Capsule, Multiphasic Rel.50-50 Take 30 mg by mouth daily. Active hydrOXYzine (ATARAX) 10 mg Tablet Take 50 mg by mouth nightly. 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 Depression 01/06/2011 Asthma 01/06/2011 Overview (01/06/2011): uses inhaler when she has URI Immunizations Name Administration Dates Next Due Td Adult (not absorbed) 02/15/2003 Family History Medical History Relation Comments Cancer Father Asthma Maternal Aunt Asthma Maternal Uncle Cerebrovascular Accident Mother Emphysema Paternal Aunt Diabetes Paternal Grandmother Emphysema Paternal Uncle Relation Status Comments Father Maternal Aunt Maternal Uncle Mother Alive Paternal Aunt Paternal Grandmother Paternal Uncle Social History Tobacco Use Types Packs/Day Years Used Date Smoking Tobacco: Some Days Cigarettes 1 18 Smokeless Tobacco: Never Sex and Gender Information Value Date Recorded Sex Assigned at Not on file Gender Identity Not on file Sexual Orientation Not on file Last Filed Vital Signs Vital Sign Reading Time Taken Comments Blood Pressure 106/59 10/15/2021 9:22 AM EDT Pulse 64 10/15/2021 9:22 AM EDT Temperature 36.9 ??C (98.5 ??F) 09/23/2020 8:25 AM ED T Respiratory Rate 16 01/06/2019 9:58 PM EDT Oxygen Saturation 97% 10/15/2021 9:22 AM EDT Inhaled Oxygen Concentration - - Weight 59 kg (130 lb) 10/15/2021 9:22 AM EDT Height 165.1 cm (5' 5) 10/15/2021 9:22 AM EDT Body Mass Index 21.63 10/15/2021 9:22 AM EDT Plan of Treatment Health Maintenance Due Date Last Done Comments Pneumococcal Vaccine: At-Risk 5-64yrs (1 of 2 - PCV) 0 1992 Tetanus/Diphtheria/Pertussis Vaccines (2 - Tdap) 02/1602/15/2003 HIV screen 2004 Hepatitis C Screening 2004 Lipid Screening 2004 Hepatitis B vaccine (0-59 yrs) (1) 2005 HPV test 2016 PAP Smear 2016 Covid-19 Vaccine (1 - 2023-25 season) 2024 Influenza (Flu) vaccine (1 o f 1 - Influenza standard series) 02/20/2024 Care Teams Informatics Specialist Relationship Specialty Start Date End Date Carmen Smith, DREDGE MASTER [address] [place], [place] [id number] PCP - General Family Medicine 04/10/21
--- OUTSIDE RECORDS SUMMARY | 2024-06-01 13:05 | XMS_ITS | Encounter Summary ---
Author Organization [facility] [place] [address] Care Team Providers Care Package Yarns Drying Machine Operator Name Role Phone Carmen Smith APRN Primary Care Provider [phone] Encounter Details Date Type Department Care Team (Late st Contact Info) Description 12/30/2021 1:05 PM EDT Public Health Public Health at [facility] [place] [id number] Nasal congestion Social History Tobacco Use Types Packs/Day Years [...] Name Priority Date/Time Associated Diagnosis Comments COVID-19 PCR Routine 12/30/2021 11:56 AM EDT Nasal congestion documented in this encounter Results * COVID-19 PCR (12/30/2021 11:56 AM EDT) SARS-CoV-2 RNA Not Detected Not Detected [facility] Comment: This result should be interpreted in combination with the clinical observations, patient history and epidemiological information in making a final diagnosis. For testing of asymptomatic individuals, assay performance characteristics and clinical utility have not been evaluated. Testing for SARS-CoV-2 (Severe acute respiratory syndrome coronavirus 2, formerly known as 2019 novel coronavirus or 2019-nCoV) to aid in the diagnosis of COVID-19 is performed using the [employer] m SARS-CoV-2 Assay as authorized by the FDA Emergency Use Authorization (EUA). This EUA assay is intended for In-vitro Diagnostic (IVD) use with respiratory specimens such as nasopharyngeal swabs collected from individuals during the acute phase of infection. This assay is performed based on the instructions for use provided by [employer] and additional guidance provided by CDC and FDA. Testing is performed in the [facility] within the Department of Pathology and Laboratory Medicine at [facility], certified under the Clinical Laboratory Improvement Amendments of 1988 (CLIA), 42 U.S.C. 263a, to perform high complexity tests. Assay performance has been verified according to clinical laboratory regulatory requirements for use with specimens collected from individuals suspected of COVID-19. Test results are provided above. A result of Not Detected indicates that the viral RNA target is not present above the limit of detection, but does not preclude SARS-CoV-2 infection. False negative results may occur if a specimen is improperly collected, transported or handled; if amplification inhibitors are present; or if inadequate numbers of viral particles are present in the specimen. When a diagnostic test is negative, the possibility of a false negative result should be considered in the context of a patient's recent exposures and the presence of clinical signs and symptoms consistent with COVID-19. A result of Detected indicates that RNA from SARS-CoV-2 was detected and the patient is infected. As required or requested by public health authorities, positive specimens may be sent for additional testing. Positive and negative predictive values for this test are highly dependent on disease prevalence. A result of Invalid indicates that neither the viral RNA targets nor the internal control target was detected. An invalid result suggests the presence of inhibitors. Recollection and re-testing is recommended in the case of an invalid result. CDC COVID-19 criteria for testing on human specimens and clinical management guidance information are available at the CDC Coronavirus Disease 2019 (COVID-19) webpage under Information for Healthcare Professionals (https://www.cdc.gov/coronavirus/2019-ncov/hcp/index.html) Additional information about this and other EUA tests can be found in provider and patient fact sheets at the following FDA website: https://www.fda.gov/medical-devices/ltxljfirvpw-piaatzq-7757-ozpuw-91-bkmvwopca- use-a xexkatinmzaxc-qdrkwrg-nvuniwf/nmtdi-hfspdxwjghy-nmad SARS-CoV-2 RNA Source COMMODITY MANAGER Swab [facility] Nasopharyngeal Swab 12/31/19 11:56 AM EDT 12/30/2021 11:56 AM EDT Comment:Symptoms->Fever / Re spiratory Symptoms Narrative Resulting Agency Comment Spec In Lab Nam Fairbanks MD MOLECULAR ORDERABLES [facility] [place] [address] documented in this encounter Visit Diagnoses Diagnosis Nasal congestion Other diseases of nasal cavity and sinuses documented in this encounter Care Teams Package Yarns Drying Machine Operator Relationship Specialty Start Date End Date Carmen Smith, MACHINE BUFFER [address] [facility] [address] PCP - General Family Medicine 04/10/21 documented as of this encounter
--- OUTSIDE RECORDS SUMMARY | 2024-06-01 13:05 | XMS_ITS | Encounter Summary ---
Author Organization [facility] Address [address] [place] [address] Care Team Providers Care Chick Grader Name Role Phone Suresh Hicks MD Primary Care Provider Unavailabl e Encounter Details Date Type Department Care Team (Latest Contact Info) Description 12/17/2014 15:12 EDT - 12/17/2014 23:59 EDT Hospital Encounter [address] [address] Unknown, Provider, Discharge Disposition: Home or Self Care Social History Tobacco Use Types Packs/Day Years Used Date Smoking Tobacco: Never Assessed Comments Unknown Sex and Gender Information Value Date Recorded Sex Assigned at Not on file Legal Sex Female 18:35 EST Gender Identity Not on file Sexual Orientation Not on file documented as of this encounter Discharge Disposition Disposition Code Departure Means Destination Home or Self Half-Way documented in this encounter Plan of Treatment Not on file documented as of this encounter Visit Diagnoses Not on filedocumented in this encounter Care Teams Chick Grader Relationship Specialty Start Date End Date Suresh Hicks MD PCP - General 05/03/09 documented as of this encounter
--- OUTSIDE RECORDS SUMMARY | 2024-06-01 13:05 | XMS_ITS | Encounter Summary ---
Author Organization [facility] Address [address] [place] [address] Care Team Providers Care Balance Bridge Inspector Name Role Phone Suresh Hicks MD Primary Care Provider Unavailabl e Encounter Details Date Type Department Care Team (Late st Contact Info) Description 12/05/2019 Lab Requisition [facility] Pathology & Laboratory Medicine - [facility] [address] [place] [address] Outr Resulting Lab, Provider Social History Tobacco [...] Priority Date/Time Associated Diagnosis Comments ZZCOVID-19 TEST [facility] PCR Today 12/05/2019 14:24 EDT COVID-19 TESTING Routine 12/05/2019 14:2 4 EDT documented in this encounter Results * COVID-19 TEST [facility] PCR (12/05/2019 14:24 EDT) Swab ENTIRE NASOPHARYNX / Unknown 12/05/2019 14:24 EDT 12/05/2019 20:27 EDT us Provider Outr Resulting Lab MICROBIOLOGY - GENER AL ORDERABLES Final Result [facility] [address] [place] [address] * COVID-19 TESTING (12/05/2019 14:24 EDT) COVID-19 rt-PCR Result Negative Negative 12/06/2019 4:00 EDT [facility] Comment: This test has [...] clinical observations, patient history, and epidemiological information. Performed on the [employer] Fusion instrument Performing Lab [place] [employer] [facility] 12/06/2019 4:00 EDT [facility] Swab 12/05/2019 14:2 4 EDT 12/05/2019 20:27 EDT us Provider Outr Resulting Lab MICROBIOLOGY - GENER AL ORDERABLES Final Result [facility] [address] [place] [address] documented in this encounter Visit Diagnoses Not on filedocumented in this encounter Care Teams Balance Bridge Inspector Relationship Specialty Start Date End Date Suresh Hicks MD PCP - General 05/03/09 documented as of this encounter
--- OUTSIDE RECORDS SUMMARY | 2024-06-01 13:05 | XMS_ITS | Encounter Summary ---
Author Organization [facility] [place] [address] Care Team Providers Care Doctor Of Dental Medicine Name Role Phone Carmen Smith APRN Primary Care Provider [phone] Reason for Visit * Reason Onset Date Comments Triage 12/30/2021 Covid testing Encounter Details Date Type Department Care Team (Late st Contact Info) Description 12/30/2021 [place] [phone] Olga Wells, contractor buyer (Covid testing) Social History Tobacco Use Types Packs/Day Years Used Date Smoking Tobacco: Some Days Cigarettes 1 18 Smokeless Tobacco: Never Sex and Gender Information Value Date Recorded Sex Assigned at Not on file Gender Identity Not on file Sexual Orientation Not on file documented as of this encounter Miscellaneous Notes * Telephone Encounter - Olga Wells RN - 12/30/2021 9:47 AM EDT High Threat Infection Intake Questions Nurse Triage Assessment Review of Pertinent Systems & Pertinent positive/negative findings (e.g. Skin, Neurological, Respiratory, Cardiac, GI, , and Musculoskeletal): Lung disease Chief Complaint: congestion and cough When did your symptoms start? 12/26/21 Are symptoms within 48 hours of receiving Covid 19 Vaccine? No If yes, the following symptoms would be considered a side effect: Fatigue, Headache, Sore injection site, Chills, Muscle pain, Joint pain, Fever. Do not test for Covid 19 unless symptoms persist past 48 hours. People with any of these acute symptoms may have COVID-19: Detail of symptoms: Cough: Prod cough at times- clear to brown, PND cough Shortness of Breath: denies, hard to breathe out of nose at night Fever:denies, c/o chills New Loss of Taste or Smell: denies Check all that apply: [] Fatigue [] Muscle or Body Aches [x] Headache [] Sore Throat [x] Congestion or runny nose [] Nausea or vomiting [] Diarrhea Pediatrics: [] Retractions/belly breathing [] Skin/Lip color changes [] Wheezing [] Stridor [] Eating/Drinking normally [] Voiding normally Additional details: ear pressure Is patient a employee or household member of employee: NO If yes, please state self for employee or name of employee living with HH member: Have you been in contact with anyone suspected or confirmed to have COVID-19 in the past 14 days? No Plan/Disposition: If ordering test, ordering PCP: Nam Fairbanks Date, time and location of test: [facility], 12/30/21 @ 1:05 If sending for testing ask the following: Have you been diagnosed with Covid 19 in the past 90 days? No Are you fully vaccinated for Covid 19? 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 Patient/Responsible democrat voices an understanding of advice: yes Patient/Responsible democrat intends to comply with actions/disposition: yes TESTING CRITERIA: Asymptomatic patients: Criteria for testing- member of or healthcare worker at a fci/nursing home, assisted facility or skilled nursing care facility (LTCF), and all first responders. Pre procedural patients requiring admission or determined high risk by provider. * patient/ employee returning to college/boarding school, or returning to work requirement. Exposure as determined by [facility], School, or Occupational Medicine at . Symptomatic Patients: People with COVID-19 have had a wide range of symptoms reported - ranging from mild symptoms to severe illness. Symptoms may appear 2-14 days after exposure to the virus. Consider testing if these symptoms cannot otherwise be explained. All Patients - If YES to exposure and NO to symptoms - Proceed with Quarantine Instructions. [facility], School, or Occupational Medicine may request testing. If NO to symptoms/exposure - Proceed with Nurse Triage - Proceed with appropriate instructions based on Triage protocol If YES to symptoms - Proceed with testing protocol - Proceed with Isolation instructions Name of Triage Guideline/Protocol used: Utilized High Threat Infection Screening for Covid 19 Hotline as directed by incident command and infectious disease based on CDC guidelines, [place] Department of Health and Human Services, and [facility] policy. Important instructions for patient when scheduling for testing: -No dogs allowed in car unless in kennel or behind gated section, due to risk to the clinical staff. -Follow quarantine/isolation instructions (pamphlets available to hand out at testing location Education/Instructions: Isolation Instructions: 1. Stay home from work, school, and away from other public places. If you must go out, avoid using any kind of public transportation, ridesharing, or taxis. 2. Monitor your symptoms carefully. If your symptoms get worse, call your healthcare provider immediately. 3. Get rest and stay hydrated. 4. If you have a medical appointment, call the healthcare provider ahead of time and tell them thatyou have or may have COVID-19. 5. For medical emergencies, call 911 and notify the dispatch personnel that you have or may have COVID-19. 6. Cover your cough and sneezes. 7. Wash your hands often with soap and water for at least 20 seconds or clean your hands with an alcohol-based hand truss maker that contains at least 60% alcohol. 8. As much as possible, stay in a specific room and away from other people in your home. Also, you should use a separate bathroom, if available. If you need to be around other people in or outside ofthe home, wear a facemask. 9. Avoid sharing personal items with other people in your household, like dishes, towels, and bedding 10. Clean all surfaces that are touched often, like counters, tabletops, and doorknobs. Use household cleaning sprays or wipes according to the label instructions. 11. You can use acetaminophen or ibuprofen as directed for fever. Emergency Warning Signs: If you develop emergency warning signs for COVID-19 get medical attention immediately. Emergency warning signs include: ??? Difficulty breathing or shortness of breath ??? Persistent pain or pressure in the chest ??? New confusion or inability to arouse ??? Bluish lips or face This list is not all inclusive. Please consult your medical provider for any other symptoms that are severe or concerning. Helpful definitions Close contact is described as: Being within approximately 6 feet (2 meters) of a COVID-19 case for a prolonged period of time; close contact can occur while caring for, living with, visiting, or sharing healthcare waiting area or room with a COVID-19 case. OR Having direct Contact with infectious secretions of a COVID-19 case (e.g., being coughed on) Fever Definition: 100.0 F or higher Additional information: ??? Recommend CDC website for helpful information on self-care and quarantine at home o https://www.cdc.gov/ and choose more information on Covid-19 *May test at [place] only. documented in this encounter Plan of Treatment Not on file documented as of this encounter Visit Diagnoses Not on filedocumented in this encounter Care Teams Doctor Of Dental Medicine Relationship Specialty Start Date End Date Carmen Smith, ELIZABETH [address] [place] [address] PCP - General Family Medicine 04/10/21 documented as of this encounter
--- OUTSIDE RECORDS SUMMARY | 2024-06-01 13:06 | XMS_ITS | Encounter Summary ---
Author Organization [facility] [place] [address] Care Team Providers Care Document Management Specialist Name Role Phone Ze Edwards MD Primary Care Provider [phone] Encounter Details Date Type Department Care Team (Late st Contact Info) Description 09/25/2020 Telephone [facility] [place] [phone] Lilibeth Butcher RN Social History Tobacco Use Types Packs/Day Years Used Date Smoking Tobacco: Some Days Cigarettes 1 18 Smokeless Tobacco: Never Comments:Apack will last 4 d ays Comments Yes Sex and Gender Information Value Date Recorded Sex Assigned at Not on file Gender Identity Not on file Sexual Orientation Not on file documented as of this encounter Miscellaneous Notes * Telephone Encounter - Lilibeth Butcher, RN - 09/25/2020 9:15 AM EDT Incoming call to triage from Tami stating that she is having much more pain and is wondering if she can get something called in for Pain. Tami said the aleve 800mgs every 6 hours isn't relieving her pain. I told her that I would forward her message to Deja Aldridge APRN and we will get back to her. Please advise. Tami said she has an MRI ordered for 10/22/20. documented in this encounter Plan of Treatment Not on file documented as of this encounter Visit Diagnoses Not on filedocumented in this encounter Care Teams Document Management Specialist Relationship Specialty Start Date End Date Ze Edwards MD PCP - General General Internal Medicine 02/03/1802/21 documented as of this encounter
--- OUTSIDE RECORDS SUMMARY | 2024-06-01 13:06 | XMS_ITS | Encounter Summary ---
Author Organization [facility] [place] [address] Care Team Providers Care Nail Galvanizer Name Role Phone Suresh Hicks MD Primary Care Provider [phone] Encounter Details Date Type Department Care Team (Latest Contact Info) Description 10/19/2017 - 10/19/2017 11:59 PM EDT Hospital Encounter Radiology Library at [facility] [place] [phone] Ze Edwards MD [address] [place] [address] Discharge Disposition: Home Social History Tobacco Use Types Packs/Day Years Used Date Smoking Tobacco: Every Day Cigarettes Comments Yes Sex and Gender Information Value Date Recorded Sex Assigned at Not on file Gender Identity Not on file Sexual Orientation Not on file documented as of this encounter Medications at Time of Discharge Medication Sig Dispensed Refills Start Date End Date methylphenidate (RITALIN) 20 mg Tablet Take 20 mg by mouth daily. lurasidone (LATUDA) 20 mg Tablet Take 20 mg by mouth daily. 04/07/2018 melatonin 3 mg Tablet Take 9 mg by mouth. 04/07/2018 aspirin 81 mg Tablet, Chewable Take 81 mg by mouth daily. 04/07/2018 FLINTSTONES MULTIVITAMIN ORAL Take by mouth. 04/07/2018 documented as of this encounter Plan of Treatment Not on file documented as of this encounter Procedures Procedure Name Priority Date/Time Associated Diagnosis Comments FILM LIBRARY STORAGE ONLY DX CHEST Routine 10/19/2017 12:00 AM EDT documented in this encounter Results * Film Library- Storage Only DX Chest (10/19/2017 12:00 AM EDT) Narrative MATTIE RAD - 02/03/2018 6:38 PM EDT This exam is for storage only and is auto-finalizing. Ze Edwards MD IMG FILM LIBRARY ORD ERABLES [place], [place] documented in this encounter Visit Diagnoses Not on filedocumented in this encounter Care Teams Nail Galvanizer Relationship Specialty Start Date End Date Suresh Hicks MD [address] [place] [address] PCP - General 05/13/10 02/02/18 documented as of this encounter
--- OUTSIDE RECORDS SUMMARY | 2024-06-01 13:06 | XMS_ITS | Encounter Summary ---
Author Organization [facility] Address [facility] [place] [address] Care Team Providers Care Sales Vendor Name Role Phone Ze Edwards MD Primary Care Provider [phone] Reason for Visit * Consultation (Routine) - Closed Specialty Diagnoses / Procedures Referred By Bakari fortune Referred To Contact Pulmonology Diagnoses Pulmonary emphysema; Lpqva-5-lyudguwybpb deficience Ze Edwards MD [address] [place] [address] [id number] [facility] [address] [place] [phone] Referral ID Status Reason Start Date Expiration Date V isits Requested Visits Authorized [id number] Closed Consult, Test & Treat Connection Center 02/03/2018 02/03/2019 1 1 Encounter Details Date Type Department Care Team (Late st Contact Info) Description 04/07/2018 11:30 AM EDT Office [place] [address] Michael Riddle MD [facility] [place] [address] Trisha Heath RT Cigarette smoker; Panlobular emphysema; Uhxyu-4-tzadkedunpi deficiency Social History Tobacco Use Types Packs/Day Years Used Date Smoking Tobacco: Every Day Cigarettes 1 18 Smokeless Tobacco: Never Comments:also smokes mariuan a, consumes and vapes everyday all day Comments Yes Sex and Gender Information Value Date Recorded Sex Assigned at Not on file Gender Identity Not on file Sexual Orientation Not on file documented as of this encounter Last Filed Vital Signs Vital Sign Reading Time Taken Comments Blood Pressure 114/55 04/07/2018 11:05 AM EDT Pulse 64 04/07/2018 11:05 AM EDT Temperature 36.2 ??C (97.2 ??F) 04/07/2018 11:05 AM E DT Respiratory Rate - - Oxygen Saturation 100% 04/07/2018 11:05 AM EDT Inhaled Oxygen Concentration - - Weight 57.6 kg (127 lb) 04/07/2018 11:05 AM EDT Height 165.2 cm (5' 5.04) 04/07/2018 11:05 AM E DT Body Mass Index 21.11 04/07/2018 11:05 AM EDT documented in this encounter Progress Notes * Rosanne Espinoza RN - 04/07/2018 11:30 AM EDT 1. Medications: 2. Exacerbation prevention: 3. Sick plan: 4. Sleep evaluation: 5. Advanced directives: wants info 6. Smoking cessation: ready to quit gave resources 7. Pulmonary rehabilitation: 8. Oxygen 9. ImmunizationsDoes not want flu shot, 10. Lung cancer screening 11. LVRS / Transplant 12. Palliative care 13. A1AT Testing 14. Other- * Michael Riddle MD - 04/07/2018 11:30 AM EDT Images from the original note were not included. [facility] Section of Pulmonary Medicine COPD Clinic Consultation Date of Encounter: 04/07/2018 Referring Provider: Ze Edwards Md [address] [place] [address] PCP: Ze Edwards MD [address] [place] [address] Reason for Consult: I was asked to evaluate this patient for COPD management and review of alpha-1 antitrypsin deficiency. I have personally interviewed and examined the patient. I have independentlyviewed her radiographic studies, pulmonary function testing and laboratory data. HPI: I saw Charmaine Santana in the COPD clinic today. She attends today with her fianc?? who is the father of her youngest child, son age 3. She also has an older daughter aged 8. Their alpha-1 antitrypsin status remains unknown. Patient is complained of intermittent dyspnea over the last few years. 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 A couple of times she is been to the emergency room for sudden onset dyspnea and wheezing that improves with nebulized albuterol and a short course of prednisone. She had a CT scan of her abdomen for abdominal pain and I believe this revealed some emphysema at the lung bases. She is apparently gone on to have a CT scan of the chest which shows emphysema but I do not have reports or those images at this time. Her primary care practitioner then checked an alpha-1 antitrypsin level and found this was low. Referral was placed to clinical genetics and pulmonary. Patient saw clinical genetics last week and an SZ genotype and a low level which is above the current threshold for replacement therapy were found. On a good day patient has no dyspnea or wheeze on exertion. She uses albuterol MDI very occasionally with symptomatic benefit. She has no cough sputum or chest pain at this time. She has no abdominalswelling, no jaundice and is noticed no swelling of the ankles. There is no easy bruising or bleeding. Used to drink heavily but now has 1-2 beers a week currently. Symptom Scoring: CAT Responses 04/07/2018 Cough 3 Phleg/Mucus in chest 3 Tightness in chest 0 Breathlessness 5 Limited doing activities 2 Confident leaving home 0 Sleep 0 Lots of energy 4 CAT Scores 17 (Medium) Review of Systems: Intermittent abdominal pain is resolved. Review of systems otherwise negative Past Medical History: Past Medical History: Diagnosis Date ??? ADD (attention deficit disorder) ??? Allergic state ??? Asthma ??? Lung disease alpha 1 antitripsin deficiency ??? Pneumonia hospitalized years ago, about 5 times ??? Seizures once due to med reaction Past Surgical History: Past Surgical History: Procedure Laterality Date ??? SECTION ??? DILATION AND CURETTAGE OF UTERUS Multiple miscarriages ??? LAPAROSCOPIC APPENDECTOMY ??? TONSILLECTOMY ??? TUBAL LIGATION Medications: Current Outpatient Medications Medication Sig Dispense Refill ??? Dexmethylphenidate 30 mg Capsule, Multiphasic Rel.50-50 Take 30 mg by mouth daily. ??? metoprolol succinate (TOPROL-XL) 25 mg Tablet Sustained Release 24 hr Take 25 mg by mouth daily. ??? LORazepam (ATIVAN) 0.5 mg Tablet Take 0.5 mg by mouth nightly. ??? albuterol 90 mcg/actuation HFA Aerosol Inhaler Inhale 2 puffs into the lungs every 4 hours as needed for Wheezing. Use with spacer ??? methylphenidate (RITALIN) 20 mg Tablet Take 20 mg by mouth daily. No current facility-administered medications for this visit. Allergies: Ancef [cefazolin in dextrose (iso-os)]; Fentanyl; Allergen wvb-accxo-zunrq bee; Codeine phosphate; Latuda [lurasidone]; Morphine; Sulfa (sulfonamide antibiotics); Venom-wasp; Uhsvj-kpnnw-pggey hornet; Venom-yellow hornet; and Venom-yellow jacket Social History: Social History Socioeconomic History ??? Marital status: Spouse name: Not on file ??? Number of children: Not on file ??? Years of education: Not on file ??? Highest education level: Not on file Social Needs ??? Financial resource strain: Not on file ??? Food insecurity - worry: Not on file ??? Food insecurity - inability: Not on file ??? Transportation needs - medical: Not on file ??? Transportation needs - non-medical: Not on file Occupational History ??? Not on file Tobacco Use ??? Smoking status: Current Every Day Smoker Packs/day: 0.50 ??? Smokeless tobacco: Never Used Substance and Sexual Activity ??? Alcohol use: Not on file ??? Drug use: Not on file ??? Sexual activity: Not on file Other Topics Concern ??? Not on file Social History Narrative Charmaine lives with her fiance and her two children. 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 Family History: Family History Problem Relation Age of Onset ??? Cerebrovascular Accident Mother ??? Cancer Father ??? Asthma Maternal Aunt ??? Asthma Maternal Uncle ??? Emphysema Paternal Aunt ??? Emphysema Paternal Uncle ??? Diabetes Paternal Grandmother Immunizations: Immunization History Administered Date(s) Administered ??? Td, adult 02/15/2003 Examination: BP 114/55 Pulse 64 Temp 36.2 ??C (97.2 ??F) (Oral) Ht 165.2 cm (5' 5.04) Wt 57.6 kg (127 lb) SpO2 100% BMI 21.11 kg/m?? General: Comfortable at rest HEENT: No cervical lymphadenopathy, no oral thrush Mallampati 2 Resp: Hyperinflated, chest expansion equal Resonant to percussion with vesicular breath sounds throughout No crackles or wheeze CV: S1 + S2 + O GI: Abdomen soft and non-tender, no organomegaly Skin: No rash Extremities: No clubbing, no cyanosis, no edema, calves soft and non tender Neurologic: No obvious cranial nerve palsy or limb weakness, normal gait Psych: Normal mood and affect Labs: A1AT testing March 2018: genotype SZ, level 67 and 65 Imaging: Available CXR images were viewed personally and reports were reviewed. I agree with the radiology reads. Pulmonary Function Tests: FVC 4.46L (114%) FEV1 3.30 (101%) Ratio 0.74 DLCO 96% predicted Assessment: Charmaine Santana has alpha-1 antitrypsin deficiency with the SZ genotype and a serum alpha-1 antitrypsin level that is low (65 mg/dL) but does not meet the agreed upon threshold for replacement therapy administration (57 mg/dL). Chest x-ray shows hyperinflation and I strongly suspect she has significant emphysema although I do not yet have access to her CT scan to confirm that. The good news is that she has pulmonary function testing which is in the normal range. Her prebronchodilator FEV1 over FVC ratio is slightly low but this normalizes after the use of bronchodilators and all other pulmonary function test variables are normal. She has no exertional desaturation and she has no objective evidence of liver disease. Spent most of the visit discussing alpha-1 antitrypsin deficiency. I actually think her long-term prognosis is good if she is able to stop smoking. Charmaine Santana is worried about testing her children for alpha-1 antitrypsin deficiency. She is contacted their inspecting machine adjuster and requested testing but they were apparently on willing to do this. They said that it was not necessary. I do not agree with that and will ask our clinical crawler dragline operator if they can help patient with this problem. We had a lengthy discussion about the importance of complete smoking cessation. I recommended complete cessation from combustible tobacco, E cigarettes and marijuana. I think edible marijuana carriesa low risk of pulmonary damage. Greater than 5 minutes was spent in discussing this. He does had success with nicotine replacement therapy (patches) previously but she finds the only brand of patch that will stick to her skin is NicoDerm CQ. I sent a prescription for this to her pharmacy today and I am happy to complete a prior authorization if needed. Plan: ?? Use albuterol 2 puffs prior to activity ?? Please smoking cessation as above ?? Pulmonary function tests in one years time. ?? No indication for alpha-1 antitrypsin replacement therapy at this time ?? I have recommended minimal alcohol consumption ?? PCP please examine patient on an annual basis for clinical signs of liver disease and repeat liver function tests ?? I think patient's children probably should be tested for alpha-1 antitrypsin deficiency and if aclinical crawler dragline operator agree we can contact Dr Smith, Dr Dada Diaz: [facility] on patients behalf Follow up: 12 months with repeat PFTs Thank you for referring this patient to the COPD clinic. Michael Riddle MD documented in this encounter Plan of Treatment Not on file documented as of this encounter Visit Diagnoses Diagnosis Cigarette smoker Tobacco use disorder Panlobular emphysema Other emphysema Sdqzr-6-tocduexsyjb deficiency documented in this encounter Care Teams Sales Vendor Relationship Specialty Start Date End Date Ze Edwards MD PCP - General General Internal Medicine 02/03/18 documented as of this encounter
--- OUTSIDE RECORDS SUMMARY | 2024-06-01 13:06 | XMS_ITS | Encounter Summary ---
Author Organization [facility] [place] [address] Care Team Providers Care Currency Exchange Specialist Name Role Phone Ze Edwards MD Primary Care Provider [phone] Encounter Details Date Type Department Care Team (Late st Contact Info) Description 02/14/2018 Orders Only [place] [address] Michael Riddle MD [facility] [place] [address] Chronic obstructive pulmonary disease, unspecified COPD type Social History Tobacco Use Types Packs/Day Years Used Date Smoking Tobacco: Every Day Cigarettes Comments Yes Sex and Gender Information Value Date Recorded Sex Assigned at Not on file Gender Identity Not on file Sexual Orientation Not on file documented as of this encounter Plan of Treatment Not on file documented as of this encounter Results * Pulmonary Function Testing (04/07/2018 11:59 PM EDT) Narrative Mera Jonas MD - 04/07/2018 11:59 PM EDT Mera Jonas MD ? 04/10/2018 ??2:18 PM Pulmonary Function Test Interpretation Spirometry The FVC is normal. ??FEV1 is normal. ??The FEV1/FVC ratio is Mildly reduced. Diffusion Capacity Unadjusted single-breath diffusion capacity for CO is normal. Oximetry Resting oxyhemoglobin saturation is normal. Resting oximetry was assessed while the patient was breathing room air. Ambulatory oximetry is normal on room air Impression: Mild obstructive ventilatory deficit on spirometry Negative bronchodilator challenge without reversibility demonstrated No diffusion impairment present Normal resting oximetry Normal ambulatory oximetry Patient meets criteria on peak inspiratory flow rate for all inhaler type administration Mera Jonas MD Michael Riddle MD PFT ORDERABLES documented in this encounter Visit Diagnoses Diagnosis Chronic obstructive pulmonary disease, unspecified COPD type Chronic obstructive pulmonary disease, unspecified COPD type documented in this encounter Care Teams Currency Exchange Specialist Relationship Specialty Start Date End Date Ze Edwards MD PCP - General General Internal Medicine 02/03/18 9/ documented as of this encounter
--- OUTSIDE RECORDS SUMMARY | 2024-06-01 13:06 | XMS_ITS | Encounter Summary ---
[place] [address] Care Team Providers Care Correspondence Clerk Name Role Phone Ze Edwards MD Primary Care Provider [phone] Encounter Details Date Type Department Care Team (Late st Contact Info) Description 03/23/2019 Abstract Cardiology at [address] [address] Faith Keller, RN Social History Tobacco Use Types Packs/Day [...] on filedocumented in this encounter Care Teams Correspondence Clerk Relationship Specialty Start Date End Date Ze Edwards MD PCP - General General Internal Medicine 02/03/18 9/ documented as of this encounter
--- OUTSIDE RECORDS SUMMARY | 2024-06-01 13:06 | XMS_ITS | Encounter Summary ---
Author Organization [facility] [place] [address] Care Team Providers Care Managed Services Consultant Name Role Phone Luis Carmen ELIZABETH Primary Care Provider [phone] Reason for Visit * Diagnostic Test (Routine) - Closed Specialty Diagnoses / Procedures Referred By Contac t Referred To Contact Radiology Diagnoses Radiculopathy of lumbar region Closed fracture of transverse process of lumbar vertebra, sequela Procedures MRI Lumbar Spine wo Contrast (Generic) Deja Aldridge APRN [facility] [address] [facility] [place] [address] Referral ID Status Reason Start Date Expiration Date V isits Requested Visits Authorized [id number] Closed Specialty Service Requested 12/24/2020 06/26/2022 1 1 Encounter Details Date Type Department Care Team (Latest Contact Info) Description 04/23/2021 12:23 PM EDT - 04/23/2021 12:24 PM EDT Hospital [place] [address] Deja Aldridge APRN [facility] [address] Discharge Disposition: Home Social History Tobacco Use Types Packs/Day Years Used Date Smoking Tobacco: Some Days Cigarettes 1 18 Smokeless Tobacco: Never Sex and Gender Information Value Date Recorded Sex Assigned at Not on file Gender Identity Not on file Sexual Orientation Not on file documented as of this encounter Medications at Time of Discharge Medication Sig Dispensed Refills Start Date End Date hydrOXYzine (ATARAX) 10 mg Tablet Take 50 mg by mouth nightly. For sleep Dexmethylphenidate 30 mg Capsule, Multiphasic Rel.50-50 Take 30 mg by mouth daily. methylphenidate (RITALIN) 20 mg Tablet Take 20 mg by mouth daily. Mometasone-Formoterol (Dulera MDI) 200-5 mcg/actuation HFA Aerosol Inhaler daily as needed. 06/03/2021 fluticasone furoate-vilanteroL 200-25 mcg/dose Disk with Device Daily. nicotine (NICODERM CQ) 14 mg/24 hr Patch [address] sm[address] 1 patch onto the skin every 28 days. 28 patch 04/07/2018 06/03/2021 documented as of this encounter Progress Notes * Devika Jeffers RN - 04/23/2021 1:33 PM EDT MRI PRE-SEDATION ASSESSMENT NOTE NAME: Charmaine Santana AGE: 35 y.o. : 1985 [address] [facility] [address] Female [phone] (home) Telephone Information: Carmen Smith APRN None Allergies Allergen Reactions ??? Ancef [Cefazolin In Dextrose (Iso-Os)] Anaphylaxis ??? Fentanyl Anaphylaxis ??? Venomil Honey Bee Venom [Hymenoptera Allergenic Extract] Anaphylaxis ??? Codeine Phosphate Nausea And Vomiting ??? Allergen Aar-Nkmoh-Okoxn Bee ??? Gabapentin Lightheadedness; dizziness; depression ??? Latuda [Lurasidone] SEIZURES ??? Morphine IRRITABLE ??? Sulfa (Sulfonamide Antibiotics) Body shakes ??? Venom-Wasp ??? Tggwg-Lglmu-Eikxj Hornet ??? Venom-Yellow Hornet ??? Venom-Yellow Jacket ??? Hydromorphone Mild dizziness and lightheadedness Date/Time of call: April 18, 2021/9:35 AM/ PREVIOUS MRI SCAN? Yes HEIGHT: WEIGHT: SCHEDULED SCAN: MRI LUMBAR SPINE WITHOUT CONTRAST [[id number]] SUBJECTIVE: Claustrophobia CAN YOU LAY FLAT? Yes AIRWAY/BREATHING ISSUES? No DO YOU HAVE ANY INVOLUNTARY MOVEMENTS? No DO YOU HAVE ANY PAIN? No DO YOU TAKE PAIN MED ON A DAILY BASIS? No ASSESSMENT: Okay to PO sedate PLAN: Valium 5-10 mg PO ( JAM ) You must have a electric mule driver present when you check in. This patient has been informed that they require a electric mule driver to drive them home after this procedure. In the absence of a electric mule driver, IR will not be able to sedate for your scan. Pt verbalized understanding of these instructions during the pre-procedure education via phone. Yes Name of electric mule driver: Phone number: PRIOR SCAN DATE/S SEDATION TYPE SUCCESSFUL 10/22/20 MRI L Spine Valium 5 mg po Yes 03/03/21 MRI L Spine Cancelled; To reschedule Pt has a continuous glucose monitor she couldn't remove and didn't have another one. 04/23/21 MRI L-Spine wo Valium 5 mg PO, declined second pill Yes ? Revised 11/16/17 documented in this encounter Plan of Treatment Not on file documented as of this encounter Procedures Procedure Name Priority Date/Time Associated Diagnosis Comments MRI LUMBAR SPINE WITHOUT CONTRAST Routine 04/23/2021 4:24 PM EDT Radiculopathy of lumbar region Closed fracture of transverse process of lumbar vertebra, sequela documented in this encounter Visit Diagnoses Not on filedocumented in this encounter Administered Medications Inactive Administered Medications - up to 3 most recent administrations Medication Order MAR Action Action Date Dose Rate Site diazePAM (Valium) tablet 5 mg 5 mg, Oral, EVERY 30 MIN PRN, 2 doses, Starting on Wed04/23/21 at 1015, Until Trinity 04/24/21 at 0433, Anxiety, Routine Given 04/23/2021 12:48 PM EDT 5 mg documented in this encounter Care Teams Managed Services Consultant Relationship Specialty Start Date End Date Carmen Smith, ELIZABETH [address] [place] [address] PCP - General Family Medicine 04/10/21 documented as of this encounter
--- OUTSIDE RECORDS SUMMARY | 2024-06-01 13:06 | XMS_ITS | Encounter Summary ---
Author Organization [facility] [place] [address] Care Team Providers Care Enterprise Resource Planning Consultant Name Role Phone Luis Carmen ELIZABETH Primary Care Provider [phone] Reason for Referral * Occupational Therapy (Routine) - Closed Specialty Diagnoses / Procedures Referred By Contac t Referred To Contact [facility] Diagnoses Sacral back pain Radiculopathy of lumbar region WRAP Deja Aldridge APRN [facility] [place] [address] [facility] [place] [address] Referral ID Status Reason Start Date Expiration Date V isits Requested Visits Authorized [id number] Closed Evaluate and Treat 06/03/2021 06/03/2022 12 12 Reason for Visit * Reason Comments Follow-up Encounter Details Date Type Department Care Team (Latest Contact Info) Description 06/03/2021 9:00 AM EST TH Visit (TeleHealth) [place] [address] Deja Aldridge APRN [facility] [place] [address] Sacral back pain; Radiculopathy of lumbar region Social History Tobacco Use Types Packs/Day Years Used Date Smoking Tobacco: Some Days Cigarettes 1 18 Smokeless Tobacco: Never Sex and Gender Information Value Date Recorded Sex Assigned at Not on file Gender Identity Not on file Sexual Orientation Not on file documented as of this encounter Last Filed Vital Signs Vital Sign Reading Time Taken Comments Blood Pressure - - Pulse - - Temperature - - Respiratory Rate - - Oxygen Saturation - - Inhaled Oxygen Concentration - - Weight 59 kg (130 lb) 06/02/2021 1:51 PM EST Height 165.1 cm (5' 5) 06/02/2021 1:51 PM EST Body Mass Index 21.63 06/02/2021 1:51 PM EST documented in this encounter Progress Notes * Deja Aldridge, GENERAL FOREMAN - 06/03/2021 9:00 AM EST [facility] [place] [address] Phone: PAIN MANAGEMENT TELEPHONE VISIT FOLLOW UP VISIT NOTE DATE OF VISIT 06/03/21 Patient Charmaine Santana 1985 REFERRING PROVIDER Norberto Nuñez MD [address] [place] [address] PRIMARY CARE PROVIDER Carmen Smith APRN Date of Injury: 03/29/2020 [X] Consent: I introduced and identified myself, received verbal consent from the patient to proceed with this telephone visit and made the patient aware that the same confidentiality and informationsecurity practices apply. [X] I verified the patient's name and, date of , and as well as payer information ID if available. [X] I also verified the following: Patient Location: ( ) Work Home (X) Provider Location: ( X) Clinic ( ) Home ( ) Other: The patient understands not all conditions can be adequately evaluated and treated through a virtual visit and may require an in-person medical evaluation. The patient understands that there may be co-pay /cost for the visit. REASON FOR VISIT: Charmaine Santana is a 35 y.o. female with work related lower back and leg pain s/p L1-4 transverse process fractures due to a work related injury. She attempted to return to work several months ago but was unable due to the severity of her pain. Had a flare of pain in lower lumbar area extending down posterior legs to the knee intermittently. The radiating pain has resolved. Pain score 3/10 Function Has been trying to increase activity level. 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 She was taken to hospital where it was found that she had L1-L4 transverse process fractures. The pain is in her lower back and radiates down her legs anteriorly to the dorsum of the foot on the right and occasionally on the left. The leg pain and numbness is not constant but occurs with many activities and has been affecting her ability to function in her ADLs. REVIEW OF SYSTEMS: Denies new leg weakness/numbness, balance issues. No change in bowel/bladder function, saddle anesthesia. Past medical, social and family history is unchanged from her last visit MEDICATIONS Medications 06/02/21 1356 Medication Sig Taking? hydrOXYzine (ATARAX) 10 mg Tablet Take 50 mg by mouth nightly. Yes Dexmethylphenidate 30 mg Capsule, Multiphasic Rel.50-50 Take 30 mg by mouth daily. Yes methylphenidate (RITALIN) 20 mg Tablet Take 20 mg by mouth daily. Yes pantoprazole EC (Protonix) 40 mg Tablet, Delayed Release (E.C.) Take 1 tablet by mouth daily. Patient not taking: Reported on 06/02/2021 Mometasone-Formoterol (Dulera MDI) 200-5 mcg/actuation HFA Aerosol Inhaler daily as needed. fluticasone furoate-vilanteroL 200-25 mcg/dose Disk with Device Daily. nicotine (NICODERM CQ) 14 mg/[address] 1 patch onto the skin every 28 days. Patient not taking: Reported on 02/28/2021 ADVERSE DRUG REACTIONS Allergies as of 06/03/2021 - Review Complete 06/02/2021 Allergen Reaction Noted ??? Ancef [cefazolin in dextrose (iso-os)] Anaphylaxis 08/14/2014 ??? Fentanyl Anaphylaxis 08/14/2014 ??? Venomil honey bee venom [hymenoptera allergenic extract] Anaphylaxis 03/23/2019 ??? Codeine phosphate Nausea And Vomiting ??? Allergen nuo-szcii-kilzl bee ??? Gabapentin 03/23/2019 ??? Latuda [lurasidone] 04/07/2018 ??? Morphine 04/07/2018 ??? Sulfa (sulfonamide antibiotics) ??? Venom-wasp ??? Pdlli-owqwb-awfrl hornet ??? Venom-yellow hornet ??? Venom-yellow jacket ??? Hydromorphone 03/23/2019 IMAGING STUDIES EXAMINATION: MRI LUMBAR SPINE WO CONTRAST (GENERIC) ?? CLINICAL HISTORY: Lumbar radiculopathy, > 6 wks; Lumbar radiculopathy, trauma f/u on continued pain following L1-L4 transverse process fractures. MRI 3 months ago still showed edema at site. ? TECHNIQUE: MRI of the lumbar spine performed without intravenous contrast administration. ?? COMPARISON: MRI 10/22/2020 ?? FINDINGS: Alignment is normal. Marrow signal is normal. Conus is normal in signal and terminates at L1-2. Abdominal aorta is normal in caliber. ?? T12-L1: Normal. ?? L1-2: Normal. ?? L2-3: Minimal disc bulge without significant stenosis. ?? L3-4: Mild disc bulge without significant stenosis. ?? L4-5: Left foraminal disc protrusion with mild mass effect on the exiting left L4 nerve root. Facetarthropathy mildly narrowing the foramina. ?? L5-S1: No significant stenosis. ?? IMPRESSION Mild disc degeneration. ?? PHYSICAL EXAMINATION Physical Exam: On limited telephonic examination appropriate speech and communication. Constitutional - Ax3 Psychiatric - She responds normally Respiratory - normal respiratory effort Musculoskeletal - Gait intact heel and toe walk intact. Neurologic - Alert and oriented x 3 with intact recent memory, attention, concentration, language function, and affect. Speech is fluent and prosodic with no dysarthria appreciated. Per report, able to weight bear, lift legs, bend at hips while standing ASSESSMENT Charmaine Roberto Santana is a 35 y.o. 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 Her pain is clearly attributed to her work related injury. She continues to have significant pain and is no longer able to continue to work as a rug touch up painter. 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 She is still having difficulty tolerating activities which involve bending, pushing, twisting and lifting PLAN/RECOMMENDATIONS She will continue to do home PT exercises. Work readiness evaluation ordered with occupational therapist. May consider FRP if not able to re-enter the work force. Discussed the program at length. Patient has some logistical concerns due to having 2 children who are school aged. Completed w/c form Time spent on this visit reflects time evaluating the patient pre-visit, during the visit and post-visit. Total time spent 25 minutes by telephone with additional 10 minutes in coordination of care and documentation. Deja Aldridge APRN documented in this encounter Plan of Treatment Scheduled Referrals Name Type Priority Associated Diagnoses Orde r Schedule Referral to Physical Therapy Outpatient Referral Routine Sacral back pain Radiculopathy of lumbar region Ordered: 06/03/2021 documented as of this encounter Visit Diagnoses Diagnosis Sacral back pain Disorders of sacrum Radiculopathy of lumbar region Thoracic or lumbosacral neuritis or radiculitis, unspecified documented in this encounter Care Teams Enterprise Resource Planning Consultant Relationship Specialty Start Date End Date Carmen Smith APRN [address] [place] [address] PCP - General Family Medicine 04/10/21 documented as of this encounter
--- OUTSIDE RECORDS SUMMARY | 2024-06-01 13:06 | XMS_ITS | Encounter Summary ---
Author Organization [facility] [place] [address] Care Team Providers Care Certified Nurse Practitioner Name Role Phone Ze Edwards MD Primary Care Provider [phone] Encounter Details Date Type Department Care Team (Late st Contact Info) Description 04/04/2018 [place] [address] Светлана Finch [facility] GENETICS & [place] [address] Social History Tobacco Use Types Packs/Day Years Used Date Smoking Tobacco: Every Day Cigarettes Smokeless Tobacco: Never Comments Yes Sex and Gender Information Value Date Recorded Sex Assigned at Not on file Gender Identity Not on file Sexual Orientation Not on file documented as of this encounter Miscellaneous Notes * Telephone Encounter - Светлана Finch LGC - 04/04/2018 3:18 PM EDT GENETICS - LAB FOLLOW-UP Charmaine Max 1985 [id number] Provider: Светлана Finch MS, [facility] Reason for contact: Discuss results from studies ordered following NicolásreginaKitty's genetics consultationwith Dr. Kenyetta Baptiste. The results summarized in this note were reviewed by Dr. Baptiste and I reviewed the results with Charmaine by phone. 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 She is scheduled to see pulmonary later this week. I explained that they will now have a more complete picture of her diagnosis and can review her chest films and discuss medical management. We againdiscussed the importance of smoking cessation and she would like to talk to pulmonary to find ways to support her efforts to quit. She continues to express concern for her family members and I have offered to send a genetic counseling letter that will summarize the implications of her genetic testing results for her siblings, which she appreciated. Charmaine has my contact information and I encouraged her to contact me if she has further questions. Светлана Finch MS, [facility] Licensed Genetic Counselor [phone] EM: * Telephone Encounter - Светлана Finch LGC - 04/04/2018 3:10 PM EDT The following lab results were reviewed with the patient last week through her [facility] account: ?? Ref. Range 03/30/2018 10:48 A1AT Latest Ref Range: 90 - 200 mg/dL 65 (L) ?? I contacted Charmaine by phone today now that we have the following results available. I was able toreach her to review her test results by phone this afternoon: ?? 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 These results should be interpreted based on the complete clinical presentation and may warrant additional testing and/or a genetic consultation for both this patient and at-risk family members. Светлана Finch MS, [facility] Licensed Genetic Counselor [phone] EM: documented in this encounter Plan of Treatment Not on file documented as of this encounter Visit Diagnoses Diagnosis Eqcpm-[id number] deficiency documented in this encounter Care Teams Certified Nurse Practitioner Relationship Specialty Start Date End Date Ze Edwards MD PCP - General General Internal Medicine 02/03/1802/21 documented as of this encounter
--- OUTSIDE RECORDS SUMMARY | 2024-06-01 13:06 | XMS_ITS | Encounter Summary ---
Author Organization [facility] [place] [address] Care Team Providers Care Inspector Paper Products Name Role Phone Ze Edwards MD Primary Care Provider [phone] Reason for Visit * Diagnostic Test (Routine) - Closed Specialty Diagnoses / Procedures Referred By Contac t Referred To Contact Radiology Diagnoses Closed fracture of transverse process of lumbar vertebra, sequela Radiculopathy of lumbar region Procedures MRI Lumbar Spine wo Contrast (Generic) Deja Aldridge APRN [facility] [place] [address] [place] [address] Referral ID Status Reason Start Date Expiration Date V isits Requested Visits Authorized [id number] Closed Specialty Service Requested 10/22/2020 06/20/2021 1 1 Encounter Details Date Type Department Care Team (Latest Contact Info) Description 10/22/2020 9:39 AM EDT - 10/22/2020 11:59 PM EDT Hospital Encounter [place] [address] Deja Aldridge APRN [facility] [place] [address] Discharge Disposition: Home Social History [...] Tablet Take 20 mg by mouth daily. nicotine (NICODERM CQ) 14 mg/24 hr Patch [address] smoker [address] 1 patch onto the skin every 28 days. 28 patch 04/07/2018 06/03/2021 documented as of this encounter Plan of Treatment Not on file documented as of this encounter Procedures Procedure Name Priority Date/Time Associated Diagnosis Comments MRI LUMBAR SPINE WITHOUT CONTRAST Routine 10/22/2020 11:37 AM EDT Closed fracture of transverse process of lumbar vertebra, sequela Radiculopathy of lumbar region documented in this encounter Results * MRI Lumbar Spine wo Contrast (Generic) (10/22/2020 11:37 AM EDT) Anatomical Region Laterality Modality L-spine Magnetic Resonan ce Impressions 10/22/2020 12:09 PM EDT 1. ??Left paracentral/foraminal protrusion at L4-5 which contributes to moderate left and mild to moderate subarticular recess narrowing. Mild to moderate left L4-5 neural foraminal narrowing. 2. ??Edema associated with healing right L1-L4 transverse process fractures. Comment: The following findings are so common in people without low back pain that while we report their presence, they must be interpreted with caution and in context of the clinical situation (Reference- Gelyvik et al, Spine 2001). Findings: (Prevalence in patients without low back pain), disc degeneration (decreased T2 signal, height loss, bulge) (91%), disc T2-signal loss (83%), disc height loss (56%), disc bulge (64%), disc protrusion (32%), annular fissure (38%). Thank you for letting us participate in the care of this patient. ??If you are a health care provider and have any questions regarding this report, please contact the number below. ??For patients who have questions please contact the health overnight caregiver that requested your imaging first. ? Narrative 10/22/2020 12:09 PM EDT EXAMINATION: MRI LUMBAR SPINE WO CONTRAST (GENERIC) CLINICAL HISTORY: Back pain or radiculopathy, trauma persistent lower extremity leg pain, numbness, and weakness. Hx L1-L4 Transverse process fx. Pain along L4 and L5 pattern TECHNIQUE: MRI of the lumbar spine was performed without contrast, routine radiculopathy protocol. COMPARISON: CT abdomen/pelvis 03/29/2020 FINDINGS: Unchanged reversal of lordosis at L1-2 with trace retrolisthesis of L1-2 and L2-3. There is marrow edema associated with the unhealed fractures of the right L1, L2, L3 and L4 transverse process fractures. The vertebral body heights are maintained and normal in signal. The conus is normal in signal and caliber, terminating at the superior L2 level. Visualized retroperitoneal contents are unremarkable. Findings at individual levels: T12-L1: ??Normal. L1-L2: ??Minimal disc bulge. No canal or neural foraminal stenosis. L2-L3: ??Minimal disc bulge. No canal or neural foraminal stenosis. L3-L4: ??Mild annular disc bulge. No canal or neural foraminal stenosis. L4-L5: ??Left paracentral/foraminal disc protrusion encroaches the caudal neural foramen. Mild facet arthropathy contributes to moderate left and mild to moderate right neural foraminal narrowing. Mild to moderate left and mild right subarticular recess narrowing. No central canal stenosis. L5-S1: ??No spinal canal or neural foraminal stenosis. Procedure Note Naye Thorpe MD - 10/22/2020 EXAMINATION: MRI LUMBAR SPINE WO CONTRAST (GENERIC) CLINICAL HISTORY: Back pain or radiculopathy, trauma persistent lower extremity leg pain, numbness, and weakness. Hx L1-F8Klkjvqagsq process fx. Pain along L4 and L5 pattern TECHNIQUE: MRI of the lumbar spine was performed without contrast,routine radiculopathy protocol. COMPARISON: CT abdomen/pelvis 03/29/2020 FINDINGS: Unchanged reversal of lordosis at L1-2 with trace retrolisthesisof L1-2 and L2-3. There is marrow edema associated with the unhealedfractures of the right L1, L2, L3 and L4 transverse process fractures. The vertebralbody heights are maintained and normal in signal. The conus is normal in signaland caliber, terminating at the superior L2 level. Visualizedretroperitoneal contents are unremarkable. Findings at individual levels: T12-L1: Normal. L1-L2: Minimal disc bulge. No canal or neural foraminal stenosis. L2-L3: Minimal disc bulge. No canal or neural foraminal stenosis. L3-L4: Mild annular disc bulge. No canal or neural foraminal stenosis. L4-L5: Left paracentral/foraminal disc protrusion encroaches the caudalneural foramen. Mild facet arthropathy contributes to moderate left and mild to moderate right neural foraminal narrowing. Mild to moderate left and mildright subarticular recess narrowing. No central canal stenosis. L5-S1: No spinal canal or neural foraminal stenosis. IMPRESSION 1. Left paracentral/foraminal protrusion at L4-5 which contributes tomoderate left and mild to moderate subarticular recess narrowing. Mild to moderateleft L4-5 neural foraminal narrowing. 2. Edema associated with healing right L1-L4 transverse processfractures. Comment: The following findings are so common in people without low backpain that while we report their presence, they must be interpreted with cautionand in context of the clinical situation (Reference- Quoc et al, [id number]). Findings: (Prevalence in patients without low back pain), discdegeneration (decreased T2 signal, height loss, bulge) (91%), disc T2-signal loss(83%), disc height loss (56%), disc bulge (64%), disc protrusion (32%), annularfissure (38%). Thank you for letting us participate in the care of this patient. If youare a health care provider and have any questions regarding this report,please contact the number below. For patients who have questions please contactthe health overnight caregiver that requested your imaging first. Deja Aldridge APRN IMG MRI ORDERABLES documented in this encounter Visit Diagnoses Not on filedocumented in this encounter Care Teams Inspector Paper Products Relationship Specialty Start Date End Date Ze Edwards MD PCP - General General Internal Medicine 02/03/18 9/3 documented as of this encounter
--- OUTSIDE RECORDS SUMMARY | 2024-06-01 13:06 | XMS_ITS | Encounter Summary ---
Author Organization Formerly [facility] [place] [address] Care Team Providers Care Creamery Worker Name Role Phone Ze Edwards MD Primary Care Provider [phone] Reason for Visit * Reason Comments Back Pain video visit f/u Hip Pain Encounter Details Date Type Department Care Team (Latest Contact Info) Description 11/04/2020 11:00 AM EDT TH Visit (TeleHealth) [place] [address] Deja Aldridge HOSPITAL ADMITTING CLERK [facility] [address] Closed fracture of transverse process of lumbar [...] as of this encounter Progress Notes * Deja Aldridge APRN - 11/04/2020 11:00 AM EDT [facility] [place] [address] Phone: PAIN MANAGEMENT FOLLOW UP VISIT NOTE DATE OF VISIT 11/04/2020 Patient Charmaine Santana 1985 REFERRING PROVIDER Norberto Nuñez MD [address] [place] [address] PRIMARY CARE PROVIDER Ze Edwards MD Date of Injury: 03/29/2020 PATIENT WAS NOT SEEN FOR THIS ENCOUNTER. PRE-CHARTING WAS COMPLETED. REASON FOR VISIT: Charmaine Santana is a 35 y.o. female with lower back and leg pain s/p transverse process fracture due to a work related injury. 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 REVIEW OF SYSTEMS: Denies fever, chills, SOB, abdominal pain, leg weakness/numbness, arm weakness/numbness, bowel or bladder incontinence, balance issues. No constipation, change in urination, nausea, oversedation, dysphoria. RELEVANT SOCIAL HISTORY: Lives with: sukhjinder and 2 children ages 5 and 10 years old Smokin/3ppd and nicotine patch. She had been smoking up to 2ppd. She finds that she only wants to smoke w/ her fiance returns home and starts smoking in the house. MEDICATIONS The [place] Prescription Monitoring Program was checked and no concerns were identified. Medications 11/01/20 1010 Medication Sig Taking? Mometasone-Formoterol (Dulera MDI) 200-5 mcg/actuation HFA Aerosol Inhaler daily as needed. Yes fluticasone furoate-vilanteroL 200-25 mcg/dose Disk with Device Daily. Yes hydrOXYzine (ATARAX) 10 mg Tablet Take 50 mg by mouth nightly. Yes Dexmethylphenidate 30 mg Capsule, Multiphasic Rel.50-50 Take 30 mg by mouth daily. Yes nicotine (NICODERM CQ) 14 mg/[address] 1 patch onto the skin every 28 days. Yes methylphenidate (RITALIN) 20 mg Tablet Take 20 mg by mouth daily. Yes ADVERSE DRUG REACTIONS Allergies as of 11/04/2020 - Review Complete 11/01/2020 Allergen Reaction Noted ??? Ancef [cefazolin in dextrose (iso-os)] Anaphylaxis 08/14/2014 ??? Fentanyl Anaphylaxis 08/14/2014 ??? Venomil honey bee venom [hymenoptera allergenic extract] Anaphylaxis 03/23/2019 ??? Codeine phosphate Nausea And Vomiting ??? Allergen uye-bvutc-gvpgy bee ??? Gabapentin 03/23/2019 ??? Latuda [lurasidone] 04/07/2018 ??? Morphine 04/07/2018 ??? Sulfa (sulfonamide antibiotics) ??? Venom-wasp ??? Ndhgx-qwwvx-lrtrw hornet ??? Venom-yellow hornet ??? Venom-yellow jacket ??? Hydromorphone 03/23/2019 MEDICAL HISTORY Past Medical History: Diagnosis Date ??? ADD (attention deficit disorder) ??? Allergic state ??? Asthma ??? Closed fracture of transverse process of lumbar vertebra 09/23/2020 ??? Emphysema/COPD 03/23/2019 ??? Lung disease alpha 1 antitripsin deficiency ??? Pneumonia hospitalized years ago, about 5 times ??? Seizures once due to med reaction SURGICAL HISTORY Past Surgical History: Procedure Laterality Date ??? SECTION ??? DILATION AND CURETTAGE OF UTERUS Multiple miscarriages ??? LAPAROSCOPIC APPENDECTOMY ??? TONSILLECTOMY ??? TUBAL LIGATION FAMILY HISTORY Family History Problem Relation Age of Onset ??? Cerebrovascular Accident Mother ??? Cancer Father ??? Asthma Maternal Aunt ??? Asthma Maternal Uncle ??? Emphysema Paternal Aunt ??? Emphysema Paternal Uncle ??? Diabetes Paternal Grandmother IMAGING STUDIES EXAMINATION: MRI LUMBAR SPINE WO CONTRAST (GENERIC) ?? CLINICAL HISTORY: Back pain or radiculopathy, trauma persistent lower extremity leg pain, numbness, and weakness. Hx L1-L4 Transverse process fx. Pain along L4 and L5 pattern ? TECHNIQUE: MRI of the lumbar spine was performed without contrast, routine radiculopathy protocol. ?? COMPARISON: CT abdomen/pelvis 03/29/2020 ?? FINDINGS: Unchanged reversal of lordosis at L1-2 with trace retrolisthesis of L1-2 and L2-3. There is marrow edema associated with the unhealed fractures of the right L1, L2, L3 and L4 transverse process fractures. The vertebral body heights are maintainedand normal in signal. The conus is normal in signal and caliber, terminating at the superior L2 level. Visualized retroperitoneal contents are unremarkable. ?? Findings at individual levels: ?? T12-L1: Normal. ?? L1-L2: Minimal disc bulge. No canal or neural foraminal stenosis. ?? L2-L3: Minimal disc bulge. No canal or neural foraminal stenosis. ?? L3-L4: Mild annular disc bulge. No canal or neural foraminal stenosis. ?? L4-L5: Left paracentral/foraminal disc protrusion encroaches the caudal neural foramen. Mild facet arthropathy contributes to moderate left and mild to moderate right neural foraminal narrowing. Mild to moderate left and mild right subarticular recessnarrowing. No central canal stenosis. ?? L5-S1: No spinal canal or neural foraminal stenosis. ?? IMPRESSION 1. Left paracentral/foraminal protrusion at L4-5 which contributes to moderate left and mild to moderate subarticular recess narrowing. Mild to moderate left L4-5 neural foraminal narrowing. 2. Edema associated with healing right L1-L4 transverse process fractures. PHYSICAL EXAMINATION ASSESSMENT Charmaine Santana is a 35 y.o. 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 Her current pain is clearly attributed to her injury. PLAN/RECOMMENDATIONS Charmaine Santana had the opportunity to ask questions and indicated that all questions were answered to their satisfaction. Deja Aldridge APRN Nurse Practitioner [facility] documented in this encounter Plan of Treatment Not on file documented as of this encounter Visit Diagnoses Diagnosis Closed fracture of transverse process of lumbar vertebra, sequela documented in this encounter Care Teams Creamery Worker Relationship Specialty Start Date End Date Ze Edwards MD PCP - General General Internal Medicine 02/03/18 9/ documented as of this encounter
--- OUTSIDE RECORDS SUMMARY | 2024-06-01 13:06 | XMS_ITS | Encounter Summary ---
Author Organization Formerly [facility] [place] [address] Care Team Providers Care Travel Journalist Name Role Phone Ze Edwards MD Primary Care Provider [phone] Encounter Details Date Type Department Care Team (Late st Contact Info) Description 01/08/2021 Telephone [facility] [place] [phone] Claire Sosa Social History Tobacco Use Types Packs/Day Years Used Date Smoking Tobacco: Some Days Cigarettes 1 18 Smokeless Tobacco: Never Sex and Gender Information Value Date Recorded Sex Assigned at Not on file Gender Identity Not on file Sexual Orientation Not on file documented as of this encounter Miscellaneous Notes * Telephone Encounter - Claire Sosa - 01/08/2021 2:44 PM EDT Called to answer MRI question, lost call with patient. Tried to callback and LVM for her to call and answer questions so that we can get it scheduled along with Same day f/u with Deja documented in this encounter Plan of Treatment Not on file documented as of this encounter Visit Diagnoses Not on filedocumented in this encounter Care Teams Travel Journalist Relationship Specialty Start Date End Date Ze Edwards MD PCP - General General Internal Medicine 02/03/18 9/3 documented as of this encounter
--- OUTSIDE RECORDS SUMMARY | 2024-06-01 13:06 | XMS_ITS | Encounter Summary ---
Author Organization [facility] [place] [address] Care Team Providers Care Record Press Tender Name Role Phone Ze Edwards MD Primary Care Provider [phone] Encounter Details Date Type Department Care Team ([facility] st Contact Info) Description 12/18/2020 Ancillary Procedure Radiology Library at [facility] [place] Jeter [phone] Ze Edwards MD [address] [place] [address] [id number] Social History Tobacco Use Types Packs/Day Years [...] Diagnosis Comments FILM LIBRARY STORAGE ONLY DX SPINE Routine 12/18/2020 12:00 AM EDT documented in this encounter Results * Film Library- Storage Only DX Spine (12/18/2020 12:00 AM EDT) Narrative GARRY - 12/19/2020 11:41 AM EDT This exam is auto-finalizing. It's purpose is for storage only. Ze Edwards MD [facility] FILM LIBRARY ORD ERABLES [place], [place] documented in this encounter Visit Diagnoses Not on filedocumented in this encounter Care Teams Record Press Tender Relationship Specialty Start Date End Date Ze Edwards MD PCP - General General Internal Medicine 02/03/1802/21 documented as of this encounter
--- OUTSIDE RECORDS SUMMARY | 2024-06-01 13:06 | XMS_ITS | Encounter Summary ---
Author Organization [facility] [place] [address] Care Team Providers Care Bakery Associate Name Role Phone Ze Edwards MD Primary Care Provider [phone] Encounter Details Date Type Department Care Team (Late st Contact Info) Description 11/11/2020 Telephone [facility] at [facility] [place] [phone] Kenia Lopez MSW [facility] [address] Social History Tobacco Use Types Packs/Day Years Used Date Smoking Tobacco: Some Days Cigarettes 1 18 Smokeless Tobacco: Never Comments:Apack will last 4 d ays Comments Yes Sex and Gender Information Value Date Recorded Sex Assigned at Not on file Gender Identity Not on file Sexual Orientation Not on file documented as of this encounter Miscellaneous Notes * Telephone Encounter - Kenia Lopez MSW - 11/11/2020 4:10 PM EDT OFFICE OF CARE MANAGEMENT CCM Per Deja Aldridge APRN, patient would benefit from 6 weeks oow to promote healing. Patient has beendoing other jobs to try to accommodate symptoms but need for income. Spoke with Ms. Santana and reviewed treatment course (treated with [facility] and released towork) now treating w Ms. Luis Carlos JOHNSON. Reviewed that if she comes out of work and covers wage replacement she will have only 66% of her wages ([place]). She has consulted her atty. LINO WELLS - Senior Pl Sql Developer [address] [facility], [address] - [address] [place] [address] Phone: [phone] Fax: [phone] [employer] Who notes this will be based on her wage at employer where she was injured. She is agreeable and WCform completed by Ms. Aldridge and faxed to Atty and copy to patient. PLAN: 1) wished patient well and encouraged her to follow up at any time. Out of work for 6 weeks until follow up. documented in this encounter Plan of Treatment Not on file documented as of this encounter Visit Diagnoses Not on filedocumented in this encounter Care Teams Bakery Associate Relationship Specialty Start Date End Date Ze Edwards MD PCP - General General Internal Medicine 02/03/18 9/3 documented as of this encounter
--- OUTSIDE RECORDS SUMMARY | 2024-06-01 13:06 | XMS_ITS | Encounter Summary ---
[place] [address] Care Team Providers Care Resident Care Spec Name Role Phone Ze Edwards MD Primary Care Provider [phone] Encounter Details Date Type Department Care Team (Late st Contact Info) Description 03/23/2019 Abstract Cardiology at [address] [address] Faith Keller, RN Social History Tobacco Use [...] on filedocumented in this encounter Care Teams Resident Care Spec Relationship Specialty Start Date End Date Ze Edwards MD PCP - General General Internal Medicine 02/03/18 9/ documented as of this encounter
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
--- OUTSIDE RECORDS SUMMARY | 2024-06-01 13:06 | XMS_ITS | Encounter Summary ---
Author Organization Formerly [facility] [place] [address] Care Team Providers Care Gps Field Data Collector Name Role Phone Ze Edwards MD Primary Care Provider Reason for Visit * Reason Comments Pain Management telephone visit f/u to MRI Encounter Details Date Type Department Care Team (Latest Contact Info) Description 11/11/2020 12:00 PM EDT TH Visit (TeleHealth) [place] [address] Deja Aldridge [employer] INCIDENT RESPONDER [facility] [place] [address] Closed fracture of transverse process of lumbar vertebra, sequela; Radiculopathy of lumbar region Social History Tobacco [...] Progress Notes * Deja Aldridge APRN - 11/11/2020 12:00 PM EDT [facility] [place] [address] Phone: PAIN MANAGEMENT TELEPHONE VISIT FOLLOW UP VISIT NOTE DATE OF VISIT 11/11/2020 Patient Charmaine Santana 1985 REFERRING PROVIDER Norberto Nuñez MD [address] [place] [address] PRIMARY CARE PROVIDER Ze Edwards MD Date of Injury: 03/29/2020 [X] Consent: I [...] the following: Patient Location: ( ) Work ( ) Home (near the home) Other: Physician Location: ( X) Clinic ( ) Home ( ) Other: [X ] If COVID 19 screening required, patient directed to: Patient has no symptoms of fever, significant cough, or shortness of breath. The patient understands not all conditions can be adequately evaluated and treated through a virtual visit and may require an in-person medical evaluation. The patient understands that there may be co-pay /cost for the visit. REASON FOR VISIT: Charmaine Santana is a 35 y.o. female with lower back and leg pain s/p transverse process fracture due to a work related injury. She is seen to review imaging studies and review treatment plan. 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 She is working approximately 50 hours per week which has been increasing her pain. Worker's compensation released her to work on 07/29 although she had not finished healing. She is very frustrated by the injury and her functional limitation due to the pain. She is currently using Aleve and tylenol prn for the pain in addition to PT exercises. 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 No constipation, change in urination, nausea, oversedation, dysphoria. Past medical, social and family history is unchanged from her prior visit on 09/23/2020. MEDICATIONS [facility] Prescription Monitoring Program was checked and no concerns were identified. Medications 11/08/20 1546 Medication Sig Taking? Mometasone-Formoterol (Dulera MDI) 200-5 [...] Yes ADVERSE DRUG REACTIONS Allergies as of 11/11/2020 - Review Complete 11/08/2020 Allergen Reaction Noted ??? Ancef [cefazolin in dextrose (iso-os)] Anaphylaxis 08/14/2014 ??? Fentanyl Anaphylaxis 08/14/2014 ??? Venomil honey bee venom [hymenoptera allergenic extract] Anaphylaxis 03/23/2019 ??? Codeine phosphate Nausea And Vomiting ??? Allergen krk-viljw-vepbq bee ??? Gabapentin 03/23/2019 ??? Latuda [lurasidone] 04/07/2018 ??? Morphine 04/07/2018 ??? Sulfa (sulfonamide antibiotics) ??? Venom-wasp ??? Iqihf-bzcct-fxhze hornet ??? Venom-yellow hornet ??? Venom-yellow jacket [...] right L1-L4 transverse process fractures. PHYSICAL EXAMINATION Physical Exam: On limited telephonic examination appropriate speech and communication. Constitutional - Ax3 Psychiatric -Tearful discussing frustration with injury. She responds normally Respiratory - normal respiratory effort Musculoskeletal - Gait intact. Painful heel walk. Per patient rom continues to be limited by pain. Neurologic - Alert and oriented x 3 with intact recent memory, attention, concentration, language function, and affect. Speech is fluent and prosodic with no dysarthria appreciated. Per report, able to weight bear, lift legs, bend at hips while standing, toe and heel walk without issues. Sitting SLR is negative. ASSESSMENT CyndiedngDalila Santana is a 35 y.o. 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 Her current pain is clearly attributed to her injury. She is continuing to have significant pain and is no longer able to continue to work as a painter foreman. 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 The imaging showsthat there is still residual edema at the site of the fractures, suggesting that she is still healin g. It has been 7 months since her injury. PLAN/RECOMMENDATIONS Reviewed imaging study with patient. I have requested that JAVED Funez speak with the patient. Due to the exacerbation of pain with her current activity level, I have recommended that she be placed on temporary leave for 4 weeks in order to allow her to continue healing. She will continue to do home PT exercises. She will return for follow up in 4 weeks to re-evaluate. May consider FRP for her to improve her function. Time spent on this visit reflects time evaluating the patient pre-visit, during the visit and post-visit. Total time spent 20 minutes by telephone with additional 10 minutes in coordination of care and documentation. documented in this encounter Plan of Treatment Not on file documented as of this encounter Visit Diagnoses Diagnosis Closed fracture of transverse process of lumbar vertebra, sequela Radiculopathy of lumbar region Thoracic or lumbosacral neuritis or radiculitis, unspecified documented in this encounter Care Teams Gps Field Data Collector Relationship Specialty Start Date End Date Ze Edwards MD PCP - General General Internal Medicine 02/03/1802/21 documented as of this encounter
--- OUTSIDE RECORDS SUMMARY | 2024-06-01 13:06 | XMS_ITS | Encounter Summary ---
Author Organization [facility] [place] [address] Care Team Providers Care Helper/Driver Name Role Phone Ze Edwards MD Primary Care Provider [phone] Reason for Visit * Reason Comments Follow-up Back Pain Encounter Details Date Type Department Care Team (Latest Contact Info) Description 12/11/2020 12:00 PM EDT TH Visit (TeleHealth) [facility] [place] [address] Deja Aldridge APRN [facility] [place] [address] Sacral back pain (Primary Dx); Closed fracture of transverse process of lumbar vertebra, sequela; Radiculopathy of lumbar region; Traumatic coccydynia Social History Tobacco Use Types Packs/Day Years [...] - - Weight 59 kg (130 lb) 12/10/2020 10:22 AM EDT Height 166.4 cm (5' 5.5) 12/10/2020 10:22 AM ED T Body Mass Index 21.3 12/10/2020 10:22 AM EDT documented in this encounter Progress Notes * Deja Aldridge APRN - 12/11/2020 12:00 PM EDT [facility] [place] [address] Phone: PAIN MANAGEMENT TELEPHONE VISIT FOLLOW UP VISIT NOTE DATE OF VISIT 12/11/20 Patient Charmaine Santana 1985 REFERRING PROVIDER Norberto Nuñez MD [address] [place] [address] PRIMARY CARE PROVIDER Ze Edwards MD Date [...] following: Patient Location: ( ) Work Home Other: [facility] Physician Location: ( X) Clinic ( ) [...] fracture due to a work related injury. Has been doing PT at [facility] and had been doing well there untilshe started receiving therapy for her sacrum/coccyx area pain. She has been off of work due to the pain but her employers have kept her jobs open for her. She has felt a little better since being offof work but is frustrated that her pain has not improved more. She still has leg pain but feels that most of her pain now is in her sacrum and coccyx area. She is taking aleve or tylenol prn. Finds that the pain is most severe when she gets up in the morning to make her 's lunch. 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 MEDICATIONS Medications 12/10/20 1021 Medication Sig Taking? Mometasone-Formoterol (Dulera MDI) 200-5 [...] Yes ADVERSE DRUG REACTIONS Allergies as of 12/11/2020 - Review Complete 12/10/2020 Allergen Reaction Noted ??? Ancef [cefazolin in dextrose (iso-os)] Anaphylaxis 08/14/2014 ??? Fentanyl Anaphylaxis 08/14/2014 ??? Venomil honey bee venom [hymenoptera allergenic extract] Anaphylaxis 03/23/2019 ??? Codeine phosphate Nausea And Vomiting ??? Allergen rbz-vipxq-vrifb bee ??? Gabapentin 03/23/2019 ??? Latuda [lurasidone] 04/07/2018 ??? Morphine 04/07/2018 ??? Sulfa (sulfonamide antibiotics) ??? Venom-wasp ??? Wxvwc-bblje-arxpq hornet ??? Venom-yellow hornet ??? Venom-yellow jacket [...] standing, toe and heel walk without issues. ASSESSMENT Charmaine Santana is a 35 y.o. 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 Her current pain is clearly attributed to her work related injury. 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 The most recent imaging from 10/19 shows that there is still residual edema at the site of the fractures, suggesting that she is still healing. It has been 7 months since her injury. She is still attending PT and her coccyx/ sacrum area pain is still severe. The leg pain is unchanged. PLAN/RECOMMENDATIONS Xrays sacrum and pelvis-to be done at [facility]. She will continue to do home PT exercises. Patient will call once she has had the imaging to schedule televisit followup. May consider FRP for her to improve her function once her fractures have healed. Time spent on this visit reflects time evaluating the patient pre-visit, during the visit and post-visit. Total time spent 20 minutes by telephone with additional 10 minutes in coordination of care and documentation. Deja Aldridge APRN documented in this encounter Plan of Treatment Not on file documented as of this encounter Visit Diagnoses Diagnosis Sacral back pain- Primary Disorders of sacrum Closed fracture of transverse process of lumbar vertebra, sequela Radiculopathy of lumbar region Thoracic or lumbosacral neuritis or radiculitis, unspecified Traumatic coccydynia documented in this encounter Care Teams Helper/Driver Relationship Specialty Start Date End Date Ze Edwards MD PCP - General General Internal Medicine 02/03/1802/21 documented as of this encounter
--- OUTSIDE RECORDS SUMMARY | 2024-06-01 13:06 | XMS_ITS | Encounter Summary ---
Author Organization Formerly [facility] [place] [address] Care Team Providers Care Special Education Inclusion Teacher Name Role Phone Ze Edwards MD Primary Care Provider [phone] Encounter Details Date Type Department Care Team (Late st Contact Info) Description 11/11/2020 Telephone [facility] [place] [phone] Светлана Davis LPN Social History Tobacco Use Types Packs/Day Years Used Date Smoking Tobacco: Some Days Cigarettes 1 18 Smokeless Tobacco: Never Comments:Apack will last 4 d ays Comments Yes Sex and Gender Information Value Date Recorded Sex Assigned at Not on file Gender Identity Not on file Sexual Orientation Not on file documented as of this encounter Miscellaneous Notes * Telephone Encounter - Светлана Davis LPN - 11/11/2020 1:01 PM EDT Rec'd call from Tami Tang, she is asking for a letter from Deja Franz APRN, stating that she needs to be out of work in order for her back to heal, 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 She wants the letter mailed to her and she will forward on to her medical transport specialist. She states that she can't avoid bending lifting and twisting in her work. Will route to Ms. Aldridge to see if she is agreeable And get back to Tami. documented in this encounter Plan of Treatment Not on file documented as of this encounter Visit Diagnoses Not on filedocumented in this encounter Care Teams Special Education Inclusion Teacher Relationship Specialty Start Date End Date Ze Edwards MD PCP - General General Internal Medicine 02/03/18/3 documented as of this encounter
--- OUTSIDE RECORDS SUMMARY | 2024-06-01 13:06 | XMS_ITS | Encounter Summary ---
Author Organization [facility] [place] [address] Care Team Providers Care Ribbon Winder Name Role Phone Ze Edwards MD Primary Care Provider [phone] Reason for Visit * - Closed Specialty Diagnoses / Procedures Referred By Contuli t Referred To Contact Procedures Film Library- Storage Only CT Head And Spine Ze Edwards MD [address] [place] [address] Referral ID Status Reason Start Date Expiration Date Visits Re quested Visits Authorized [id number] Closed 08/26/2020 08/26/2021 1 1 Encounter Details Date Type Department Care Team (Late st Contact Info) Description 03/29/2020 Ancillary Procedure Radiology Library [place] [address] Ze Edwards MD [address], [place] [id number] Social History Tobacco Use Types Packs/Day Years [...] Associated Diagnosis Comments FILM LIBRARY STORAGE ONLY CT HEAD AND SPINE Routine 03/29/2020 12:00 AM EDT documented in this encounter Results * Film Library- Storage Only CT Head And Spine (03/29/2020 12:00 AM EDT) Narrative RAD - 08/26/2020 3:25 PM EST This exam is auto-finalizing. It's purpose is for storage only. Ze Edwards MD IMG FILM LIBRARY ORD ERABLES [place], [place] documented in this encounter Visit Diagnoses Not on filedocumented in this encounter Care Teams Ribbon Winder Relationship Specialty Start Date End Date Ze Edwards MD PCP - General General Internal Medicine 02/03/1802/21 documented as of this encounter
--- OUTSIDE RECORDS SUMMARY | 2024-06-01 13:06 | XMS_ITS | Encounter Summary ---
Author Organization [facility] [place] [address] Care Team Providers Care Desk Reporter Name Role Phone Suresh Hicks MD Primary Care Provider [phone] Encounter Details Date Type Department Care Team (Latest Contact Info) Description 01/20/2018 - 01/20/2018 11:59 PM EDT Hospital Encounter Radiology Library at [facility] [place] [id number] Michael Riddle MD [facility] [place] [address] Discharge Disposition: Home Social History Tobacco Use [...] Diagnosis Comments FILM LIBRARY STORAGE ONLY CT CHEST ABDOMEN PELVIS Routine 01/20/2018 12:00 AM EDT documented in this encounter Results * Film Library- Storage Only CT Chest Abdomen Pelvis (01/20/2018 12:00 AM EDT) Narrative RAD - 04/13/2018 4:11 AM EDT This exam is for storage only and is auto-finalizing. Michael Riddle MD IMG FILM LIBRARY ORD ERABLES [place], [place] documented in this encounter Visit Diagnoses Not on filedocumented in this encounter Care Teams Desk Reporter Relationship Specialty Start Date End Date Suresh Hicks MD [address] [place] [address] PCP - General 05/13/10 02/02/18 documented as of this encounter
--- OUTSIDE RECORDS SUMMARY | 2024-06-01 13:06 | XMS_ITS | Encounter Summary ---
Author Organization [facility] [place] [address] Care Team Providers Care Precision Assembler Bench Name Role Phone LuisCarmen ELIZABETH Primary Care Provider [phone] Reason for Visit * Reason Comments Back Pain * Occupational Therapy (Routine) - Closed Specialty Diagnoses / Procedures Referred By Contuli t Referred To [facility] Diagnoses Sacral back pain Radiculopathy of lumbar region Deja Jenkins APRN [facility] [place] [address] [facility] [place] [address] Referral ID Status Reason Start Date Expiration Date V isits Requested Visits Authorized [id number] Closed Evaluate and Treat 06/03/2021 06/03/2022 12 12 Encounter Details Date Type Department Care Team (Latest Contact Info) Description 08/13/2021 3:00 PM EST Office Visit Functional Zoroastrianism Program at [facility] [address] [place] [address] Veronica Mcmillan, OT Radiculopathy of lumbar region [...] Initial Evaluation - Veronica Mcmillan OT - 08/13/2021 3:00 PM EST Work Readiness Assessment Referring Provider: Deja Aldridge APRN Primary Care Provider: Carmen Smith APRN Reason for Referral: Ms. Santana was referred to the [facility] for assistance in determining her current work ability to determine her physical capabilities regarding return to work. Brief Medical History: Ms. Santana injured her low back while at work on 03/29/2020 after she fell from a 8ft ladder onto a wooden deck. Treatment to date has included tylenol, aleve, physical therapy, acupuncture. Pain: Ms. Santana reports low back pain. The pain is rated 3/10 at its least and 9/10 at its worst osvaldo 0-10 numerical scale, over the past 3 days. Symptoms worsen with extended sitting, walking, bending, twisting and lifting. Symptoms ease with hot bath, position changes, sidelying. Pain level priorto testin/10. 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 This was a Medium physical demand level job requiring lifting up to 50 lbs. on an occasional basis by her description. She has not been able to work since October 2020. Anticipated At Risk Job Demands: 1. Extended sitting 2. Bending 3. Twisting 4. Lifting 5. Reaching PHYSICAL EVALUATION Resting Vital Signs: BP 122/77 HR 75 AROM: Within normal limits, both upper and lower extremities, neck and trunk except lumbar spine. Lumbar Spine Flexion (0-90??) 85?? Extension (0-30??) 30?? Gait: Gait is normal. She is able to heel and toe walk. Ms. Santana is able to perform a full range squat. Strength: Grossly 5/5 bilateral upper and lower extremities. Upper Body Tasks Bus Attendant Strength (lbs): Right Left 75 lbs. 65 lbs. 77 lbs. 70 lbs. 80 lbs. 79 lbs. Mean 77.33 lbs Mean 71.33 lbs Comments: To attain the tolerances for medical supply technician strength, a dynamometer in the second position was used. Ms. Santana is right-hand dominant. When compared to well-established normative data, Ms. Martinezs bilateral medical supply technician strength is within normal range for females her age. Normal range for 35 year old female is dominant hand 78.7 lbs (SD 19.2 lbs; range 59.5-97.9lbs) andnon-dominant hand 68.0 lbs (SD 17.7 lbs; range 50.3-85.7lbs). Cardiovascular Endurance Ms. Santana completed a multistage, submaximal treadmill protocol by walking for 2 minutes, achievinga speed of 1.3 mph on a 5% grade. This is equivalent to 3 METs with a heart rate of 80 bpm. Reported reason for stop point: low back pain Non Material Handling Tasks Bend Limited by pinching and stiffness to 85 degrees flexion. Kneel able to demonstrate 1 repetition during material handling. Reports she is able to sustain a kneeling position for several minutes Squat Able to perform a full range squat using hands on thighs for support. Reports she is not ableto sustain a squatting position for several minutes Climb Ms. Santana reports she is able to ascend and descend one flight of stairs using wall for support and balance. She is able to climb ladders . Stand Ms. Santana reports 3 continuous minutes. Walk Ms. Santana reports 30 continuous minutes. Sit Ms. Santana reports 20 continuous minutes. Reach No observed or reported limitations. Drive Ms. Santana reports 120 minutes. Do Fine Motor No observed or reported limitations Comments: To attain the above non material handling tolerances Ms. Santana was observed during tasks requiring these postures and by self-report. Materials Handling Tasks 1-time Maximum Occasional Frequent Floor to Waist Lift 30 lbs. 21 lbs. 15 lbs. 12 to Waist Lift 40 lbs. 28 lbs. 20 lbs. Waist to Shoulder Lift 15 lbs. 10.5 lbs. 7.5 lbs. Shoulder to Overhead Lift 10 lbs. 7 lbs. Carry, 25 feet 25 lbs. 17.5 lbs. 12.5 lbs. Push force (25 feet) 21 lbs. 15 lbs. Pull force (25 feet) 17 lbs. 12 lbs. Comments: To attain the material handling tolerances Ms. Santana carried, lifted, pushed and pulled asuccession of weights. She demonstrated good body mechanics. Approximate frequency of lifts or movements are defined by the [place] [employer] Employment and [employer] and Administration. 1-time maximum - maximum ability demonstrated in a testing situation Occasional - Up to 33% of the workday; up to 1 repetition per 30 minutes. Frequent - Performed 34 - 66% if the workday Physical Demand Levels: Physical Demand Level Sedentary Sedentary-Light Light Light- Medium Medium Medium- Heavy Heavy VeryHeavy Max Lift Occasional 10 lbs. 15 lbs. 20 lbs. 35 lbs. 50 lbs. 75 lbs. 100 lbs. 100+ lbs. Max Lift Frequent Negligible 10 lbs. 10 lbs. 20 lbs. 25 lbs. 35 lbs. 50 lbs. 50+ lbs. Typical Energy Required 1.5 METS 2.0 METS 2.5 METS 3.0 METS 3.5 METS 4.5 METS 6.0 METS 7.5 METS (Definitions of Physical Demand Levels as defined by the [place] department of Employment and Training Administration) Assessment: The above findings were based on an assessment of cardiovascular endurance, physical function, statements made during the evaluation and observations made by the monogram maker. This evaluation suggests Ms. Santana is currently functioning at the Light physical demand level when considering her cardiovascular endurance and ability to lift. In summary, this means Ms. Santana is NOT able to return to her previous life style which included work at the Medium physical demand level. During a 65 minute assessment, Ms. Santana demonstrated the tolerances for the identified at-risk jobfunctions. Madden limiting factors to performing work at a higher demand level are decreased endurance, decreased functional strength for lifting, carrying, pushing and pulling, decreased tolerances forwalking, standing and sitting. Ms. Santana has physical limitations in gait, AROM of the lumbar spine, cardiovascular endurance, functional strength, and overall physical capacities that interfere with her ability to perform basic functional tasks and ADL???s that affect her quality of life. I believe this can improve with participation in our Functional Zoroastrianism Program. The primary benefits Ms. Santana will get from participating in the Functional Zoroastrianism Program, if sheis found to be a candidate, are education, group reinforcement, cognitive behavioral techniques, flare-up management, and intensive 6 hours a day therapy which are not a component of an individual active work conditioning program. Finally, evidence-based literature shows that Functional Zoroastrianism Programs are recommended for selected patients with disabling chronic pain. These programs emphasize the importance of function over the elimination of pain. The Antoine review shows strong evidence that intensive multidisciplinary rehabilitation with functional mormonism reduces pain and improves function of patients with low back pain. Of note, the [facility] Functional Zoroastrianism Program hasexcellent functional outcomes for patients with chronic low back pain. For these reasons, a referral for a Goals and Physical Capacity Evaluation to determine if Ms. Santana is a candidate for the Functional Zoroastrianism Program is recommended. Recommendations: - Refer to Active Pain Care Service - Refer for a Goals Assessment and Physical Capacity Evaluation to determine if Ms. Santana is eligible for participation in the Functional Zoroastrianism Program. - Discussed walking program to increase endurance before Goals Assessment and Physical Capacity Evaluation. EMPLOYEE WORK CAPABILITY Employee can No Restrictions Frequently Occasionally Unable to Employee can lift/carry maximally/ocassionally 25 lbs. Employee can lift/carry frequently 10 lbs . Bend X Kneel X Employee can work a maximum of Squat X hours/ day, days/ week Climb X- Stairs Stand X Other: Walk X Sit X Reach X Drive X Do Fine Motor X Wrist Elbow Shoulder Ankle No Repetitive Move Right Left This report provides guidance to the occupational health team in assessing Ms. Santana's work abliity. The result of this testing must be integrated with clinical findings and other observations to derive a final assessment of work capacity. This is NOT a Functional Capacity Evaluation, but a screening of the individual's current work abilities to assist the referring provider in developing return to work recommendations. 65 minutes were spent interviewing and assessing Ms. Santana. documented in this encounter Plan of Treatment Scheduled Referrals Name Type Priority Associated Diagnoses Orde r Schedule Referral to Physical Therapy Outpatient Referral Routine Sacral back pain Radiculopathy of lumbar region Ordered: 06/03/2021 documented as of this encounter Visit Diagnoses Diagnosis Radiculopathy of lumbar region Thoracic or lumbosacral neuritis or radiculitis, unspecified documented in this encounter Care Teams Precision Assembler Bench Relationship Specialty Start Date End Date Carmen Smith, ELIZABETH [address] [place] [address] PCP - General Family Medicine 04/10/21 documented as of this encounter
--- OUTSIDE RECORDS SUMMARY | 2024-06-01 13:06 | XMS_ITS | Encounter Summary ---
Author Organization [facility] [place] [address] Care Team Providers Care Wood Tank Erector Name Role Phone Ze Edwards MD Primary Care Provider [phone] Reason for Visit * Reason Comments Tremors Encounter Details Date Type Department Care Team (Late st Contact Info) Description 01/06/2019 10:40 PM EDT - 01/07/2019 1:08 AM EDT [place] [address] Flor Davis MD [facility] [place] [address] Discharge Disposition: Against Medical Advice Social History Tobacco Use Types Packs/Day Years [...] Sign Reading Time Taken Comments Blood Pressure 140/107 01/06/2019 9:58 PM EDT Pulse 89 01/06/2019 9:58 PM EDT Temperature 36.6 ??C (97.9 ??F) 01/06/2019 9:58 PM ED T Respiratory Rate 16 01/06/2019 9:58 PM EDT Oxygen Saturation 99% 01/06/2019 9:58 PM EDT Inhaled Oxygen Concentration - - Weight 54.4 kg (120 lb) 01/06/2019 9:58 PM EDT Height - - Body Mass Index 19.95 04/07/2018 11:05 AM EDT documented in this encounter Medications at Time of Discharge Medication Sig Dispensed Refills Start Date End Date Dexmethylphenidate 30 mg Capsule, Multiphasic Rel.50-50 Take 30 mg by mouth daily. methylphenidate (RITALIN) 20 mg Tablet Take 20 mg by mouth daily. metoprolol succinate (TOPROL-XL) 25 mg Tablet Sustained Release 24 hr Take 25 mg by mouth daily. 03/23/2019 LORazepam (ATIVAN) 0.5 mg Tablet Take 0.5 mg by mouth nightly. 09/23/2020 albuterol 90 mcg/actuation HFA Aerosol Inhaler Inhale 2 puffs into the lungs every 4 hours as needed for Wheezing. Use with spacer 09/23/2020 nicotine (NICODERM CQ) 14 mg/24 hr Patch [address] 1 patch onto the skin every 28 days. 28 patch 04/07/2018 06/03/2021 documented as of this encounter ED Notes * Donovan Anders RN - 01/07/2019 1:08 AM EDT Pt left AMA before neuro consult. Room discovered empty. MD notified. * Amador Belle MD - 01/06/2019 11:51 PM EDT ED Resident Note Charmaine Santana is an 33 y.o. female who presents to the ED with: Chief Complaint Patient presents with ??? Tremors I saw this patient on 01/07/2019. History is from the patient at the bedside. HPI Charmaine Santana is a 33 y.o. female with history of bipolar disease, SVT, alpha-1 antitrypsin who presents to the Emergency Department numbness, tingling, tremors, questionable seizure. States that she has had 4 days of weakness in her upper extremities. 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 This is progressed to numbness and tingling in her bilateral hands, worse in the left side. She presented to [facility] and states that her work-up there was negative. She had no head imaging at that time. Yesterday she presented to [facility] and had a chest x-ray which is normal, CT head which was normal per the patient's reporting. Yesterday morning while she is at the store she states that she fell to the ground andhad witnessed tonic-clonic seizure as described by her sister. She reported appeared of confusion afterwards. She denies any tongue biting, bladder incontinence. Patient is reporting pain in her back, cervical and thoracic area. She states this is chronic and she has had no changes. She denies any trauma. She states that she is not taking her bipolar medications. She denies any IV drug use, bladder or bowel incontinence, saddle anesthesia, fever, chills. She states that starting this morning she is been having uncontrollable whole body shaking. She has noweakness in the lower extremities but states that the shaking is made it difficult to ambulate. Shestill endorsing weakness in her bilateral arms worse in the left side. Review of Systems: Review of Systems Constitutional: Negative for activity change, appetite change, chills, diaphoresis, fever and unexpected weight change. HENT: Negative for rhinorrhea, sore throat and voice change. Respiratory: Negative for apnea, cough and shortness of breath. Cardiovascular: Negative for chest pain. Gastrointestinal: Negative for abdominal pain, constipation, diarrhea, nausea and vomiting. Genitourinary: Negative for dysuria. Musculoskeletal: Negative for back pain. Skin: Negative for rash. Neurological: Positive for tremors, weakness and numbness. Negative for dizziness and headaches. Psychiatric/Behavioral: Negative for confusion and suicidal ideas. Physical Exam: Patient Vitals for the past 24 hrs: BP Temp Temp src Pulse Resp SpO2 Weight 01/06/19 2158 (!) 140/107 36.6 ??C (97.9 ??F) Oral 89 16 99 % 54.4 kg (120 lb) GEN: Patient has full body shaking lying in the bed. HEENT: Oropharynx clear, pink, and moist. PULM: No resp distress. CV: Normal rate. ABD: Soft, nondistended, nttp. MSK: No gross deformities. NEURO: Patient can be seen moving all of her extremities volitionally, however on exam she has diminished strength 3 out of 5 with flexion and extension in the upper extremities. She improves with coaching. PSYCH: Normal mood and thought pattern. SKIN: No rashes. ED Course: - Patient seen under the supervision of the attending physician. - Medications, allergies, and past medical history reviewed. Recent Results (from the past 24 hour(s)) Hepatic Function Panel Result Value Ref Range Total Protein 7.2 6.1 - 8.0 gm/dL Albumin 4.9 3.2 - 5.2 gm/dL AST 20 0 - 30 unit/L ALT 16 0 - 30 unit/L Alk Phos 53 40 - 104 unit/L Total Bilirubin 0.4 0.2 - 1.3 mg/dL Bili, Direct 0.1 0.0 - 0.3 mg/dL Basic Metabolic Panel (non-fasting) Result Value Ref Range Glucose Lvl 89 65 - 199 mg/dL BUN 13 8 - 18 mg/dL Creatinine 0.77 0.70 - 1.20 mg/dL Sodium 142 135 - 145 mmol/L Potassium 3.9 3.5 - 5.0 mmol/L Chloride 106 98 - 107 mmol/L CO2 21 (L) 22 - 31 mmol/L Anion Gap 15 5 - 15 mmol/L Calcium 10.0 8.5 - 10.5 mg/dL eGFR 102 >=60 mL/min/1.73 m?? eGFR 118 >=60 mL/min/1.73 m?? CK Result Value Ref Range CK, Total 83 0 - 160 unit/L Hemogram Result Value Ref Range WBC 9.7 (H) 4.0 - 9.5 x10(3)/mcL RBC 5.11 4.00 - 5.21 x10(6)/mcL Hemoglobin 15.3 11.7 - 15.5 gm/dL Hematocrit 45.2 35.7 - 45.8 % MCV 88.5 82.6 - 94.4 fL MCH 29.9 27.1 - 32.0 pg MCHC 33.8 31.7 - 35.0 gm/dL Platelets 242 145 - 357 x10(3)/mcL RDWSD 42.2 37.0 - 46.0 fL RDWCV 12.8 11.5 - 14.1 % MPV 10.7 7.6 - 12.9 fL nRBC % Auto 0.0 % nRBC Abs Auto 0.000 0.000 - 0.000 x10(3)/mcL Differential, Automated Result Value Ref Range Neutrophils % 64.2 % Neutr Abs (ANC) 6.24 (H) 1.70 - 6.10 x10(3)/mcL Lymphocytes % 23.5 % Lymphocytes Abs 2.3 0.9 - 3.2 x10(3)/mcL Monocytes % 9.8 % Monocyte Abs 1.0 (H) 0.3 - 0.9 x10(3)/mcL Eosinophils % 1.5 % Eosinophils Abs 0.2 0.0 - 0.4 x10(3)/mcL Basophils % 0.6 % Basophils Abs 0.1 0.0 - 0.1 x10(3)/mcL Immature Gran % 0.40 % Mayte Gran Abs 0.04 0.00 - 0.04 x10(3)/mcL Blue Tube HOLD Result Value Ref Range Blue Hold Sample in lab. Gold Tube HOLD Result Value Ref Range Gold Hold Sample in lab. Assessment and Plan: 33 y.o. female with tremor This is a 33-year-old female with a history of alpha-1 antitrypsin deficiency, bipolar disorder offmedications who is presenting with 3 days of progressive symptoms of tremor, weakness in her upper extremities. On exam she is thrashing in the bed demonstrating full motor movement of all of her extremities. However when being examined she appears to have diminished logistics associate strength which improved with coaching. Her exam is inconsistent and nonfocal. There is a strong suggestion that her neurologicsymptoms may be functional. Per report she had a normal head CT NVR H. Laboratory evaluation was largely unremarkable, notably she has only a mild leukocytosis, no electrolyte abnormalities, no hepatic function abnormalities, normal CK which argues against her stated history of a tonic-clonic seizure earlier today. Unfortunately without warning the patient left AMA before her work-up and evaluation could be completed, this was also before the attending physician could evaluate the patient. She gave no warning prior to leaving. Patient vehemently denies suicidal ideation I suspect that she will be safe at home but it is difficult to the cause of her symptoms at this point in the work-up. Amador Belle MD Resident 01/07/19 0740 Associated attestation - Flor Davis MD - 02/01/2019 10:20 PM EDT ED ATTENDING ATTESTATION NOTE The patient was seen in conjunction with Dr. Belle, the resident physician. I have independently performed the garnica portions of the history and physical exam. I have reviewed the nursing notes, vital signs, and all diagnostic studies personally including labs, imaging studies and EKGs. I have discussed the details of the case with the resident and agree with the assessment and plan as described in the resident note above unless noted otherwise below. documented in this encounter Plan of Treatment Not on file documented as of this encounter Procedures Procedure Name Priority Date/Time Associated Diagnosis Comments HEMOGRAM STAT 01/07/2019 12:20 AM EDT DIFFERENTIAL, AUTOMATED STAT 01/07/2019 12:20 AM EDT GOLD TUBE HOLD STAT 01/07/2019 12:20 AM EDT BLUE TUBE HOLD STAT 01/07/2019 12:20 AM EDT CBC (WITH DIFF) STAT 01/07/2019 12:20 AM EDT CK STAT 01/07/2019 12:20 AM EDT HEPATIC FUNCTION PANEL STAT 01/07/2019 12:20 AM EDT BASIC METABOLIC PANEL STAT 01/07/2019 12:20 AM EDT EKG 12-LEAD STAT 01/07/2019 12:04 AM EDT documented in this encounter Results * Gold Tube HOLD (01/07/2019 12:20 AM EDT) Gold Hold Sample in lab. [facility] Blood specimen (specimen) Venous Draw / Unknown 01/07/2019 12:20 AM EDT 01/07/2019 1:00 AM EDT Amador Belle MD CHEMISTRY ORDER SAMUEL [facility] [place] [address] * Blue Tube HOLD (01/07/2019 12:20 AM EDT) Blue Hold Sample in lab. [facility] Blood specimen (specimen) Venous Draw / Unknown 01/07/2019 12:20 AM EDT 01/07/2019 1:01 AM EDT Amador Belle MD HEMATOLOGY NIK WHYTE [facility] [place] [address] * (ABNORMAL) Differential, Automated (01/07/2019 12:20 AM EDT) [facility] Neutrophil % 64.2 % [facility] Neutrophil Absolute 6.24(H) 1.70 - 6.10 x10(3)/ L [facility] Lymph % 23.5 % [facility] Lymphocytes Abs 2.3 0.9 - 3.2 x10(3)/ L [facility] Monocyte % 9.8 % [facility] Monocyte Abs 1.0(H) 0.3 - 0.9 x10(3)/ L [facility] Eos % 1.5 % [facility] Eosinophils Abs 0.2 0.0 - 0.4 x10(3)/ L [facility] Basophil % 0.6 % [facility] Baso Absolute 0.1 0.0 - 0.1 x10(3)/ L [facility] Immature Gran % 0.40 % [facility] Comment: Immature granulocytes(IG's)percentage and absolute count will include metamyelocytes, myelocytes, and promyelocytes. Blood smears from CBCs yielding IG's will be scanned manually for concordance. If this scan disagrees with the automated IG or if promyelocytes are noted, a manual differential will be performed. Immature Gran Absolute 0.04 0.00 - 0.04 x10(3)/mc L [facility] Blood specimen (specimen) 01/07/2019 12:20 AM EDT 01/07/2019 12:59 AM EDT Narrative Resulting Agency Comment Spec In Lab Amador Belle MD HEMATOLOGY NIK WHYTE [facility] [place] [address] * (ABNORMAL) Hemogram (01/07/2019 12:20 AM EDT) White Blood Cell 9.7(H) 4.0 - 9.5 x10(3)/[facility] Red Blood Cell 5.11 4.00 - 5.21 x10(6)/ L [facility] Hemoglobin 15.3 11.7 - 15.5 gm/dL [facility] Hematocrit 45.2 35.7 - 45.8 % [facility] Mean Cell Volume 88.5 82.6 - 94.4 [facility] Mean Cell Hemoglobin 29.9 27.1 - 32.0 pg [facility] Mean Cell Hemoglobin Concentration 33.8 31.7 - 35.0 gm/dL [facility] Platelet 242 145 - 357 x10(3)/mc L [facility] RDW Standard Deviation 42.2 37.0 - 46.0 [facility] RDW coefficient of variation 12.8 11.5 - 14.1 % [facility] Mean Platelet Volume 10.7 7.6 - 12.9 [facility] NRBC% auto 0.0 % [facility] NRBC Absolute 0.000 0.000 - 0.000 x10(3)/ L [facility] Blood specimen (specimen) 01/07/2019 12:20 AM EDT 01/07/2019 12:59 AM EDT Narrative Resulting Agency Comment Spec In Lab Amador WHYTE [facility] [place] [address] * CK (01/07/2019 12:20 AM EDT) Creatine Kinase 83 0 - 160 unit/L [facility] Blood specimen (specimen) 01/07/2019 12:20 AM EDT 01/07/2019 12:59 AM EDT Narrative Resulting Agency Comment Spec In Lab Flor Davis MD CHEMISTRY ORDERABLE S Performing Organization Address [facility] Co de Phone Number [facility] [place] [address] * (ABNORMAL) Basic Metabolic Panel (non-fasting) (01/07/2019 12:20 AM EDT) [facility] Glucose 89 65 - 199 mg/dL [facility] Comment:Diabetes: >=200 mg/d L plus symptoms Blood Urea Nitrogen 13 8 - 18 mg/dL [facility] Creatinine 0.77 0.70 - 1.20 mg/dL [facility] Sodium 142 135 - 145 mmol/L [facility] Potassium 3.9 3.5 - 5.0 mmol/L [facility] Comment: Please note: ??Patients with WBC >100,000 may have falsely elevated Potassium levels. ??For accurate Potassium quantification in these patients send serum separator tube (gold top) for subsequent determinations. ??Contact the Clinical Chemistry Laboratory if there are any questions. Chloride 106 98 - 107 mmol/L [facility] Carbon Dioxide 21(L) 22 - 31 mmol/L [facility] Anion Gap 15 5 - 15 mmol/L [facility] Calcium 10.0 8.5 - 10.5 mg/dL [facility] Est Glomerular Filtration Rate 102 >=60 mL/min/1. 73 m?? [facility] Comment: The eGFR was calculated using the CKD-EPI equation. As with all creatinine based estimates of kidney function, eGFR values calculated with the CKD-EPI equation are not accurate in patients with acute kidney failure, extremes of body mass or the acutely ill. [email or web address] eGFR 118 >=60 mL/min/1. 73 m?? [facility] Comment: The eGFR was calculated using the CKD-EPI equation. As with all creatinine based estimates of kidney function, eGFR values calculated with the CKD-EPI equation are not accurate in patients with acute kidney failure, extremes of body mass or the acutely ill. [email or web address] Blood specimen (specimen) 01/07/2019 12:20 AM EDT 01/07/2019 12:59 AM EDT Narrative Resulting Agency Comment Spec In Lab Flor Davis MD CHEMISTRY ORDERABLE S Performing Organization Address [facility] Co de Phone Number [facility] [place] [address] * Hepatic Function Panel (01/07/2019 12:20 AM EDT) Protein, Total 7.2 6.1 - 8.0 gm/dL [facility] Albumin 4.9 3.2 - 5.2 gm/dL [facility] Aspartate Aminotransferase 20 0 - 30 unit/L [facility] Alanine Aminotransferase 16 0 - 30 unit/L [facility] Alkaline Phosphatase 53 40 - 104 unit/L [facility] Bilirubin, Total 0.4 0.2 - 1.3 mg/dL [facility] Bilirubin, Direct 0.1 0.0 - 0.3 mg/dL [facility] Blood specimen (specimen) 01/07/2019 12:20 AM EDT 01/07/2019 12:59 AM EDT Narrative Resulting Agency Comment Spec In Lab Flor Davis MD CHEMISTRY ORDERABLE S Performing Organization Address [facility] Co de Phone Number [facility] [place] [address] * EKG 12 Lead (01/07/2019 12:04 AM EDT) Ventricular rate 75 BPM MUSE SYSTEM Atrial Rate 75 BPM MUSE SYSTEM P-R Interval 136 ms MUSE SYSTEM QRS Duration 84 ms MUSE SYSTEM Q-T Interval 204 ms MUSE SYSTEM QTC Calculated (Bezet) 227 ms MUSE SYSTEM Calculated P Crim[place] 75 degrees MUSE SYSTEM Calculated R [place] 94 degrees MUSE SYSTEM Calculated T [place] -2 degrees MUSE SYSTEM INTERPRETATION AGE AND GENDER SPECIFIC ECG ANALYSIS Normal sinus rhythm Baseline wander Rightward axis Abnormal ECG No previous ECGs available Confirmed by MD Hardeep, Marvin ([id number]) on 01/07/2019 11:18:43 AM MUSE SYSTEM 01/07/2019 12:0 4 AM EDT 01/07/2019 11:18 AM EDT Flor Davis MD ECG ORDERABLES MUSE SYSTEM documented in this encounter Visit Diagnoses Not on filedocumented in this encounter Care Teams Wood Tank Erector Relationship Specialty Start Date End Date Ze Edwards MD PCP - General General Internal Medicine 02/03/18 9/3 documented as of this encounter
--- OUTSIDE RECORDS SUMMARY | 2024-06-01 13:06 | XMS_ITS | Encounter Summary ---
Author Organization [facility] [place] [address] Care Team Providers Care Padder Cushion Name Role Phone Luis Carmen ELIZABETH Primary Care Provider [phone] Reason for Referral * Consultation (Routine) - Closed Specialty Diagnoses / Procedures Referred By Contac t Referred To Contact [facility] Diagnoses Radiculopathy of lumbar region Traumatic coccydynia Closed fracture of transverse process of lumbar vertebra, sequela [facility] [employer] [facility] - Deja Aldridge APRN [facility] [place] [address] [facility] [place] [address] Referral ID Status Reason Start Date Expiration Date V isits Requested Visits Authorized [id number] Closed Consult, Test & Treat 04/23/2021 04/23/2022 1 1 Reason for Visit * Reason Comments Follow-up F/U to MRI Encounter Details Date Type Department Care Team (Latest Contact Info) Description 04/23/2021 3:40 PM EDT Office Visit [facility] [place] [address] Deja Aldridge APRN [facility] [place] [address] Radiculopathy of lumbar region; Traumatic coccydynia; Closed fracture of transverse process of lumbar [...] Sign Reading Time Taken Comments Blood Pressure 130/59 04/23/2021 4:05 PM EDT Pulse 88 04/23/2021 4:05 PM EDT Temperature - - Respiratory Rate - - Oxygen Saturation 98% 04/23/2021 4:05 PM EDT Inhaled Oxygen Concentration - - Weight 59 kg (130 lb) 04/23/2021 4:05 PM EDT Height 165.1 cm (5' 5) 04/23/2021 4:05 PM EDT Body Mass Index 21.63 04/23/2021 4:05 PM EDT documented in this encounter Progress Notes * Deja Aldridge, ELIZABETH - 04/23/2021 3:40 PM EDT [facility] [place] [address] Phone: PAIN MANAGEMENT INTERVAL FOLLOW UP VISIT NOTE DATE OF VISIT 04/23/21 Patient Charmaine Santana 1985 REFERRING PROVIDER Norberto Nuñez MD [address] [place] [id number] PRIMARY CARE PROVIDER Carmen Smith APRN Date of Injury: 03/29/2020 REASON FOR VISIT: Charmaine Santana is a 35 y.o. female with work related lower back and leg pain s/p L1-4 transverse process fractures due to a work related injury. Patient scheduled her MRI to be done at Noon but imaging did not take her in until after 3pm so we do not have the imaging results for the visit. Patient was 15 minutes late as a result of the scheduling issues in radiology. Having low blood sugars. She had tried to have the MRI done before but was not able to have it donedue to the monitor. She was sent to a guest service host but did not improve things. She is scheduled to see an tourist escort next week. Had COVID a few months ago but was not hospitalized. Not working due to increased pain when attempted to re-enter the workforce. Has not been doing PT for some time because she was not improving with the therapy. Pain Score: 5/10 Function: patient has been a bit more active lately but still has functional limitations with regard to bending, lifting, and twisting. 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 [place] is still quite painful. Medications: She alternates taking aleve or tylenol prn. Still smoking 1/2 to 1 ppd. 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 MEDICATIONS Medications 02/28/21 1416 Medication Sig Taking? Mometasone-Formoterol (Dulera MDI) 200-5 mcg/actuation HFA Aerosol Inhaler daily as needed. fluticasone furoate-vilanteroL 200-25 mcg/dose Disk with Device Daily. hydrOXYzine (ATARAX) 10 mg Tablet Take 50 mg by mouth nightly. Dexmethylphenidate 30 mg Capsule, Multiphasic Rel.50-50 Take 30 mg by mouth daily. nicotine (NICODERM CQ) 14 mg/[address] 1 patch onto the skin every 28 days. Patient not taking: Reported on 02/28/2021 methylphenidate (RITALIN) 20 mg Tablet Take 20 mg by mouth daily. ADVERSE DRUG REACTIONS Allergies as of 04/23/2021 - Review Complete 04/23/2021 Allergen Reaction Noted ??? Ancef [cefazolin in dextrose (iso-os)] Anaphylaxis 08/14/2014 ??? Fentanyl Anaphylaxis 08/14/2014 ??? Venomil honey bee venom [hymenoptera allergenic extract] Anaphylaxis 03/23/2019 ??? Codeine phosphate Nausea And Vomiting ??? Allergen hlk-eopgz-yzogc bee ??? Gabapentin 03/23/2019 ??? Latuda [lurasidone] 04/07/2018 ??? Morphine 04/07/2018 ??? Sulfa (sulfonamide antibiotics) ??? Venom-wasp ??? Telsf-ulycs-stqxz hornet ??? Venom-yellow hornet ??? Venom-yellow jacket ??? Hydromorphone 03/23/2019 IMAGING STUDIES MRI was done less than an hour ago. Results have not been uploaded. PHYSICAL EXAMINATION Appearance/ Behavior Well groomed, good eye contact, relaxed, cooperative, normal speech, no acute distress, no involuntary movements Eyes Sclera anicteric, conjunctiva clear. ENT Hearing grossly intact Lungs Normal respiratory effort Skin No rash, asymmetric hair loss, bruises, scars, swelling Musckuloskeletal Inspection/Palpation/ Range of Motion/Facet Loading maneuvers Gait: intact, no assistive devices Heel walk-no weakness but is painful Toe walk intact Tandem walk: intact Inspection: mild rotary scoliosis. No skin breakdown. No spasm or atrophy noted. ?? Palpation:Tenderness in lower lumbar spine and upper sacrum. No SIJ tenderness. ROM: extension is extremely limited to only 10 deg. Flexion is stiff but fairly well preserved. Rotation is still quite limited ?? SLR: neg ?? Facet Loading: positive on left. ? Neuro Motor Strength Segment Muscle Action Bilateral Results C5 Detoid Shoulder abduction 5/5 C5 Biceps Elbow flexion 5/5 C6 Extensor carpi radialis Wrist extension 5/5 C7 Triceps Elbow extension 5/5 C8, T1 Hand intrinsics Grasp 5/5 L2-5, S 1 Gluteus medius Hip Adduction 5/5 L4-5, S1 Gluteus medius Hip Abduction 5/5 L2 Iliopsoas Hip flexion Right 3/5 L3 Quadriceps Knee extension left4/5 L4 Tibialis anterior Ankle Dorsiflexion Left 4/5 L5 Extensor hallucis Great toe extension 5/5 S1 Gastrocnemius Ankle Plantar flexion Left 4/5 ? Reflexes: Segment Tendon Bilateral C5 Biceps 2+ C6 Brachioradialis 2+ C7 Triceps 2+ Upper [place] Neg L3-4 Patella 3+ S1 Ankle 2+ Lower Babinski Down going Clonus ?? Neg Sensory Exam: No sensory deficits noted inlumbar dermatomes. ?? Vascular: warm to touch + 2 pedal pulses, no lower extremity edema or cyanosis noted. ?? ASSESSMENT Charmaine aSntana is a 35 y.o. 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 Her current back pain is clearly attributed to her work related injury. PLAN/RECOMMENDATIONS Reveiwed imaging results with patient using both images as well as an anatomic model to illustrate likely pain generators. Smoking cessation again discussed. FRP referral. Will need to have her blood glucose levels stabilized prior to the program in June but she is due to see endocrinology next week so this should not be a problem by that time. She will continue to do home PT exercises. Patient to return in 4 weeks for further follow up. 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 Patient would benefit from vocational counseling. Prior work has been labor intensive and she wouldbe better able to tolerate less physically demanding work Completed w/c form Time spent on this visit reflects time evaluating the patient pre-visit, during the visit and post-visit. Total time spent was 30 minutes. Deja Aldridge APRN documented in this encounter Plan of Treatment Scheduled Referrals Name Type Priority Associated Diagnoses Orde r Schedule Amb Referral to Active Pain Care Services Outpatient Referral Routine Radiculopathy of lumbar region Traumatic coccydynia Closed fracture of transverse process of lumbar vertebra, sequela Ordered: 04/23/2021 documented as of this encounter Visit Diagnoses Diagnosis Radiculopathy of lumbar region Thoracic or lumbosacral neuritis or radiculitis, unspecified Traumatic coccydynia Closed fracture of transverse process of lumbar vertebra, sequela documented in this encounter Care Teams Padder Cushion Relationship Specialty Start Date End Date Carmen Smith APRN [address] [facility] [address] PCP - General Family Medicine 04/10/21 documented as of this encounter
--- OUTSIDE RECORDS SUMMARY | 2024-06-01 13:06 | XMS_ITS | Encounter Summary ---
Author Organization [facility] [place] [address] Care Team Providers Care Ore Crusher Name Role Phone Carmen Smith APRN Primary Care Provider [phone] Encounter Details Date Type Department Care Team (Late st Contact Info) Description 03/01/2005 Orders Only Lab [facility] [place] [id number] Lynnette Costa MD OBSTETRICS & GYNECOLOGY Social History Tobacco Use Types Packs/Day Years Used Date Smoking Tobacco: Never Assessed Sex and Gender Information Value Date Recorded Sex Assigned at Not on file Gender Identity Not on file Sexual Orientation Not on file documented as of this encounter Plan of Treatment Not on file documented as of this encounter Procedures Procedure Name Priority Date/Time Associated Diagnosis Comments SURGICAL PATHOLOGY REPORT Routine 03/02/2005 12:38 PM EDT documented in this encounter Results * Surgical Pathology Report (03/02/2005 12:38 PM EDT) Surgical Pathology Report [id number] ? Location: ; BP07; A The signing pathologist has (i) examined the relevant preparation(s) for the specimen(s) and (ii) rendered or confirmed the diagnosis(es). . ?Pathology Surgical Pathology Final Report Clinical Information Specimen Submitted: A - Placenta Clinical History: IUP @ 18 2/7 weeks PROM PTL chorioamnionitis Gross Description Labeled/Fixative: ? Labeled with the patient's name, fresh. Qty/Size/Weight: ?Single, 10.5 x 9.5 x 3.5 cm, 107 g. Tissue Description: ?? Burris placenta. ?? Membranes: ? Red-orange, thick, and opaque. ?? Cord: ?24.0 x 0.5 cm; three vessels; paracentral insertion. ?? Surface: ? Bryant-brown, dusky, and slightly cloudy. ?? Maternal Surface: ??Torn, ragged, and completeness cannot be determined. ?There is a 2.5 x 2.0-cm adherent blood clot. ?? Parenchyma: ?The specimen is serially sectioned at 0.5-cm to ?1.0-cm intervals. Sections/Processing : ??Sections are submitted as follows: ??(1) cord and ?membrane; (2) maternal surface with adherent blood ?clot; (3) maternal surface; (4) surface. ??(R4) ?aje/SNS Microscopic Description Slides reviewed, microscopic description not recorded. Diagnosis Second trimester placenta, cord and membranes: ?? Positive for chorioamnionitis. CR-0 03/04/05 [facility] 03/04/05 Verified by: ? Tiki Lopez MD ?Pathologist ?(Electronic Signature) The attending pathologist whose signature appears on this report has reviewed all diagnostic slides and has edited the gross and/or microscopic portion of the report in rendering the final pathologic diagnosis. [facility] 03/02/2005 12:3 8 PM EDT Lynnette Costa MD PATHOLOGY/CYTOLOGY O RDERABLES [facility] documented in this encounter Visit Diagnoses Not on filedocumented in this encounter Care Teams Ore Crusher Relationship Specialty Start Date End Date Carmen Smith, ELIZABETH [address] [facility] [place] [address] PCP - General Family Medicine 04/10/21 documented as of this encounter
--- OUTSIDE RECORDS SUMMARY | 2024-06-01 13:06 | XMS_ITS | Encounter Summary ---
Author Organization [facility] [place] [address] Care Team Providers Care Pairer Inspector Name Role Phone Ze Edwards MD Primary Care Provider [phone] Encounter Details Date Type Department Care Team (Late st Contact Info) Description 04/04/2019 Orders Only [place] [address] Michael Riddle MD [facility] [place] [address] Shortness of breath Social History Tobacco Use Types Packs/Day Years [...] as of this encounter Visit Diagnoses Diagnosis Shortness of breath documented in this encounter Care Teams Pairer Inspector Relationship Specialty Start Date End Date Ze Edwards MD PCP - General General Internal Medicine 02/03/18 9/3 documented as of this encounter
--- OUTSIDE RECORDS SUMMARY | 2024-06-01 13:06 | XMS_ITS | Encounter Summary ---
Author Organization [facility] [place] [place] [address] Care Team Providers Care Regulatory Consultant Name Role Phone Suresh Hicks MD Primary Care Provider [phone] Reason for Visit * Reason Comments Positive Screen For Neural Tube Defect Encounter Details Date Type Department Care Team (Late st Contact Info) Description 08/14/2014 9:30 AM EST Office Visit Obstetrics [place] [id number] Nicole Holloway, MS [facility] OBSTETRICS & [place] [address] Abnormal finding on screen Social History Tobacco Use Types Packs/Day Years [...] - Inhaled Oxygen Concentration - - Weight 66.2 kg (146 lb) 08/14/2014 10:29 AM EST Height 167.6 cm (5' 6) 08/14/2014 10:29 AM EST Body Mass Index 23.57 08/14/2014 10:29 AM EST documented in this encounter Progress Notes * Nicole Holloway, MS - 08/14/2014 10:28 AM EST GENETIC COUNSELING NOTE Charmaine Mejia Max was referred to the Diagnosis Program by Brittni Cam MD. I met with Charmaine for a 30 minute genetic counseling visit. She was accompanied to the visit by her friend. Chief Complaint Patient presents with ??? Positive Screen For Neural Tube Defect Past Medical History Diagnosis Date ??? ADD (attention deficit disorder) Family History: unremarkable for individuals with mental retardation, defects, multiple miscarriages, or genetic conditions. A three-generation pedigree was obtained and will be scanned into Charmaine's electronic medical record. OB History Grav Para Term Abortions TAB SAB Ect Mult Living 9 1 1 7 7 No LMP recorded. Estimated Date of Delivery: 01/07/2015 by early ultrasound dating. Screening Results Test Result ??? Quad screen Screen positive for neural tube defect ??? Open neural tube defect risk 1:101 [2.51 MoM] ? ? Down syndrome risk <1:20,000 ??? Trisomy 18 risk ~1:10,000 ??? Cystic fibrosis carrier screen declined ??? Thalassemia screen MCV within normal limits (87.9 fL) Discussion 1. Elevated AFP: We discussed the association of elevated maternal serum AFP with neural tube defects and other anomalies, such abdominal wall defects. We reviewed the options available to Charmaine, including ultrasound and amniocentesis, and each of their risks, benefits, and limitations. Wediscussed that 90-95% of fetuses with an open neural tube defect are identified by a high resolution ultrasound, and amniocentesis increases the detection up to 98%. After our discussion, Charmaine declined amniocentesis. We also discussed the association of an elevated maternal serum AFP and placental insufficiency, which may increase risks for IUGR, delivery, or stillbirth. We recommend that consideration begiven to an ultrasound at 30-32 weeks to check growth. documented in this encounter Plan of Treatment Not on file documented as of this encounter Visit Diagnoses Diagnosis Abnormal finding on screen Abnormal findings on screening documented in this encounter Care Teams Regulatory Consultant Relationship Specialty Start Date End Date Suresh Hicks MD [address] [place] [address] PCP - General 05/13/10 02/02/18 documented as of this encounter
--- OUTSIDE RECORDS SUMMARY | 2024-06-01 13:06 | XMS_ITS | Encounter Summary ---
Author Organization [facility] [place] [address] Care Team Providers Care Mixing Technician Name Role Phone Suresh Hicks MD Primary Care Provider Reason for Visit * Reason Comments Cyst Encounter Details Date Type Department Care Team (Late st Contact Info) Description 01/07/2011 10:30 AM EDT Office Visit Dermatology [address] [place] [address] [address] [place] [address] Tramaine Felder MD [address] [place] [address] RD, [place] [address] Follicular cyst (Primary Dx) Social History Tobacco Use Types Packs/Day Years Used Date Smoking Tobacco: Never Assessed Sex and Gender Information Value Date Recorded Sex Assigned at Not on file Gender Identity Not on file Sexual Orientation Not on file documented as of this encounter Progress Notes * Tramaine Felder MD - 01/07/2011 11:21 AM EDT Clinical Impression: Follicular cyst, right cheek. Size: 1.5 cm. Deep Suture: None. Suture: 5-0 Ethilon. Indications for surgery, possible adverse outcomes, and activity restrictions discussed. Informed consent was obtained. Skin surface was prepared with 4% chlorhexidine and draped in the usual sterile manner. Local anesthesia with 1% lidocaine, 1:100,000 epinephrine, and 0.1 mEq/mL bicarbonate. Using a #15 blade, an elliptical excision was carried out over the top of the cyst. The cyst was then dissected free and removed completely. The wound was flushed with 3 mL of normal saline and then closure was performed with 5-0 Ethilon. Wound dressed, and wound care reviewed. Return to the clinic in seven days for suture removal by Dr. Felder in [facility]. Pathology Addendum per [facility] 01/11/11 : Follicular cyst documented in this encounter Plan of Treatment Not on file documented as of this encounter Visit Diagnoses Diagnosis Follicular cyst- Primary Follicular cyst of ovary documented in this encounter Care Teams Mixing Technician Relationship Specialty Start Date End Date Suresh Hicks MD [address] [place] [address] PCP - General 05/13/10 02/02/18 documented as of this encounter
--- OUTSIDE RECORDS SUMMARY | 2024-06-01 13:06 | XMS_ITS | Encounter Summary ---
Author Organization [facility] [place] [address] Care Team Providers Care Submersible Pilot Name Role Phone Ze Edwards MD Primary Care Provider [phone] Encounter Details Date Type Department Care Team (Late st Contact Info) Description 11/01/2020 Orders Only [facility] [place] [address] Анна Bernard LNA Social History Tobacco Use Types Packs/Day Years [...] on filedocumented in this encounter Care Teams Submersible Pilot Relationship Specialty Start Date End Date Ze Edwards MD PCP - General General Internal Medicine 02/03/18 9/ documented as of this encounter
--- OUTSIDE RECORDS SUMMARY | 2024-06-01 13:06 | XMS_ITS | Encounter Summary ---
Author [facility] [place] [address] Care Team Providers Care Dredge Pump Operator Name Role Phone Suresh Hicks MD Primary Care Provider [phone] Encounter Details Date Type Department Care Team (Late st Contact Info) Description 01/06/2011 Abstract Dermatology [address] [facility] [address] [place], [place] [address] Светлана Malloy, RN Asthma Social History Tobacco Use Types Packs/Day Years Used Date Smoking Tobacco: Never Assessed Sex and Gender Information Value Date Recorded Sex Assigned at Not on file Gender Identity Not on file Sexual Orientation Not on file documented as of this encounter Plan of Treatment Not on file documented as of this encounter Visit Diagnoses Diagnosis Asthma Unspecified asthma documented in this encounter Care Teams Dredge Pump Operator Relationship Specialty Start Date End Date Suresh Hicks MD [address] [place] [address] PCP - General 05/13/10 02/02/18 documented as of this encounter
--- OUTSIDE RECORDS SUMMARY | 2024-06-01 13:06 | XMS_ITS | Encounter Summary ---
Author Organization [facility] [place] [address] Care Team Providers Care Building Code Administrator Name Role Phone Ze Edwards MD Primary Care Provider [phone] Encounter Details Date Type Department Care Team (Latest Contact Info) Description 03/30/2018 10:35 AM EDT Laboratory Appointment Lab [address] [place] [phone] Abnormal laboratory test; Low plasma alpha-1 antitrypsin; Pulmonary emphysema, unspecified emphysema type; SOB (shortness of breath); Chronic cough Social History Tobacco Use Types Packs/Day Years [...] Procedure Name Priority Date/Time Associated Diagnosis Comments A1AT GENOTYPE Routine 03/30/2018 10:48 AM EDT Abnormal laboratory test Low plasma alpha-1 antitrypsin Pulmonary emphysema, unspecified emphysema type SOB (shortness of breath) Chronic cough A1AT GENOTYPE PROFILE Routine 03/30/2018 10:48 AM EDT Abnormal laboratory test Low plasma alpha-1 antitrypsin Pulmonary emphysema, unspecified emphysema type SOB (shortness of breath) Chronic cough [id number] Routine 03/30/2018 1 0:48 AM EDT Abnormal laboratory test Low plasma alpha-1 antitrypsin Pulmonary emphysema, unspecified emphysema type SOB (shortness of breath) Chronic cough documented in this encounter Results * A1AT Genotype (03/30/2018 10:48 AM EDT) A1AT Genotype A1AT (SERPINA1) GENOTYPING RESULTS: S ALLELE: HETEROZYGOUS, ONE COPY OF THE S ALLELE DETECTED Z ALLELE: HETEROZYGOUS, ONE COPY OF THE Z ALLELE DETECTED INTERPRETATION: The presence of one copy of the S allele and one copy of the Z allele in this patient along with separate testing showing decreased A1AT protein concentration (65 mg/dL) in this patient? 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 These results should be interpreted based on the complete clinical presentation and may warrant additional testing and/or a genetic consultation for both this patient and at-risk family members. METHOD: Two regions of interest in the serpin peptidase inhibitor, clade A (alpha-1 antiproteinase, antitrypsin), member 1 gene (SERPINA1), commonly alpha-1 anti-trypsin or A1AT) that are known to contain variant alleles resulting in the ? S? phenotype (NM_[id number]:c.863 A>T; [id number]) and the ? Z? phenotype (c. 1096G>A; [id number]) are amplified and genotyped by two separate PCR assays each containing two primers for amplification and two probes for detection the normal and variant alleles. ??Genomic DNA used in this testing was isolated from peripheral blood. LIMITATIONS AND DISCLAIMERS: ??Although unlikely, rare variants or polymorphisms (known or unknown) have the potential to interfere with the performance of this test, producing false negative or false positive results. ??When genotyping results are not consistent with other clinical observations or test results, additional testing should be considered. This test was developed and its performance characteristics determined by the [facility] at [facility]. It has not been cleared or approved by the FDA. The laboratory is regulated under CLIA as qualified to perform high-complexity testing. This test is used for clinical purposes. It should not be regarded as investigational or for research. [facility] Comment: [VERIFIED DATE]04.04.18 Verified By:Marina Gomez (Electronic Signature) Blood specimen (specimen) 03/30/2018 10:48 AM EDT 03/30/2018 11:21 AM EDT Narrative Resulting Agency Comment Spec In Lab Kenyetta Baptiste MD CHEMISTRY ORDERABLE S Performing Organization Address City/[facility]/ZIP Co de Phone Number [facility] [place] [address] * (ABNORMAL) A1AT Serum Concentration (03/30/2018 10:48 AM EDT) A1AT 65(L) 90 - 200 mg/dL [facility] Comment: To convert [id number] to SI unit (umol/L), multiply result (mg/dL) by 0.184. Blood specimen (specimen) 03/30/2018 10:48 AM EDT 03/30/2018 10:56 AM EDT Narrative Resulting Agency Comment Spec In Lab Kenyetta Baptiste MD CHEMISTRY ORDERABLE S Performing Organization Address [facility] Co de Phone Number [facility] [place] [address] documented in this encounter Visit Diagnoses Diagnosis Abnormal laboratory test Other abnormal clinical finding Low plasma alpha-1 antitrypsin Pulmonary emphysema, unspecified emphysema type SOB (shortness of breath) Shortness of breath Chronic cough Cough documented in this encounter Care Teams Building Code Administrator Relationship Specialty Start Date End Date Ze Edwards MD PCP - General General Internal Medicine 02/03/18/ documented as of this encounter
--- OUTSIDE RECORDS SUMMARY | 2024-06-01 13:06 | XMS_ITS | Encounter Summary ---
Author Organization [facility] [place] [address] Care Team Providers Care Nurse Executive Name Role Phone Suresh Hicks MD Primary Care Provider Encounter Details Date Type Department Care Team (Late st Contact Info) Description 08/14/2014 9:27 AM EST - 08/14/2014 11:59 PM EST Hospital Encounter Ultrasound at [facility] [place] [id number] Social History Tobacco Use Types Packs/Day Years [...] Procedure Name Priority Date/Time Associated Diagnosis Comments US OB DETAILED MORPHOLOGY Routine 08/14/2014 10:27 AM EST documented in this encounter Results * US OB Targeted Morphology (08/14/2014 10:27 AM EST) Anatomical Region Laterality Modality Pelvis, Abdomen Ultrasound 08/14/2014 10:2 7 AM EST Narrative 08/14/2014 11:27 AM EST OBSTETRICS REPORT ?(Signed Final 08/14/2014 11:26 ? am) Patient Info ID #: ? [id number] ?: ??[birth year] (28 yrs) Name: ? CHARMAINE SANTANA ? Visit Date: 08/14/2014 10:25 am Performed By Performed By: ?Jazzmine Cano RDMS Attending: ? Sd Fernandez MD ??Jacque Referred By: ? LATASHA CAM MD Service(s) Provided ??[facility] - Targeted Morphology - Genetics - ? [id number] ??[id number] Indications ??+QUAD FOR NTD ??EDD07.20.15 OB History Blood Type: ?? O+ ? Height: ??5'6 ?? Weight: ?? 146 ? BMI: ??23.56 : ?10 ? SAB: ?? 8 Living: ? 1 Evaluation Num Of Fetuses: ? 1 Heart ? 152 Rate(bpm): Cardiac Activity: ?? Observed, normal rhythm Presentation: ? Cephalic Placenta: ? Posterior P. Cord Insertion: ??Marginal Amniotic Fluid ROYAL FV: ?Normal -------- Biometry -------- BPD: ?41.7 ??mm ?G. Age: ?? 18w 4d OFD: ?58.6 ??mm HC: ?163.2 ??mm ?G. Age: ?? 19w 1d AC: ?137.6 ??mm ?G. Age: ?? 19w 1d FL: ? 27.4 ??mm ?G. Age: ?? 18w 3d HUM: ?28.5 ??mm ?G. Age: ?? 19w 1d CER: ?20.8 ??mm ?G. Age: ?? 19w 6d NFT: ? 3.5 ??mm NB: ? 5.18 ??mm LV: ?6.3 ??mm CM: ?3.7 ??mm CI: ?71.2 ??% ? 70 - 86 FL/HC: ? 16.8 ??% ? 16.1 - 18.3 HC/AC: ? 1.19 ?1.09 - 1.39 FL/BPD: ?65.7 ??% FL/AC: ? 19.9 ??% ? 20 - 24 Est. FW: ? 259 ?? gm ? 0 lb 9 oz Gestational Age U/S Today: ? 18w 6d ?SID: ?? 01/09/15 Best: ?19w 1d ?? Det. By: ??Early ?SID: ?? 01/07/15 ? Ultrasound ? (06/18/14) Targeted Anatomy Central Nervous System Calvarium: ?Within Normal Limits Intracranial: ? Within Normal Limits Lat. Ventricles: ?Within Normal Limits Cerebellum: ? Within Normal Limits Choroid Plexus: ? Within Normal Limits Cisterna Magna: ? Within Normal Limits Spine Cervical: ? Visualized Thoracic: ? Visualized Lumbar: ? Visualized Sacral: ? Visualized Head/Neck Face: ? Within Normal Limits Nuchal Fold: ?Within Normal Limits Thorax Four Chamber: ? Within Normal Limits Cardiac Motion: ? Normal Rhythm R Outflow Tract: ?Visualized L Outflow Tract: ?Visualized Cardiac Flomot: ? Visualized Diaphragm: ?Visualized Abdomen Ventral Wall: ? Visualized Stomach: ?Visualized Lt Kidney: ?Visualized Rt Kidney: ?Visualized Bladder: ?Visualized Extremities Lt Humerus: ? Within Nomal Limits Rt Humerus: ? Within Normal Limits Lt Forearm: ? Within Normal Limits Rt Forearm: ? Within Normal Limits Lt Hand: ?Within Normal Limits Rt Hand: ?Within Normal Limits Lt Femur: ? Within Normal Limits Rt Femur: ? Within Normal Limits Lt Lower Leg: ? Within Normal Limits Rt Lower Leg: ? Within Normal Limits Lt Foot: ?Visualized Rt Foot: ?Visualized Other Umbilical Cord: ? 3 vessel cord Cord Insertion: ? WIthin Normal Limits Comment: ? Nasal Bone: Visualized Doppler - Uterine Artery Right S/D Ratio: ? RI: ?PI: ?%Tile Left S/D Ratio: ?RI: ?PI: ?%Tile Cervix Uterus Adnexa Left Ovary Visualized Right Ovary Visualized Impression 2nd Trimester - Targeted Morphology- Summary Single intrauterine with a gestational age of 19w 1d based on early outside ultrasound. Composite age based on the current ultrasound alone is 18w 6d. Amniotic fluid volume is normal. Current growth parameters are consistent indicating normal growth. ??Detailed anatomic evaluation was performed and no structural abnormalities are noted. I ??viewed the images and agree with the above interpretation. ?Sd Fernandez MD Electronically Signed Final Report ?? 08/14/2014 11:26 am Procedure Note Sd Fernandez MD - 08/14/2014 OBSTETRICS REPORT (Signed Final 08/14/2014 11:26 am) Patient Info ID #: [id number] : [birth year] (28 yrs) Name: CHARMAINE SANTANA Visit Date: 08/14/2014 10:25 am Performed By Performed By: Jazzmine Cano RDMS Attending: Sd Fernandez MD Referred By: LATASHA CAM MD Service(s) Provided [facility] - Targeted Morphology - Genetics - [id number] Indications +QUAD FOR NTD EDD07.20.15 OB History Blood Type: O+ Height: 5'6 Weight: 146 BMI: 23.56 : 10 SAB: 8 Livin Evaluation Num Of Fetuses: 1 Heart 152 Rate(bpm): Cardiac Activity: Observed, normal rhythm Presentation: Cephalic Placenta: Posterior P. Cord Insertion: Marginal Amniotic Fluid ROYAL FV: Normal -------- Biometry -------- BPD: 41.7 mm G. Age: 18w 4d OFD: 58.6 mm HC: 163.2 mm G. Age: 19w 1d AC: 137.6 mm G. Age: 19w 1d FL: 27.4 mm G. Age: 18w 3d HUM: 28.5 mm G. Age: 19w 1d CER: 20.8 mm G. Age: 19w 6d NFT: 3.5 mm NB: 5.18 mm LV: 6.3 mm CM: 3.7 mm CI: 71.2 % 70 - 86 FL/HC: 16.8 % 16.1 - 18.3 HC/AC: 1.19 1.09 - 1.39 FL/BPD: 65.7 % FL/AC: 19.9 % 20 - 24 Est. FW: 259 gm 0 lb 9 oz Gestational Age U/S Today: 18w 6d SID: 01/09/15 Best: 19w 1d Det. By: Early SID: 01/07/15 Ultrasound (06/18/14) Targeted Anatomy Central Nervous System Calvarium: Within Normal Limits Intracranial: Within Normal Limits Lat. Ventricles: Within Normal Limits Cerebellum: Within Normal Limits Choroid Plexus: Within Normal Limits Cisterna Magna: Within Normal Limits Spine Cervical: Visualized Thoracic: Visualized Lumbar: Visualized Sacral: Visualized Head/Neck Face: Within Normal Limits Nuchal Fold: Within Normal Limits Thorax Four Chamber: Within Normal Limits Cardiac Motion: Normal Rhythm R Outflow Tract: Visualized L Outflow Tract: Visualized Cardiac Flomot: Visualized Diaphragm: Visualized Abdomen Ventral Wall: Visualized Stomach: Visualized Lt Kidney: Visualized Rt Kidney: Visualized Bladder: Visualized Extremities Lt Humerus: Within Nomal Limits Rt Humerus: Within Normal Limits Lt Forearm: Within Normal Limits Rt Forearm: Within Normal Limits Lt Hand: Within Normal Limits Rt Hand: Within Normal Limits Lt Femur: Within Normal Limits Rt Femur: Within Normal Limits Lt Lower Leg: Within Normal Limits Rt Lower Leg: Within Normal Limits Lt Foot: Visualized Rt Foot: Visualized Other Umbilical Cord: 3 vessel cord Cord Insertion: WIthin Normal Limits Comment: Nasal Bone: Visualized Doppler - Uterine Artery Right S/D Ratio: RI: PI: %Tile Left S/D Ratio: RI: PI: %Tile Cervix Uterus Adnexa Left Ovary Visualized Right Ovary Visualized Impression 2nd Trimester - Targeted Morphology- Summary Single intrauterine with a gestational age of 19w 1d based on early outside ultrasound. Composite age based on the current ultrasound alone is 18w 6d. Amniotic fluid volume is normal. Current growth parameters are consistent indicating normal growth. Detailed anatomic evaluation was performed and no structural abnormalities are noted. I viewed the images and agree with the above interpretation. Sd Fernandez MD Electronically Signed Final Report 08/14/2014 11:26 am Latasha Cam MD IMG US OB ORDERABLES documented in this encounter Visit Diagnoses Not on filedocumented in this encounter Care Teams Nurse Executive Relationship Specialty Start Date End Date Suresh Hicks MD [address] [place] [address] PCP - General 05/13/10 02/02/18 documented as of this encounter
--- OUTSIDE RECORDS SUMMARY | 2024-06-01 13:06 | XMS_ITS | Encounter Summary ---
[facility] [place] [address] Care Team Providers Care Wine Manager Name Role Phone Suresh Hicks MD Primary Care Provider [phone] Encounter Details Date Type Department Care Team (Latest Contact Info) Description 08/14/2014 9:20 AM EST Clinical Support Obstetrics [place] [address] [address] ST[facility] Discharge Disposition: Home Social History Tobacco Use [...] on filedocumented in this encounter Care Teams Wine Manager Relationship Specialty Start Date End Date Suresh Hicks MD [address] [place] [address] PCP - General 05/13/10 02/02/18 documented as of this encounter
--- OUTSIDE RECORDS SUMMARY | 2024-06-01 13:06 | XMS_ITS | Encounter Summary ---
Author Organization [facility] [place] [address] Care Team Providers Care Solder Sprayer Name Role Phone Suresh Hicks MD Primary Care Provider [phone] Reason for Visit * Reason Comments Routine Visit Encounter Details Date Type Department Care Team (Late st Contact Info) Description 08/14/2014 10:45 AM EST Office Visit Obstetrics [place] [address] Sd Fernandez MD [facility] [address] [place] [address] Abnormal maternal serum screening test Discharge Disposition: Home Social History Tobacco Use Types Packs/Day Years Used Date Smoking Tobacco: Every Day Cigarettes Comments Yes Sex and Gender Information Value Date Recorded Sex Assigned at Not on file Gender Identity Not on file Sexual Orientation Not on file documented as of this encounter Last Filed Vital Signs Vital Sign Reading Time Taken Comments Blood Pressure 132/78 08/14/2014 9:32 AM EST Pulse - - Temperature - - Respiratory Rate - - Oxygen Saturation - - Inhaled Oxygen Concentration - - Weight 66 kg (145 lb 8 oz) 08/14/2014 9:32 AM ES T Height - - Body Mass Index - - documented in this encounter Progress Notes * Sd Fernandez MD - 08/14/2014 10:40 AM EST Diagnosis/Maternal Medicine Consult Note Charmaine Mejia Max is a 28 y.o. year old female who is at 19w1d gestation. She is seen in consultation at the request of Brittni Cam MD for evaluation of anatomy due to elevated risk of neural tube defect. MS-AFP: 2.51 MoM. She was seen today for maternal- medicine consultation, ultrasound evaluation and genetic counseling with Nicole Holloway MS. Review of Systems Constitutional:feels well Movement: normal Contractions: none Leaking: None Bleeding: None Patient Active Problem List Diagnosis Date Noted ??? Depression 01/06/2011 ??? Asthma 01/06/2011 Past Medical History Diagnosis Date ??? ADD (attention deficit disorder) No past surgical history on file. No family history on file. Social History Occupational History ??? Not on file. Social History Main Topics ??? Smoking status: Current Every Day Smoker -- 0.50 packs/day ??? Smokeless tobacco: Not on file ??? Alcohol Use: Not on file ??? Drug Use: Not on file ??? Sexual Activity: Not on file OB History Para Term AB TAB SAB Ectopic Multiple Living 10 1 1 7 7 2 # Outc Date GA Lbr Dov/2nd Wgt Sex Del Anes PTL Lv 10 Current 9 Term 03/2010 39w0d 3.161 kg (6 lb 15.5 oz) F Vag-Spont N Y 8 7 SAB 6 SAB 5 SAB 4 SAB 3 SAB 2 SAB 1 SAB Current Outpatient Prescriptions Medication Sig Dispense Refill ??? lurasidone (LATUDA) 20 mg Tablet Take 20 mg by mouth daily. ??? methylphenidate (RITALIN) 20 mg Tablet Take 20 mg by mouth 2 times daily. ??? melatonin 3 mg Tablet Take 9 mg by mouth. ??? aspirin 81 mg Tablet, Chewable Take 81 mg by mouth daily. ??? FLINTSTONES MULTIVITAMIN ORAL Take by mouth. No current facility-administered medications for this visit. Allergies Allergen Reactions ??? Ancef [Cefazolin In Dextrose (Iso-Os)] Anaphylaxis ??? Fentanyl Anaphylaxis ??? Codeine Phosphate Nausea And Vomiting ??? Honey Bee Venom Protein ??? Sulfa (Sulfonamide Antibiotics) ??? Wasp Venom ??? White-Faced Hornet Venom ??? Yellow Hornet Venom ??? Yellow Jacket Venom Ultrasound Date: 08/14/2014 Amniotic fluid volume normal Presentation cephalic Placenta posterior Growth appropriate for gestational age anatomy appears within normal limits Physical Exam BP 132/78 Wt 65.998 kg (145 lb 8 oz) General: alert, well appearing, in no apparent distress, oriented to person, place and time HEENT: normocephalic, atraumatic Abdomen: Soft, nontender Neurologic:alert, oriented, normal speech, no focal findings or movement disorder noted Psychiatric: Affect is Appropriate. Assessment and Recommendations: 28 y.o. year old female at 19w1d weeks gestation, referred for counseling regarding increased risk for neural tube defect. The patient was counseled regarding the limitations of ultrasound, and the incidence of congenital malformations in the general population. Serum screening will detect approximately 85% of open neural tube defects, ultrasound will detect 90-95% and amniocentesis willdetect and additional 2 - 3%, bringing the diagnosis rate to 98%. Closed neural tube defects are generally not detected by serum screening or amniocentesis, and are more difficult to detect by ultrasound. The patient declined amniocentesis today. All questions were answered, and she demonstrated adequate comprehension of the concepts that were discussed. Due to unexplained elevated MS-AFP I recommend serial third trimester ultrasound for growth surveillance. I appreciate the opportunity to be involved in this patients care, and am available if further questions should arise. Sd Fernandez MD 08/14/2014 Cc: Brittni Cam MD [address] [place] [address] , with copy of ultrasound report documented in this encounter Plan of Treatment Not on file documented as of this encounter Visit Diagnoses Diagnosis Abnormal maternal serum screening test Abnormal findings on screening documented in this encounter Care Teams Solder Sprayer Relationship Specialty Start Date End Date Suresh Hicks MD [address] [place] [address] PCP - General 05/13/10 02/02/18 documented as of this encounter
--- OUTSIDE RECORDS SUMMARY | 2024-06-01 13:06 | XMS_ITS | Encounter Summary ---
Author Organization [facility] [place] [place] [address] Care Team Providers Care Scrub Technician Name Role Phone Ze Edwards MD Primary Care Provider [phone] Reason for Referral * Diagnostic Test (Routine) - Closed Specialty Diagnoses / Procedures Referred By Contac t Referred To Contact Radiology Diagnoses Closed fracture of transverse process of lumbar vertebra, sequela Radiculopathy of lumbar region Procedures MRI Lumbar Spine wo Contrast (Generic) Deja Aldridge APRN [facility] [place] [address] [place] [address] Referral ID Status Reason Start Date Expiration Date V isits Requested Visits Authorized [id number] Closed Specialty Service Requested 10/22/2020 06/20/2021 1 1 Reason for Visit * Reason Comments Back Pain * Consultation (Routine) - Closed Specialty Diagnoses / Procedures Referred By Contac t Referred To Contact [facility] Diagnoses Lumbar transverse process fracture Spine - Lumbar transverse process fx s/p fall from ladder 03/29/20 / CT(t&l) @ [facility] ok to schedule - non-op provider Norberto Nuñez MD [address] [place] [address] [facility] [place] [address] Referral ID Status Reason Start Date Expiration Date Visits Re quested Visits Authorized [id number] Closed 08/26/2020 08/26/2021 1 1 Encounter Details Date Type Department Care Team (Late st Contact Info) Description 09/23/2020 8:15 AM EDT Office Visit [facility] [place] [address] eDja Aldridge APRN [facility] [place] [place] [address] Closed fracture of transverse process of lumbar [...] Sign Reading Time Taken Comments Blood Pressure 118/62 09/23/2020 8:25 AM EDT Pulse 75 09/23/2020 8:25 AM EDT Temperature 36.9 ??C (98.5 ??F) 09/23/2020 8:25 AM ED T Respiratory Rate - - Oxygen Saturation - - Inhaled Oxygen Concentration - - Weight 65.8 kg (145 lb) 09/23/2020 8:25 AM EDT Height 165.1 cm (5' 5) 09/23/2020 8:25 AM EDT Body Mass Index 24.13 09/23/2020 8:25 AM EDT documented in this encounter Progress Notes * Deja Aldridge, ELIZABETH - 09/23/2020 8:15 AM EDT [facility] [place] [address] Phone: PAIN MANAGEMENT NEW PATIENT / CONSULTATION NOTE DATE OF VISIT 09/23/2020 Patient Charmaine Santana 1985 REFERRING PROVIDER Norberto Nuñez MD [address] [place] [address] PRIMARY CARE PROVIDER Ze Edwards MD Date of Injury: 03/29/2020 CHIEF COMPLAINT: Charmaine Santana is a 34 y.o. female with lower back and leg pain s/p transverse process fracture due to a work related injury, who is seen in consultation at the request of Norberto Nuñez MD for evaluation, recommendations, and management. The history is obtained from the patient, and I have reviewed medical records provided by the referring physician and located in the electronic medical record to fill in gaps in the patient's recollection of events, treatments and outcomes. Goal of visit: Be able to play with her children as she did prior to injury. 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 She is frustrated that her legs feel weak and she is not able to walk or sit for longer than 30 minutes without increased pain.She is continuing to go to PT [facility] and finds that this is very helpful on a temporary basis but whenshe misses the therapy, the pain increases markedly. She describes the pain as burning and cramping with tingling pain down her legs. The radicular painlasts from 10 minutes to and hour if she stops doing the agravating activity. Exacerbating factors include sitting, walking, standing, bending, twisting, lifting. Lying down helps some as does PT, acupuncture, aleve, and tylenol which help only a little. Since her injury, she returned to work in her usual job but was not able to reduce the hours that were agreed upon when she first returned. 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 Although the work increases her pain, she is committed to continuing and pushes through the pain. PAIN ASSESSMENT: Description: Burning, pinching Weakness, numbness, tingling: has numbess and tingling right anterior leg to dorsum of foot and toes. This occurs approx 2-3 times per day, worse with activity. Last from a few minutes to an hour. Saddle Anesthesia: no No loss of bowel/bladder function Alleviating factors: lying down, aleve, tylenol Aggravating factors: sitting, standing, bending, lifting, lying on left side. Ave past week: 10/28 Low 07/31 High: 8 evenings. FUNCTIONAL HISTORY Work:32 hours per day as an [employer] in a long term. # of missed days from work past month due to pain: None-'fight through it' Interference with activities/ADL: playing with children, housework (vacuuming, mopping), climbing stairs, bathing son. Riding in car Exercise/activities: Home exercises, PT twice per week. How do you spend your day? Working, caring for children, stays busy CURRENT THERAPIES: Aleve Tylenol PT CBD gummies Acupuncture helps Massage PAST THERAPIES: Marijuana Work conditioning program REVIEW OF SYSTEMS: Constitutional: denies fever, chills, cough, signs of infection, weight changes, fatigue HEENT: Denies headaches, blurry/limited vision, photophobia, difficulty hearing, Cardiac:denies chest pain or pressure, lower extremity edema Lungs: denies SOB on exertion GI: denies constipation or diarrhea, black tarry stool, loss of control; : denies frequency, urgency, hesitation, or incontinence Neuro: denies dizziness, numbness, seizures, tremors Muscle skeletal: denies use of ambulatory aide, falls Skin: denies open sores or rashes Psychological/Mood: good, depressed due to back. Has ADHD and dep. This is stable at this point. Sleep: pretty good. RELEVANT SOCIAL HISTORY: Lives with: sukhjinder and 2 children ages 5 and 10 years old Smokin/3ppd and nicotine patch. She had been smoking up to 2ppd. She finds that she only wants to smoke w/ her fiance returns home and starts smoking in the house. Alcohol: No. Sober X 9 years Illicit substance use: No used marijuana in past. MEDICATIONS The [place] Prescription Monitoring Program was checked and no concerns were identified. Medications 09/23/20 0825 Medication Sig Taking? hydrOXYzine (ATARAX) 10 mg [...] Yes ADVERSE DRUG REACTIONS Allergies as of 09/23/2020 - Review Complete 09/23/2020 Allergen Reaction Noted ??? Ancef [cefazolin in dextrose (iso-os)] Anaphylaxis 08/14/2014 ??? Fentanyl Anaphylaxis 08/14/2014 ??? Venomil honey bee venom [hymenoptera allergenic extract] Anaphylaxis 03/23/2019 ??? Codeine phosphate Nausea And Vomiting ??? Allergen ofz-gpyzg-kvvfp bee ??? Gabapentin 03/23/2019 ??? Latuda [lurasidone] 04/07/2018 ??? Morphine 04/07/2018 ??? Sulfa (sulfonamide antibiotics) ??? Venom-wasp ??? Vwssn-bknwl-eanxo hornet ??? Venom-yellow hornet ??? Venom-yellow jacket ??? Hydromorphone 03/23/2019 MEDICAL HISTORY Past Medical History: Diagnosis Date ??? ADD (attention deficit disorder) ??? Allergic state ??? Asthma ??? Emphysema/COPD 03/23/2019 ??? Lung disease alpha [...] Uncle ??? Diabetes Paternal Grandmother IMAGING STUDIES PHYSICAL EXAMINATION Patient Vitals for the past 24 hrs: Temp Pulse BP 09/23/20 0825 36.9 ??C (98.5 ??F) 75 118/62 Body mass index is 24.13 kg/m??. BP 118/62 Pulse 75 Temp 36.9 ??C (98.5 ??F) Ht 165.1 cm (5' 5) Wt 65.8 kg (145 lb) PHQ-9 QUESTIONNAIRE SCORE ONLY (AMB) 08/14/2014 PHQ - 9 Score (Clinic) 0 (No Depression) Appearance/ Behavior Well groomed, good eye contact, [...] Toe walk intact Tandem walk: intact Inspection: There may be some mild rotary scoliosis. No skin breakdown. No spasm or atrophy noted. Palpation:Tender spinous processes upper lumbar region right worse than left. No SIJ tenderness. ROM: extension is extremely limited to only 10 deg. Flexion is stiff but fairly well preserved. Rotation is very limited SLR: neg Facet Loading: positive on left. Neuro Motor Strength Segment Muscle Action Bilateral [...] S1 Gastrocnemius Ankle Plantar flexion Left 4/5 Reflexes: Segment Tendon Bilateral C5 Biceps 2+ C6 Brachioradialis 2+ C7 Triceps 2+ Upper [place] Neg L3-4 Patella 2+ S1 Ankle 1+ Lower Babinski Down going Clonus Neg Sensory Exam: No sensory deficits noted in cervical, thoracic and lumbar dermatomes. Vascular: warm to touch + 2 pedal pulses, no lower extremity edema or cyanosis noted. ASSESSMENT Charmaine Santana is a 34 y.o. 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 Her current pain is clearly attributed to her injury. She has had extensive PT which has been helpful but she continues to have quite significant pain and weakness, worse, on the right leg. 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 She had been very active in the care of her children and was able to work and manage her home. She is now only able to perform her job duties and is in a great deal of pain when she arrives home. The pain is affecting her mood and she is quite frustrated that she has not improved more quickly. PLAN/RECOMMENDATIONS Since she is having radicular pain down her leg with some weakness and no imaging has been completed since the fall, I am requesting authorization for her to have an MRI of the lumbar spine to evaluate the nerve roots and to evaluate the areas of fracture for edema which would not show on an xray. If the fractures are healed but she had some foraminal narrowing, may consider therapeutic injection. We discussed the Functional Holiness program which may help to imrprove her function and pain coping skills, including fear avoidance behaviors. This is a multidisciplinary program aimed to help guide patients into reaching their full functional potential. I would like her to have the imaging first to evaluate the radicular pain. She will return to office or do telehealth visit once the imaging is completed so that we may plan the next step in her treatment. Provided information regarding COVID vaccine. She is declining at this time. Charmaine Santana had the opportunity to ask questions and indicated that all questions were answered to their satisfaction. Deja Aldridge APRN Nurse Practitioner [facility] documented in this encounter Plan of Treatment Not on file documented as of this encounter Results * MRI Lumbar Spine [...] in context of the clinical situation (Reference- Lizzk et al, Spine 2001). Findings: (Prevalence in [...] who have questions please contact the health farm or ranch animal caretaker that requested your imaging first. ? Narrative [...] extremity leg pain, numbness, and weakness. Hx [id number] process fx. Pain along L4 and L5 [...] in context of the clinical situation (Reference- Jarvik et al, [id number]). Findings: (Prevalence in patients without low back [...] patients who have questions please contactthe health farm or ranch animal caretaker that requested your imaging first. Electronically signed by: MATTIE Stevenson Pending [facility]([phone]), at 10/22/2020 12:09 PM Deja Aldridge APRN IMG MRI ORDERABLES documented in this encounter Visit Diagnoses Diagnosis Closed fracture of transverse process of lumbar vertebra, sequela Radiculopathy of lumbar region Thoracic or lumbosacral neuritis or radiculitis, unspecified Closed fracture of transverse process of lumbar vertebra, sequela Radiculopathy of lumbar region Thoracic or lumbosacral neuritis or radiculitis, unspecified documented in this encounter Care Teams Scrub Technician Relationship Specialty Start Date End Date Ze Edwards MD PCP - General General Internal Medicine 02/03/1802/21 documented as of this encounter
--- OUTSIDE RECORDS SUMMARY | 2024-06-01 13:06 | XMS_ITS | Encounter Summary ---
Author Organization [facility] [place] [address] Care Team Providers Care Work Adjustment Instructor Name Role Phone Ze Edwards MD Primary Care Provider [phone] Reason for Visit * Reason Comments Genetic Evaluation * Consultation (Routine) - Closed Specialty Diagnoses / Procedures Referred By Bakari fortune Referred To Contact Genetics Diagnoses ALPHA-1 ANTITRYPSIN DEFICIENCY Ze Edwards MD [address] [place] [id number] Devika Toribio, [facility] [place] [address] Referral ID Status Reason Start Date Expiration Date V isits Requested Visits Authorized [id number] Closed Consult, Test & Treat Connection Center 02/03/2018 02/03/2019 1 1 Encounter Details Date Type Department Care Team ([facility] Contact Info) Description 03/30/2018 9:00 AM EDT [place] [address] Светлана Finch, [facility] [place] [address] Low plasma alpha-1 antitrypsin (Primary Dx); Abnormal laboratory test; Pulmonary emphysema, unspecified emphysema type; SOB (shortness [...] - Inhaled Oxygen Concentration - - Weight 55.3 kg (122 lb) 03/30/2018 9:12 AM EDT Height 165.1 cm (5' 5) 03/30/2018 9:12 AM EDT Body Mass Index 20.3 03/30/2018 9:12 AM EDT documented in this encounter Patient Instructions * Patient Instructions* Светлана Finch LGC - 03/30/2018 9:00 AM EDT Images from the original note were not included. Genetic Counseling Note: Alpha-1 antitrypsin deficiency (AAT) is an inherited disorder that may cause lung disease and liverdisease. The signs and symptoms of the condition and the age at which they appear vary among individuals. People with alpha-1 antitrypsin deficiency usually develop the first signs and symptoms of lung disease between ages 20 and 50. The earliest symptoms are shortness of breath following mild activity, reduced ability to exercise, and wheezing. Other signs and symptoms can include unintentional weight loss, recurring respiratory infections, fatigue, and rapid heartbeat upon standing. Affected individuals often develop emphysema. Smoking or exposure to tobacco smoke accelerates the appearanceof emphysema symptoms and damage to the lungs. About 10 percent of infants with alpha-1 antitrypsin deficiency develop liver disease. Approximately 15 percent of adults with alpha-1 antitrypsin deficiency develop cirrhosis due to the formation ofscar tissue in the liver. Individuals with alpha-1 antitrypsin deficiency are also at risk of developing a type of liver cancer called hepatocellular carcinoma. This condition is inherited in an autosomal codominant pattern. Codominance means that two different versions of the gene may be active, and both versions contribute to the genetic trait. The most common allele of the SERPINA1 gene, called M, produces normal levels of alpha-1 antitrypsin. Most people in the general population have two copies of the M allele (MM) in each cell. Other versions of the SERPINA1 gene lead to reduced levels of alpha-1 antitrypsin. For example, the S allele produces moderately low levels of this protein, and the Z allele produces very little alpha-1 antitrypsin. Individuals with two copies of the Z allele (ZZ) in each cell are likely to have alpha-1 antitrypsin defi ciency. Those with the SZ combination have an increased risk of developing lung diseases (such as emphysema), particularly if they smoke. Worldwide, it is estimated that 161 million people have one copy of the S or Z allele and one copy of the M allele in each cell (MS or MZ). Individuals with an MS (or SS) combination usually produce enough alpha-1 antitrypsin to protect the lungs. People with MZ alleles, however, have a slightly increased risk of impaired lung or liver function. We reviewed the following table from the [employer] article for Dahne-3-hhpgymivwhr deficiency: Charmaine explained that she has been reading about A1AT deficiency and found an online support group which has been helpful. She expressed her interest in smoking cessation and will address this further with pulmonary medicine next week. Based on Charmaine's respiratory symptoms and the low sqyok-5-kvpetgpbnqx level detected at [facility], we will repeat her serum A1AT level and complete A1AT genotyping to help clarify her risk and medical management. We reviewed the testing that will be completed and Charmaine was in agreement with this plan. She is scheduled to see pulmonary medicine next week. Recommendations and Plan: 1. Cungl-5-enlipgmpcon level and genotype. Results should be available before her pulmonary appointment next week. 2. We encouraged Charmaine to speak with her pulmonary provider next week regarding options for smoking cessation programs that might be most helpful for her. Светлана Finch MS, [facility] Licensed Genetic Counselor Contact information (typically work Wednesday, Wednesday, and in Clinical Genetics): ?? . ?? Best day to reach by phone: Wednesdays. ?? Other members of our team are also available for emergency calls and questions or to reach us emergently. ?? Electronically, monitored daily: ?? You can send direct email to me at: [email or web address] documented in this encounter Progress Notes * Светлана Finch, [facility] - 03/30/2018 9:00 AM EDT Images from the original note were not included. History of Present Concerns: Charmaine, a 32 y.o. female, was referred for genetic counseling due toher possible jdhyp-1-oiqkdldfugx deficiency. The patient raised the following questions during our visit today: 1. Charmaine reported that she was a seen at a local hospital due to rib pain. She stated that chestCT identified that she has emphysema and a low xzolf-7-aeydyihhkuv level. 2. She reports that she has been trying to quit smoking. She has been able to reduce her smoking and quit for five days one time. She has used the patch but was able to use only a generic brand whichdid not stick on her skin. 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 When the patch was able to stay in place (when not at work, at home), she felt that it was helping. /Medical History: No history on file. Past Medical History: Diagnosis Date ??? ADD (attention deficit disorder) Surgical History: Past Surgical History: Procedure Laterality Date ??? SECTION ??? DILATION AND CURETTAGE OF UTERUS Multiple miscarriages ??? LAPAROSCOPIC APPENDECTOMY ??? TONSILLECTOMY ??? TUBAL LIGATION Developmental History: ?? Patient has no history of developmental concerns. Social History: Social History Social History Narrative Charmaine lives with her fiance and her two children. 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 Family History: ?? A complete pedigree was obtained and will be scanned into the medical record. Parent/Patient report(s) the following medical symptoms: ?? Constitutional: Weight loss noted with illness (Q fever) earlier this year. Down from 145 lb. ?? Eyes: negative ?? ENT/Mouth: negative ?? Cardiac: SVT, was on metoprolol and has cardiology follow-up next week. Was getting light-headedat current dosage. ?? Respiratory: Referred to pulmonary for evaluation of emphysema. Diagnosed a couple months ago bylocal CT scan. Some SOB. Regular cough, sometimes with phlegm. Has albuterol inhaler, used 2-3x/week ?? Gastrointestinal: negative ?? Musculoskeletal: negative ?? Integument: negative ?? Neurologic: negative ?? : negative ?? Psychiatric: ADHD, on Focalin and ritalin. Ativan for anxiety and stress. Reports that she has adiagnosis of bipolar disorder, followed monthly by psychiatrist in [place], [place]. She was treated with [place] for a period of time but discontinued the medication earlier this year. Takes Risperdal. H/O alcoholism, quit drinking 6 years ago but recently started drinking again (1 beer only, infrequently) due to recent stress. ?? Endocrine: negative ?? Hematologic/Lymphatic: negative ?? Allergy/Immunologic: negative Testing: Prior to today's appointment the following studies were completed: Labs: ?? Hdscw-8-mbkbxyvzcmh level: 68 (low, no reference range provided) Radiology: ?? none Other: ?? none Genetic Counseling Provided: Alpha-1 antitrypsin deficiency (AAT) is an inherited disorder that may cause lung disease and liverdisease. The signs and symptoms of the condition and the age at which they appear vary among individuals. People with alpha-1 antitrypsin deficiency usually develop the first signs and symptoms of lung disease between ages 20 and 50. The earliest symptoms are shortness of breath following mild activity, reduced ability to exercise, and wheezing. Other signs and symptoms can include unintentional weight loss, recurring respiratory infections, fatigue, and rapid heartbeat upon standing. Affected individuals often develop emphysema. Smoking or exposure to tobacco smoke accelerates the appearanceof emphysema symptoms and damage to the lungs. About 10 percent of infants with alpha-1 antitrypsin deficiency develop liver disease. Approximately 15 percent of adults with alpha-1 antitrypsin deficiency develop cirrhosis due to the formation ofscar tissue in the liver. Individuals with alpha-1 antitrypsin deficiency are also at risk of developing a type of liver cancer called hepatocellular carcinoma. This condition is inherited in an autosomal codominant pattern. Codominance means that two different versions of the gene may be active, and both versions contribute to the genetic trait. The most common allele of the SERPINA1 gene, called M, produces normal levels of alpha-1 antitrypsin. Most people in the general population have two copies of the M allele (MM) in each cell. Other versions of the SERPINA1 gene lead to reduced levels of alpha-1 antitrypsin. For example, the S allele produces moderately low levels of this protein, and the Z allele produces very little alpha-1 antitrypsin. Individuals with two copies of the Z allele (ZZ) in each cell are likely to have alpha-1 antitrypsin defi ciency. Those with the SZ combination have an increased risk of developing lung diseases (such as emphysema), particularly if they smoke. Worldwide, it is estimated that 161 million people have one copy of the S or Z allele and one copy of the M allele in each cell (MS or MZ). Individuals with an MS (or SS) combination usually produce enough alpha-1 antitrypsin to protect the lungs. People with MZ alleles, however, have a slightly increased risk of impaired lung or liver function. We reviewed the following table from the [employer] article for Bvoip-9-kjowrvpespy deficiency: Charmaine explained that she has been reading about A1AT deficiency and found an online support group. Based on Charmaine's respiratory symptoms and the low emdfi-4-yjqyhbwankc level detected at [facility], we will repeat her serum A1AT level and complete A1AT genotyping to help clarify her risk and medical management. She is scheduled to see pulmonary medicine next week. Recommendations and Plan: 1. Dzskv-5-vsaxweeqqmu level and genotype. Results should be available before her pulmonary appointment next week. 2. We encouraged Charmaine to speak with her pulmonary provider next week regarding options for smoking cessation programs that might be most helpful for her. 3. I offered to provide Charmaine with a family letter summarizing information about her results andany relevant risks once her testing is completed. 45 minutes of my 45 minute encounter with this patient was spent in face to face genetic counselingregarding rsvxw-6-ednkcowfkhk deficiency and testing. Светлана Finch MS, [facility] Licensed Genetic Counselor [phone] EM: [email or web address] documented in this encounter Plan of Treatment Scheduled Orders Name Type Priority Associated Diagnoses Orde r Schedule A1AT Serum Concentration Lab Routine Abnormal laboratory test Low plasma alpha-1 antitrypsin Pulmonary emphysema, unspecified emphysema type SOB (shortness of breath) Chronic cough Expected: 03/30/2018, Expires: 09/29/2018 documented as of this encounter Visit Diagnoses Diagnosis Low plasma alpha-1 antitrypsin- Primary Abnormal laboratory test Other abnormal clinical finding Pulmonary emphysema, unspecified emphysema type SOB (shortness of breath) Shortness of breath Chronic cough Cough documented in this encounter Care Teams Work Adjustment Instructor Relationship Specialty Start Date End Date Ze Edwards MD PCP - General General Internal Medicine 02/03/1802/21 documented as of this encounter
--- OUTSIDE RECORDS SUMMARY | 2024-06-01 13:06 | XMS_ITS | Encounter Summary ---
Author Organization [facility] [place] [address] Care Team Providers Care Dry Paste Supervisor Name Role Phone Ze Edwards MD Primary Care Provider [phone] Reason for Visit * - Closed Specialty Diagnoses / Procedures Referred By Bakari t Referred To Contact Procedures Film Library- Storage Only CT Chest Abdomen Pelvis Ze Edwards MD [address] [place] [address] Referral ID Status Reason Start Date Expiration Date Visits Re quested Visits Authorized [id number] Closed 08/26/2020 08/26/2021 1 1 Encounter Details Date Type Department Care Team (Late st Contact Info) Description 03/29/2020 12:05 AM EDT Ancillary Procedure Radiology Library [place] [id number] Ze Edwards MD [address] [place] [address] Social History Tobacco Use Types Packs/Day Years [...] STORAGE ONLY CT CHEST ABDOMEN PELVIS Routine 03/29/2020 12:05 AM EDT documented in this encounter Results * Film Library- Storage Only CT Chest Abdomen Pelvis (03/29/2020 12:05 AM EDT) Narrative GARRY - 08/26/2020 3:26 PM EST This exam is auto-finalizing. It's purpose is for storage only. Ze Edwards MD IMG FILM LIBRARY ORD ERABLES Performing Organization Address City/State/[facility] Co de Phone Number [place], [place] documented in this encounter Visit Diagnoses Not on filedocumented in this encounter Care Teams Dry Paste Supervisor Relationship Specialty Start Date End Date Ze Edwards MD PCP - General General Internal Medicine 02/03/1802/21 documented as of this encounter
--- OUTSIDE RECORDS SUMMARY | 2024-06-01 13:06 | XMS_ITS | Encounter Summary ---
Author Organization [facility] [place] [address] Care Team Providers Care Armhole Baster Jumpbasting Name Role Phone Ze Edwards MD Primary Care Provider [phone] Reason for Referral * Diagnostic Test (Routine) - Closed Specialty Diagnoses / Procedures Referred By Contac t Referred To Contact Radiology Diagnoses Radiculopathy of lumbar region Closed fracture of transverse process of lumbar vertebra, sequela Procedures MRI Lumbar Spine wo Contrast (Generic) Deja Aldridge APRN [facility] [place] [address] [place] [address] Referral ID Status Reason Start Date Expiration Date V isits Requested Visits Authorized [id number] Closed Specialty Service Requested 12/24/2020 06/26/2022 1 1 Reason for Visit * Reason Comments Follow-up Encounter Details Date Type Department Care Team (Latest Contact Info) Description 12/24/2020 3:30 PM EDT TH Visit (TeleHealth) [place] [address] Deja Aldridge APRN [facility] [place] [address] Radiculopathy of lumbar region; Closed fracture of [...] - Inhaled Oxygen Concentration - - Weight 61.2 kg (135 lb) 12/24/2020 1:09 PM EDT Height 165.1 cm (5' 5) 12/24/2020 1:09 PM EDT Body Mass Index 22.47 12/24/2020 1:09 PM EDT documented in this encounter Progress Notes * Deja Aldridge, [employer] - 12/24/2020 3:30 PM EDT [facility] [place] [address] Phone: PAIN MANAGEMENT TELEPHONE VISIT FOLLOW UP VISIT NOTE DATE OF VISIT 12/24/20 Patient Charmaine Santana 1985 REFERRING PROVIDER Norberto Nuñez MD [address] [place] [address] PRIMARY CARE PROVIDER Ze Edwards MD Date [...] following: Patient Location: ( ) Work Home (XX) Physician Location: ( X) Clinic ( ) [...] to a work related injury. She is following up regarding the xrays that were done to evaluate her coccyx and sacrum. She continues to be off of work due to the pain but remains busy during the day. She still has leg pain but feels that most of her pain now is in her sacrum and coccyx area. She alternates taking aleve or tylenol prn. 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 MEDICATIONS Medications 12/24/20 1312 Medication Sig Taking? Mometasone-Formoterol (Dulera MDI) 200-5 [...] Yes ADVERSE DRUG REACTIONS Allergies as of 12/24/2020 - Review Complete 12/24/2020 Allergen Reaction Noted ??? Ancef [cefazolin in dextrose (iso-os)] Anaphylaxis 08/14/2014 ??? Fentanyl Anaphylaxis 08/14/2014 ??? Venomil honey bee venom [hymenoptera allergenic extract] Anaphylaxis 03/23/2019 ??? Codeine phosphate Nausea And Vomiting ??? Allergen nws-dmlnd-ycvlh bee ??? Gabapentin 03/23/2019 ??? Latuda [lurasidone] 04/07/2018 ??? Morphine 04/07/2018 ??? Sulfa (sulfonamide antibiotics) ??? Venom-wasp ??? Umxpz-fusye-zbhmx hornet ??? Venom-yellow hornet ??? Venom-yellow jacket ??? Hydromorphone 03/23/2019 IMAGING STUDIES Xray sacrum and coccyx No SI joint arthropathy No fracture sacrum or coccyx. Normal lower lumbar area which is seen in the field. PHYSICAL EXAMINATION Physical Exam: On limited telephonic [...] bend at hips while standing ASSESSMENT Charmaine Santana is a 35 y.o. 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 Her current pain is clearly attributed to her work related injury. 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 The most recent imaging from 10/19 shows that there is still residual edema at the site of the fractures, suggesting that she is still healing. It has been 7 months since her injury. Xrays of the sacrum and coccyx are normal. PLAN/RECOMMENDATIONS Reveiwed imaging results with patient Discussed smoking cessation due to inflammatory nature of nicotine which can increase pain and can cause delay of healing She will continue to do home PT exercises. Will recheck MRI lumbar spine in one month. To be done here and we will attempt to coordinate f/u visit same day. She needs to be seen in person for physical examination. consider Ganglion Impar block vs. Coccygeal NB but would need to be seen in person for physical examination May consider FRP for her to improve her function once her fractures have healed. Completed w/c form Time spent on this visit reflects time evaluating the patient pre-visit, during the visit and post-visit. Total time spent 20 minutes by telephone with additional 10 minutes in coordination of care and documentation. Deja Aldridge APRN documented in this encounter Plan of Treatment Not on file documented as of this encounter Results * MRI Lumbar Spine wo Contrast (Generic) (04/23/2021 4:24 PM EDT) Anatomical Region Laterality Modality L-spine Magnetic Resonan ce Impressions 04/23/2021 8:17 PM EDT Mild disc degeneration. Comment: The following findings are so common in people without low back pain that while we report their presence, they must be interpreted with caution and in context of the clinical situation (Reference- Gelyvik Et Al, Spine 2001). Findings: (Prevalence in patients without [...] who have questions please contact the health rn care transition that requested your imaging first. ? Narrative 04/23/2021 8:17 PM EDT EXAMINATION: MRI LUMBAR SPINE WO CONTRAST (GENERIC) CLINICAL HISTORY: Lumbar radiculopathy, > 6 wks; Lumbar radiculopathy, trauma f/u on continued pain following L1-L4 transverse process fractures. MRI 3 months ago still showed edema at site. TECHNIQUE: MRI of the lumbar spine performed without intravenous contrast administration. COMPARISON: MRI 10/22/2020 FINDINGS: Alignment is normal. Marrow signal is normal. Conus is normal in signal and terminates at L1-2. Abdominal aorta is normal in caliber. T12-L1: Normal. L1-2: Normal. L2-3: Minimal disc bulge without significant stenosis. L3-4: Mild disc bulge without significant stenosis. L4-5: Left foraminal disc protrusion with mild mass effect on the exiting left L4 nerve root. Facet arthropathy mildly narrowing the foramina. L5-S1: No significant stenosis. Procedure Note Davian Herr MD - 04/23/2021 EXAMINATION: MRI LUMBAR SPINE WO CONTRAST (GENERIC) CLINICAL HISTORY: Lumbar radiculopathy, > 6 wks; Lumbar radiculopathy,trauma f/u on continued pain following L1-L4 transverse process fractures. MRI 3months ago still showed edema at site. TECHNIQUE: MRI of the lumbar spine performed without intravenous contrastadministration. COMPARISON: MRI 10/22/2020 FINDINGS: Alignment is normal. Marrow signal is normal. Conus is normal in signaland terminates at L1-2. Abdominal aorta is normal in caliber. T12-L1: Normal. L1-2: Normal. L2-3: Minimal disc bulge without significant stenosis. L3-4: Mild disc bulge without significant stenosis. L4-5: Left foraminal disc protrusion with mild mass effect on the exitingleft L4 nerve root. Facet arthropathy mildly narrowing the foramina. L5-S1: No significant stenosis. IMPRESSION Mild disc degeneration. Comment: The following findings are so common in people without low backpain that while we report their presence, they must be interpreted with cautionand in context of the clinical situation (Reference- Gelyvik Et Al, [id number]). Findings: (Prevalence in patients without low back [...] patients who have questions please contactthe health rn care transition that requested your imaging first. Electronically signed by: Davian Herr MD, [facility]([phone]), at 04/23/2021 8:17 PM Deja Aldridge APRN IMG MRI ORDERABLES documented in this encounter Visit Diagnoses Diagnosis Radiculopathy of lumbar region Thoracic or lumbosacral neuritis or radiculitis, unspecified Closed fracture of transverse process of lumbar vertebra, sequela documented in this encounter Care Teams Armhole Baster Jumpbasting Relationship Specialty Start Date End Date Ze Edwards MD PCP - General General Internal Medicine 02/03/1802/21 documented as of this encounter
--- OUTSIDE RECORDS SUMMARY | 2024-06-01 13:06 | XMS_ITS | Encounter Summary ---
Author Organization [facility] [place] [address] Care Team Providers Care Mutual Fund Accountant Name Role Phone Ze Edwards MD Primary Care Provider [phone] Encounter Details Date Type Department Care Team (Latest Contact Info) Description 04/07/2018 9:47 AM EDT - 04/07/2018 11:59 PM EDT Hospital [place] [id number] Chronic obstructive pulmonary disease, unspecified COPD type Discharge Disposition: Home Social History Tobacco Use [...] 04/07/2018 06/03/2021 documented as of this encounter Procedure Notes * Mera Jonas MD - 04/07/2018 11:59 PM EDTAssociated Order(s): PULMONARY FUNCTION TEST Pulmonary Function Test Interpretation Spirometry The FVC is normal. FEV1 is normal. The FEV1/FVC ratio is Mildly reduced. Diffusion Capacity [...] all inhaler type administration Mera Jonas MD documented in this encounter Plan of Treatment Not on file documented as of this encounter Procedures Procedure Name Priority Date/Time Associated Diagnosis Comments COMMON PULMONARY FUNCTION TEST Routine 04/07/2018 11:59 PM EDT Chronic obstructive pulmonary disease, unspecified COPD type documented in this encounter Results * Pulmonary Function Testing [...] type documented in this encounter Care Teams Mutual Fund Accountant Relationship Specialty Start Date End Date Ze Edwards MD PCP - General General Internal Medicine 02/03/18/3 documented as of this encounter
--- OUTSIDE RECORDS SUMMARY | 2024-06-01 13:06 | XMS_ITS | Encounter Summary ---
Author Organization [facility] [place] [address] Care Team Providers Care Professional Fee Coder Name Role Phone Carmen Smith APRN Primary Care Provider [phone] Reason for Referral * Consultation (Routine) - Closed Specialty Diagnoses / Procedures Referred By Contac t Referred To Contact [facility] Diagnoses Radiculopathy of lumbar region Traumatic coccydynia Closed fracture of transverse process of lumbar vertebra, sequela Sacral back pain [facility] - FRP Deja Aldridge APRN [facility] [place] [address] [facility] [place] [address] Referral ID Status Reason Start Date Expiration Date V isits Requested Visits Authorized [id number] Closed Consult, Test & Treat 08/27/2021 08/27/2022 1 1 Encounter Details Date Type Department Care Team (Late st Contact Info) Description 08/27/2021 Orders Only [facility] [place] [address] Deja Aldridge APRN [facility] [place] [address] Radiculopathy of lumbar region; Traumatic coccydynia; Closed fracture of transverse process of lumbar vertebra, sequela; Sacral back pain Social History Tobacco Use Types Packs/Day Years Used Date Smoking Tobacco: Some Days Cigarettes 1 18 Smokeless Tobacco: Never Sex and Gender Information Value Date Recorded Sex Assigned at Not on file Gender Identity Not on file Sexual Orientation Not on file documented as of this encounter Plan of Treatment Scheduled Referrals [...] of lumbar vertebra, sequela Sacral back pain Disorders of sacrum documented in this encounter Care Teams Professional Fee Coder Relationship Specialty Start Date End Date Carmen Smith, ELIZABETH [address] [place] [address] PCP - General Family Medicine 04/10/21 documented as of this encounter
--- OUTSIDE RECORDS SUMMARY | 2024-06-01 13:06 | XMS_ITS | Encounter Summary ---
Author Organization [facility] [place] [address] Care Team Providers Care Sheet Metal Duct Installer Apprentice Name Role Phone Ze Edwards MD Primary Care Provider [phone] Reason for Referral * Diagnostic Test (Routine) - Closed Specialty Diagnoses / Procedures Referred By Contac t Referred To Contact Radiology Diagnoses Closed fracture of transverse process of lumbar vertebra, sequela Radiculopathy of lumbar region Procedures MRI Lumbar Spine wo Contrast (Generic) Deja Aldridge APRN [facility] [place] [address] [place] [address] Referral ID Status Reason Start Date Expiration Date V isits Requested Visits Authorized [id number] Closed Specialty Service Requested 10/22/2020 06/20/2021 1 1 Reason for Visit * Diagnostic Test (Routine) - Closed Specialty Diagnoses / Procedures Referred By Contac t Referred To Contact Radiology Diagnoses Closed fracture of transverse process of lumbar vertebra, sequela Radiculopathy of lumbar region Procedures MRI Lumbar Spine wo Contrast (Generic) Deja Aldridge APRN [facility] [place] [address] [place] [address] Referral ID Status Reason Start Date Expiration Date V isits Requested Visits Authorized [id number] Closed Specialty Service Requested 10/22/2020 06/20/2021 1 1 Encounter Details Date Type Department Care Team (Latest Contact Info) Description 10/22/2020 9:35 AM EDT - 10/22/2020 9:38 AM EDT [facility] [place] [address] Deja Aldridge, ELIZABETH [facility] [place] [address] Closed fracture of transverse process of lumbar vertebra, sequela; Radiculopathy of lumbar region Discharge Disposition: Home Social History Tobacco Use [...] Progress Notes * Devika Jeffers RN - 10/22/2020 10:24 AM EDT MRI PRE-SEDATION ASSESSMENT NOTE NAME: Charmaine Santana AGE: 35 y.o. : 1985 [address] [facility] [address] Female [phone] (home) Telephone Information: eZ Edwards MD None Allergies Allergen Reactions ??? Ancef [Cefazolin In Dextrose (Iso-Os)] Anaphylaxis ??? Fentanyl Anaphylaxis ??? Venomil Honey Bee Venom [Hymenoptera Allergenic Extract] Anaphylaxis ??? Codeine Phosphate Nausea And Vomiting ??? Allergen Nbo-Vfkev-Ervzx Bee ??? Gabapentin Lightheadedness; dizziness; depression ??? Latuda [Lurasidone] SEIZURES ??? Morphine IRRITABLE ??? Sulfa (Sulfonamide Antibiotics) Body shakes ??? Venom-Wasp ??? Phvrw-Rgeik-Dwypk Hornet ??? Venom-Yellow Hornet ??? Venom-Yellow Jacket ??? Hydromorphone Mild dizziness and lightheadedness Date/Time of call: October 17, 2020/9:53 AM/ PREVIOUS MRI SCAN? At [facility] SCHEDULED SCAN: MRI LUMBAR SPINE WITHOUT CONTRAST [[id number]] SUBJECTIVE: claustrophobia and anxiety CAN YOU LAY FLAT? Yes AIRWAY/BREATHING ISSUES? Inhaler for prevention, NA DO YOU HAVE ANY INVOLUNTARY MOVEMENTS? No DO YOU HAVE ANY PAIN? No DO YOU TAKE PAIN MED ON A DAILY BASIS? No ASSESSMENT: okay to PO sedate PLAN: valium 5-10mg PO ordered (emb) You must have a armored car driver present when you check in. This patient has been informed that they require a armored car driver to drive them home after this procedure. In the absence of a armored car driver, IR will not be able to sedate for your scan. Pt verbalized understanding of these instructions during the pre-procedure education via phone. Yes Name of armored car driver: Sally Phone number: [phone] PRIOR SCAN DATE/S SEDATION TYPE SUCCESSFUL 10/22/20 MRI Lumbar Spine wo Valium 5 mg PO Pt not wanting 2nd pill Yes Revised 11/16/17 documented in this encounter Plan [...] who have questions please contact the health career law clerk that requested your imaging first. ? Narrative [...] extremity leg pain, numbness, and weakness. Hx L1-[id number] process fx. Pain along L4 and L5 [...] the clinical situation (Reference- Gelyvik et al, [id number]). Findings: (Prevalence in patients without low back [...] patients who have questions please contactthe health career law clerk that requested your imaging first. Deja Aldridge APRN IMG MRI ORDERABLES documented in this encounter Visit Diagnoses Diagnosis Closed fracture of transverse process of lumbar vertebra, sequela Radiculopathy of lumbar region Thoracic or lumbosacral neuritis or radiculitis, unspecified documented in this encounter Administered Medications Inactive Administered Medications - up to 3 most recent administrations Medication Order MAR Action Action Date Dose Rate Site diazePAM (Valium) tablet 5 mg 5 mg, Oral, EVERY 30 MIN PRN, 2 doses, Starting on Wed10/22/20 at 0722, Until Wed10/23/20 at 0434, Anxiety, Angio/IR (Day of Procedure), Routine Given 10/22/2020 9:52 AM EDT 5 mg documented in this encounter Care Teams Sheet Metal Duct Installer Apprentice Relationship Specialty Start Date End Date Ze Edwards MD PCP - General General Internal Medicine 02/03/18 9/3 documented as of this encounter
--- OUTSIDE RECORDS SUMMARY | 2024-06-01 13:06 | XMS_ITS | Encounter Summary ---
Author [facility] [place] [address] Care Team Providers Care Automation Application Engineer Name Role Phone Suresh Hicks MD Primary Care Provider [phone] Reason for Visit * Reason Comments Cyst Encounter Details Date Type Department Care Team (Late st Contact Info) Description 10/13/2010 2:30 PM EDT Office Visit Dermatology [address] [place] [address] [address] [place] [address] Tramaine Felder MD [address] [place] [address] RD, [place] [address] Epidermal cyst (Primary Dx) Social History Tobacco Use Types Packs/Day Years Used Date Smoking Tobacco: Never Assessed Sex and Gender Information Value Date Recorded Sex Assigned at Not on file Gender Identity Not on file Sexual Orientation Not on file documented as of this encounter Progress Notes * Tramaine Felder MD - 10/13/2010 3:15 PM EDT Problem: Right cheek cyst. Tami is now 25, I last saw her when she was [age]. She has had trouble for about two years with a follicular cyst on the right cheek. It seemed to develop after she was bit by her mother's cockatoo. The patient does smoke. She has not had problems with other cysts. The cyst has not drained. It is not tender. It has not been symptomatic other than slowly growing. She is very self-conscious about it. Physical examination reveals a 7 mm follicular cyst present on the right cheek just above the right angle of her mouth. There is no overlying erythema. It is not symptomatic or tender to touch. Assessment & Plan: Follicular cyst right cheek. a. Discussed diagnosis. b. Discussed surgical excision as treatment of choice. c. Discussed the procedure and mild scarring that it would entail. Discussed postoperative wound care. d. Will schedule on the next available basis. This will likely be this summer. The patient understands and agrees. Will set aside a 45-minute time slot. CC: Suresh Hicks MD documented in this encounter Plan of Treatment Not on file documented as of this encounter Visit Diagnoses Diagnosis Epidermal cyst- Primary Sebaceous cyst documented in this encounter Care Teams Automation Application Engineer Relationship Specialty Start Date End Date Suresh Hicks MD [address] [place] [address] PCP - General 05/13/10 02/02/18 documented as of this encounter
--- OUTSIDE RECORDS SUMMARY | 2024-06-01 13:06 | XMS_ITS | Encounter Summary ---
Author Organization [facility] [place] [address] Care Team Providers Care Night Time Babysitter Name Role Phone Luis Carmen ELIZABETH Primary Care Provider [phone] Reason for Visit * Diagnostic Test (Routine) - Closed Specialty Diagnoses / Procedures Referred By Contac t Referred To Contact Radiology Diagnoses Radiculopathy of lumbar region Closed fracture of transverse process of lumbar vertebra, sequela Procedures MRI Lumbar Spine wo Contrast (Generic) Deja Aldridge APRN [facility] [place] [address] [place] [address] Referral ID Status Reason Start Date Expiration Date V isits Requested Visits Authorized [id number] Closed Specialty Service Requested 12/24/2020 06/26/2022 1 1 Encounter Details Date Type Department Care Team (Latest Contact Info) Description 04/23/2021 12:25 PM EDT - 04/23/2021 11:59 PM EDT Hospital [place] [address] Deja Aldridge APRN [facility] [place] [address] Discharge Disposition: Home Social History [...] lumbar vertebra, sequela documented in this encounter Results * MRI [...] context of the clinical situation (Reference- Quoc Et Al, Spine 2001). Findings: (Prevalence in [...] who have questions please contact the health rehab care assistant that requested your imaging first. ? Electronically signed by: Davian Herr MD, [facility] ([phone]), at 04/23/2021 8:17 PM Narrative 04/23/2021 8:17 PM EDT EXAMINATION: MRI [...] context of the clinical situation (Reference- Lizzk Et Al, [id number]). Findings: (Prevalence in patients without low back [...] patients who have questions please contactthe health rehab care assistant that requested your imaging first. Deja Aldridge APRN IMG MRI ORDERABLES documented in this encounter Visit Diagnoses Not on filedocumented in this encounter Care Teams Night Time Babysitter Relationship Specialty Start Date End Date Carmen Smith APRN [address] [facility] [address] PCP - General Family Medicine 04/10/21 documented as of this encounter
--- OUTSIDE RECORDS SUMMARY | 2024-06-01 13:06 | XMS_ITS | Encounter Summary ---
[facility] [place] [address] Care Team Providers Care Funeral Service Apprentice Name Role Phone Ze Edwards MD Primary Care Provider [phone] Encounter Details Date Type Department Care Team (Late st Contact Info) Description 01/30/2021 Telephone [place] [address] Elissa Mcdonald Social History Tobacco Use Types Packs/Day Years Used Date Smoking Tobacco: Some Days Cigarettes 1 18 Smokeless Tobacco: Never Sex and Gender Information Value Date Recorded Sex Assigned at Not on file Gender Identity Not on file Sexual Orientation Not on file documented as of this encounter Miscellaneous Notes * Telephone Encounter - Elissa Mcdonald - 01/30/2021 9:37 AM EDT For Prior Authorizations: Judy W/C Attn: Bill ext [id number] documented in this encounter Plan of Treatment Not on file documented as of this encounter Visit Diagnoses Not on filedocumented in this encounter Care Teams Funeral Service Apprentice Relationship Specialty Start Date End Date Ze Edwards MD PCP - General General Internal Medicine 02/03/18 9/3 documented as of this encounter
--- OUTSIDE RECORDS SUMMARY | 2024-06-01 13:06 | XMS_ITS | Encounter Summary ---
Author Organization [facility] Address [facility] [place] [address] Care Team Providers Care Inside Sales Account Executive Name Role Phone Ze Edwards MD Primary Care Provider [phone] Encounter Details Date Type Department Care Team (Late st Contact Info) Description 03/23/2019 Orders Only Cardiology at [address] [place] [address] Xavi Aaron MD [facility] [place] [address] Encounter to establish care (Primary Dx); SVT (supraventricular tachycardia) Social History Tobacco Use Types Packs/Day Years [...] as of this encounter Visit Diagnoses Diagnosis Encounter to establish care- Primary Other reasons for seeking consultation SVT (supraventricular tachycardia) Other specified cardiac dysrhythmias documented in this encounter Care Teams Inside Sales Account Executive Relationship Specialty Start Date End Date Ze Edwards MD PCP - General General Internal Medicine 02/03/18 9/3 documented as of this encounter
[2024-06-01 20:25] LABS: Abs Immature Grans 0.03 10^3/uL (0.0-0.06); Absolute Basophil Count 0.06 10^3/uL (0.0-0.2); Absolute Eosinophil Count 0.09 10^3/uL (0.0-0.7); Absolute Monocyte Count 0.66 10^3/uL (0.1-0.8); Absolute Neutrophil Count 7.02 10^3/uL (1.2-6.7); Basophils % 0.6 %; Eosinophils % 0.9 %; HCT 44.1 % (36.0-46.0); HGB 14.7 g/dL (11.2-15.7); Immature Grans % 0.3 %; Lymphocytes % 21.9 %; MCH 29.4 pg (27.0-33.0); MCHC 33.3 % (32.0-36.0); MCV 88 fL (80-95); MPV 11.3 fL (8.0-11.0); Monocytes % 6.6 %; Neutrophils % 69.7 %; Platelet Count 222 10^3/uL (130-400); RDW 12.7 % (11.7-14.6); RDW-SD 41.6 fL; WBC 10.06 10^3/uL (4.4-10.8)
[2024-06-01 20:44] LABS: ALT 27 U/L (14-59); AST 36 U/L (15-37); Albumin 4.2 g/dL (3.4-5.0); Alkaline Phosphatase 67 U/L (46-116); Anion Gap 9.5 mmol/L (3-11); BUN 11 mg/dL (7-18); Bilirubin, Total 0.29 mg/dL (0.2-1.0); CO2 26.5 mmol/L (21.0-32.0); CREATININE 0.8 mg/dL (0.55-1.02); Calcium 9.1 mg/dL (8.5-10.1); Chloride 104 mmol/L (98-107); Estimated GFR 97.26 (mL/min/1.73m2); Glucose 97 mg/dL (74-106); Potassium 4.2 mmol/L (3.5-5.1); Sodium 140 mmol/L (136-145); Total Protein 7.4 g/dL (6.4-8.2)
[2024-06-01 20:47] LABS: Prothrombin Time 9.7 sec (9.1-11.1)
[2024-06-04 16:21] LABS: Lamotrigine <0.2 mcg/mL (3.0-15.0)
== END 2024-06-01 13:04 | disposition home or self-care (01) ==
LOC: NCHCN 13:03
PROVIDERS: Visit Provider Nurse Practitioner Family
DX: F31.9 Bipolar disorder, unspecified (principal); Z51.81 Encounter for therapeutic drug level monitoring; R58 Hemorrhage, not elsewhere classified
CPT/HCPCS: 80053; 80175; 85025; 85610

== ENCOUNTER 2024-08-28 16:05 | Emergency (ER) | payer MEDICAID, SELFPAY ==
[2024-08-28 16:12] VITALS: BP 115/61; PULSE 64; RESP 20; TEMP 36.7; O2SAT 99
--- NOTE | 2024-08-28 16:15 | DI.RAD_ITS ---
Exam(s) XR KNEE LT 3V AP,LAT,MARISA EXAM: XR KNEE LT 3V AP,LAT,MARISA CLINICAL HISTORY: knee pain. TECHNIQUE: 2D digital imaging was performed. COMPARISON: No exams were available for comparison FINDINGS: 3 views There is no evidence of obvious fracture but there is a prominent joint effusion signifying internal derangement. Bone density normal. No osseous lesions. No joint space narrowing. IMPRESSION: No acute osseous findings but there is a prominent joint effusion which signifies a presence of an in ternal derangement. DATA REPOSITORY: RADIATION DOSE DELIVERED:
--- NOTE | 2024-08-28 18:00 | W.ED.GENAD ---
Discharge Plan Disposition Patient Disposition: Home Condition: Stable Discharge Details Clinical Impression: Internal derangement of left knee Primary Care Provider: Carleen Rodriguez ED Provider: Javier Shepherd Home Meds and New Rx's Prescriptions: Continued dexmethylphenidate [Focalin XR] 30 mg capsule,ER biphasic 50-50 30 mg PO DAILY hydroxyzine HCl 25 mg tablet 25 mg PO QHS lamotrigine 150 mg tablet 150 mg PO DAILY Discharge Instructions Instructions: Internal Derangement of the Knee Additional Instructions: You were seen in the emergency department for your likely ligamentous injury of your left knee, you have a joint effusion which usually indicates a damage to an internal structure of the knee. There is no fracture same, you need to rest, ice, compress and elevate your knee often over the next 1 to 2 weeks. The more swelling you get down the better your image quality of your MRI will be when you see orthopedics. Please use therapeutic dosing of Tylenol (acetamenophen) & Advil (ibuprofen) in an alternating fashion as follows: Take 1000mg of Tylenol every 6 hours without missing doses- that is 4 times per day. [place] in between the Tylenol dosings, take 400-600mg of Advil also on a 6 hour schedule, that is also 4 times per day. The daily maximum dosing of Tylenol is 4000mg, and the daily maximum dosing of Advil is 2400mg. This is safe to do for weeks. Please note that some common cold medications & prescription pain medications may contain acetamenophen and you need to read OTC drug labels and factor that in to maximum daily dosings. Please use [id number] Voltaren gel as desired 2-3 times per day to help with swelling as well, remain in your hinged knee brace, return for any signs of neurovascular compromise distal to the left knee. I have placed you on orthopedic follow-up list to see the orthopedic practice here at [facility], if you have not heard from them in the next few days please call them to arrange for scheduling. Referrals: [facility] [Provider Group] Carleen Rodriguez [Primary Care Provider] - Discharge Data Discharge Date/Time-TO BE ENTERED AT DEPARTURE: 08/28/24 18:52 HPI General Date/Time Provider Initiated Documentation: 08/28/24 16:21. HPI Narrative: 38 year-old female presents to ED today by POV/ambulating with her daughter with a chief complaint of L knee pain after a ski crash on a fun box on 08/26. Patient is R-foot dominant. Quality described as pain at the lateral left posterior knee, feels unstable, no radiation to complete numbness, swelling distal to the knee, endorses knee swelling, denies redness or warmth to touch, is able to walk on it and range it with slight limited to pain. Severity is described as moderate. Palliating factors include nothing specific attempted. Provoking factors include walking and with certain movements. Events leading up to the incident/Associated Symptoms: Patient is surgery na?ve in this knee. Patient not anticoagulated. Related Data Home Medications ?Medication ?Instructions ?Recorded ?Confirmed dexmethylphenidate 30 mg 30 mg PO DAILY 02/11/21 08/28/24 capsule,extended release [id number] (Focalin XR) hydroxyzine HCl 25 mg tablet 25 mg PO QHS 01/21/23 08/28/24 lamotrigine 150 mg tablet 150 mg PO DAILY 01/21/23 08/28/24 Allergies Allergy/AdvReac Type Severity Reaction Status Date / Time cefazolin sodium (From Ancef) Allergy Severe Bradycardia Verified 08/28/24 16:16 & hives fentanyl Allergy Severe Hives and Verified 08/28/24 16:16 Bradycardia venom-honey bee (bee venom Allergy Severe Anaphylaxsi Verified 08/28/24 16:16 (honey bee)) s lurasidone HCl (From Latuda) Allergy seizure Verified 08/28/24 16:16 codeine (Codeine) AdvReac Intermediate Nausea/vomi Verified 08/28/24 16:16 tting Sulfa (Sulfonamide AdvReac Intermediate Body Shakes Verified 08/28/24 16:16 Antibiotics) hydromorphone AdvReac Mild Dizziness/L Verified 08/28/24 16:16 ightheade gabapentin AdvReac light Verified 08/28/24 16:16 headed /dizzy/depressed morphine AdvReac I get Verified 08/28/24 16:16 very ugly General Stated Complaint: Orthopedic MINNA: 4 Review of Systems All systems reviewed & are unremarkable except as noted in HPI and below Exam Narrative Exam Narrative: GENERAL APPEARANCE: Well-nourished, non-toxic, awake and alert, atraumatic, no acute distress. SKIN: Warm, pink, dry, intact, without rashes/lesions/ulcerations. HEAD: Normocephalic, atraumatic, normal hair distribution for gender/age. EYES: Normal conjunctiva, no exudates on lids/lashes. ENT: Nares patent, no circumoral cyanosis, no facial swelling NECK: Supple, trachea midline, painless cervical ROM. LUNGS/CHEST: Non-labored respirations, normal A/P diameter, symmetrical expansion, no chest wall deformity HEART (CV/PV): No peripheral edema, no JVD. ABDOMEN: Soft, non-distended, no guarding. MSK: Normal ROM, no swelling/deformity to bilateral UEs or LEs, moving all extremities without weakness, no cyanosis, spine midline without tenderness, normal curvature, tenderness to the left lateral popliteal fossa, mild joint line tenderness, left knee is swollen with patella mobile, no crepitus to femur or tibia or fibular head, Kate negative, no ligamentous laxity with varus/valgus forces or anterior drawer and Almas's test NEURO: Mental Status AAOx4 - alert to person, place, time, events No facial droop, no forehead involvement. Motor: No focal weakness - strength 5/5 in bilateral UEs and LEs, proximal and distal, symmetric. Sensory: sensation intact to light touch globally. Gait antalgic. PSYCH: euthymic, cooperative, pleasant, appropriate speech Course Vital Signs Vital signs: Vital Signs Temperature 36.7 C 08/28/24 16:12 Pulse 64 08/28/24 16:12 Respiratory Rate 20 08/28/24 16:12 Blood Pressure 115/61 08/28/24 16:12 Pulse Oximetry 99 08/28/24 16:12 Temperature 36.7 C 08/28/24 16:12 Pulse 64 08/28/24 16:12 Respiratory Rate 20 08/28/24 16:12 Blood Pressure 115/61 08/28/24 16:12 Blood Pressure Position Sitting 08/28/24 16:12 Pulse Oximetry 99 08/28/24 16:12 Oxygen Delivery Method Room Air 08/28/24 16:12 Oxygen Flow Rate 0 08/28/24 16:12 Medical Decision Making This dictation utilizes [id number] dictation software and may contain unedited grammatical errors. 38 year-old female presents to ED today by POV/ambulating with her daughter with a chief complaint of L knee pain after a ski crash on a fun box on 08/26. Patient is R-foot dominant. Quality described as pain at the lateral left posterior knee, feels unstable, no radiation to complete numbness, swelling distal to the knee, endorses knee swelling, denies redness or warmth to touch, is able to walk on it and range it with slight limited to pain. Severity is described as moderate. Palliating factors include nothing specific attempted. Provoking factors include walking and with certain movements. Events leading up to the incident/Associated Symptoms: Patient is surgery na?ve in this knee. Patients' medical history: History of traumatic fracture of vertebrae, substance abuse, Q fever, history appendectomy, COPD, left hemiparesis, gait instability, alpha-1 antitrypsin deficiency, anxiety, asthma, GERD, paroxysmal SVT. Family and social history: Enjoys skiing, eats normal diet. Pertinent exam findings / vital signs include tenderness to the left lateral popliteal fossa, mild joint line tenderness, left knee is swollen with patella mobile, no crepitus to femur or tibia or fibular head, Kate negative, no ligamentous laxity with varus/valgus forces or anterior drawer and Almas's test. Differential / pathologies of concern include ligamentous injury of L knee, fracture. Diagnostic studies of: -XR L Knee - no acute fracture, shows effusion. Interventions of: -Hinged Knee Brace, declined crutches. ED Course/Assessment/Plan: 38-year-old female had a ski injury 2 days ago, has left knee pain with swelling, likely internal derangement of left knee, counseled her on using the hinged knee brace and performing considerable RICE therapy and therapeutic dosing of Tylenol and ibuprofen and placed her on the list for orthopedic follow-up, strict return for signs of neurovascular compromise distal to the left knee. Findings not consistent with fracture or neurovascular compromise. Disposition of internal derangement of left knee. Patient verbalized understanding of the plan and return to ED criteria and engaged in shared decision making. Medical Records Medical records reviewed: Yes I reviewed the patient's medical records. Imaging Data Radiologic Study: Attestation: I personally reviewed and interpreted this imaging study as follows: Imaging: X-Ray Radiologist's impression: EXAM: XR KNEE LT 3V AP,LAT,MARISA CLINICAL HISTORY: knee pain. TECHNIQUE: 2D digital imaging was performed. COMPARISON: No exams were available for comparison FINDINGS: 3 views There is no evidence of obvious fracture but there is a prominent joint effusion signifying internal derangement. Bone density normal. No osseous lesions. No joint space narrowing. IMPRESSION: No acute osseous findings but there is a prominent joint effusion which signifies a presence of an internal derangement. Quality:SDOH Health Related Social Needs: No Data to Display PFSH All Active Problems (Updated 08/28/24 @ 18:30 by THADDEUS Alatorre) Internal derangement of left knee (Acute) Warts of foot (Acute) Foot pain, left (Acute) Emphysema due to [id number] deficiency (Acute) Hypoglycemia (Acute) COPD (chronic obstructive pulmonary disease) (Chronic) Palpitations (Acute) Closed fracture of transverse process of lumbar vertebra (Acute) Fall from ladder (Acute) Functional neurological symptom disorder with mixed symptoms (Acute) Dysphonia (Acute) Left hemiparesis (Acute) Gait instability (Acute) Bipolar disorder (Chronic) Panic disorder (Chronic) 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 started young. Depression (Chronic 12/01/13) Anxiety (Chronic) Asthma (Chronic) Attention deficit hyperactivity disorder (Chronic) GERD (gastroesophageal reflux disease) (Chronic) Cannabis abuse, continuous (Chronic 12/16/14) Paroxysmal supraventricular tachycardia (Chronic) Medical History Cholestasis of (12/16/14) History of Q fever (10/25/17) History of traumatic fracture of vertebra Intrahepatic cholestasis of (11/27/14) Outcome of delivery, single liveborn (12/17/14) Pharyngitis Postoperative wound cellulitis (12/25/14) 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 Pt is continuing baby ASA daily for this examination or test, positive result (05/07/14) Pruritic condition Right lower quadrant pain (02/05/13) Diagnostic laparoscopy; laparoscpic appendectomy by Dr. Tae Alejandra on 02-05-2013. Ruptured cyst of ovary (02/05/13) Diagnostic laparoscopy and incidental laparoscopic appendectomy done by Dr Tae Alejandra on 02-05-2013. Substance abuse (12/01/13) opiates, alcohol Supervision of other normal (05/15/14) Tetrahydrocannabinol (THC) use disorder, mild, abuse (07/10/14) URI (upper respiratory infection) Wound infection following section, (12/27/14) Surgical History Appendectomy Arthroplasty of knee (L) section X 2 Tonsillectomy Family History Mother Depression Hx of suicide attempt Stroke Hyperlipidemia Father , Intentional overdose at age 40. 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, 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 Pets and animals: Yes Pets and animals: dog(s) Sexually active: Yes Do you think of yourself as: straight/heterosexual Current gender identity: female What is your relationship status?: living with partner How often do you talk on the phone with friends or family?: three or more times per week How often do you get together with friends or relatives?: twice per week How often do you attend christian or jew services?: decline to answer Do you belong to any clubs or organized social groups?: no Panel score (0-1 are the most socially isolated patients): 2 What type of physical activity do you participate in: none Adelia/Nondenominational: None Special adelia needs: No Seatbelt use: never Helmet use: Yes Helmet use: always Drive intox or ride 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
[2024-08-28 18:10] VITALS: BP 114/62; PULSE 70
--- NOTE | 2024-08-29 09:41 | NUR.NOTE ---
Access chart to get the discharge diagnosis for [facility] billing requisition. Nursing Note:
== END 2024-08-28 18:52 | disposition home or self-care (01) ==
PROVIDERS: Emergency Provider Physician Assistant; PCP Nurse Practitioner Family
DX: M23.8X2 Other internal derangements of left knee (principal); M25.462 Effusion, left knee; W00.0XXA Fall on same level due to ice and snow, initial encounter; Y93.23 Activity, snow (alpine) (downhill) skiing, snowboarding, sledding, tobogganing and snow tubing; Y92.838 Other recreation area as the place of occurrence of the external cause
CPT/HCPCS: 73562; 99283

== ENCOUNTER 2024-09-27 13:04 | Outpatient (REF) | payer MEDICAID, SELFPAY ==
[2024-09-27 15:37] LABS: HCT 41.1 % (36.0-46.0); HGB 13.8 g/dL (11.2-15.7); MCH 29.7 pg (27.0-33.0); MCHC 33.6 % (32.0-36.0); MCV 88 fL (80-95); MPV 11.3 fL (8.0-11.0); Platelet Count 223 10^3/uL (130-400); RBC 4.65 10^6/uL (3.93-5.22); RDW 12.3 % (11.7-14.6); RDW-SD 40.3 fL
[2024-09-27 16:04] LABS: ESR 5 mm/hr (0-20)
[2024-09-27 16:11] LABS: C-Reactive Protein < 0.50 mg/dL (<or=0.5)
[2024-09-29 18:16] LABS: Tissue Transglutaminase Ab IgA <1.2 U/mL (<4.0); Tissue Transglutaminase Ab IgG 1.2 U/mL
== END 2024-09-27 13:05 | disposition home or self-care (01) ==
LOC: NCHCN 13:04
PROVIDERS: PCP Nurse Practitioner Family; Visit Provider Physician Assistant
DX: K92.1 Melena (principal)
CPT/HCPCS: 85027; 85652; 83516; 86140

== ENCOUNTER 2024-09-28 07:54 | Outpatient (REF) | payer MEDICAID, SELFPAY ==
[2024-10-01 14:51] LABS: Cryptosporidium, F Negative (Negative); Giardia Ag, F Negative (Negative)
[2024-10-02 17:42] LABS: Calprotectin 71.4 mcg/g
== END 2024-09-28 07:55 | disposition home or self-care (01) ==
LOC: NCHCN 07:54
PROVIDERS: PCP Nurse Practitioner Family; Visit Provider Physician Assistant
DX: K92.1 Melena (principal)
CPT/HCPCS: 87328; 87329; 83993

== ENCOUNTER 2024-11-28 06:53 | Day surgery (SDC) | payer MEDICAID, SELFPAY ==
--- NOTE | 2024-11-27 15:29 | PDOC.DSDIS_ITS ---
Date of service: 11/28/24 Discharge Plan Disposition Patient Disposition: Home Condition: Good Discharge Details Reason For Visit: Diagnostic colonoscopy Attending Provider: Anil Montez Primary Care Provider: Carleen Rodriguez Home Meds and New Rx's Prescriptions: Continued dexmethylphenidate [Focalin XR] 30 mg capsule,ER biphasic 50-50 30 mg PO DAILY hydroxyzine HCl 25 mg tablet 25 mg PO QHS lamotrigine 150 mg tablet 150 mg PO DAILY hydroxyzine HCl 50 mg tablet 50 mg PO QHS lamotrigine 25 mg tablet 25 mg PO DAILY buprenorphine-naloxone [Suboxone] 12-3 mg film 2 film buccal Q24H Rx Instructions: place 1 strip/tab under (each) side of tongue Discontinued polyethylene glycol 3350 17 gram/dose powder 238 g PO ONCE Qty: 238 0RF Rx Instructions: take per colonoscopy instructions bisacodyl [Dulcolax (bisacodyl)] 5 mg tablet,delayed release (DR/EC) 5 mg PO ONCE Qty: 4 0RF Rx Instructions: take per colonoscopy instructions Discharge Instructions Additional Instructions: Billy, it was good seeing you today, I hope you are comfortable through the procedure. Things went very smoothly. Your prep was excellent, and I could see everything fine. Your colon is a little bit redundant, but otherwise, features are generally normal-appearing. I do not see any signs of Crohn's disease or ulcerative colitis. I did advance the camera into the last part of the small intestine, which is also called the terminal ileum. This is an area that is commonly affected by Crohn's disease. This also appeared normal. I did do some biopsies here, as well as several other places along the length of your colon to see if that sheds any light on your symptoms as well. Incidentally, I found 3 polyps today. These were all quite small, nothing to worry about. I did remove these, and they will be sent to the pathologist for review since polyps, different varieties, and we use the information from polyp analysis to guide the timing of future regular screening colonoscopies. Once I have the results of the polyp report, as well as the biopsies, I will be in touch. If you need anything in the meantime, please do not hesitate to call. 1. If tolerated, consume a soft, low fiber diet for 1-2 days. [address] Do not drive, drink alcohol, operate machinery, make critical decisions, or do activities that require coordination or balance for 24 hours. 3. Because air was put into your colon during the procedure, expelling air from your rectum (passing gas or farting) is normal. 4. You may not have a bowel movement for 1-3 days because of the colonoscopy pr ep. This is normal. 5. Go directly to the emergency room if you notice any of the following: Develop chills (warm to touch), or if you have a thermometer and your temperature is above 101 Difficulty breathing or difficultly swallowing Persistent vomiting Severe abdominal pain, other than gas cramps Severe chest pain Black, tarry stools Any bleeding ? exceeding one tablespoon 6. Call your physician if the site where your intravenous was started becomes red, swollen, painful, and warm to touch. 7. Your physician has reviewed your pre-procedure medications. Please continue to take those medications as previously ordered. You will be given specific information/education regarding any changes to your medications before leaving. Stand Alone Forms: Anesthesia Discharge InstJona, Dillon Reyes (DSU) Activity:: Activity as Tolerated Diet:: As Tolerated Discharge Orders Discharge Orders: Discharge Order (Routine); Ordered 11/27/24 Ordered By: Anil Montez DS: Diagnosis Discharge Diagnosis (1) Diarrhea: Status: Inactive Asessment and Plan: Follow-up on biopsy with
--- NOTE | 2024-11-27 15:31 | W.COLOREPORT ---
Date of service: 11/28/24 Time of Service: 09:04 Colonoscopy Report Date of procedure: 11/28/24 Pre-op diagnosis general: Diarrhea Post-op diagnosis procedure note: same Procedure: Colonoscopy with biopsies and polypectomy Surgeon: Anil Montez Anesthesia Type: General:No Airway Estimated blood loss (mL): 10 Pathology: other (Nondirected biopsies of terminal ileum, and colon. 0.25 cm flat polyp at 30 cm, 0.25 cm flat polyps at 15 cm x 2) Complications: None Disposition: same day Indications: Billy is a 39-year-old woman with chronic diarrhea with occasional episodes of hematochezia Prep: Miralax/Dulcolax Procedure Start Time: 08:18 Procedure End Time: 08:51 Retraction Time: 16 Findings: Slightly redundant appearing colon, but otherwise normal in terms of mucosal appearance and architecture. No evidence of Crohn's disease or ulcerative colitis. 0.25 cm flat polyp at 30 cm, 0.25 cm flat polyps at 15 cm x 2 Procedure Description: After the induction of anesthesia, and with the patient in left lateral decubitus position, I began by performing an external anorectal exam.? Perineum and skin were normal, as was the anal verge.? There was no evidence of external hemorrhoids.? Next, I performed a digital rectal exam.? I did not appreciate any abnormal findings.? Next, I advanced a colonoscope into the rectal vault.? I performed retroflexion.? This appeared normal.? Using insufflation, I then advanced the colonoscope beyond the rectal folds and into the sigmoid colon before advancing towards the cecum.? The colon is quite redundant, and care was taken to strengthen the length, and preserve the true lumen.? The scope was noted to be in the cecum by identification of the ileocecal valve and appendiceal orifice.? I cannulated several centimeters of the terminal ileum. The mucosa here was normal, with no evidence of any ulceration or inflammation. I did do some nondirected biopsies of the terminal ileum to rule out Crohn's disease, given the patient's symptoms and family history. I then brought the camera back into the cecum, and began examining the entire length of the mucosa. I then began withdrawing the colonoscope using repeated irrigation as necessary for full evaluation of the colonic mucosa. I performed some nondirected biopsies along the length of the colonoscopy to rule out microscopic colitis. Around 30 cm from the anal verge was a 0.25 cm flat polyp. Narrowband imaging was used to assist with the analysis. Features consistent with an adenoma. This was removed with cold forceps without any issues. 2 more flat polyps were found right around 15 cm from the anal verge. These were also flat. These were also removed with cold forceps, and sent as a single specimen. Once the scope was withdrawn to the level of the rectum, great care was taken to examine portions of the rectal folds.? Finally, the scope was withdrawn and the patient was brought to the same-day surgery recovery unit as the anesthetic wore off. ?The findings and instructions were shared with the patient prior to discharge. [place] Bowel Prep [place] Bowel Prep Right Colon: 3 Left Colon: 3 Transverse Colon: 3 Total Score: 9
--- NOTE | 2024-11-27 18:35 | W.ANESPRE ---
General Info Date of Service Date Performed: 11/28/24 Height: 5 ft 5 in Weight: 54.431 kg Body Mass Index (BMI): 20.0 Surgical Procedure: Operation Date: 11/28/24 08:20 Proposed Procedure Side Surgeon lisa Montez MD Meds Allergies and Home Medications Allergies Allergy/AdvReac Type Severity Reaction Status Date / Time cefazolin sodium (From Ancef) Allergy Severe Bradycardia Verified 11/28/24 07:22 & hives fentanyl Allergy Severe Hives and Verified 11/28/24 07:22 Bradycardia venom-honey bee (bee venom Allergy Severe Anaphylaxsi Verified 11/28/24 07:22 (honey bee)) s lurasidone HCl (From Latuda) Allergy seizure Verified 11/28/24 07:22 codeine (Codeine) AdvReac Intermediate Nausea/vomi Verified 11/28/24 07:22 tting Sulfa (Sulfonamide AdvReac Intermediate Body Shakes Verified 11/28/24 07:22 Antibiotics) hydromorphone AdvReac Mild Dizziness/L Verified 11/28/24 07:22 ightheade gabapentin AdvReac light Verified 11/28/24 07:22 headed /dizzy/depressed morphine AdvReac I get Verified 11/28/24 07:22 very ugly Home Medication ?Medication ?Instructions ?Recorded dexmethylphenidate 30 mg 30 mg PO DAILY 02/11/21 capsule,extended release [id number] (Focalin XR) hydroxyzine HCl 25 mg tablet 25 mg PO QHS 01/21/23 lamotrigine 150 mg tablet 150 mg PO DAILY 01/21/23 buprenorphine 12 mg-naloxone 3 mg 2 film buccal Q24H 10/12/24 sublingual film (Suboxone) hydroxyzine HCl 50 mg tablet 50 mg PO QHS 10/12/24 lamotrigine 25 mg tablet 25 mg PO DAILY 10/12/24 Current Visit Medications: Current Medications Generic Name Dose Route Start Last Admin Trade Name Freq PRN Reason Stop Dose Admin Ringer's Solution 1,000 mls @ 80 mls/hr 11/28/24 06:00 IV 11/28/24 23:59 [facility] IV Miscellaneous Supplies 1 each 11/28/24 06:00 Iv Access IV 11/28/24 23:59 DIRECTED [facility] Ondansetron HCl 4 mg 11/27/24 15:32 Ondansetron 4 Mg/2 Ml Vial IVP 12/27/24 15:31 Q4H PRN PRN Nausea / Vomiting Sodium Chloride 0 ml 11/28/24 06:00 Normal Saline Flush 10 Ml Syr IV 11/28/24 23:59 PRN PRN Sodium Chloride 0 ml 11/28/24 06:00 Normal Saline 10 Ml Vial IJ 11/28/24 23:59 DIRECTED PRN Sterile Water 0 ml 11/28/24 06:00 Water,Injection,Sterile 10 Ml Vial IJ 11/28/24 23:59 DIRECTED PRN PFSH Active Problems Active Problems: Problem Status Onset Code Rectal bleeding Acute K62.5 Warts of foot Acute B07.9 Foot pain, left Acute M79.672 Emphysema due to qgnjo-1-tnzhsnnszni deficiency Acute J43.8, E88.01 Hypoglycemia Acute E16.2 COPD (chronic obstructive pulmonary disease) Chronic J44.9 Palpitations Acute R00.2 Closed fracture of transverse process of lumbar vertebra Acute S32.009A Fall from ladder Acute W11.XXXA Functional neurological symptom disorder with mixed symptoms Acute F44.7 Dysphonia Acute R49.0 Left hemiparesis Acute G81.94 Gait instability Acute R26.81 Bipolar disorder Chronic F31.9 Panic disorder Chronic F41.0 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/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 Anxiety Chronic 11/20/14 F41.9 Pulmonary emphysema Chronic 02/01/18 J43.9 Smoker Chronic 10/19/17 F17.200 Depression Chronic 12/01/13 F32.9 Anxiety Chronic F41.9 Asthma Chronic J45.909 Attention deficit hyperactivity disorder Chronic F90.9 GERD (gastroesophageal reflux disease) Chronic K21.9 Cannabis abuse, continuous Chronic 12/16/14 F12.10 Paroxysmal supraventricular tachycardia Chronic I47.1 Medical History Medical History Cholestasis of (12/16/14) History of Q fever (10/25/17) History of traumatic fracture of vertebra Intrahepatic cholestasis of (11/27/14) Outcome of delivery, single liveborn (12/17/14) Pharyngitis Postoperative wound cellulitis (12/25/14) 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 Pt is continuing baby ASA daily for this examination or test, positive result (05/07/14) Pruritic condition Right lower quadrant pain (02/05/13) Diagnostic laparoscopy; laparoscpic appendectomy by Dr. Tae Alejandra on 02-05-2013. Ruptured cyst of ovary (02/05/13) Diagnostic laparoscopy and incidental laparoscopic appendectomy done by Dr Tae Alejandra on 02-05-2013. Substance abuse (12/01/13) opiates, alcohol Supervision of other normal (05/15/14) Tetrahydrocannabinol (THC) use disorder, mild, abuse (07/10/14) URI (upper respiratory infection) Wound infection following section, (12/27/14) Medical History Comments:: Pt. states (L) Hemiparesis was a result of an optical migraine, and has resolved with not deficits Surgical History Surgical History Appendectomy Arthroplasty of knee (L) section X 2 Tonsillectomy Tobacco Smoking/Tobacco Use Status: Current every day Tobacco Type: cigarettes Smoking packs per day: 1 Smoking cigarettes per day: 20.0 Passive smoking exposure: Yes Second hand exposure: Yes Alcohol Alcohol Intake: former Substance Use Substance use: Occasionally Substance use type: marijuana Vital Signs and Lab Results Vital Signs Most Recent Vital Signs in EMR: Temp Pulse Resp BP Pulse Ox 36.3 C L 62 16 110/64 98 11/28/24 07:10 11/28/24 07:10 11/28/24 07:10 11/28/24 07:10 11/28/24 07:10 Lab Results Blood Type / Crossmatch: No Data to Display Complete Blood Count: No Data to Display Complete Metabolic Panel: No Data to Display Liver Function Panel: No Data to Display Coagulation Panel: No Data to Display Cardiac Panel: No Data to Display Arterial Blood Gas: No Data to Display Venous Blood Gas: No Data to Display Pancreas Panel: No Data to Display Thyroid Panel: No Data to Display Infectious Disease: No Data to Display Blood Cultures: No Data to Display Toxicology Panel: No Data to Display Panel: No Data to Display Anesthesia Assessment and Plan Anesthesia History Personal History: No History of Anesthesia Complications Family History: No Family History of Anesthesia Complications Exercise Tolerance Exercise Tolerance: Metabolic Equivalents>4 Cardiac & Pulmonary Exam Cardiac Exam: Normal S1/S2 Heart Sounds Pulmonary Exam: Clear Bilateral Breath Sounds Implantable Cardiac Device Does patient have a Pacemaker or an ICD?: No Airway Exam Known Difficult Airway: No Mallampati Class: 2 Mouth Opening: Normal (> 3cm) Thyromental Distance: Greater than 3 cm Neck Range of Motion: Full ROM Neck Circumference: Normal Teeth Condition: Normal Dentition ASA Classification ASA Score: ASA 2 Emergency Case?: No NPO Status NPO Status: NPO Clears >2 hours, Solids >8 hours Status Status: Negative HCG Anesthesia Plan Resuscitation Status: Full Code Anesthesia Technique: General Anesthesia Airway Planned: Natural Airway Monitors Used: Standard Monitors Preoperative Comments:: 39 yo female with sensitivities to opioids and cefazolin. Sig PMHx: pSVT (denies), COPD, alpha 1 antitrypsin, smoker (cannabis/tobacco), GERD (denies, ? R/T ), anxiety, bipolar,
[2024-11-28 07:10] VITALS: BP 110/64; PULSE 62; RESP 16; TEMP 36.3; O2SAT 98
[2024-11-28] MEDS: Lactated Ringers 1,000 ML 80 ML IV (07:38)
--- NOTE | 2024-11-28 08:40 | BOWEL_PTH ---
PATIENT: Billy Santana LOC: [facility] U#:[id number] AGE/SX: 39/F ROOM: RE11/28/[address]: Anil Montez MD : 1985 BED: DIS: 11/28/2024 SPEC #: [id number] RECD: 11/28/24 12:42 STATUS: ABISAI REQ #: [id number] HAI: 11/28/24 08:[address]: Anil Montez DEPT: Surgical Specimen RECD BY: Viri Salinas ENTERED: 11/28/24 12:47 SP TYPE: Bowel OTHR DR: Carleen Rodriguez Tissues: 1 - BIOPSY BOWEL 2 - BIOPSY BOWEL 3 - BIOPSY BOWEL 4 - BIOPSY BOWEL Procedures: GROSS AND MICRO LEVEL 4 Comments: [id number]
[2024-11-28 08:55] VITALS: BP 125/78; PULSE 57; RESP 16; TEMP 36.4; O2SAT 100
--- NOTE | 2024-11-28 09:10 | W.ANESPOSTOP ---
Postoperative Evaluation Date, Time and Location Date Performed: 11/28/24 Time Performed: 09:11 Patient Location: Day Surgery Unit Vital Signs Most Recent Imported Vital Signs: Most Recent Vital Signs Temp Pulse Resp BP Pulse Ox 36.4 C L 57 L 16 125/78 100 11/28/24 08:55 11/28/24 08:55 11/28/24 08:55 11/28/24 08:55 11/28/24 08:55 Pain Score Most Recent Pain Score: Most Recent Pain Score Pain Level 0 11/28/24 08:55 Assessment Mental Status: Awake (Alert & Oriented to Patient Baseline) Airway and Respiratory Function: Patent airway with normal (patient baseline) respiratory exam Cardiovascular Function: Hemodynamically Stable Hydration Status: Adequately Hydrated Nausea & Vomiting: No Nausea or Vomiting Pain: Pt. Denies Any Pain Peripheral Nerve Block: Patient did not receive a nerve block
[2024-11-28 09:22] VITALS: BP 138/89; PULSE 51; RESP 16; TEMP 36.5; O2SAT 100
== END 2024-11-28 09:34 | disposition home or self-care (01) ==
LOC: SUR 06:55
PROVIDERS: PCP Nurse Practitioner Family; Visit Provider Surgery
PROC: 0DJD8ZZ Inspection of Lower Intestinal Tract, Via Natural or Artificial Opening Endoscopic (ICD-10-PCS; CPT 45378; principal; 2024-11-28 08:15)
DX: R19.7 Diarrhea, unspecified (principal); Z83.79 Family history of other diseases of the digestive system; J44.9 Chronic obstructive pulmonary disease, unspecified; F17.210 Nicotine dependence, cigarettes, uncomplicated; D12.5 Benign neoplasm of sigmoid colon; K63.89 Other specified diseases of intestine
CPT/HCPCS: 45380; 81025; 88305; J2704

== ENCOUNTER 2025-06-04 12:07 | Outpatient (REF) | payer MEDICAID, SELFPAY ==
[2025-06-04 15:19] LABS: Hemoglobin A1C 5.0 % (<5.7)
[2025-06-04 15:32] LABS: Cholesterol 187 mg/dL (<200); HDL Cholesterol 51 mg/dL (>40)
== END 2025-06-04 12:08 | disposition home or self-care (01) ==
LOC: NCHCN 12:07
PROVIDERS: PCP Nurse Practitioner Family
DX: Z13.220 Encounter for screening for lipoid disorders (principal); Z13.1 Encounter for screening for diabetes mellitus
CPT/HCPCS: 80061; 83036